=== PATIENT | male | born 1980 | race Caucasian/White ===

== ENCOUNTER → 2016-05-02 | Outpatient (REF) ==
--- NOTE | 2016-05-02 10:47 | REP ---
PARTIAL LUMBAR SPINE, THREE VIEWS: HISTORY: Degenerative disc disease. There is no acute fracture or subluxation. The L5-S1 intervertebral disc is decreased in height consistent with disc degeneration. IMPRESSION: Degenerative change as described above. Signed by Hammad Heath MD 05/02/2016 10:49 A
== END ==
LOC: M SMT 10:07
PROVIDERS: ATTEND Internal Medicine
DX: Z02.71 Encounter for disability determination (principal)

== ENCOUNTER 2019-04-04 01:31 | Emergency (ER) | payer OTHER ==
[~2019-04-04] VITALS: Ht 175.3 cm; Wt 78.6 kg
[2019-04-04 02:19] LABS: HEMATOCRIT 43.3 % (42.0-52.0); HEMOGLOBIN 14.3 g/dl (13.5-17.5); MEAN CORPUSCULAR VOLUME 93.9 fl (80.0-96.0); PLATELET COUNT, AUTOMATED 272 10^3/uL (150-450); RED BLOOD COUNT 4.61 10^6/uL (4.30-6.10); WHITE BLOOD COUNT 8.7 10^3/uL (4.0-10.0)
[2019-04-04 02:49] LABS: AMPHETAMINES LEVEL URINE POSITIVE (NEGATIVE); BARBITURATES URINE NEGATIVE (NEGATIVE); BENZODIAZEPINES URINE NEGATIVE (NEGATIVE); CANNABINOIDS URINE NEGATIVE (NEGATIVE); COCAINE METABOLITE URINE NEGATIVE (NEGATIVE); METHADONE URINE NEGATIVE (NEGATIVE); OPIATES URINE NEGATIVE (NEGATIVE); PHENCYCLIDINE URINE NEGATIVE (NEGATIVE)
[2019-04-04 02:57] LABS: ACETAMINOPHEN LEVEL < 2.0 UG/ML (10.0-30.0); ALBUMIN 3.5 GM/DL (3.2-5.2); ALT/SGPT 22 U/L (12-78); BILIRUBIN,DIRECT < 0.1 MG/DL (0.0-0.2); BILIRUBIN,TOTAL 0.3 MG/DL (0.2-1.0); BLOOD UREA NITROGEN 8 MG/DL (7-18); CALCIUM LEVEL 8.1 MG/DL (8.5-10.1); CARBON DIOXIDE LEVEL 28 MEQ/L (21-32); CHLORIDE LEVEL 107 MEQ/L (98-107); CREATININE FOR GFR 1.03 MG/DL (0.70-1.30); ETHYL ALCOHOL (ETHANOL) < 0.003 % (0.000-0.010); GLOMERULAR FILTRATION RATE > 60.0 (>60); GLUCOSE, FASTING 71 MG/DL (70-100); POTASSIUM SERUM 3.4 MEQ/L (3.5-5.1); SALICYLATE LEVEL 3.2 MG/DL (5.0-30.0); SODIUM LEVEL 141 MEQ/L (136-145); TOTAL PROTEIN 6.8 GM/DL (6.4-8.2)
[2019-04-04 04:44] VITALS: BP 122/81
== END 2019-04-04 04:49 | disposition home or self-care (01) ==
LOC: M ED 01:31
DX: F43.0 Acute stress reaction (principal); Z91.5 Personal history of self-harm; F32.9 Major depressive disorder, single episode, unspecified; F17.200 Nicotine dependence, unspecified, uncomplicated; Z88.0 Allergy status to penicillin
CPT/HCPCS: 80048; 80076; 80307; 84443; 85027; 99284; G0480

== ENCOUNTER 2019-05-20 15:08 | Emergency (ER) | payer OTHER ==
[~2019-05-20] VITALS: Ht 175.3 cm; Wt 77.2 kg
[2019-05-20] MEDS ORDERED: NICOTINE 21MG/24HR 1 EA TRANSDERMAL TD ONE (16:30)
[2019-05-20] MEDS ORDERED: DILT120C89 PO (16:34)
[2019-05-20] MEDS ORDERED: ABIL1INJ2 SC (16:34)
[2019-05-20] MEDS ORDERED: OMEP-218 PO (16:34)
[2019-05-20] MEDS ORDERED: MAGN400T3 PO (16:34)
[2019-05-20] MEDS ORDERED: ALL10TAB29 PO (16:34)
[2019-05-20] MEDS ORDERED: DOCU100C16 PO (16:34)
[2019-05-20] MEDS ORDERED: PROZ20CA11 PO (16:34)
[2019-05-20 17:05] LABS: HEMATOCRIT 45.4 % (42.0-52.0); HEMOGLOBIN 14.9 g/dl (13.5-17.5); MEAN CORPUSCULAR HEMOGLOBIN 30.4 pg (27.0-33.0); MEAN CORPUSCULAR HGB CONC 32.8 g/dl (32.0-36.5); MEAN CORPUSCULAR VOLUME 92.7 fl (80.0-96.0); PLATELET COUNT, AUTOMATED 274 10^3/uL (150-450); WHITE BLOOD COUNT 7.5 10^3/uL (4.0-10.0)
[2019-05-20 17:21] LABS: AMPHETAMINES LEVEL URINE NEGATIVE (NEGATIVE); BARBITURATES URINE NEGATIVE (NEGATIVE); BENZODIAZEPINES URINE NEGATIVE (NEGATIVE); CANNABINOIDS URINE NEGATIVE (NEGATIVE); COCAINE METABOLITE URINE NEGATIVE (NEGATIVE); METHADONE URINE NEGATIVE (NEGATIVE); OPIATES URINE NEGATIVE (NEGATIVE); PHENCYCLIDINE URINE NEGATIVE (NEGATIVE)
[2019-05-20 17:32] LABS: ACETAMINOPHEN LEVEL < 2.0 UG/ML (10.0-30.0); ALBUMIN 3.7 GM/DL (3.2-5.2); ALT/SGPT 31 U/L (12-78); BILIRUBIN,DIRECT 0.1 MG/DL (0.0-0.2); BILIRUBIN,TOTAL 0.4 MG/DL (0.2-1.0); BLOOD UREA NITROGEN 8 MG/DL (7-18); CALCIUM LEVEL 8.3 MG/DL (8.5-10.1); CARBON DIOXIDE LEVEL 29 MEQ/L (21-32); CHLORIDE LEVEL 105 MEQ/L (98-107); ETHYL ALCOHOL (ETHANOL) < 0.003 % (0.000-0.010); GLOMERULAR FILTRATION RATE > 60.0 (>60); GLUCOSE, FASTING 140 MG/DL (70-100); POTASSIUM SERUM 4.1 MEQ/L (3.5-5.1); SALICYLATE LEVEL 2.5 MG/DL (5.0-30.0); SODIUM LEVEL 140 MEQ/L (136-145); TOTAL PROTEIN 6.7 GM/DL (6.4-8.2)
[2019-05-20 20:20] VITALS: BP 128/68
== END 2019-05-20 20:24 | disposition home or self-care (01) ==
LOC: M ED 15:08
DX: F43.0 Acute stress reaction (principal); F32.9 Major depressive disorder, single episode, unspecified; I10 Essential (primary) hypertension; F17.200 Nicotine dependence, unspecified, uncomplicated; Z88.0 Allergy status to penicillin
CPT/HCPCS: 80048; 80076; 80307; 84443; 85027; 99284; G0480

== ENCOUNTER → 2020-03-31 | Outpatient (REF) | payer OTHER ==
[~2020-03-31] MED LIST: ABIL1INJ2 SC; CETI-24 PO; DILT120C89 PO; DOCU100C16 PO; MAGN400T3 PO; OMEP-218 PO; PROZ20CA11 PO
[2020-03-31 17:38] LABS: APPEARANCE, URINE CLEAR (CLEAR); BACTERIA, URINE AUTO NEGATIVE (NEGATIVE); BILIRUBIN, URINE AUTO NEGATIVE (NEGATIVE); BLOOD, URINE BLOOD NEGATIVE (NEGATIVE); COLOR, URINE YELLOW (YELLOW); GLUCOSE, URINE (UA) AUTO NEGATIVE (NEGATIVE); KETONE, URINE AUTO NEGATIVE (NEGATIVE); LEUKOCYTE ESTERASE, URINE AUTO NEGATIVE (NEGATIVE); NITRITE, URINE AUTO NEGATIVE (NEGATIVE); PROTEIN, URINE AUTO NEGATIVE (NEGATIVE); RBC, URINE AUTO 3 /HPF (0-3); SPECIFIC GRAVITY URINE AUTO 1.014 (1.002-1.035); SQUAMOUS EPITHELIAL CELL UR AU 0 /HPF (0-6); UROBILINOGEN, URINE AUTO 0.2 mg/dL (0.0-2.0); WBC, URINE AUTO 0 /HPF (0-3)
== END ==
LOC: M SMT 16:50
PROVIDERS: ATTEND Nurse Practitioner Family
DX: N32.89 Other specified disorders of bladder (principal)

== ENCOUNTER 2021-01-31 07:25 | Emergency (ER) | payer OTHER ==
[~2021-01-31] VITALS: Ht 175.3 cm; Wt 81.8 kg
[~2021-01-31 07:25] MED LIST changes: -MAGN400T3 PO; +MAGN400T33 PO
--- OUTSIDE RECORDS SUMMARY | 2021-01-31 07:34 | CCD ---
Author Author [facility] Organization [facility] Address Unknown Phone Unavailable Support Name Relationship Address Phone NONE, NONE Next Of Kin - Unknown - U Next Of Kin Unknown Unavailable JC BRENNER Next Of Kin [address] [place] [id number] [employer] [place] [address] Unavailabl e BAL BRENNER Next Of [facility] [address] [place] [employer] Next Of Kin [address] [place] [address] [place] [id number] [place] [address] [employer] [address] UNKNOWN, U Next Of Kin Unknown BIRNIE BUS Next Of Kin [address] [place] [address] NONE, PT PER Next Of Kin - -, - - - COLLIN BUS Next Of Kin [address] [place] [address] Areli SHARMA Next Of Kin [address] [place] [id number] Unavailable Areli BONNER Next Of Kin [address] [place] [address] - LINCOLN COLES Next Of Kin [address] [facility] [address] [place] [address] Unavailable LUPE EUBANKS Next Of Kin [address] [place] [id number] UN Next Of Kin Unknown Unavailable ESMER ASCENCIO Next Of Kin - -, - - SRINIVAS EUBANKS Next Of Kin - -, - - - SE Next Of Kin Unknown Unavailable DAJUAN [place] [address] Areli BRENNER ECON [address] [place] [address] DAJUAN GUNDERSON ECON [address] [facility] [address] [place] [address] [phone] dajuan quarles ECON [address] [place] [address] [phone] Care Team Providers Care Cell Room Operator Name Role Phone Kathia Booth MD Unavailable Unavailable Emmy, Kathia Araujo MD Unavailable Unavailable Emmy, Kathia Araujo MD Unavailable Unavailable Emmy, Kathia Araujo MD Unavailable Unavailable Emmy, Kathia Araujo MD Unavailable Unavailable Emmy, Kathia Araujo MD Unavailable Unavailable Emmy, Kathia Araujo MD Unavailable Unavailable Emmy, Kathia Araujo MD Unavailable Unavailable Din, Kathia Araujo MD Unavailable Unavailable Emmy, Kathia Araujo MD Unavailable Unavailable Emmy, Kathia Araujo MD Unavailable Unavailable Emmy, Kathia Araujo MD Unavailable Unavailable Emmy, Kathia Araujo MD Unavailable Unavailable Emmy, Kathia Araujo MD Unavailable Unavailable Kathia Booth MD Unavailable Unavailable Emmy, Kathia Araujo MD Unavailable Unavailable Kathia Booth MD Unavailable Unavailable [place], L Rajani ENGRAVER BLOCK Unavailable Unavailable [place], L Rajani ENGRAVER BLOCK Unavailable Unavailable [place], L Rajani ENGRAVER BLOCK Unavailable Unavailable [place], L Rajani ENGRAVER BLOCK Unavailable Unavailable [place], L Rajani ENGRAVER BLOCK Unavailable Unavailable [place], L Rajani ENGRAVER BLOCK Unavailable Unavailable [place], L Rajani ENGRAVER BLOCK Unavailable Unavailable [place], L Rajani ENGRAVER BLOCK Unavailable Unavailable [place], L Rajani ENGRAVER BLOCK Unavailable Unavailable [place], L Rajani ENGRAVER BLOCK Unavailable Unavailable [place], L Rajani ENGRAVER BLOCK Unavailable Unavailable [place], L Rajani ENGRAVER BLOCK Unavailable Unavailable [place], L Rajani ENGRAVER BLOCK Unavailable Unavailable KOPIDLANSKYZuleyka PROCESS ENGINEER-NETWORKER-C Unavailable Unava ilable KOPIDLANSKYZuleyka PROCESS ENGINEER-NETWORKER-C Unavailable Unava ilable KOPIDLANSKYZuleyka PROCESS ENGINEER-NETWORKER-C Unavailable Unava ilable KOPIDLANSKYZuleyka APRN-NETWORKER-C Unavailable Unava ilable KOPIDLANSKYZuleyka PROCESS ENGINEER-NETWORKER-C Unavailable Unava ilable KOPIDLANSKYZuleyka APRN-NETWORKER-C Unavailable Unava ilable KOPIDLANSKYZuleyka APRN-NETWORKER-C Unavailable Unava ilable KOPIDLANSKYZuleyka PROCESS ENGINEER-NETWORKER-C Unavailable Unava ilable KOPIDLANSKY, Zuleyka WU APRN-NETWORKER-C Unavailable Unava ilable KOPIDLANSKY, Zuleyka WU APRN-NETWORKER-C Unavailable Unava ilable KOPIDLANSKY, Zuleyka WU APRN-NETWORKER-C Unavailable Unava ilable KOPIDLANSKY, Zuleyka WU APRN-NETWORKER-C Unavailable Unava ilable KOPIDLANSKY, Zuleyka WU APRN-NETWORKER-C Unavailable Unava ilable KOPIDLANSKY, Zuleyka WU APRN-NETWORKER-C Unavailable Unava ilable KOPIDLANSKY, Zuleyka WU APRN-NETWORKER-C Unavailable Unava ilable KOPIDLANSKY, Zuleyka WU APRN-NETWORKER-C Unavailable Unava ilable KOPIDLANSKY, Zuleyka WU APRN-NETWORKER-C Unavailable Unava ilable KOPIDLANSKY, Zuleyka WU APRN-NETWORKER-C Unavailable Unava ilable KOPIDLANSKY, Zuleyka WU APRN-NETWORKER-C Unavailable Unava ilable KOPIDLANSKY, Zuleyka WU APRN-NETWORKER-C Unavailable Unava ilable KOPIDLANSKY, Zuleyka WU APRN-NETWORKER-C Unavailable Unava ilable KOPIDLANSKY, Zuleyka WU APRN-NETWORKER-C Unavailable Unava ilable KOPIDLANSKY, Zuleyka WU APRN-NETWORKER-C Unavailable Unava ilable KOPIDLANSKY, Zuleyka WU APRN-NETWORKER-C Unavailable Unava ilable KOPIDLANSKY, Zuleyka WU APRN-NETWORKER-C Unavailable Unava ilable KOPIDLANSKY, Zuleyka WU APRN-NETWORKER-C Unavailable Unava ilable KOPIDLANSKY, Zuleyka WU APRN-NETWORKER-C Unavailable Unava ilable KOPIDLANSKY, Zuleyka WU PROCESS ENGINEER-NETWORKER-C Unavailable Unava ilable KOPIDLANSKY, Zuleyka WU APRN-NETWORKER-C Unavailable Unava ilable KOPIDLANSKY, Zuleyka WU APRN-NETWORKER-C Unavailable Unava ilable KOPIDLANSKY, Zuleyka WU APRN-NETWORKER-C Unavailable Unava ilable KOPIDLANSKY, Zuleyka WU PROCESS ENGINEER-NETWORKER-C Unavailable Unava ilable Zuleyka GIRARD PROCESS ENGINEER-NETWORKER-C Unavailable Unava ilable CALE DIA MD Unavailable Unavailable CALE DIA MD Unavailable Unavailable Doctor Provided, Family PHYS No Family Unavailable U navailable Tana, P Lincoln DO Unavailable Unavailable Tana, P Lincoln DO Unavailable Unavailable Tana, P Lincoln DO Unavailable Unavailable Tana, P Lincoln DO Unavailable Unavailable Tana, P Lincoln DO Unavailable Unavailable Tana, P Lincoln DO Unavailable Unavailable Tana, P Lincoln DO Unavailable Unavailable Tana, P Lincoln DO Unavailable Unavailable Tana, P Lincoln DO Unavailable Unavailable Tana, P Lincoln DO Unavailable Unavailable Tana, P Lincoln DO Unavailable Unavailable Tana, P Lincoln DO Unavailable Unavailable Tana, P Lincoln DO Unavailable Unavailable Tana, P Lincoln DO Unavailable Unavailable Tana, P Lincoln DO Unavailable Unavailable Tana, P Lincoln DO Unavailable Unavailable Tnaa, P Lincoln DO Unavailable Unavailable Tana, P Lincoln DO Unavailable Unavailable Tana, P Lincoln DO Unavailable Unavailable Tana, P Lincoln DO Unavailable Unavailable Tana, P Lincoln DO Unavailable Unavailable Tana, P Lincoln DO Unavailable Unavailable Tana, P Lincoln DO Unavailable Unavailable Tana, P Lincoln DO Unavailable Unavailable Tana, P Lincoln DO Unavailable Unavailable Tana, P Lincoln DO Unavailable Unavailable Tana, P Lincoln DO Unavailable Unavailable Tana, P Lincoln DO Unavailable Unavailable Tana, P Lincoln DO Unavailable Unavailable Tana, P Lincoln DO Unavailable Unavailable Tana, P Lincoln DO Unavailable Unavailable Tana, P Lincoln DO Unavailable Unavailable Tana, P Lincoln DO Unavailable Unavailable Tana, P Lincoln DO Unavailable Unavailable Tana, P Lincoln DO Unavailable Unavailable Tana, P Lincoln DO Unavailable Unavailable Tana, P Lincoln DO Unavailable Unavailable Tana, P Lincoln DO Unavailable Unavailable Tana, P Lincoln DO Unavailable Unavailable Tana, P Lincoln DO Unavailable Unavailable Tana, P Lincoln DO Unavailable Unavailable Tana, P Lincoln DO Unavailable Unavailable Tana, P Lincoln DO Unavailable Unavailable Tana, P Lincoln DO Unavailable Unavailable Tana, P Lincoln DO Unavailable Unavailable Tana, P Lincoln DO Unavailable Unavailable Tana, P Lincoln DO Unavailable Unavailable Tana, P Lincoln DO Unavailable Unavailable Tana, P Lincoln DO Unavailable Unavailable Tana, P Lincoln DO Unavailable Unavailable Tana, P Lincoln DO Unavailable Unavailable Tana, P Lincoln DO Unavailable Unavailable Tana, P Lincoln DO Unavailable Unavailable Tana, P Lincoln DO Unavailable Unavailable Tana, P Lincoln DO Unavailable Unavailable Tana, P Lincoln DO Unavailable Unavailable Tana, P Lincoln DO Unavailable Unavailable Tana, P Lincoln DO Unavailable Unavailable Tana, P Lincoln DO Unavailable Unavailable Tana, P Lincoln DO Unavailable Unavailable Tana, P Lincoln DO Unavailable Unavailable Tana, P Lincoln DO Unavailable Unavailable Tana, P Lincoln DO Unavailable Unavailable Tana, P Lincoln DO Unavailable Unavailable Tana, P Lincoln DO Unavailable Unavailable Tana, P Lincoln DO Unavailable Unavailable Tana, P Lincoln DO Unavailable Unavailable Tana, P Lincoln DO Unavailable Unavailable Tana, P Lincoln DO Unavailable Unavailable Tana, P Lincoln DO Unavailable Unavailable Tana, P Lincoln DO Unavailable Unavailable Cougler, S Fredis ENGRAVER BLOCK Unavailable Unavailable Cougler, S Fredis ENGRAVER BLOCK Unavailable Unavailable Cougler, S Fredis ENGRAVER BLOCK Unavailable Unavailable Cougler, S Fredis ENGRAVER BLOCK Unavailable Unavailable Cougler, S Fredis ENGRAVER BLOCK Unavailable Unavailable Cougler, S Fredis ENGRAVER BLOCK Unavailable Unavailable Cougler, S Fredis ENGRAVER BLOCK Unavailable Unavailable Cougler, S Fredis ENGRAVER BLOCK Unavailable Unavailable Cougler, S Fredis ENGRAVER BLOCK Unavailable Unavailable Cougler, S Fredis ENGRAVER BLOCK Unavailable Unavailable Cougler, S Fredis ENGRAVER BLOCK Unavailable Unavailable Cougler, S Fredis ENGRAVER BLOCK Unavailable Unavailable Cougler, S Fredis ENGRAVER BLOCK Unavailable Unavailable Cougler, S Fredis ENGRAVER BLOCK Unavailable Unavailable Cougler, S Fredis ENGRAVER BLOCK Unavailable Unavailable Cougler, S Fredis ENGRAVER BLOCK Unavailable Unavailable Cougler, S Fredis ENGRAVER BLOCK Unavailable Unavailable Cougler, S Fredis ENGRAVER BLOCK Unavailable Unavailable Cougler, S Fredis ENGRAVER BLOCK Unavailable Unavailable Cougler, S Fredis ENGRAVER BLOCK Unavailable Unavailable Cougler, S Fredis ENGRAVER BLOCK Unavailable Unavailable Cougler, S Fredis ENGRAVER BLOCK Unavailable Unavailable Cougler, S Fredis ENGRAVER BLOCK Unavailable Unavailable Cougler, S Fredis ENGRAVER BLOCK Unavailable Unavailable Cougler, S Fredis ENGRAVER BLOCK Unavailable Unavailable Cougler, S Fredis ENGRAVER BLOCK Unavailable Unavailable Cougler, S Fredis ENGRAVER BLOCK Unavailable Unavailable Cougler, S Fredis ENGRAVER BLOCK Unavailable Unavailable Cougler, S Fredis ENGRAVER BLOCK Unavailable Unavailable Cougler, S Fredis ENGRAVER BLOCK Unavailable Unavailable Cougler, S Fredis ENGRAVER BLOCK Unavailable Unavailable Cougler, S Fredis ENGRAVER BLOCK Unavailable Unavailable Cougler, S Fredis ENGRAVER BLOCK Unavailable Unavailable Cougler, S Fredis ENGRAVER BLOCK Unavailable Unavailable Cougler, S Fredis ENGRAVER BLOCK Unavailable Unavailable Cougler, S Fredis ENGRAVER BLOCK Unavailable Unavailable Cougler, S Fredis ENGRAVER BLOCK Unavailable Unavailable Cougler, S Fredis ENGRAVER BLOCK Unavailable Unavailable Cougler, S Fredis ENGRAVER BLOCK Unavailable Unavailable Cougler, S Fredis ENGRAVER BLOCK Unavailable Unavailable Cougler, S Fredis ENGRAVER BLOCK Unavailable Unavailable Cougler, S Fredis ENGRAVER BLOCK Unavailable Unavailable Cougler, S Fredis ENGRAVER BLOCK Unavailable Unavailable Cougler, S Fredis ENGRAVER BLOCK Unavailable Unavailable AMNA, A JULIEN PA Unavailable Unavailable AMNA, A JULIEN PA Unavailable Unavailable AMNA, A JULIEN PA Unavailable Unavailable AMNA, A JULIEN PA Unavailable Unavailable AMNA, A JULIEN PA Unavailable Unavailable AMNA, A JULIEN PA Unavailable Unavailable AMNA, A JULIEN PA Unavailable Unavailable AMNA, A JULIEN PA Unavailable Unavailable AMNA, A JULIEN PA Unavailable Unavailable AMNA, A JULIEN PA Unavailable Unavailable AMNA, A JULIEN PA Unavailable Unavailable AMNA, A JULIEN PA Unavailable Unavailable AMNA, A JULIEN PA Unavailable Unavailable Geovani Zimmerman MD Unavailable Unavailable Geovani Zimmerman MD Unavailable Unavailable Geovani Zimmerman MD Unavailable Unavailable Geovani Zimmerman MD Unavailable Unavailable Geovani Zimmerman MD Unavailable Unavailable Geovani Zimmerman MD Unavailable Unavailable Geovani iZmmerman MD Unavailable Unavailable Geovani Zimmerman MD Unavailable Unavailable Geovani Zimmreman MD Unavailable Unavailable Geovani Zimmerman MD Unavailable Unavailable Geovani Zimmerman MD Unavailable Unavailable Geovani Zimmerman MD Unavailable Unavailable Geovani Zimmerman MD Unavailable Unavailable Geovani Zimmerman MD Unavailable Unavailable Tana, P Lincoln DO Unavailable Unavailable Tana, P Lincoln DO Unavailable Unavailable Tana, P Lincoln DO Unavailable Unavailable Tana, P Lincoln DO Unavailable Unavailable Tana, P Lincoln DO Unavailable Unavailable Tana, P Lincoln DO Unavailable Unavailable Tana, P Lincoln DO Unavailable Unavailable Tana, P Lincoln DO Unavailable Unavailable Tana, P Lincoln DO Unavailable Unavailable Tana, P Lincoln DO Unavailable Unavailable Tana, P Lincoln DO Unavailable Unavailable Tana, P Lincoln DO Unavailable Unavailable Tana, P Lincoln DO Unavailable Unavailable Tana, P Lincoln DO Unavailable Unavailable Tana, P Lincoln DO Unavailable Unavailable Tana, P Lincoln DO Unavailable Unavailable Tana, P Lincoln DO Unavailable Unavailable Tana, P Lincoln DO Unavailable Unavailable Tana, P Lincoln DO Unavailable Unavailable Tana, P Lincoln DO Unavailable Unavailable Tana, P Lincoln DO Unavailable Unavailable Tana, P Lincoln DO Unavailable Unavailable Tana, P Lincoln DO Unavailable Unavailable Tana, P Lincoln DO Unavailable Unavailable Tana, P Lincoln DO Unavailable Unavailable Tana, P Lincoln DO Unavailable Unavailable Tana, P Lincoln DO Unavailable Unavailable Tana, P Lincoln DO Unavailable Unavailable Atna, P Lincoln DO Unavailable Unavailable Tana, P Lincoln DO Unavailable Unavailable Tana, P Lincoln DO Unavailable Unavailable Tana, P Lincoln DO Unavailable Unavailable Tana, P Lincoln DO Unavailable Unavailable Tana, P Lincoln DO Unavailable Unavailable Tana, P Lincoln DO Unavailable Unavailable Tana, P Lincoln DO Unavailable Unavailable Tana, P Lincoln DO Unavailable Unavailable Tana, P Lincoln DO Unavailable Unavailable Tana, P Lincoln DO Unavailable Unavailable Tana, P Lincoln DO Unavailable Unavailable Tana, P Lincoln DO Unavailable Unavailable Tana, P Lincoln DO Unavailable Unavailable Tana, P Lincoln DO Unavailable Unavailable Tana, P Lincoln DO Unavailable Unavailable Tana, P Lincoln DO Unavailable Unavailable Tana, P Lincoln DO Unavailable Unavailable Tana, P Lincoln DO Unavailable Unavailable Tana, P Lincoln DO Unavailable Unavailable Tana, P Lincoln DO Unavailable Unavailable Tana, P Lincoln DO Unavailable Unavailable Tana, P Lincoln DO Unavailable Unavailable Tana, P Lincoln DO Unavailable Unavailable Tana, P Lincoln DO Unavailable Unavailable Tana, P Lincoln DO Unavailable Unavailable Tana, P Lincoln DO Unavailable Unavailable Tana, P Lincoln DO Unavailable Unavailable Tana, P Lincoln DO Unavailable Unavailable Tana, P Lincoln DO Unavailable Unavailable Tana, P Lincoln DO Unavailable Unavailable Tana, P Lincoln DO Unavailable Unavailable Tana, P Lincoln DO Unavailable Unavailable Tana, P Lincoln DO Unavailable Unavailable Tana, P Lincoln DO Unavailable Unavailable Tana, P Lincoln DO Unavailable Unavailable Tana, P Lincoln DO Unavailable Unavailable Tana, P Lincoln DO Unavailable Unavailable Tana, P Lincoln DO Unavailable Unavailable Tana, P Lincoln DO Unavailable Unavailable Tana, P Lincoln DO Unavailable Unavailable Tana, P Lincoln DO Unavailable Unavailable Tana, P Lincoln DO Unavailable Unavailable SANDEEP, OSCAR MD Unavailable Unavailable SANDEEP, OSCAR MD Unavailable Unavailable SANDEEP, OSCAR MD Unavailable Unavailable SANDEEP, OSCAR MD Unavailable Unavailable SANDEEP, OSCAR MD Unavailable Unavailable NESTOR EISENBERG MD Unavailable Unavailable NESTOR EISENBERG MD Unavailable Unavailable NESTOR EISENBERG MD Unavailable Unavailable NESTOR EISENBERG MD Unavailable Unavailable NESTOR EISENBERG MD Unavailable Unavailable NESTOR EISENBERG MD Unavailable Unavailable Kathia CORTEZ MD Unavailable Unavailable Kathia CORTEZ MD Unavailable Unavailable Kathia CORTEZ MD Unavailable Unavailable Kathia CORTEZ MD Unavailable Unavailable Kathia CORTEZ MD Unavailable Unavailable Kathia CORTEZ MD Unavailable Unavailable Kathia CORTEZ MD Unavailable Unavailable Kathia CORTEZ MD Unavailable Unavailable Kathia CORTEZ MD Unavailable Unavailable Kathia CORTEZ MD Unavailable Unavailable Kathia CORTEZ MD Unavailable Unavailable Kathia CORTEZ MD Unavailable Unavailable Kathia CORTEZ MD Unavailable Unavailable Kathia CORTEZ MD Unavailable Unavailable Kathia CORTEZ MD Unavailable Unavailable Kathia CORTEZ MD Unavailable Unavailable Kathia CORTEZ MD Unavailable Unavailable Kathia CORTEZ MD Unavailable Unavailable Kathia CORTEZ MD Unavailable Unavailable Kathia CORTEZ MD Unavailable Unavailable Kathia CORTEZ MD Unavailable Unavailable Kathia CORTEZ MD Unavailable Unavailable Kathia CORTEZ MD Unavailable Unavailable Kathia CORTEZ MD Unavailable Unavailable Kathia CORTEZ MD Unavailable Unavailable Kathia CORTEZ MD Unavailable Unavailable Kathia CORTEZ MD Unavailable Unavailable Kathia CORTEZ MD Unavailable Unavailable Kathia CORTEZ MD Unavailable Unavailable Kathia CORTEZ MD Unavailable Unavailable Kathia CORTEZ MD Unavailable Unavailable Kathia CORTEZ MD Unavailable Unavailable Kathia CORTEZ MD Unavailable Unavailable Kathia CORTEZ MD Unavailable Unavailable Kathia CORTEZ MD Unavailable Unavailable Kathia CORTEZ MD Unavailable Unavailable Kathia CORTEZ MD Unavailable Unavailable Kathia CORTEZ MD Unavailable Unavailable Kathia CORTEZ MD Unavailable Unavailable Kathia CORTEZ MD Unavailable Unavailable Kathia CORTEZ MD Unavailable Unavailable Kathia CORTEZ MD Unavailable Unavailable Kathia CORTEZ MD Unavailable Unavailable Kathia CORTEZ MD Unavailable Unavailable Kathia CORTEZ MD Unavailable Unavailable Kathia CORTEZ MD Unavailable Unavailable Areli NORTON MD Unavailable Unavailable Areli NORTON MD Unavailable Unavailable Areli NORTON MD Unavailable Unavailable Areli NORTON MD Unavailable Unavailable Areli NORTON MD Unavailable Unavailable Areli NORTON MD Unavailable Unavailable Areli NORTON MD Unavailable Unavailable Areli NORTON MD Unavailable Unavailable PARSHALL, A DAJUAN MD Unavailable Unavailable PARSHALL, A DAJUAN MD Unavailable Unavailable PARSHALL, A DAJUAN MD Unavailable Unavailable PARSHALL, A DAJUAN MD Unavailable Unavailable PARSHALL, A DAJUAN MD Unavailable Unavailable PARSHALL, A DAJUAN MD Unavailable Unavailable PARSHALL, A DAJUAN MD Unavailable Unavailable PARSHALL, A DAJUAN MD Unavailable Unavailable PARSHALL, A DAJUAN MD Unavailable Unavailable PARSHALL, A DAJUAN MD Unavailable Unavailable PARSHALL, A DAJUAN MD Unavailable Unavailable PARSHALL, A DAJUAN MD Unavailable Unavailable PARSHALL, A DAJUAN MD Unavailable Unavailable PARSHALL, A DAJUAN MD Unavailable Unavailable PARSHALL, A DAJUAN MD Unavailable Unavailable PARSHALL, A DAJUAN MD Unavailable Unavailable PARSHALL, A DAJUAN MD Unavailable Unavailable PARSHALL, A DAJUAN MD Unavailable Unavailable PARSHALL, A DAJUAN MD Unavailable Unavailable PARSHALL, A DAJUAN MD Unavailable Unavailable PARSHALL, A DAJUAN MD Unavailable Unavailable PARSHALL, A DAJUAN MD Unavailable Unavailable PARSHALL, A DAJUAN MD Unavailable Unavailable PARSHALL, A DAJUAN MD Unavailable Unavailable JAVIER, SILVINO PA Unavailable Unavailable JAVIER, SILVINO PA Unavailable Unavailable JAVIER, SILVINO PA Unavailable Unavailable JAVIER, SILVINO PA Unavailable Unavailable JAVIER, SILVINO PA Unavailable Unavailable JAVIER, SILVINO PA Unavailable Unavailable JAVIER, SILVINO PA Unavailable Unavailable Pedro, Geovani Brady PA-C Unavailable Unavailable Pedro, M Brady PA-C Unavailable Unavailable Christopher, Kathi Unavailable Unavailable Christopher, Kathi Unavailable Unavailable Christopher, Kathi Unavailable Unavailable Christopher, Kathi Unavailable Unavailable Christopher, Kathi Unavailable Unavailable Christopher, Kathi Unavailable Unavailable Armida, [id number] MD Juma CHEUNG Unavailable Unavailable Armida, [id number] MD Juma CHEUNG Unavailable Unavailable Armida, [id number] MD Juma CHEUNG Unavailable Unavailable CHANLIECGERMAIN, C GURPREET CHEUNG Unavailable Unavailable CHANLIECCO, C GURPREET CHEUNG Unavailable Unavailable CHANLIECCO, C GURPREET MD Unavailable Unavailable CHANLIECCO, C GURPREET MD Unavailable Unavailable CHANLIECCO, C GURPREET MD Unavailable Unavailable CHANLIECCO, C GURPREET MD Unavailable Unavailable CHANLIECCO, C GURPREET MD Unavailable Unavailable CHANLIECCO, C GURPREET MD Unavailable Unavailable CHANLIECCO, C GURPREET MD Unavailable Unavailable CHANLIECCO, C GURPREET MD Unavailable Unavailable CHANLIECCO, C GURPREET MD Unavailable Unavailable Re-disclosure Warning The records that you are about to access may contain information from federally-assisted alcohol or drug abuse programs. If such information is present, then the following federally mandated warning applies: This information has been disclosed to you from records protected by federal confidentiality rules (42 CFR part 2). The federal rules prohibit you from making any further disclosure of this information unless further disclosure is expressly permitted by the written consent of the person to whom it pertains or as otherwise permitted by 42 CFR part 2. A general authorization for the release of medical or other information is NOT sufficient for this purpose. The Federal rules restrict any use of the information to criminally investigate or prosecute any alcohol or drug abuse patient.The records that you are about to access may contain highly sensitive health information, the redisclosure of which is protected by Article 27-F of the [facility] Public Health law. If you continue you may have access to information: Regarding HIV / AIDS; Provided by facilities licensed or operated by the [facility] Office of Mental Health; or Provided by the [facility] Office for People With Developmental Disabilities. If such information is present, then the following [facility] mandated warning applies: This information has been disclosed to you from confidential records which are protected by state law. State law prohibits you from making any further disclosure of this information without the specific written consent of the person to whom it pertains, or as otherwise permitted by law. Any unauthorized further disclosure in violation of state law may result in a fine or mcc sentence or both. A general authorization for the release of medical or other information is NOT sufficient authorization for further disc losure. Allergies and Adverse Reactions Type Description Substance Reaction Status Data Source(s ) Drug allergy penicillin G Penicillin G Anaphylaxis [facility] Drug allergy Carbapenems Carbapenems Rash [place] [facility] Drug allergy Cephalosporins Cephalosporins Angioedema [facility] Drug allergy Penicillins Penicillin Anaphylaxis [facility] Drug allergy promethazine HCl promethazine HCl Dizzyness [place] O ther, not listed [facility] Drug allergy Drug allergy [facility]icillins [facility] Drug allergy Penicillins Penicillins Anaphylaxis [facility] Propensity to adverse reactions NO ALLERGIES ON FILE NO ALLERGIES ON FILE [facility] Propensity to adverse reactions PROMETHAZINE Promethazine Dizziness L ow [facility] Propensity to adverse reactions CARBAPENEMS CARBAPENEMS Rash Med [facility] Propensity to adverse reactions PENICILLINS PENICILLINS Anaphylaxis H igh [facility] Propensity to adverse reactions PENICILLIN G Penicillin G Anaphylaxis [facility] Propensity to adverse reactions CEPHALOSPORINS CEPHALOSPORINS Swellin g High [facility] Family History Family Member Name Family Member Gender Family Member Status Date o f Status Description Data Source(s) Unknown Condition [facility] Unknown [facility] Unknown [facility] Unknown Condition [facility] Unknown Condition [facility] Unknown Condition [facility] Unknown Condition [facility] Unknown Condition [facility] Unknown Condition [facility] Unknown Condition [facility] Unknown Condition [facility] Condition [facility] Condition [facility] Condition [facility] Condition [facility] Condition [facility] Condition [facility] Condition [facility] Condition [facility] Condition [facility] Condition [facility] Condition [facility] Condition [facility] Condition [facility] Condition [facility] Condition [facility] Condition [facility] Condition [facility] Condition [facility] Unknown Condition [facility] Unknown Condition [facility] Unknown Condition [facility] Unknown Condition [facility] Unknown Condition [facility] Unknown Condition [facility] Encounters Encounter Providers Location Date Indications Data Source(s ) Emergency Attender: GURPREET KUHN MDConsultant: Herman Fajardo DO 12/12/2020 03:00:00 PM EDT - 12/12/2020 03:45:00 PM EDT [facility] Patient discharged. Preadmit Attender: Lincoln Fajardo DO 12/08/2020 12:00:00 AM EDT I10,E78.00 [facility] I10,E78.00 Outpatient Attender: Rajani Yoo ENGRAVER BLOCK 10/13/2020 02:55:00 PM EDT [facility] Outpatient Attender: Rajani Yoo NPReferrer: Lincoln Fajardo DO 10/13/2020 02:30:00 PM EDT - 10/13/2020 03:08:[address] [facility] Emergency Attender: SILVINO REYNOSO ED-ED 08/11 06:45:00 PM EDT - 08/11/2020 07:44:00 PM EDT DOG BITE SWOLLEN LEFT HAND [facility] DOG BITE SWOLLEN LEFT HAND Patient discharged. Outpatient Attender: Lincoln Fajardo DOReferrer: Lincoln Fajardo DO 07/29/2020 03:16:00 PM EDT [facility] Out[facility] Attender: Lincoln Fajardo DO 06/28/2020 06:06:00 PM EDT [facility] Preadmit Attender: Lincoln Fajardo DO 06/22/2020 12:00:00 AM EDT I10,E78.00 [facility] I10,E78.00 Outpatient Attender: Kathi WhiteReferrer: Lincoln Fajardo DO 04/27/2020 10:06:00 AM [facility] - 04/27/2020 10:22:00 AM EST [facility] Outpatient Attender: Mohit VILLANUEVAeferrer: Lincoln Fajardo DO 04/20/2020 12:56:00 PM [facility] 04/20/2020 01:06:00 PM EST [facility] Outpatient Attender: Kathi WhiteReferrer: Lincoln Fajardo DO 04/16/2020 09:39:00 AM [facility] 04/16/2020 10:06:00 AM EST [facility] Outpatient Attender: Kathi WhiteReferrer: Lincoln Fajardo DO 04/12/2020 02:45:00 PM [facility] - 04/12/2020 03:06:00 PM EST [facility] Emergency Attender: DAJUAN NORTON MD 04/12 02:16:00 PM EST - 04/12/2020 02:45:00 PM EST BLOOD IN CATHETER,ABDOMINAL PAIN [facility] BLOOD IN CATHETER,ABDOMINAL PAIN Patient discharged. Emergency Attender: Fredis Conte NP ED-ED 04/10 09:21:00 PM EST - 04/10/2020 09:55:00 PM EST BURNING PRESSURE SWOLLEN AREA CATH IS [facility] BURNING PRESSURE SWOLLEN AREA CATH IS Patient discharged. Outpatient Attender: [id number] Juma Huffman MDAttender: Mohit peterson MD 04/08/2020 09:06:00 AM EST - 04/08/2020 08:05:00 PM EST K40.90/LAP BILATERAL INGUIAL HERNIA REPAIR [id number] [facility] K40.90/[place] [id number] Patient discharged. (Cysto1) Urology [address] [place] [address] 04/07/2020 12:00:00 AM EST eCW1 ([facility]) Outpatient Attender: Lincoln Fajardo DOReferrer: Lincoln Fajardo DO 04/06/2020 12:42:00 PM EST [facility] Outpatient Attender: [id number] Juma Huffman MDReferrer: Mami Fajardo DO 04/06/2020 11:43:00 AM EST - 04/06/2020 12:17:00 PM EST [facility] Outpatient [address] [facility] [id number] 03/31/2020 12:00:00 AM EST eCW1 ([facility]) Inpatient Attender: OSCAR HOPKINS MDAtten samantha: HOMER DIA MDAttender: NESTOR EISENBERG MDAdmitter: HOMER DIA MD ER-3RD 03/22/2020 07: 36:00 PM EST - 03/26/2020 11:05:00 AM EST [facility] Patient discharged. Emergency Attender: Brady Pedro PA-C 11/2019 07:10:00 PM EST - 03/16/2020 09:13:00 PM EST HEADACHE[facility]BNESS [facility]HE[facility]NUMBN[facility] HANDS Patient discharged. INPATIENT Attender: Van Booth MDAdmi tter: Van Booth MDConsultant: LUKE CORTEZ MD 2E-2C 03/13/2020 06:00:00 AM EST - 03/13/2020 02:05:00 PM EST [facility] Patient discharged. Emergency Attender: Brady Pedro PA-C 08/2019 12:54:00 AM EST - 03/13/2020 04:45:00 AM EST DIZZINESS [facility] l DIZZINESS Patient discharged. Outpatient CPSCAORT-LABEJN 03/08/2020 10:15:00 AM [facility] Emergency Attender: JULIEN REYNOSO ED-ED 03/07 04:43:00 PM EST - 03/07/2020 06:27:00 PM [facility] GROIN PAIN [facility] GROIN PAIN Patient discharged. Outpatient Attender: [id number] Juma Huffman MD 03/02/2020 08 :57:00 AM EST PREOP [facility] PREOP Outpatient Attender: [id number] Juma Huffman MDReferrer: Mami Fajardo DO 03/02/2020 07:48:00 AM [facility] - 03/02/2020 08:33:00 AM [facility] Outpatient Attender: Lincoln Ganner: No Family Doct or Provided 02/24/2020 04:33:00 PM [facility] Outpatient Attender: Mohit Zimmerman MDReferrer: Lincoln Fajardo DO 02/13/2020 11:58:00 AM [facility] - 02/13/2020 12:24:00 PM [facility] Emergency Attender: DAJUAN NORTON MD 02/11 11:34:00 AM [facility] - 02/12/2020 06:42:00 PM EST POSSIBLE HERNIA [facility] POSSIBLE HERNIA Patient discharged. Outpatient Attender: Lincoln Chapman: No Family Doct or Provided 02/12/2020 10:22:00 AM [facility] Outpatient Attender: TERI GORDON 01/07/2020 05:22:00 PM EDT U07.1 [facility] U07.1 Outpatient Attender: TERI GIRARD APRN-FNP-CReferre r: Lincoln Fajardo DO 01/07/2020 04:50:00 PM EDT - 01/07/2020 04:57:00 PM EDT [facility] Immunizations Vaccine Date Status Description Data Source(s) COVID-19 Moderna 07/15/2020 12:00:00 AM EDT completed [facility] COVID-19 VACCINE Moderna 07/15/2020 12:00:00 AM EDT completed [facility] Vaccine Series Complete: YESThis Data wa s Submitted to [facility] Via [employer]. COVID-19 Moderna 06/17/2020 12:00:00 AM EST completed [facility] COVID-19 VACCINE Moderna 06/17/2020 12:00:00 AM EST completed [facility] Vaccine Series Complete: NOThis Data was Submitted to [facility] Via [employer]. Medications Medication Brand Name Start Date Product Form Dose Route Admi nistrative Instructions Pharmacy Instructions Status Indications Reaction Description Data Source(s) Azithromycin 10/13/2020 03:04:56 PM EDT 0 activ e [facility] 24 HR venlafaxine 37.5 MG Extended Release Oral Capsule Venl afaxine Venlafaxine 06/10/2020 06:43:30 PM EST 37.5 MG completed [facility] Omeprazole 20 MG Delayed Release Oral Capsule Omeprazole 04/22/2020 06:00:49 PM EST [address] [facility] Omeprazole 20 MG Delayed Release Oral Capsule Omeprazole 04/22/2020 06:00:49 PM EST 20 MG completed [facility] Metoprolol Tartrate 25 MG Oral Tablet Metoprolol Tartrate 06:00:36 PM EST 25 MG completed [facility] Metoprolol Tartrate 25 MG Oral Tablet Metoprolol Tartrate 06:00:36 PM EST [address] [facility] atorvastatin 40 MG Oral Tablet Atorvastatin Atorvastatin 04/22/2020 06:00:16 PM EST [address] [facility] atorvastatin 40 MG Oral Tablet Atorvastatin Atorvastatin 04/22/2020 06:00:16 PM EST 40 MG completed [facility] Acetaminophen 325 MG / Oxycodone Hydroch loride 5 MG Oral Tablet Oxycodone- Acetaminophen (Endocet) 5-325 mg tablet Oxycodone-Acetaminophen (Endocet) 5-325 mg tablet 04/08/2020 04:02:22 PM EST 1 TAB active [facility] Acetaminophen 325 MG / Oxycodone Hydroch loride 5 MG Oral Tablet Oxycodone- Acetaminophen (Endocet) 5-325 mg tablet Oxycodone-Acetaminophen (Endocet) 5-325 mg tablet 04/08/2020 04:02:22 PM EST 1 TAB active [facility] Acetaminophen 325 MG / Oxycodone Hydroch loride 5 MG Oral Tablet Oxycodone- Acetaminophen (Endocet) 5-325 mg tablet Oxycodone-Acetaminophen (Endocet) 5-325 mg tablet 04/08/2020 04:02:22 PM EST 1 TAB active [facility] Acetaminophen 325 MG / Oxycodone Hydroch loride 5 MG Oral Tablet Oxycodone- Acetaminophen (Endocet) 5-325 mg tablet Oxycodone-Acetaminophen (Endocet) 5-325 mg tablet 04/08/2020 04:02:22 PM EST 1 TAB active [facility] Acetaminophen 325 MG / Oxycodone Hydroch loride 5 MG Oral Tablet Oxycodone- Acetaminophen (Endocet) 5-325 mg tablet Oxycodone-Acetaminophen (Endocet) 5-325 mg tablet 04/08/2020 04:02:22 PM EST 1 TAB completed [facility] Acetaminophen 325 MG / Oxycodone Hydroch loride 5 MG Oral Tablet Oxycodone- Acetaminophen (Endocet) 5-325 mg tablet Oxycodone-Acetaminophen (Endocet) 5-325 mg tablet 04/08/2020 04:02:22 PM EST 1 TAB active [facility] Acetaminophen 325 MG / Oxycodone Hydroch loride 5 MG Oral Tablet Oxycodone- Acetaminophen (Endocet) 5-325 mg tablet Oxycodone-Acetaminophen (Endocet) 5-325 mg tablet 04/08/2020 04:02:22 PM EST 1 TAB active [facility] 5-325 mg 04/08/2020 12:00:00 AM EST tablet 14 TAKE ONE TABLET BY MOUTH EVERY 6 HOURS NEEDED FOR PAIN MAXIMUM DAILY DOSE = FOUR TABLETS TAKE ONE TABLET BY MOUTH EVERY 6 HOURS NEEDED FOR PAIN MAXIMUM DAILY DOSE = FOUR TABLETS SOLD: 04/08/2020 [facility] Ciprofloxacin 500 MG Oral Tablet Ciprofloxacin HCl 500 MG Ciprofloxacin HCl 500 MG 03/31/2020 12:00:00 AM EST active Ciprofloxacin HCl 500 MG eCW1 ([facility]) Ciprofloxacin 500 MG Oral Tablet Ciprofloxacin HCl 500 MG Ciprofloxacin HCl 500 MG 03/31/2020 12:00:00 AM EST active Ciprofloxacin HCl 500 MG eCW1 ([facility]) 24 HR venlafaxine 75 MG Extended Release Oral Capsule Venlaf axine Venlafaxine 03/30/2020 03:59:24 PM EST 75 MG active [facility] quetiapine 25 MG Oral Tablet Quetiapine Quetiapine 03/30/2020 03: 59:24 PM EST 50 MG active [facility] Metoprolol Tartrate 25 MG Oral Tablet Metoprolol Tartrate 03:59:24 PM EST [address] [facility] 24 HR venlafaxine 75 MG Extended Release Oral Capsule Venlaf axine Venlafaxine 03/30/2020 03:59:24 PM EST 75 MG active [facility] Metoprolol Tartrate 25 MG Oral Tablet Metoprolol Tartrate 03:59:24 PM EST [address] [facility] quetiapine 25 MG Oral Tablet Quetiapine Quetiapine 03/30/2020 03: 59:24 PM EST 50 MG active [facility] quetiapine 25 MG Oral Tablet Quetiapine Quetiapine 03/30/2020 03: 59:24 PM EST 50 MG active [facility] Metoprolol Tartrate 25 MG Oral Tablet Metoprolol Tartrate 03:59:24 PM EST 25 MG completed [facility] Metoprolol Tartrate 25 MG Oral Tablet Metoprolol Tartrate 03:59:24 PM EST [address] [facility] 24 HR venlafaxine 75 MG Extended Release Oral Capsule Venlaf axine Venlafaxine 03/30/2020 03:59:24 PM EST 75 MG active [facility] Metoprolol Tartrate 25 MG Oral Tablet Metoprolol Tartrate 03:59:24 PM EST 25 MG completed [facility] quetiapine 25 MG Oral Tablet Quetiapine Quetiapine 03/30/2020 03: 59:24 PM EST 50 MG completed [facility] 24 HR venlafaxine 75 MG Extended Release Oral Capsule Venlaf axine Venlafaxine 03/30/2020 03:59:24 PM EST 75 MG active [facility] Metoprolol Tartrate 25 MG Oral Tablet Metoprolol Tartrate 03:59:24 PM EST [address] [facility] 24 HR venlafaxine 75 MG Extended Release Oral Capsule Venlaf axine Venlafaxine 03/30/2020 03:59:24 PM EST 75 MG active [facility] 24 HR venlafaxine 75 MG Extended Release Oral Capsule Venlaf axine Venlafaxine 03/30/2020 03:59:24 PM EST 75 MG completed [facility] Metoprolol Tartrate 25 MG Oral Tablet Metoprolol Tartrate 03:59:24 PM EST [address] [facility] quetiapine 25 MG Oral Tablet Quetiapine Quetiapine 03/30/2020 03: 59:24 PM EST 50 MG active [facility] Metoprolol Tartrate 25 MG Oral Tablet Metoprolol Tartrate 03:59:24 PM EST [address] [facility] quetiapine 25 MG Oral Tablet Quetiapine Quetiapine 03/30/2020 03: 59:24 PM EST 50 MG active [facility] quetiapine 25 MG Oral Tablet Quetiapine Quetiapine 03/30/2020 03: 59:24 PM EST 50 MG active [facility] Metoprolol Tartrate 25 MG Oral Tablet Metoprolol Tartrate 03:59:24 PM EST [address] [facility] quetiapine 25 MG Oral Tablet Quetiapine Quetiapine 03/30/2020 03: 59:24 PM EST 50 MG active [facility] 24 HR venlafaxine 75 MG Extended Release Oral Capsule Venlaf [facility] Venlafaxine 03/30/2020 03:59:24 PM EST 75 MG active [facility] 24 HR venlafaxine 75 MG Extended Release Oral Capsule Venlaf axiva Venlafaxine 03/30/2020 03:59:24 PM EST 75 MG active [facility] 24 HR venlafaxine 75 MG Extended Release Oral Capsule Venlaf [facility] Venlafaxine 03/30/2020 03:59:24 PM EST 75 MG [facility] quetiapine 25 MG Oral Tablet Quetiapine Quetiapine 03/30/2020 03: 59:24 PM EST 50 MG active [facility] atorvastatin 40 MG Oral Tablet Atorvastatin Atorvastatin 03/16/2020 08:42:35 PM EST 40 MG completed [facility] atorvastatin 40 MG Oral Tablet Atorvastatin Atorvastatin 03/16/2020 08:42:35 PM EST [address] [facility] atorvastatin 40 MG Oral Tablet Atorvastatin Atorvastatin 03/16/2020 08:42:35 PM EST [address] [facility] atorvastatin 40 MG Oral Tablet Atorvastatin Atorvastatin 03/16/2020 08:42:35 PM EST [address] [facility] atorvastatin 40 MG Oral Tablet Atorvastatin Atorvastatin 03/16/2020 08:42:35 PM EST [address] [facility] atorvastatin 40 MG Oral Tablet Atorvastatin Atorvastatin 03/16/2020 08:42:35 PM EST [address] [facility] atorvastatin 40 MG Oral Tablet Atorvastatin Atorvastatin 03/16/2020 08:42:35 PM EST [address] [facility] atorvastatin 40 MG Oral Tablet Atorvastatin Atorvastatin 03/16/2020 08:42:35 PM EST [address] [facility] atorvastatin 40 MG Oral Tablet Atorvastatin Atorvastatin 03/16/2020 08:42:35 PM EST 40 MG completed [facility] atorvastatin 40 MG Oral Tablet Atorvastatin Atorvastatin 03/16/2020 08:42:35 PM EST [address] [facility] Omeprazole 20 MG Delayed Release Oral Capsule Omeprazole 03/16/2020 08:42:20 PM EST [address] [facility] Omeprazole 20 MG Delayed Release Oral Capsule Omeprazole 03/16/2020 08:42:20 PM EST [address] [facility] Omeprazole 20 MG Delayed Release Oral Capsule Omeprazole 03/16/2020 08:42:20 PM EST 20 MG completed [facility] Omeprazole 20 MG Delayed Release Oral Capsule Omeprazole 03/16/2020 08:42:20 PM EST [address] [facility] Omeprazole 20 MG Delayed Release Oral Capsule Omeprazole 03/16/2020 08:42:20 PM EST [address] [facility] Omeprazole 20 MG Delayed Release Oral Capsule Omeprazole 03/16/2020 08:42:20 PM EST 20 MG completed [facility] Omeprazole 20 MG Delayed Release Oral Capsule Omeprazole 03/16/2020 08:42:20 PM EST [address] [facility] Omeprazole 20 MG Delayed Release Oral Capsule Omeprazole 03/16/2020 08:42:20 PM EST [address] [facility] Omeprazole 20 MG Delayed Release Oral Capsule Omeprazole 03/16/2020 08:42:20 PM EST [address] [facility] Omeprazole 20 MG Delayed Release Oral Capsule Omeprazole 03/16/2020 08:42:20 PM EST [address] [facility] Aspirin 03/16/2020 08:34:27 PM EST 81 MG active [facility] aripiprazole 400 MG Injection Aripiprazo le (Abilify Maintena) 400 mg suspension,extended rel recon Aripiprazole (Abilify Maintena) 400 mg suspension,extended rel recon 03/16/2020 08:34:27 PM EST 400 MG completed [facility] aripiprazole 400 MG Injection Aripiprazo le (Abilify Maintena) 400 mg suspension,extended rel recon Aripiprazole (Abilify Maintena) 400 mg suspension,extended rel recon 03/16/2020 08:34:27 PM EST 400 MG active [facility] aripiprazole 400 MG Injection Aripiprazo le (Abilify Maintena) 400 mg suspension,extended rel recon Aripiprazole (Abilify Maintena) 400 mg suspension,extended rel recon 03/16/2020 08:34:27 PM EST 400 MG active [facility] Aspirin 03/16/2020 08:34:27 PM EST 81 MG active [facility] aripiprazole 400 MG Injection Aripiprazo le (Abilify Maintena) 400 mg suspension,extended rel recon Aripiprazole (Abilify Maintena) 400 mg suspension,extended rel recon 03/16/2020 08:34:27 PM EST 400 MG active [facility] Aspirin 03/16/2020 08:34:27 PM EST 81 MG active [facility] aripiprazole 400 MG Injection Aripiprazo le (Abilify Maintena) 400 mg suspension,extended rel recon Aripiprazole (Abilify Maintena) 400 mg suspension,extended rel recon 03/16/2020 08:34:27 PM EST 400 MG active [facility] Aspirin 03/16/2020 08:34:27 PM EST 81 MG active [facility] aripiprazole 400 MG Injection Aripiprazo le (Abilify Maintena) 400 mg suspension,extended rel recon Aripiprazole (Abilify Maintena) 400 mg suspension,extended rel recon 03/16/2020 08:34:27 PM EST 400 MG active [facility] Aspirin 03/16/2020 08:34:27 PM EST 81 MG completed [facility] Aspirin 03/16/2020 08:34:27 PM EST 81 MG active [facility] aripiprazole 400 MG Injection Aripiprazo le (Abilify Maintena) 400 mg suspension,extended rel recon Aripiprazole (Abilify Maintena) 400 mg suspension,extended rel recon 03/16/2020 08:34:27 PM EST 400 MG completed [facility] aripiprazole 400 MG Injection Aripiprazo le (Abilify Maintena) 400 mg suspension,extended rel recon Aripiprazole (Abilify Maintena) 400 mg suspension,extended rel recon 03/16/2020 08:34:27 PM EST 400 MG completed [facility] Aspirin 03/16/2020 08:34:27 PM EST 81 MG active [facility] aripiprazole 400 MG Injection Aripiprazo le (Abilify Maintena) 400 mg suspension,extended rel recon Aripiprazole (Abilify Maintena) 400 mg suspension,extended rel recon 03/16/2020 08:34:27 PM EST 400 MG active [facility] Aspirin 03/16/2020 08:34:27 PM EST 81 MG active [facility] Aspirin 03/16/2020 08:34:27 PM EST 81 MG active [facility] aripiprazole 400 MG Injection Aripiprazo le (Abilify Maintena) 400 mg suspension,extended rel recon Aripiprazole (Abilify Maintena) 400 mg suspension,extended rel recon 03/16/2020 08:34:27 PM EST 400 MG active [facility] Aspirin 03/16/2020 08:34:27 PM EST 81 MG active [facility] Acetaminophen 325 MG Oral Tablet acetaminophen (TYLENO L) 325 mg tablet acetaminophen (TYLENOL) 325 mg tablet 03/13/2020 12:00:00 AM EST 65 0 mg oral active Take 2 tablets (650 mg total) by mouth every 4 (four) hours if needed for mild pain for up to 10 days. [facility] Metoprolol Tartrate 25 MG Oral Tablet me toprolol tartrate (LOPRESSOR) 25 mg tablet metoprolol tartrate (LOPRESSOR) 25 mg tablet 03/13/2020 12:0 0:00 AM EST 25 mg oral active Take 1 tablet (2 5 mg total) by mouth 2 (two) times a day. [facility] Aspirin 81 MG Delayed Release Oral Tablet aspirin 81 m g EC tablet aspirin 81 mg EC tablet 03/13/2020 12:00:00 AM EST 81 mg oral active Take 1 tablet (81 mg total) by mouth 1 (one) time each day. [facility] atorvastatin 40 MG Oral Tablet atorvastatin (LIPITOR) 40 mg tablet atorvastatin (LIPITOR) 40 mg tablet 03/13/2020 12:00:00 AM EST 40 mg oral active Take 1 tablet (40 mg total) by mouth every night. [facility] Omeprazole 20 MG Delayed Release Oral Capsule Omeprazole 03/05/2020 08:23:57 AM EST 0 completed [facility] Omeprazole 20 MG Delayed Release Oral Capsule Omeprazole 03/05/2020 08:23:57 AM EST 0 completed [facility] Omeprazole 20 MG Delayed Release Oral Capsule Omeprazole 03/05/2020 08:23:57 AM EST 0 completed [facility] Omeprazole 20 MG Delayed Release Oral Capsule Omeprazole 03/05/2020 08:23:57 AM EST 0 completed [facility] Omeprazole 20 MG Delayed Release Oral Capsule Omeprazole 03/05/2020 08:23:57 AM EST 0 completed [facility] Omeprazole 20 MG Delayed Release Oral Capsule Omeprazole 03/05/2020 08:23:57 AM EST 0 completed [facility] Omeprazole 20 MG Delayed Release Oral Capsule Omeprazole 03/05/2020 08:23:57 AM EST 0 completed [facility] Omeprazole 20 MG Delayed Release Oral Capsule Omeprazole 03/05/2020 08:23:57 AM EST 0 completed [facility] Omeprazole 20 MG Delayed Release Oral Capsule Omeprazole 03/05/2020 08:23:57 AM EST 0 completed [facility] Omeprazole 20 MG Delayed Release Oral Capsule Omeprazole 03/05/2020 08:23:57 AM EST 0 completed [facility] Omeprazole 20 MG Delayed Release Oral Capsule Omeprazole 03/05/2020 08:23:57 AM EST 0 completed [facility] Sulfamethoxazole 800 MG / Trimethoprim 1 60 MG Oral Tablet Sulfamethoxazole- Trimethoprim (Bactrim Ds) 800-160 mg tablet Sulfamethoxazole-Trimethoprim (Bactrim Ds) 800-160 mg tablet 02/12/2020 06:10:15 PM EST 1 TAB active [facility] Sulfamethoxazole 800 MG / Trimethoprim 1 60 MG Oral Tablet Sulfamethoxazole- Trimethoprim (Bactrim Ds) 800-160 mg tablet Sulfamethoxazole-Trimethoprim (Bactrim Ds) 800-160 mg tablet 02/12/2020 06:10:15 PM EST 1 TAB completed [facility] Sulfamethoxazole 800 MG / Trimethoprim 1 60 MG Oral Tablet Sulfamethoxazole- Trimethoprim (Bactrim Ds) 800-160 mg tablet Sulfamethoxazole-Trimethoprim (Bactrim Ds) 800-160 mg tablet 02/12/2020 06:10:15 PM EST 1 TAB completed [facility] Sulfamethoxazole 800 MG / Trimethoprim 1 60 MG Oral Tablet Sulfamethoxazole- Trimethoprim (Bactrim Ds) 800-160 mg tablet Sulfamethoxazole-Trimethoprim (Bactrim Ds) 800-160 mg tablet 02/12/2020 06:10:15 PM EST 1 TAB completed [facility] Sulfamethoxazole 800 MG / Trimethoprim 1 60 MG Oral Tablet Sulfamethoxazole- Trimethoprim (Bactrim Ds) 800-160 mg tablet Sulfamethoxazole-Trimethoprim (Bactrim Ds) 800-160 mg tablet 02/12/2020 06:10:15 PM EST 1 TAB completed [facility] Sulfamethoxazole 800 MG / Trimethoprim 1 60 MG Oral Tablet Sulfamethoxazole- Trimethoprim (Bactrim Ds) 800-160 mg tablet Sulfamethoxazole-Trimethoprim (Bactrim Ds) 800-160 mg tablet 02/12/2020 06:10:15 PM EST 1 TAB completed [facility] Sulfamethoxazole 800 MG / Trimethoprim 1 60 MG Oral Tablet Sulfamethoxazole- Trimethoprim (Bactrim Ds) 800-160 mg tablet Sulfamethoxazole-Trimethoprim (Bactrim Ds) 800-160 mg tablet 02/12/2020 06:10:15 PM EST 1 TAB completed [facility] Sulfamethoxazole 800 MG / Trimethoprim 1 60 MG Oral Tablet Sulfamethoxazole- Trimethoprim (Bactrim Ds) 800-160 mg tablet Sulfamethoxazole-Trimethoprim (Bactrim Ds) 800-160 mg tablet 02/12/2020 06:10:15 PM EST 1 TAB active [facility] Sulfamethoxazole 800 MG / Trimethoprim 1 60 MG Oral Tablet Sulfamethoxazole- Trimethoprim (Bactrim Ds) 800-160 mg tablet Sulfamethoxazole-Trimethoprim (Bactrim Ds) 800-160 mg tablet 02/12/2020 06:10:15 PM EST 1 TAB completed [facility] Sulfamethoxazole 800 MG / Trimethoprim 1 60 MG Oral Tablet Sulfamethoxazole- Trimethoprim (Bactrim Ds) 800-160 mg tablet Sulfamethoxazole-Trimethoprim (Bactrim Ds) 800-160 mg tablet 02/12/2020 06:10:15 PM EST 1 TAB completed [facility] Sulfamethoxazole 800 MG / Trimethoprim 1 60 MG Oral Tablet Sulfamethoxazole- Trimethoprim (Bactrim Ds) 800-160 mg tablet Sulfamethoxazole-Trimethoprim (Bactrim Ds) 800-160 mg tablet 02/12/2020 06:10:15 PM EST 1 TAB completed [facility] Sulfamethoxazole 800 MG / Trimethoprim 1 60 MG Oral Tablet Sulfamethoxazole- Trimethoprim (Bactrim Ds) 800-160 mg tablet Sulfamethoxazole-Trimethoprim (Bactrim Ds) 800-160 mg tablet 02/12/2020 06:10:15 PM EST 1 TAB completed [facility] Sulfamethoxazole 800 MG / Trimethoprim 1 60 MG Oral Tablet Sulfamethoxazole- Trimethoprim (Bactrim Ds) 800-160 mg tablet Sulfamethoxazole-Trimethoprim (Bactrim Ds) 800-160 mg tablet 02/12/2020 06:10:15 PM EST 1 TAB completed [facility] Sulfamethoxazole 800 MG / Trimethoprim 1 60 MG Oral Tablet Sulfamethoxazole- Trimethoprim (Bactrim Ds) 800-160 mg tablet Sulfamethoxazole-Trimethoprim (Bactrim Ds) 800-160 mg tablet 02/12/2020 06:10:15 PM EST 1 TAB completed [facility] Sulfamethoxazole 800 MG / Trimethoprim 1 60 MG Oral Tablet Sulfamethoxazole- Trimethoprim (Bactrim Ds) 800-160 mg tablet Sulfamethoxazole-Trimethoprim (Bactrim Ds) 800-160 mg tablet 02/12/2020 06:10:15 PM EST 1 TAB completed [facility] Omeprazole 20 MG Delayed Release Oral Capsule Omeprazo le Magnesium Omeprazole Magnesium 11/03/2019 11:18:01 AM EDT 20 MG completed [facility] Omeprazole 20 MG Delayed Release Oral Capsule Omeprazo le Magnesium Omeprazole Magnesium 11/03/2019 11:18:01 AM EDT 20 MG completed [facility] Omeprazole 20 MG Delayed Release Oral Capsule Omeprazo le Magnesium Omeprazole Magnesium 11/03/2019 11:18:01 AM EDT 20 MG completed [facility] Omeprazole 20 MG Delayed Release Oral Capsule Omeprazo le Magnesium Omeprazole Magnesium 11/03/2019 11:18:01 AM EDT 20 MG completed [facility] Omeprazole 20 MG Delayed Release Oral Capsule Omeprazo le Magnesium Omeprazole Magnesium 11/03/2019 11:18:01 AM EDT 20 MG completed [facility] Omeprazole 20 MG Delayed Release Oral Capsule Omeprazo le Magnesium Omeprazole Magnesium 11/03/2019 11:18:01 AM EDT 20 MG completed [facility] Omeprazole 20 MG Delayed Release Oral Capsule Omeprazo le Magnesium Omeprazole Magnesium 11/03/2019 11:18:01 AM EDT 20 MG completed [facility] Omeprazole 20 MG Delayed Release Oral Capsule Omeprazo le Magnesium Omeprazole Magnesium 11/03/2019 11:18:01 AM EDT 20 MG completed [facility] Omeprazole 20 MG Delayed Release Oral Capsule Omeprazo le Magnesium Omeprazole Magnesium 11/03/2019 11:18:01 AM EDT 20 MG completed [facility] Omeprazole 20 MG Delayed Release Oral Capsule Omeprazo le Magnesium Omeprazole Magnesium 11/03/2019 11:18:01 AM EDT 20 MG completed [facility] Omeprazole 20 MG Delayed Release Oral Capsule Omeprazo le Magnesium Omeprazole Magnesium 11/03/2019 11:18:01 AM EDT 20 MG completed [facility] Fluoxetine 20 MG Oral Capsule Fluoxetine (Prozac) 20 m g capsule Fluoxetine (Prozac) 20 mg capsule 10/16/2019 02:41:46 PM EDT 40 MG completed [facility] Fluoxetine 20 MG Oral Capsule Fluoxetine (Prozac) 20 m g capsule Fluoxetine (Prozac) 20 mg capsule 10/16/2019 02:41:46 PM EDT 40 MG completed [facility] Fluoxetine 20 MG Oral Capsule Fluoxetine (Prozac) 20 m g capsule Fluoxetine (Prozac) 20 mg capsule 10/16/2019 02:41:46 PM EDT 40 MG completed [facility] Fluoxetine 20 MG Oral Capsule Fluoxetine (Prozac) 20 m g capsule Fluoxetine (Prozac) 20 mg capsule 10/16/2019 02:41:46 PM EDT 40 MG completed [facility] Fluoxetine 20 MG Oral Capsule Fluoxetine (Prozac) 20 m g capsule Fluoxetine (Prozac) 20 mg capsule 10/16/2019 02:41:46 PM EDT 40 MG completed [facility] Fluoxetine 20 MG Oral Capsule Fluoxetine (Prozac) 20 m g capsule Fluoxetine (Prozac) 20 mg capsule 10/16/2019 02:41:46 PM EDT 40 MG completed [facility] Fluoxetine 20 MG Oral Capsule Fluoxetine (Prozac) 20 m g capsule Fluoxetine (Prozac) 20 mg capsule 10/16/2019 02:41:46 PM EDT 40 MG completed [facility] Fluoxetine 20 MG Oral Capsule Fluoxetine (Prozac) 20 m g capsule Fluoxetine (Prozac) 20 mg capsule 10/16/2019 02:41:46 PM EDT 40 MG completed [facility] Fluoxetine 20 MG Oral Capsule Fluoxetine (Prozac) 20 m g capsule Fluoxetine (Prozac) 20 mg capsule 10/16/2019 02:41:46 PM EDT 40 MG completed [facility] 24 HR Diltiazem Hydrochloride 120 MG Ext ended Release Oral Capsule Diltiazem Hcl (Cardizem Cd) 120 mg capsule,extended release 24hr Diltiazem Hcl (Cardizem Cd) 120 mg capsule,extended release 24hr 10/16/2019 01:03:36 PM EDT 120 MG completed [facility] 24 HR Diltiazem Hydrochloride 120 MG Ext ended Release Oral Capsule Diltiazem Hcl (Cardizem Cd) 120 mg capsule,extended release 24hr Diltiazem Hcl (Cardizem Cd) 120 mg capsule,extended release 24hr 10/16/2019 01:03:36 PM EDT 120 MG completed [facility] 24 HR Diltiazem Hydrochloride 120 MG Ext ended Release Oral Capsule Diltiazem Hcl (Cardizem Cd) 120 mg capsule,extended release 24hr Diltiazem Hcl (Cardizem Cd) 120 mg capsule,extended release 24hr 10/16/2019 01:03:36 PM EDT 120 MG completed [facility] 24 HR Diltiazem Hydrochloride 120 MG Ext ended Release Oral Capsule Diltiazem Hcl (Cardizem Cd) 120 mg capsule,extended release 24hr Diltiazem Hcl (Cardizem Cd) 120 mg capsule,extended release 24hr 10/16/2019 01:03:36 PM EDT 120 MG completed [facility] 24 HR Diltiazem Hydrochloride 120 MG Ext ended Release Oral Capsule Diltiazem Hcl (Cardizem Cd) 120 mg capsule,extended release 24hr Diltiazem Hcl (Cardizem Cd) 120 mg capsule,extended release 24hr 10/16/2019 01:03:36 PM EDT 120 MG completed [facility] 24 HR Diltiazem Hydrochloride 120 MG Ext ended Release Oral Capsule Diltiazem Hcl (Cardizem Cd) 120 mg capsule,extended release 24hr Diltiazem Hcl (Cardizem Cd) 120 mg capsule,extended release 24hr 10/16/2019 01:03:36 PM EDT 120 MG [facility] 24 HR Diltiazem Hydrochloride 120 MG Ext ended Release Oral Capsule Diltiazem Hcl (Cardizem Cd) 120 mg capsule,extended release 24hr Diltiazem Hcl (Cardizem Cd) 120 mg capsule,extended release 24hr 10/16/2019 01:03:36 PM EDT 120 MG [facility] 24 HR Diltiazem Hydrochloride 120 MG Ext ended Release Oral Capsule Diltiazem Hcl (Cardizem Cd) 120 mg capsule,extended release 24hr Diltiazem Hcl (Cardizem Cd) 120 mg capsule,extended release 24hr 10/16/2019 01:03:36 PM EDT 120 MG [facility] 24 HR Diltiazem Hydrochloride 120 MG Ext ended Release Oral Capsule Diltiazem Hcl (Cardizem Cd) 120 mg capsule,extended release 24hr Diltiazem Hcl (Cardizem Cd) 120 mg capsule,extended release 24hr 10/16/2019 01:03:36 PM EDT 120 MG [facility] 24 HR Diltiazem Hydrochloride 120 MG Ext ended Release Oral Capsule Diltiazem Hcl (Cardizem Cd) 120 mg capsule,extended release 24hr Diltiazem Hcl (Cardizem Cd) 120 mg capsule,extended release 24hr 10/16/2019 01:03:36 PM EDT 120 MG [facility] Magnesium Oxide 400 MG Oral Tablet Magnesium Oxide 06/03/2019 09:47 :56 AM EST 400 MG completed [facility] Magnesium Oxide 400 MG Oral Tablet Magnesium Oxide 06/03/2019 09:47 :56 AM EST 400 MG completed [facility] Magnesium Oxide 400 MG Oral Tablet Magnesium Oxide 06/03/2019 09:47 :56 AM EST 400 MG completed [facility] Magnesium Oxide 400 MG Oral Tablet Magnesium Oxide 06/03/2019 09:47 :56 AM EST 400 MG completed [facility] Magnesium Oxide 400 MG Oral Tablet Magnesium Oxide 06/03/2019 09:47 :56 AM EST 400 MG completed [facility] Magnesium Oxide 400 MG Oral Tablet Magnesium Oxide 06/03/2019 09:47 :56 AM EST 400 MG completed [facility] Magnesium Oxide 400 MG Oral Tablet Magnesium Oxide 06/03/2019 09:47 :56 AM EST 400 MG completed [facility] Magnesium Oxide 400 MG Oral Tablet Magnesium Oxide 06/03/2019 09:47 :56 AM EST 400 MG completed [facility] Magnesium Oxide 400 MG Oral Tablet Magnesium Oxide 06/03/2019 09:47 :56 AM EST 400 MG completed [facility] Magnesium Oxide 400 MG Oral Tablet Magnesium Oxide 06/03/2019 09:47 :56 AM EST 400 MG completed [facility] Magnesium Oxide 400 MG Oral Tablet Magnesium Oxide 06/03/2019 09:47 :56 AM EST 400 MG completed [facility] Magnesium Oxide 400 MG Oral Tablet Magnesium Oxide 06/03/2019 09:47 :56 AM EST 400 MG completed [facility] Magnesium Oxide 400 MG Oral Tablet Magnesium Oxide 06/03/2019 09:47 :56 AM EST 400 MG completed [facility] Magnesium Oxide 400 MG Oral Tablet Magnesium Oxide 06/03/2019 09:47 :56 AM EST 400 MG completed [facility] Magnesium Oxide 400 MG Oral Tablet Magnesium Oxide 06/03/2019 09:47 :56 AM EST 400 MG completed [facility] Magnesium Oxide 400 MG Oral Tablet Magnesium Oxide 06/03/2019 09:47 :56 AM EST 400 MG completed [facility] Acetaminophen 05/26/2019 12:33:31 PM EST 1000 MG c ompleted [facility] Acetaminophen 05/26/2019 12:33:31 PM EST 1000 MG c ompleted [facility] Acetaminophen 05/26/2019 12:33:31 PM EST 1000 MG c [facility] Acetaminophen 05/26/2019 12:33:31 PM EST 1000 MG c [facility] Acetaminophen 05/26/2019 12:33:31 PM EST 1000 MG c [facility] Acetaminophen 05/26/2019 12:33:31 PM EST 1000 MG c [facility] Acetaminophen 05/26/2019 12:33:31 PM EST 1000 MG c [facility] Acetaminophen 05/26/2019 12:33:31 PM EST 1000 MG c [facility] Acetaminophen 05/26/2019 12:33:31 PM EST 1000 MG c [facility] Acetaminophen 05/26/2019 12:33:31 PM EST 1000 MG c [facility] Acetaminophen 05/26/2019 12:33:31 PM EST 1000 MG c [facility] hydrocortisone acetate 25 MG Rectal Supp ository Hydrocortisone Acetate (Anusol- Hc) 25 mg suppository Hydrocortisone Acetate (Anusol-Hc) 25 mg suppository 01/13/2019 10:45:00 PM EDT 25 MG [facility] hydrocortisone acetate 25 MG Rectal Supp ository Hydrocortisone Acetate (Anusol- Hc) 25 mg suppository Hydrocortisone Acetate (Anusol-Hc) 25 mg suppository 01/13/2019 10:45:00 PM EDT 25 MG [facility] hydrocortisone acetate 25 MG Rectal Supp ository Hydrocortisone Acetate (Anusol- Hc) 25 mg suppository Hydrocortisone Acetate (Anusol-Hc) 25 mg suppository 01/13/2019 10:45:00 PM EDT 25 MG [facility] hydrocortisone acetate 25 MG Rectal Supp ository Hydrocortisone Acetate (Anusol- Hc) 25 mg suppository Hydrocortisone Acetate (Anusol-Hc) 25 mg suppository 01/13/2019 10:45:00 PM EDT 25 MG [facility] hydrocortisone acetate 25 MG Rectal Supp ository Hydrocortisone Acetate (Anusol- Hc) 25 mg suppository Hydrocortisone Acetate (Anusol-Hc) 25 mg suppository 01/13/2019 10:45:00 PM EDT 25 MG [facility] hydrocortisone acetate 25 MG Rectal Supp ository Hydrocortisone Acetate (Anusol- Hc) 25 mg suppository Hydrocortisone Acetate (Anusol-Hc) 25 mg suppository 01/13/2019 10:45:00 PM EDT 25 MG completed [facility] hydrocortisone acetate 25 MG Rectal Supp ository Hydrocortisone Acetate (Anusol- Hc) 25 mg suppository Hydrocortisone Acetate (Anusol-Hc) 25 mg suppository 01/13/2019 10:45:00 PM EDT 25 MG completed [facility] hydrocortisone acetate 25 MG Rectal Supp ository Hydrocortisone Acetate (Anusol- Hc) 25 mg suppository Hydrocortisone Acetate (Anusol-Hc) 25 mg suppository 01/13/2019 10:45:00 PM EDT 25 MG completed [facility] hydrocortisone acetate 25 MG Rectal Supp ository Hydrocortisone Acetate (Anusol- Hc) 25 mg suppository Hydrocortisone Acetate (Anusol-Hc) 25 mg suppository 01/13/2019 10:45:00 PM EDT 25 MG completed [facility] hydrocortisone acetate 25 MG Rectal Supp ository Hydrocortisone Acetate (Anusol- Hc) 25 mg suppository Hydrocortisone Acetate (Anusol-Hc) 25 mg suppository 01/13/2019 10:45:00 PM EDT 25 MG completed [facility] hydrocortisone acetate 25 MG Rectal Supp ository Hydrocortisone Acetate (Anusol- Hc) 25 mg suppository Hydrocortisone Acetate (Anusol-Hc) 25 mg suppository 01/13/2019 10:45:00 PM EDT 25 MG completed [facility] hydrocortisone acetate 25 MG Rectal Supp ository Hydrocortisone Acetate (Anusol- Hc) 25 mg suppository Hydrocortisone Acetate (Anusol-Hc) 25 mg suppository 01/13/2019 10:45:00 PM EDT 25 MG completed [facility] hydrocortisone acetate 25 MG Rectal Supp ository Hydrocortisone Acetate (Anusol- Hc) 25 mg suppository Hydrocortisone Acetate (Anusol-Hc) 25 mg suppository 01/13/2019 10:45:00 PM EDT 25 MG completed [facility] hydrocortisone acetate 25 MG Rectal Supp ository Hydrocortisone Acetate (Anusol- Hc) 25 mg suppository Hydrocortisone Acetate (Anusol-Hc) 25 mg suppository 01/13/2019 10:45:00 PM EDT 25 MG completed [facility] hydrocortisone acetate 25 MG Rectal Supp ository Hydrocortisone Acetate (Anusol- Hc) 25 mg suppository Hydrocortisone Acetate (Anusol-Hc) 25 mg suppository 01/13/2019 10:45:00 PM EDT 25 MG completed [facility] hydrocortisone acetate 25 MG Rectal Supp ository Hydrocortisone Acetate (Anusol- Hc) 25 mg suppository Hydrocortisone Acetate (Anusol-Hc) 25 mg suppository 01/13/2019 10:45:00 PM EDT 25 MG completed [facility] 2 ML aripiprazole 200 MG/ML Prefilled Sy ringe Aripiprazole (Abilify Maintena) 400 mg suspension,extended rel syring Aripiprazole (Abilify Maintena) 400 mg suspension,extended rel syring 12/05/2018 08:34:15 AM EDT 400 MG completed [facility] 2 ML aripiprazole 200 MG/ML Prefilled Sy ringe Aripiprazole (Abilify Maintena) 400 mg suspension,extended rel syring Aripiprazole (Abilify Maintena) 400 mg suspension,extended rel syring 12/05/2018 08:34:15 AM EDT 400 MG [facility] 2 ML aripiprazole 200 MG/ML Prefilled Sy ringe Aripiprazole (Abilify Maintena) 400 mg suspension,extended rel syring Aripiprazole (Abilify Maintena) 400 mg suspension,extended rel syring 12/05/2018 08:34:15 AM EDT 400 MG completed [facility] 2 ML aripiprazole 200 MG/ML Prefilled Sy ringe Aripiprazole (Abilify Maintena) 400 mg suspension,extended rel syring Aripiprazole (Abilify Maintena) 400 mg suspension,extended rel syring 12/05/2018 08:34:15 AM EDT 400 MG [facility] 2 ML aripiprazole 200 MG/ML Prefilled Sy ringe Aripiprazole (Abilify Maintena) 400 mg suspension,extended rel syring Aripiprazole (Abilify Maintena) 400 mg suspension,extended rel syring 12/05/2018 08:34:15 AM EDT 400 MG [facility] 2 ML aripiprazole 200 MG/ML Prefilled Sy ringe Aripiprazole (Abilify Maintena) 400 mg suspension,extended rel syring Aripiprazole (Abilify Maintena) 400 mg suspension,extended rel syring 12/05/2018 08:34:15 AM EDT 400 MG completed [facility] 2 ML aripiprazole 200 MG/ML Prefilled Sy ringe Aripiprazole (Abilify Maintena) 400 mg suspension,extended rel syring Aripiprazole (Abilify Maintena) 400 mg suspension,extended rel syring 12/05/2018 08:34:15 AM EDT 400 MG completed [facility] 2 ML aripiprazole 200 MG/ML Prefilled Sy ringe Aripiprazole (Abilify Maintena) 400 mg suspension,extended rel syring Aripiprazole (Abilify Maintena) 400 mg suspension,extended rel syring 12/05/2018 08:34:15 AM EDT 400 MG completed [facility] 2 ML aripiprazole 200 MG/ML Prefilled Sy ringe Aripiprazole (Abilify Maintena) 400 mg suspension,extended rel syring Aripiprazole (Abilify Maintena) 400 mg suspension,extended rel syring 12/05/2018 08:34:15 AM EDT 400 MG completed [facility] 2 ML aripiprazole 200 MG/ML Prefilled Sy ringe Aripiprazole (Abilify Maintena) 400 mg suspension,extended rel syring Aripiprazole (Abilify Maintena) 400 mg suspension,extended rel syring 12/05/2018 08:34:15 AM EDT 400 MG completed [facility] 2 ML aripiprazole 200 MG/ML Prefilled Sy ringe Aripiprazole (Abilify Maintena) 400 mg suspension,extended rel syring Aripiprazole (Abilify Maintena) 400 mg suspension,extended rel syring 12/05/2018 08:34:15 AM EDT 400 MG completed [facility] Albuterol Sulfate (Ventolin Hfa) 60 PUFFS/8 GM HFA aerosol i araler 05/07/2016 09:14:31 PM EST PUFFS completed [facility] Albuterol Sulfate (Ventolin Hfa) 60 PUFFS/8 GM HFA aerosol i araler 05/07/2016 09:14:31 PM EST PUFFS completed [facility] Albuterol Sulfate (Ventolin Hfa) 60 PUFFS/8 GM HFA aerosol i nhaler 05/07/2016 09:14:31 PM EST PUFFS completed [facility] Albuterol Sulfate (Ventolin Hfa) 60 PUFFS/8 GM HFA aerosol i nhaler 05/07/2016 09:14:31 PM EST PUFFS completed [facility] Albuterol Sulfate (Ventolin Hfa) 60 PUFFS/8 GM HFA aerosol i nhaler 05/07/2016 09:14:31 PM EST PUFFS completed [facility] Albuterol Sulfate (Ventolin Hfa) 60 PUFFS/8 GM HFA aerosol i nhaler 05/07/2016 09:14:31 PM EST PUFFS completed [facility] Albuterol Sulfate (Ventolin Hfa) 60 PUFFS/8 GM HFA aerosol i nhaler 05/07/2016 09:14:31 PM EST PUFFS completed [facility] Albuterol Sulfate (Ventolin Hfa) 60 PUFFS/8 GM HFA aerosol i nhaler 05/07/2016 09:14:31 PM EST PUFFS completed [facility] Albuterol Sulfate (Ventolin Hfa) 60 PUFFS/8 GM HFA aerosol i nhaler 05/07/2016 09:14:31 PM EST PUFFS completed [facility] Albuterol Sulfate (Ventolin Hfa) 60 PUFFS/8 GM HFA aerosol i nhaler 05/07/2016 09:14:31 PM EST PUFFS completed [facility] Albuterol Sulfate (Ventolin Hfa) 60 PUFFS/8 GM HFA aerosol i nhaler 05/07/2016 09:14:31 PM EST PUFFS completed [facility] Acetaminophen 500 MG / Caffeine 65 MG Or al Tablet Acetaminophen-Caffeine (Excedrin Tension Headache) 500-65 mg tablet Acetaminophen-Caffeine (Excedrin Tension Headache) 500-65 mg tablet 11/16/2015 05:27:09 PM EDT 1 EACH completed [facility] Acetaminophen 500 MG / Caffeine 65 MG Or al Tablet Acetaminophen-Caffeine (Excedrin Tension Headache) 500-65 mg tablet Acetaminophen-Caffeine (Excedrin Tension Headache) 500-65 mg tablet 11/16/2015 05:27:09 PM EDT 1 EACH completed [facility] Acetaminophen 500 MG / Caffeine 65 MG Or al Tablet Acetaminophen-Caffeine (Excedrin Tension Headache) 500-65 mg tablet Acetaminophen-Caffeine (Excedrin Tension Headache) 500-65 mg tablet 11/16/2015 05:27:09 PM EDT 1 EACH completed [facility] Acetaminophen 500 MG / Caffeine 65 MG Or al Tablet Acetaminophen-Caffeine (Excedrin Tension Headache) 500-65 mg tablet Acetaminophen-Caffeine (Excedrin Tension Headache) 500-65 mg tablet 11/16/2015 05:27:09 PM EDT 1 EACH completed [facility] Acetaminophen 500 MG / Caffeine 65 MG Or al Tablet Acetaminophen-Caffeine (Excedrin Tension Headache) 500-65 mg tablet Acetaminophen-Caffeine (Excedrin Tension Headache) 500-65 mg tablet 11/16/2015 05:27:09 PM EDT 1 EACH completed [facility] Acetaminophen 500 MG / Caffeine 65 MG Or al Tablet Acetaminophen-Caffeine (Excedrin Tension Headache) 500-65 mg tablet Acetaminophen-Caffeine (Excedrin Tension Headache) 500-65 mg tablet 11/16/2015 05:27:09 PM EDT 1 EACH completed [facility] Acetaminophen 500 MG / Caffeine 65 MG Or al Tablet Acetaminophen-Caffeine (Excedrin Tension Headache) 500-65 mg tablet Acetaminophen-Caffeine (Excedrin Tension Headache) 500-65 mg tablet 11/16/2015 05:27:09 PM EDT 1 EACH completed [facility] Acetaminophen 500 MG / Caffeine 65 MG Or al Tablet Acetaminophen-Caffeine (Excedrin Tension Headache) 500-65 mg tablet Acetaminophen-Caffeine (Excedrin Tension Headache) 500-65 mg tablet 11/16/2015 05:27:09 PM EDT 1 EACH completed [facility] Acetaminophen 500 MG / Caffeine 65 MG Or al Tablet Acetaminophen-Caffeine (Excedrin Tension Headache) 500-65 mg tablet Acetaminophen-Caffeine (Excedrin Tension Headache) 500-65 mg tablet 11/16/2015 05:27:09 PM EDT 1 EACH completed [facility] Acetaminophen 500 MG / Caffeine 65 MG Or al Tablet Acetaminophen-Caffeine (Excedrin Tension Headache) 500-65 mg tablet Acetaminophen-Caffeine (Excedrin Tension Headache) 500-65 mg tablet 11/16/2015 05:27:09 PM EDT 1 EACH completed [facility] Acetaminophen 500 MG / Caffeine 65 MG Or al Tablet Acetaminophen-Caffeine (Excedrin Tension Headache) 500-65 mg tablet Acetaminophen-Caffeine (Excedrin Tension Headache) 500-65 mg tablet 11/16/2015 05:27:09 PM EDT 1 EACH completed [facility] 24 HR Diltiazem Hydrochloride 120 MG Ext ended Release Oral Capsule dilTIAZem CD (CARDIZEM CD) 120 mg 24 hr capsule dilTIAZem CD (CARDIZEM CD) 120 mg 24 hr capsule 120 mg oral aborted Take 120 mg by mouth 1 (one) time each day. [facility] Insurance Providers Payer name Policy type / Coverage type Policy ID Covered democrat ID Covered democrat's relationship to bernal Policy Bernal Plan Information STEVEN [id number] Self [id number] STEVEN MEDICAID [id number] Neelam [id number] MEDICAID [id number] Neelam [id number] STEVEN I [id number] Self [id number] STEVEN CARE [id number] S [id number] STEVEN [id number] SP [id number] [place] [id number] S [id number] [facility] [place] [id number] Self [id number] STEVEN [id number] SP [id number] O UNAVAILABLE UNAVAILA BLE STEVEN CARE OF [facility] [id number] 18 [id number] STEVEN CARE OF [facility] [id number] [facility] [place] [id number] S [id number] Problems, Conditions, and Diagnoses Code Display Name Description Problem Type Effective Dates Data Source(s) B95662 CONTACT WITH AND SUSPECTED EXPOSURE TO C OVID-19 CONTACT WITH AND SUSPECTED EXPOSURE TO COVID-19 Diagnosis 12/12/2020 03:00:00 PM EDT [facility] [id number] Nicotine dependence, cigarettes, uncompl icated Nicotine dependence, cigarettes, uncomplicated Diagnosis 12/12/2020 03:00:[address] [facility] I10 Essential (primary) hypertension Essential (primary) h ypertension Diagnosis 12/12/2020 03:00:00 PM EDT [facility] J069 Acute upper respiratory infection, unspe cified Acute upper respiratory infection, unspecified Diagnosis 12/12/2020 03:00:00 PM EDT [facility] J0110 Acute frontal sinusitis, unspecified Acute front al sinusitis, unspecified Diagnosis 12/12/2020 03:00:00 PM EDT [facility] J0100 Acute maxillary sinusitis, unspecified A cute maxillary sinusitis, unspecified Diagnosis 12/12/2020 03:00:00 PM EDT [facility] R519 Headache, unspecified Headache, unspecified Diagnosis 12/12/2020 03:00:00 PM EDT [facility] F41.9 Anxiety disorder, unspecified ANXIETY DISORDER, UNSPEC IFIED Diagnosis 03/22/2020 07:36:00 PM [facility] F12.90 Cannabis use, unspecified, uncomplicated CANNABIS USE, UNSPECIFIED, UNCOMPLICATED Diagnosis 03/22/2020 07:36:00 PM [facility] danny F17.200 Nicotine dependence, unspecified, uncomp licated NICOTINE DEPENDENCE, UNSPECIFIED, UNCOMPLICATED Diagnosis 03/22/2020 07:36:[address] 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 HEART DISEASE OF [place] CORONARY ARTERY W/O Diagnosis 03/22/2020 07:36:00 PM [facility] R45.851 Suicidal ideations SUICIDAL IDEATIONS Diagnosis 07:36:00 PM [facility] I10 Essential (primary) hypertension ESSENTIAL (PRIMARY) H YPERTENSION Diagnosis 03/22/2020 07:36:00 PM [facility] F33.2 Major depressive disorder, recurrent sev ere without psychotic features MAJOR DEPRESSV DISORDER, RECURRENT SEVER Diagnosis 03/22/2020 07:36:00 PM [facility] F31.81 Bipolar II disorder BIPOLAR II DISORDER Diagnosis 1 05/23/2019 07:36:00 PM [facility] I20.0 Unstable angina Unstable angina Diagnosis 03/13/2020 06:0 0:00 AM [facility] unstable angina unstable angina Diagnosis 03/13/2020 06:0 0:00 AM [facility] N20.0 Kidney stone Kidney stone Problem 03/31/2020 12:00:00 A M EST [facility] ([facility]) N32.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 Bladder wall thickening Pr oblem 03/31/2020 12:00:00 AM EST [facility] ([facility]) Surgeries/Procedures Procedure Description Date Indications Data Source(s) Medication: Lidocaine HCl 2% Jelly 5mL Intravesically 04/07/2020 12:00:00 AM EST [facility] ([facility]) Psychological Tests, Neurobehavioral and Cognitive Status 03/23/2020 12:00:00 AM [facility] Doppler Echocardiography Complete 03/19/2020 12:00:00 AM EST [facility] ([facility]) Doppler Echocardiography Color Flow Velocity Mapping 03/19/2020 12:00:00 AM EST [facility] ([facility]) Stress ECHO Transthoracic 03/19/2020 12:00:00 AM EST [facility] ([facility]) HEPARIN ASSAY <td>HEPARIN ANTI-XA UNFRACTIONATED</td><td>Timed</td><td>03/13/2020 8:58 AM EST</td><td></td><td> </td> 03/13/2020 08:58:00 AM [facility] OXYGEN DAILY PROTOCOL <td>OXYGEN DAILY PROTOCOL</td><td>Routine</td><td>03/13/2020 7:10 AM EST</td><td></td><td></td> 03/13/2020 07:10:04 AM [facility] OXYGEN DAILY PROTOCOL <td>OXYGEN DAILY PROTOCOL</td><td>Routine</td><td>03/13/2020 7:10 AM EST</td><td></td><td></td> 03/13/2020 07:10:04 AM [facility] PROTHROMBIN TIME <td>PROTHROMBIN TIME NO THER APY OR UNKNOWN</td><td>STAT</td><td>03/13/2020 7:08 AM EST</td><td></td><td> </td> 03/13/2020 07:08:00 AM EST [facility] BLOOD COUNT HEMOGLOBIN <td>HEMOGLOBIN AND HEMATOCRIT</td><td>STAT</td><td>03/13/2020 7:08 AM EST</td><td></td><td> </td> 03/13/2020 07:08:00 AM EST [facility] TROPONIN QUANTITATIVE <td>TROPONIN I</td><td>STAT< /td><td>03/13/2020 7:08 AM EST</td><td></td><td> </td> 03/13/2020 07:08:00 AM EST [facility] THROMBOPLASTIN TIME PARTIAL PLASMA/WHOLE BLOOD <td>PTT NO THERAPY OR UNKNOWN</td><td>STAT</td><td>03/13/2020 7:08 AM EST</td><td></td><td> </td> 03/13/2020 07:08:00 AM [facility] HEPARIN ASSAY <td>HEPARIN ANTI-XA UNFRACTI ONATED</td><td>STAT</td><td>03/13/2020 7:08 AM EST</td><td></td><td> </td> 03/13/2020 07:08:00 AM EST [facility] BLOOD COUNT COMPLETE AUTO&AUTO DIFRNTL WBC COUNT <td>H C CBC W/ DIFFERENTIAL</td><td>STAT</td><td>03/13/2020 7:08 AM EST</td><td></td><td> </td> 03/13/2020 07:08:00 AM EST [facility] LIPID PANEL <td>LIPID PANEL</td><td>STAT </td><td>03/13/2020 7:08 AM EST</td><td></td><td> </td> 03/13/2020 07:08:00 AM EST [facility] COMPREHENSIVE METABOLIC PANEL <td>COMPREHENSIVE METABO LIC PANEL</td><td>STAT</td><td>03/13/2020 7:08 AM EST</td><td></td><td> </td> 03/13/2020 07:08:00 AM [facility] Plain chest X-ray (procedure) 03/13/2020 01:06:00 AM [facility] Plain chest X-ray (procedure) 03/13/2020 01:06:00 AM E [facility] Plain chest X-ray (procedure) 03/13/2020 01:06:00 AM E [facility] Plain chest X-ray (procedure) 03/13/2020 01:06:00 AM [facility] Plain chest X-ray (procedure) 03/13/2020 01:06:00 AM [facility] Plain chest X-ray (procedure) 03/13/2020 01:06:00 AM [facility] Plain chest X-ray (procedure) 03/13/2020 01:06:00 AM [facility] Plain chest X-ray (procedure) 03/13/2020 01:06:00 AM E [facility] Plain chest X-ray (procedure) 03/13/2020 01:06:00 AM E [facility] Plain chest X-ray (procedure) 03/13/2020 01:06:00 AM E [facility] Plain chest X-ray (procedure) 03/13/2020 01:06:00 AM [facility] Nucleic acid assay (procedure) 03/13/2020 12:00:00 AM [facility] Nucleic acid assay (procedure) 03/13/2020 12:00:00 AM [facility] Nucleic acid assay (procedure) 03/13/2020 12:00:00 AM [facility] Nucleic acid assay (procedure) 03/13/2020 12:00:00 AM [facility] Nucleic acid assay (procedure) 03/13/2020 12:00:00 AM [facility] Nucleic acid assay (procedure) 03/13/2020 12:00:00 AM [facility] Nucleic acid assay (procedure) 03/13/2020 12:00:00 AM [facility] Nucleic acid assay (procedure) 03/13/2020 12:00:00 AM [facility] Nucleic acid assay (procedure) 03/13/2020 12:00:00 AM [facility] Nucleic acid assay (procedure) 03/13/2020 12:00:00 AM [facility] Nucleic acid assay (procedure) 03/13/2020 12:00:00 AM [facility] Computed tomography of abdomen and pelvis with contrast (pro cedure) 02/12/2020 01:49:00 PM [facility] Computed tomography of abdomen and pelvis with contrast (pro cedure) 02/12/2020 01:49:00 PM [facility] Computed tomography of abdomen and pelvis with contrast (pro cedure) 02/12/2020 01:49:00 PM [facility] Computed tomography of abdomen and pelvis with contrast (pro cedure) 02/12/2020 01:49:00 PM [facility] Computed tomography of abdomen and pelvis with contrast (pro cedure) 02/12/2020 01:49:00 PM [facility] Computed tomography of abdomen and pelvis with contrast (pro cedure) 02/12/2020 01:49:00 PM [facility] Computed tomography of abdomen and pelvis with contrast (pro cedure) 02/12/2020 01:49:00 PM [facility] Computed tomography of abdomen and pelvis with contrast (pro cedure) 02/12/2020 01:49:00 PM [facility] Computed tomography of abdomen and pelvis with contrast (pro cedure) 02/12/2020 01:49:00 PM [facility] Computed tomography of abdomen and pelvis with contrast (pro cedure) 02/12/2020 01:49:00 PM [facility] Computed tomography of abdomen and pelvis with contrast (pro cedure) 02/12/2020 01:49:00 PM [facility] Computed tomography of abdomen and pelvis with contrast (pro cedure) 02/12/2020 01:49:00 PM [facility] Computed tomography of abdomen and pelvis with contrast (pro cedure) 02/12/2020 01:49:00 PM [facility] Computed tomography of abdomen and pelvis with contrast (pro cedure) 02/12/2020 01:49:00 PM [facility] Computed tomography of abdomen and pelvis with contrast (pro cedure) 02/12/2020 01:49:00 PM [facility] Results ID Date Data Source [id number] 12/12/2020 03:00:00 PM EDT [facility] OrderSheet [facility] [address] [place] [address] Phone #: ext- [phone] 12/12/2020 14:59 Patient: KATHI GUNDERSON Sex: M : 1980 Age: 40yWEIGHT:81.1 kg (S) HEIGHT:69 inches (S) BMI:26.4ALLERGIES: PenicillinsCHIEF COMPLAINT: headacheDIAGNOSIS: Sinusitis, Severe acute respiratory syndrome coronavirusLAB ORDERSOrder Description Priority Entered Acknowledged InitialedCORONAVIRUS STAT 15:20 12/12/2020 15:31 KASSIE Reyes-Adan (Mare Marion RN; Mare RNSymptomatic as Verbal order per;Defined by CDC) Hank Leyva(12/12/2020) (First PATest) (NotHospitalized) (Not) (NotResident inCongregate CareSetting) (NotEmployed inHealthcare Setting)DIAGNOSTIC STUDY ORDERSOrder Description Priority Entered Acknowledged InitialedMEDICATION/IV/DRIP/FLUID ORDERSOrder Description Priority Entered Acknowledged InitialedGENERAL ORDERSOrder Description Priority Entered Acknowledged Initialed[Electronically signed by Mare Reyes RN (17:53 12/12/2020)][Electronically signed by Hank Leyva (21:46 12/12/2020)][Electronically locked by Mare Reyes RN (17:53 12/12/2020)] Name Value Range Interpretation Code Description Data Marion rce(s) Supporting Document(s) ID Date Data Source [id number] 12/12/2020 03:00:00 PM EDT [facility] 1 Medication Reconciliation Report [facility] [address] [place] [address] Phone #: ext- [phone] 12/12/2020 14:59 Patient: KATHI GUNDERSON Sex: M : 1980 Age: 40yWeight: 81.1 kgHeight/Length: 69 in.BMI: 26.4ALLERGIES: PenicillinsThe patient's Home Medications are listed below:CONTINUE TAKING THE FOLLOWING MEDICATIONS: Albuterol Sulfate HFA Inhalation Atorvastatin Calcium Oral 40 mg, daily Glaucoma eye drops Metoprolol Tartrate Oral 25 mg, 2x a day Omeprazole Oral 40 mg, dailyThe source(s) of the original Home Medication information:patientThe following Medications were given to the patient in the E mergency Department:None.The following Medications were prescribed to the patient:azithromycin 250 mg tablet -- Take 2 tablets on the first day then one tablet daily for 4 days.Dispense 6 tablet. Refills: 0. Substitution permitted.[facility] [address] [place] [address] [id number]. .Medrol (Michael) 4 mg tablets in a dose pack Take 1 tablet as directed for 6 days -- Dispense 21 tablet.Refills: 0. Substitution permitted.[facility] - [address] [place] [address] [id number]. . -- ANGELES Caicedo Name Value Range Interpretation Code Description Data [facility](s) Supporting Document(s) ID Date Data Source [id number] 12/12/2020 03:00:00 PM EDT [facility] 1 Medication Administration Record [facility] [address] [place] [address] Phone #: ext- [phone] 12/12/2020 14:59 Patient: KATHI GUNDERSON Sex: M : 1980 Age: 40yWeight: 81.1 kgHeight/Length: 69 inBMI: 26.4ALLERGIES: PenicillinsDate/Time Medication Administered Medication Ordered Name Value Range Interpretation Code Description Data [facility](s) Supporting Document(s) ID Date Data Source [id number] 12/12/2020 03:00:00 PM EDT [facility] 1 General Instructions [facility] [address] [place] [address] Phone #: ext- [phone] 12/12/2020 14:59 Patient: KATHI GUNDERSON Sex: M : 1980 Age: 40y Viral acute maxillary and frontal sinusitis. Coronavirus COVID-19 presumed (confirmatory testing pending) with upper respiratory infection.INSTRUCTIONS Do not work (until Covid test is complete). Warnings: Further evaluation is necessary. It is very important to follow up with a healthcare provider. GENERAL WARNINGS: Return or contact your physician immediately if your condition worsens or changes unexpectedly, if not improving as expected, or if other problems arise. MORA pain worsens or difficulty breathing. Your Current Medications: Your current home medications have been reviewed. CONTINUE TAKING THE FOLLOWING MEDICATIONS: Albuterol Sulfate HFA Inhalation. Atorvastatin Calcium Oral : 40 mg daily. Glaucoma eye drops*. Metoprolol Tartrate Oral : 25 mg 2x a day. Omeprazole Oral : 40 mg daily. Prescription Medications: azithromycin 250 mg tablet -- Take 2 tablets on the first day then one tablet daily for 4 days. Dispense 6 tablet. Refills: 0. Substitution permitted. [facility] [address] [id number]. . Medrol (Michael) 4 mg tablets in a dose pack Take 1 tablet as directed for 6 days -- Dispense 21 tablet. Refills: 0. Substitution permitted. [facility] [address] [place] [address] [id number]. . Follow-up: Follow up with your doctor as needed. Reason for referral: evaluation and treatment. Summary of care provided to patient. Understanding of the discharge instructions verbalized by patient. 2 General Instructions [facility] [address] [place] [address] Phone #: ext- [phone] 12/12/2020 14:59 ---- Patient: KATHI GUNDERSON Sex: Geovani : 1980 Age: 40y ADDITIONAL INFORMATIONSinusitis (Antibiotic Treatment)The sinuses are air-filled spaces within the bones of the face. They connect to the inside of thenose. Sinusitis is an inflammation of the tissue that lines the sinuses. Sinusitis can occur during acold. It can also happen due to allergies to pollens and other particles in the air. Sinusitis can causesymptoms of sinus congestion and a feeling of fullness. A sinus infection causes fever, headache,and facial pain. There is often green or yellow fluid draining from the nose or into the back of thethroat (post-nasal drip). You have been given antibiotics to treat this condition.Home care Take the full course of antibiotics as instructed. Don't stop taking them, even when you feel better. Drink plenty of water, hot tea, and other liquids as directed by the healthcare provider. This may help thin nasal mucus. It also may help your sinuses drain fluids. Heat may help soothe painful areas of your face. Use a towel soaked in hot water. Or, analytical data miner the shower and direct the warm spray onto your face. Using a vaporizer along with a menthol rub at night may also help soothe symptoms. An expectorant with guaifenesin may help thin nasal mucus and help your sinuses drain fluids. Talk with your provider or pharmacists before taking an zbcd-nsy-kdroklk (OTC) medicine if you have any questions about it or its side effects.. 3 General Instructions [facility] [address] [place] [address] Phone #: ext- [phone] 12/12/2020 14:59 Patient: KATHI GUNDERSON Sex: M : 1980 Age: 40y You can use an OTC decongestant, unless a similar medicine was prescribed to you. Nasal sprays work the fastest. Use one that contains phenylephrine or oxymetazoline. First blow your nose gently. Then use the spray. Don't use these medicines more often than directed on the label. If you do, your symptoms may get worse. You may also take pills that contain pseudoephedrine. Don't use products that combine multiple medicines. This is because side effects may be increased. Read labels. You can also ask the pharmacist for help. (People with high blood pressure should not use deco ngestants. They can raise blood pressure.) Talk with your provider or pharmacist if you have any questions about the medicine.. OTC antihistamines may help if allergies contributed to your sinusitis. Talk with your provider or pharmacist if you have any questions about the medicine.. Don't use nasal rinses or irrigation during an acute sinus infection, unless your healthcare provider tells you to. Rinsing may spread the infection to other areas in your sinuses. Use acetaminophen or ibuprofen to control pain, unless another pain medicine was prescribed to you. If you have chronic liver or kidney disease or ever had a stomach ulcer, talk with your healthcare provider before using these medicines. Never give aspirin to anyone under age 18 who is ill with a fever. It may cause severe liver damage. Don't smoke. This can make symptoms worse.Follow-up careFollow up with your healthcare provider, or as advised.When to seek medical adviceCall your healthcare provider if any of these occur: Facial pain or headache that gets worse Stiff neck Unusual drowsiness or confusion Swelling of your forehead or eyelids Symptoms don't go away in 10 days Vision problems, such as blurred or double vision Fever of 100.4F (38C) or higher, or as directed by your healthcare providerCall [phone] [phone] if any of these occur: 4 General Instructions [facility] [address] [place] [address] Phone #: ext- [phone] 12/12/2020 14:59 Patient: KATHI GUNDERSON Sex: M : 1980 Age: 40y Seizure Trouble breathing Feeling dizzy or faint Fingernails, skin or lips look blue, purple , or grayPreventionHere are steps you can take to help prevent an infection: Keep good hand washing habits. Don't have close contact with people who have sore throats, colds, or other upper respiratory infections. Don't smoke, and stay away from secondhand smoke. Stay up to date with of your vaccines. 8641-5307 [employer]. [address] [place] [address], [place] [address]. All rights reserved. This information is not intended as asubstitute for professional medical care. Always follow your healthcare professional's instructions.Understanding Coronavirus Disease 2019 (COVID- 19)Coronavirus disease 2019 (COVID-19) is a virus that causes a respiratory illness. It is caused by acoronavirus called 2019 novel coronavirus (2019-nCoV). There are many types of coronavirus.Coronaviruses are a very common cause of bro nchitis. They may sometimes cause lung infection(pneumonia). Symptoms can range from mild to severe respiratory illness. These viruses are alsofound in some animals. COVID-19 was first found in people in [facility], in late 2019. In 2020,several cases of COVID-19 have been confirmed in the [place] COVID-19 is a rapidly-emerginginfectious disease. This means that scientists are actively researching it. There are informationupdates regularly.Public health officials are working to find the source. How the virus spreads is not yet fullyunderstood, but it seems to spread and infect people fairly easily. Some people who have beeninfected in an area may be unsure how or where they became infected. The virus may be spreadthrough droplets of fluid that a person coughs or sneezes into the air. It may be spread if you touch asurface with virus on it, such as a handle or object, and then touch your eyes, nose, or mouth.For the latest information, visit the CDC website at www.cdc.gov/coronavirus/2019-ncov.What are the symptoms of COVID-19?Some people have no symptoms or mild symptoms. Symptoms may appear 2 to 14 days after 5 General Instructions [facility] [address] [place] [address] Phone #: ypo- [phone] 12/12/2020 14:59 Patient: KATHI GUNDERSON Sex: M : 1980 Age: 40ycontact with the virus. Symptoms can include: Fever Coughing Trouble breathingWhat are possible complications from COVID-19?In many cases, this virus can cause infection (pneumonia) in both lungs. In some cases, this cancause .How is COVID-19 diagnosed?Your healthcare provider will ask about your symptoms. He or she will also ask about your recenttravel and contact with sick people. If your healthcare provider thinks you may have COVID-19, csaandra campuzano will work closely with your local health department and the CDC on testing. Follow all instructionsfrom your healthcare provider. COVID-19 is diagnosed by: Nasal and throat swab. A cotton-tipped swab is wiped inside your nose or throat. This is done to check for viruses in your nasal mucus. Sputum culture. A small sample of mucus coughed from your lungs (sputum) is collected if you have a cough. It is checked for the virus.How is COVID-19 treated?There is currently no medicine to treat the virus. Treatment is done to help your body while it fightsthe virus. This is known as supportive care. Supportive care may include: Pain medicine. These include acetaminophen and ibuprofen. They are used to help ease pain and reduce fever. Bed rest. This helps your body fight the illness.For severe illness, you may need to stay in the hospital. Care during severe illness may include: IV (intravenous) fluids.These are given through a vein to help keep your body hydrated. Oxygen. Supplemental oxygen or ventilation with a breathing machine (ventilator) may be given. This is done so you get enough oxygen in your body.Are you at risk for COVID-19?You are at risk for infection if you've been to a place where people have been sick with this virus or ifthere are people with COVID-19 in your area. You are at risk if you: 6 General Instructions [facility] [address] [place] [address] Phone #: ext- [phone] 12/12/2020 14:59 Patient: KATHI GUNDERSON Sex: M : 1980 Age: 40y Recently traveled to an area with a COVID-19 outbreak Had contact with a sick person who recently traveled to an area with a COVID-19 outbreak Had contact with a person who was diagnosed with or who may have COVID-19How can COVID-19 be prevented?There is no vaccine yet. The best prevention is to not have contact with the virus. The CDC advisesthat people should not travel to areas where there are COVID-19 outbreaks right now for any reasonthat is not urgent. For the most current CDC travel advisories, visit the CDC website atwww.cdc.gov/coronavirus/2019-ncov/travelers.To help prevent spreading the infection, wash your hands often, or use an alcohol-based hand network control technician.The CDC advises that you shouldn't wear a face mask if you are not sick.To protect yourself from COVID-19: Wash your hands often with soap and clean, running water for at least 20 seconds. 7 General Instructions [facility] [address] [place] [address] Phone #: ext- [phone] 12/12/2020 14:59 Patient: KATHI GUNDERSON Sex: Geovani : 1980 Age: 40y If you don't have access to soap and water, use an alcohol-based hand network control technician often. Make sure it has at least 60% alcohol. Don't touch your eyes, nose, or mouth unless you have clean hands. Don't have contact with people who are sick. Follow local instructions about being in public. For example, you may be told to not use public transport for a period of time. Experts don't know if animals spread 2019-nCoV. But it's always a good idea to wash your hands after touching any animals. Don't touch animals that may be sick. Don't share eating or drinking tools with sick people. Don't kiss someone who is sick. Clean surfaces often with disinfectant.If you were in an area with COVID-19 in the last 14 days: Call your healthcare provider. He or she can talk with local health staff to see what action may be needed. Follow all instructions from your provider. Take your temperature every morning and evening for at least 14 days. This is to check for fever. Keep a record of the readings. Keep watch for symptoms of the virus. Tell your provider right away if you have symptoms. Stay home if you are sick for any reason.If you were in an area with COVID-19 and have a fever or other symptoms: Stay home. Don't panic. Keep in mind that other illnesses can cause similar symptoms. Stay away from work, school, and public places. Limit physical contact with family members. Don't kiss anyone or share eating or drinking utensils. Clean surfaces you touch with disinfectant. This is to help prevent the virus from spreading. Cough or sneeze into a tissue, then throw away the tissue in the trash. Or cough or sneeze into the bend of your elbow. Wear a face mask. Call your healthcare provider. Explain that you have been exposed to COVID-19 and have 8 General Instructions [facility] [address] [place] [address] Phone #: ext- [phone] 12/12/2020 14:59 Patient: KATHI GUNDERSON Sex: M : 1980 Age: 40y symptoms. Do this before going to any hospital. Wait for instructions. Ke ep in mind that healthcare staff may wear protective equipment such as masks, gowns, gloves, and eye protection. You may be put in a separate room. This is to prevent the possible virus from spreading. Tell the healthcare staff about recent travel. This includes local travel on public transport. Staff may need to find other people you have been in contact with. Follow all instructions the healthcare staff give you.If you have been diagnosed with COVID-19 Stay home. Don't leave your home unless you need to get medical care. Follow all instructions from your healthcare provider. Call your healthcare provider's office before going. They can prepare and give you instructions. This will help prevent the virus from spreading. Don't go to work, school, or public areas. Don't use public transport or taxis. Stay away from other people in your home. Wear a face mask. This is to protect other people from your germs. They do not need to wear face masks. Don't share household items or food. Cover your face with a tissue when you cough or sneeze. Throw the tissue away. Then wash your hands. Wash your hands often.Caregivers should: Follow all instructions from healthcare staff. Wear protective clothing as advised. Make sure the sick person wears a mask. Wash hands often. Keep track of the sick person's symptoms. Clean surfaces, fabrics, and laundry thoroughly. 9 General Instructions [facility] [address] [place] [address] Phone #: ext- [phone] 12/12/2020 14:59 Patient: KATHI GUNDERSON Sex: M : 1980 Age: 40y Keep other people away from the sick person.When to call your healthcare providerCall your healthcare provider: If you've recently traveled and have symptoms If you have been diagnosed with COVID-19 and your symptoms are worse [phone] [employer]. [address] [place] [address]. All rights reserved. This information is not intended as asubstitute for professional medical care. Always follow your healthcare professional's instructions. You have been given the following additional information: Sinusitis (Antibiotic Treatment) Coronavirus Disease 2019 (COVID-19) Do not work (until Covid test is complete).(Electronically signed by ANGELES Caicedo 12/12/2020 21:46) Name Value Range Interpretation Code Description Data Marion rce(s) Supporting Document(s) ID Date Data Source [id number] 12/12/2020 03:00:00 PM EDT [facility] 1 Clinical Report - Nurses [facility] [address] [place] [address] Phone #: war- [phone] 12/12/2020 14:59 Patient: KATHI GUNDERSON Sex: M : 1980 Age: 40yTRIAGEAcuity: LEVEL 4.Chief Complaint: MUSCLE ACHES and HEADACHE.Alert. No acute distress.( Pt has body aches. Pt has a h/a and nausea. Pt has a cough that started 4 days ago. Pts fianc? 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 SEPSIS SCREEN NEGATIVE. No suspected or confirmedsigns of infection present.ELY COMA SCORE: 15- eyes open- spontaneous (4); best verbal response- oriented (5); bestmotor response- obeys commands (6). --15:12/12/20 Caryl Fields R.N.15:02 12/12/20. BP: 146/89. MAP: 108. HR: 81. RR: 16. O2 saturation: 98% on room air. Temp: 98.2 F(oral). Pain level now: 04/18. --15:06 12/12/20 Caryl Fields R.N.Weight: 81.1 kg stated. Height/Length: 69 inches Per Patient. BMI: 26.4. --15:02 12/12/20 Caryl Fields R.N.MedicationsMetoprolol Tartrate Oral 25 mg, 2x a day. --15:12/12/20 Caryl Fields R.N. Omeprazole Oral 40 mg, daily. --15:12/12/20 Caryl Fields R.N. Atorvastatin Calcium Oral 40 mg, daily. --15:12/12/20 Caryl Fields R.N. Glaucoma eye drops. --15:12/12/20 Caryl Fields R.N. Albuterol Sulfate HFA Inhalation. --15:12/12/20 Caryl Fields R.N.AllergiesPenicillins.(Anaphylaxis, angioedema) --15:06 12/12/20 Caryl Feilds R.N.PROBLEMS:Cervical Strain.Depression.Bipolar Disorder.Acute Pain.Arthritis. 2 Clinical Report - Nurses [facility] [address] [place] [address] Phone #: ext- [phone] 12/12/2020 14:59 Patient: KATHI GUNDERSON Sex: M : 1980 Age: 40y Migraine Headache. Sprain. Intervertebral Disc Disease. Hypercholesterolemia. Hypertension. --15:08 12/12/20 Caryl Fields R.N. Medication/allergy information source: the patient. --15:06 12/12/20 Caryl Fields R.N. ADDITIONAL SURGERIES: Bladder surgery. Hernia Repair (X4). Moles removed (benign). --15:12/12/20 Caryl Fields R.N. History SOCIAL HX: Current every day heavy tobacco smoker- 1 pack per day. No alcohol use or drug use. He was offered HIV testing but declined. Patient education was provided. He was offered hepatitis C testing but declined. Patient education was provided. He has not traveled outside the [place] Infectious disease exposure: (possible exposure, pt was vaccinated for COVID) Patient is not a known carrier of tuberculosis, hepatitis, HIV, MRSA or VRE. Patient is not a known carrier of CRE. SELF HARM ASSESSMENT: Self harm assessment was performed. The patient answered "no" to the question(s) "Do you have thoughts of harming or killing yourself?", "Do you have a plan for harming or killing yourself?" and "Have you recently had thoughts about harming or killing others?". ABUSE ASSESSMENT: Abuse assessment. The patient had positive responses to the question(s) "Do you feel safe in your home?" (yes). Abuse denied. No suspicion of abuse. No report of abuse. NUTRITIONAL RISK ASSESSMENT: The nutritional risk assessment revealed no deficiencies. FUNCTIONAL ASSESSMENT: Functional assessment: no impairments noted. LEARNING NEEDS ASSESSMENT: The learning needs assessment revealed no barriers. FALL RISK ASSESSMENT: Fall risk assessment completed. No risk factors identified. SKIN INTEGRITY ASSESSMENT: Skin integrity risk assessment completed. No skin integrity risk identified. --15:06 12/12/20 Caryl Fields R.N. Interventions Identification band on patient. --15:12/12/20 Caryl Fields R.N.PHYSICAL ASSESSMENTlate entry - 15:07 12/12/20. Ambulatory to room.GENERAL / NEURO / PSYCH: Alert. Oriented X 4. Appears in no acute distress. 3 Clinical Report - Nurses [facility] [address] [place] [address] Phone #: ext- [phone] 12/12/2020 14:59 Patient: KATHI GUNDERSON Sex: M : 1980 Age: 40y HEENT: Pupils equal, round and reactive to light. No facial asymmetry noted. Runny nose. Mucous membranes are pink. RESPIRATORY: Respirations not labored. Cough. Chest nontender. Breath sounds within normal limits. CVS: Normal sinus rhythm noted. Capillary refill less than 2 seconds. Pulses within normal limits. GI / : Abdomen soft and nontender and normal bowel sounds. SKIN: Skin intact. Skin is warm and dry. Normal skin turgor. --15:22 12/12/20 Caryl Fields R.N.NURSING PROGRESS NOTESPatient gowned. Reassurance given. Three patient identifiers checked. Call light placed in reach. Siderails up x 2. Bed placed in lowest position. Brakes of bed on. Patient ready for evaluation- ED physiciannotified. --15:08 12/12/20 Caryl Fields R.N.DISPOSITION / DISCHARGE Departure time: 15:46 12/12/2020. --15:46 12/12/20 Mare Reyes RN Condition at departure: stable. No learning barriers present. Discharge instructions provided and reviewed with the patient. Reviewed medication(s) side effects, precautions, dosing and course information. Prescription(s) sent electronically to pharmacy. Reviewed referral to a primary care physician. Work note given. Patient verbalized understanding. Written instructions provided in Japanese. The patient was discharged by the physician supply assistant. He was discharged home and accompanied by marketing instructor. He left ambulatory and via private vehicle. Knitting Machine Mechanic driving. --15:47 12/12/20 Mare Reyes RN 15:47 12/12/20. Pain level now: 0/10. --15:48 12/12/20 Mare Reyes RN.Locked/Released at 12/12/2020 17:53 by Mare Reyes RN Name Value Range Interpretation Code Description Data Marino rce(s) Supporting Document(s) ID Date Data Source [id number] 12/12/2020 03:00:00 PM EDT [facility] 1 Clinical Report - Physicians/Mid Levels [facility] [address] [place] [address] Phone #: ext- [phone] 12/12/2020 14:59 Patient: KATHI GUNDERSON Sex: M : 1980 Age: 40y Time Seen: 15:15 12/12/2020. Arrived- By private vehicle. Historian- patient.HISTORY OF PRESENT ILLNESS Chief Complaint: HEADACHE. Nausea. This started 4 days ago and is now gone. It was abrupt in onset and has been intermittent. It is described as "pain", tightness and pressure. Located in the right hemicranial, right parietal and right temporal region and region of the right eye. At its maximum, severity described as severe. When seen in the E.D., it was gone. The patient has had nausea. No preceding symptoms, blurred vision, photophobia, numbness or weakness. No vomiting. (Pt has body aches. Pt has a h/a and nausea. Pt has a cough that started 4 days ago. Pts fianc? was exposed to someone with COVID). Similar symptoms previously. Recent medical care: Not recently seen/assessed.REVIEW OF SYSTEMSNo fever, ear pain, sore throat, carbon monoxide exposure or tick bite. No head injury, chest pain,difficulty breathing, abdominal pain or diarrhea. No skin rash, enlarged lymph nodes or back pain. Thepatient has had sinus pressure and muscle aches.PAST HISTORYProblems:Cervical Strain.Depression.Bipolar Disorder.Acute Pain.Arthritis.Migraine Headache.Sprain.Intervertebral Disc Disease.Hypercholesterolemia.Hypertension. Additional Surgeries: Bladder surgery. Hernia Repair. (X4) Moles removed (benign). 2 Clinical Report - Physicians/Mid Levels [facility] [address] [place] [address] Phone #: ext- [phone] 12/12/2020 14:59 Patient: KATHI GUNDERSON Sex: M : 1980 Age: 40y Medications: Albuterol Sulfate HFA Inhalation. Glaucoma eye drops. Atorvastatin Calcium Oral 40 mg, daily. Omeprazole Oral 40 mg, daily. Metoprolol Tartrate Oral 25 mg, 2x a day. Allergies: Penicillins.(Anaphylaxis, angioedema).SOCIAL HISTORYHeavy tobacco smoker (cigarette)- 1 pack per day. Occasional alcohol use. No drug use.PHYSICAL EXAMVital Signs: 12/12/2020 15:02 BP: 146/89. MAP: 108. HR: 81. RR: 16. O2 saturation: 98% on room air.Temp: 98.2 F. Pain level now: 04/18. Have been reviewed as abnormal. Hypertensive. Oxygensaturation normal.Appearance: Alert. No acute distress.Head: Tenderness pr esent to percussion/palpation of the sinuses.Eyes: Pupils equal, round and reactive to light. Eyes normal inspection.ENT: Ears normal. Nose normal. Pharynx normal.Neck: Normal inspection.CVS: Normal heart rate and rhythm. Heart sounds normal.Respiratory: No respiratory distress. Painless inspiration. Breath sounds normal.Abdomen: Soft and nontender. No organomegaly.Back: Normal inspection.Skin: Skin warm and dry. Normal skin color. No rash. Normal skin turgor.Extremities: Extremities exhibit normal ROM. No lower extremity edema.Neuro: Oriented X 3. Alert. Mood/affect normal. Speech normal. Cranial n erves normal (as tested).No cerebellar findings. No motor deficit. No sensory deficit. Reflexes normal.PROGRESS AND PROCEDURESCourse of Care: 15:34 Dec 12 2020. Evaluation after observation. (Discussed exam findings c/w sinusinfection, pt is concerned about Covid exposure, he is agreeable with dx and tx plan.). Patient counseled in person regarding the patient's stable condition, diagnosis and need for follow-up. Patient agrees with plan of care. 15:35 Dec 12 2020. Disposition: Discharged home in good and improved condition (15:35 Dec 12 2020).CLINICAL IMPRESSION Viral acute maxillary and frontal sinusitis. Coronavirus COVID-19 presumed (confirmatory testing pending) with upper respiratory infection. 3 Clinical Report - Physicians/Mid Levels [facility] [address] [place] [address] Phone #: ext- [phone] 12/12/2020 14:59 Patient: KATHI GUNDERSON Sex: Geovani : 1980 Age: 40yINSTRUCTIONS Do not work (until Covid test is complete). Warnings: Further evaluation is necessary. It is very important to follow up with a healthcare provider. GENERAL WARNINGS: Return or contact your physician immediately if your condition worsens or changes unexpectedly, if not improving as expected, or if other problems arise. MORA pain worsens or difficulty breathing. Your Current Medications: Your current home medications have been reviewed. CONTINUE TAKING THE FOLLOWING MEDICATIONS: Albuterol Sulfate HFA Inhalation. Atorvastatin Calcium Oral : 40 mg daily. Glaucoma eye drops*. Metoprolol Tartrate Oral : 25 mg 2x a day. Omeprazole Oral : 40 mg daily. Prescription Medications: azithromycin 250 mg tablet -- Take 2 tablets on the first day then one tablet daily for 4 days. Dispense 6 tablet. Refills: 0. Substitution permitted. [facility] ; [place], [place] [id number]. . Medrol (Michael) 4 mg tablets in a dose pack Take 1 tablet as directed for 6 days -- Dispense 21 tablet. Refills: 0. Substitution permitted. [facility] [address] [facility] ; [place], [place] [id number]. . Follow- up: Follow up with your doctor as needed. Reason for referral: evaluation and treatment. Summary of care provided to patient. Understanding of the discharge instructions verbalized by patient.(Electronically signed by ANGELES Caicedo 12/12/2020 21:46) Name Value Range Interpretation Code Description Data Marion rce(s) Supporting Document(s) ID Date Data Source [id number] 12/12/2020 03:00:00 PM EDT [facility]za for KATHI GUNDERSON VisitID: [id number] Date: 16:20Lab results reviewed, SARS CoV- 2Coronavirus NOT DETECTED Communicated information to patient.(Electronically signed by Kandace Amaya RN - 12/15/2020 16:20) Name Value Range Interpretation Code Description Data Marion rce(s) Supporting Document(s) ID Date Data Source [id number] 12/12/2020 03:28:00 PM EDT [facility] Name Value Range Interpretation Code Description Data Marion rce(s) Supporting Document(s) SARS coronavirus [address] [facility] This lab was ordered by [facility] Lukasz kinsey and reported by [facility]. ID Date Data Source [id number] 12/15/2020 07:23:00 AM EDT [facility] Name Value Range Interpretation Code Description Data Marion rce(s) Supporting Document(s) SARS-CoV-2, IMELDA Not Detected Not Detected [facility] This nucleic acid amplification test was developed and its performancecharacteristics determined by [facility] ([facility]). Nucleic acidamplification tests include RT-PCR and TMA. This test has not beenFDA cleared or approved. This test has been authorized by FDA underan Emergency Use Authorization (EUA). This test is only authorizedfor the duration of time the declaration that circumstances existjustifying the authorization of the emergency use of in vitrodiagnostic tests for detection of SARS-CoV-2 virus and/or diagnosisof COVID-19 infection under section 564(b)(1) of the Act, 21 U.S.C.360bbb-3(b) (1), unless the authorization is terminated or revokedsooner.When diagnostic testing is negative, the possibility of a falsenegative result should be considered in the context of a patient'srecent exposures and the presence of clinical signs and symptomsconsistent with COVID- 19. An individual without symptoms of COVID-19and who is not shedding SARS-CoV-2 virus would expect to have anegative (not detected) result in this assay. ID Date Data Source [id number] 10/14/2020 12:00:00 AM EDT [facility] Name Value Range Interpretation Code Description Data [facility] rce(s) Supporting Document(s) SARS-CoV-2 (COVID-19) RNA [Presence] in Respiratory specimen by IMELDA with probe detection Not Detected [facility] This lab was ordered by [facility] and reported by [employer]. ID Date Data Source [id number] 10/13/2020 02:31:00 PM EDT [facility] Patient Name: KATHI GUNDERSON : 1980 Sex: M Pt Unit #: [id number] Location:[facility] Provider: Visit Date/Time: 10/13/20 Primary Insurance: [facility] Secondary Insurance: MEDICAID [facility] 2ND R Intake Vital Signs 10/13/20 14:31 Current Height 5 ft 9 in Current Weight 162 lb 2 oz Weight Measurement Method Standing Scale BMI 23.9 BP 132/78 Blood Pressure Location Lt brachial Position Sitting Respiration 18 Pulse 72 Pulse Strength Normal Pulse Source Pulse Oximeter Temp 98 F Temp Source Tympanic Pulse Oximetry (%) 95 Oxygen Delivery Method room air Intake Visit Reasons: Cold symptoms (adult) Nurse Note: 40 year old here today with c/o cough. He stated that he is expectorating clear mucus. Is patient in pain?: No Allergies Cephalosporins Allergy (Severe, Verified 10/13/20 14:42) Angioedema penicillin G [Penicillin G] Allergy (Severe, Verified 10/13/20 14:42) Anaphylaxis Penicillins Allergy (Severe, Verified 10/13/20 14:42) Anaphylaxis Carbapenems [Carbapenem] Allergy (Intermediate, Verified 10/13/20 14:42) Rash promethazine HCl [From Phenergan] Adverse Reaction (Intermediate, Verified 10/13/20 14:42) Dizzyness Medications - Last Reconciled 10/13/20 by Rajani Yoo NP atorvastatin 40 mg PO HS metoprolol tartrate 25 mg PO BID omeprazole 20 mg PO BID Vision Wearing glasses?: Yes Fall Risk History of falls: Yes Ambulatory Aid:: None Gait/Transferring:: Normal PHQ-2/9 Over the last 2 weeks, how often have you been bothered by any of the following problems? 1. Little interest or pleasure in doing things: not at all 2. Feeling down, depressed, or hopeless: not at all Total score: 0 HIV Testing Offer - ages 13-64 Requirement for HIV testing offer been met?: Declines today. Pretest education received and acknowledged SBIRT Annual Questionnaire Are you currently in recovery for alcohol or substance use?: No How many times in the past year have you had 5 or more drinks in a day?: None How many times in the past year have you used a recreational drug or used a prescription medication for nonmedical reasons?: None Coronavirus Screening Screening Are you currently positive or on isolation for COVID ?: No Do you have any NEW signs of one or more of the following?: cough Do you have NEW signs of at least two of the following?: no symptoms HPI URI History of Present Illness Details: Has been coughing for approx 1 week. Last 2 days has been productive cough-thick and clear. Associated symptoms include fatigue, sleeping more during the day, joint pain/aches, nasal congestion, burning chest. Denies ear pain, sore throat, fever, chills, body aches. He did have episode of passing out yesterday. He bent over to pick something up and then woke up on the ground. Has been having increased dizziness stanislav with change in position lately. States he stays hydrated. [facility] Medical History Abnormal LFTs Allergic rhinitis due to pollen (08/27/15) Anal fissure Anxiety (08/27/15) Bipolar II disorder Bladder wall thickening Chronic migraine (10/08/15) COVID-19 Crush injury (L) hand as child CVA from (08/27/15) Depression Essential hypertension with goal blood pressure less than 140/90 (08/27/15) Fatigue (10/29/15) Folliculitis gastroesophageal reflux disease,esophagitis presence not ... (09/27/15) Hearing deficit Hemorrhoid Hemorrhoids Hx +tobacco 3/4 ppd 10-38YO: quit Hyperosmolality and hypernatremia Inguinal hernia recurrent bilateral Migraine Mild intermittent asthma without complication (08/27/15) Palpitations (04/08/13) PSVT (paroxysmal supraventricular tachycardia) (08/27/15) PTSD (post-traumatic stress disorder) (08/27/15) Pure hypercholesterolemia (10/08/15) Recurrent sinusitis Visual disturbance Surgical History colonoscopies 2002,2007,2016 H/O: hemorrhoidectomy History of - surgery History of - surgery Umbilical hernia Family History Mother Depression Melanoma Stroke Asthma Father No problems noted. Grandmother Melanoma Stroke Grandfather No problems noted. Other Diabetes Social History Does the Patient have a Healthcare Proxy: No Does Patient have a DNR?: No Does Patient have a Living Will?: No Advance Directives on File or in chart?: No Hx Recent Travel (where): No Smoking Status: Former smoker Tobacco: How many years used: 31 second hand exposure: No Smoking risk assessment performed?: No alcohol intake: current alcohol intake frequency: holidays/special occasions only substance use type: does not use Review of Systems Const Reports as per HPI and Reports system reviewed and no additional complaints, except as documented Exam Const General: cooperative and healthy appearing Nutritional Appearance: well nourished Orientation: alert, awake and oriented x3 HENMT Ears: TM's normal bilaterally and EAC's normal Throat: abnormal tonsil bilaterally erythema Eyes General: appearance normal, both eyes and all related structures Pupils: PERRL EOM: EOM intact bilaterally Neck Neck: normal visual inspection and full ROM Lymphatic : lymphadenopathy Resp Effort Inspection: normal respiratory effort Auscultation: clear to auscultation bilaterally and diminished lung sounds Cardio Rate: regular rate Rhythm: regular rhythm Heart Sounds: S1 normal and S2 normal Bruits: no carotid bruits Skin Lesions: no lesions Rashes: no rashes Hair: normal Nails: normal Neuro General: patient alert, patient oriented x3 and moves all extremities Cognition: normal cognition Speech: speech normal Gait: normal gait Assessment Plan Assessment Plan (1) Common cold: Code(s): J00 - Acute nasopharyngitis [common cold] (2) Cough: Code(s): R05 - Cough Plan: Given fatigue and productive cough x1 week will tx for bronchitis/PNA. Abx sent. Rapid covid negative in office and he is vaccinated. Instructed to notify the office Sunday morning if s/s are not improving and we will order labs. If he has another syncopal episode he is to go to ER-he voiced understanding. (3) Bronchitis: Code(s): J40 - Bronchitis, not specified as acute or chronic Orders: Orders COVID PCR [facility] Today R05 - Cough Medications: New azithromycin take 500 mg today (day 1), then 250 mg for 4 days (days 2-5) PO 6 tabs 0RF J40 - Bronchitis, not specified as acute or chronic Coding Level of Care Code 77715 Est Pt Intermediate Comp Diagnoses Common cold J00 Cough R05 Bronchitis J40 <Electronically signed by Rajani Yoo NP> 10/13/20 1509 Name Value Range Interpretation Code Description Data Marion rce(s) Supporting Document(s) ID Date Data Source [id number] 07/29/2020 03:23:00 PM EDT [facility] Patient Name: KATHI GUNDERSON : 1980 Sex: M Pt Unit #: [id number] Location:[facility] Provider: Visit Date/Time: 07/29/20 Primary Insurance: [facility] Secondary Insurance: MEDICAID [facility] 2ND R Intake Vital Signs 07/29/20 15:25 Current Height 5 ft 9 in Current Weight 173 lb Weight Measurement Method Standing Scale BMI 25.5 BP 138/80 Blood Pressure Location Lt brachial Position Sitting Respiration 18 Pulse 88 Pulse Source Pulse Oximeter Pulse Oximetry (%) 98 Oxygen Delivery Method room air Intake Visit Reasons: Hypertension Nurse Note: 39 year old male in for hypertension follow up, voices no concerns. Is not on his depression medications any more, was discharged by [facility] and states that he feel like a human again. Winding Inspector Required: No Accompanied by: Self / Same as Patient Is patient in pain?: No Allergies Cephalosporins Allergy (Severe, Verified 04/08/20 09:17) Angioedema penicillin G [Penicillin G] Allergy (Severe, Verified 04/08/20 09:17) Anaphylaxis Penicillins Allergy (Severe, Verified 04/08/20 09:17) Anaphylaxis Carbapenems [Carbapenem] Allergy (Intermediate, Verified 04/08/20 09:17) Rash promethazine HCl [From Phenergan] Adverse Reaction (Intermediate, Verified 04/08/20 09:17) Dizzyness Medications - Last Reconciled 07/29/20 by Lincoln Fajardo, DO aspirin 81 mg PO DAILY PRN atorvastatin 40 mg PO HS metoprolol tartrate 25 mg PO BID omeprazole 20 mg PO BID Fall Risk History of falls: No Ambulatory Aid:: None Gait/Transferring:: Normal Medications:: Antihypertensives PHQ-2/9 Over the last 2 weeks, how often have you been bothered by any of the following problems? 1. Little interest or pleasure in doing things: not at all 2. Feeling down, depressed, or hopeless: not at all Total score: 0 3. Trouble falling or staying asleep, or sleeping too much: several days 4. Feeling tired or having little energy: not at all 5. Poor appetite or overeating: not at all 6. Feeling bad about yourself - or that you are a failure or have let yourself and your family down:not at all 7. Trouble concentrating on things, such as reading the newspaper or watching television: not at all 8. Moving or speaking so slowly that other people could have noticed? - Or the opposite - being so fidgety or restless that you have been moving around a lot more than usual: not at all 9. Thoughts that you would be better off or of hurting yourself in some way: not at all Total score: 1 If you checked off any problems, how difficult have these problems made it for you to do your work, take care of things at home, or get along with other people?: not difficult at all Source: Developed by Drs. Trevin Segura, Sravanthi Miller, Mauro Argueta and colleagues, with an educational donald from [employer]. HIV Testing Offer - ages 13-64 Requirement for HIV testing offer been met?: Declines today. Pretest education received and acknowledged SBIRT Annual Questionnaire Are you currently in recovery for alcohol or substance use?: No How many times in the past year have you used a recreational drug or used a prescription medication for nonmedical reasons?: None Do you need a note to return Do you need a note to return to daycare/school/sports/work: No Coronavirus Screening Screening Are you currently positive or on isolation for COVID ?: No Do you have any NEW signs of one or more of the following?: no symptoms Do you have NEW signs of at least two of the following?: no symptoms HPI Additional HPI HPI Details: 39 YO male with PMH listed is here for f/u. Last seen 04/06/20 and it was for f/u in-patient psychiatric stay for bipolar depression. He was being followed by Catherine at [facility]. Last labs 06/28/20. Last seen also pre-op for hernia repair. He told REFLESHER Catherine Pool that he is off all psychiatric meds. He is healed from his hernia repairs. He said [facility] released him and they took him off of his meds. He states his abdomen if feeling much improved. He got both Moderna injections. he is smoking again. He is not seeing his son because he has been restricted. He is working for [employer] in [place]. Hypertension (Cardio) Current cardiovascular symptom: denies chest pain or dyspnea on exertion Current endocrine symptoms: Denies weight gain Current renal disease symptoms: denies weight loss Most Recent Cardiac Tests: No Data to Display [facility] Medical His tory (Updated 06/10/20 @ 13:09 by Lincoln Tana, DO) Abnormal LFTs Allergic rhinitis due to pollen (08/27/15) Anal fissure Anxiety (08/27/15) Bipolar II disorder Bladder wall thickening Chronic migraine (10/08/15) COVID-19 Crush injury (L) hand as child CVA from (08/27/15) Depression Essential hypertension with goal blood pressure less than 140/90 (08/27/15) Fatigue (10/29/15) Folliculitis gastroesophageal reflux disease,esophagitis presence not ... (09/27/15) Hearing deficit Hemorrhoid Hemorrhoids Hx +tobacco 3/4 ppd 10-38YO: quit Hyperosmolality and hypernatremia Inguinal hernia recurrent bilateral Migraine Mild intermittent asthma without complication (08/27/15) Palpitations (04/08/13) PSVT (paroxysmal supraventricular tachycardia) (08/27/15) PTSD (post-traumatic stress disorder) (08/27/15) Pure hypercholesterolemia (10/08/15) Recurrent sinusitis Visual disturbance Surgical History colonoscopies 2002,2007,2016 H/O: hemorrhoidectomy History of - surgery History of - surgery Umbilical hernia Family History Mother Depression Melanoma Stroke Asthma Father No problems noted. Grandmother Melanoma Stroke Grandfather No problems noted. Other Diabetes Social History (Updated 04/06/20 @ 12:57 by Kandice Mahoney) Does the Patient have a Healthcare Proxy: No Does Patient have a DNR?: No Does Patient have a Living Will?: No Advance Directives on File or in chart?: No Hx Recent Travel (where): No Smoking Status: Former smoker Tobacco: How many years used: 31 second hand exposure: No Smoking risk assessment performed?: No alcohol intake: current alcohol intake frequency: holidays/special occasions only substance use type: does not use Review of Systems Const Denies weight gain and Denies weight loss Card Denies chest pain, Denies irregular heart rhythm and Denies dyspnea on exertion Resp Denies cough and Denies dyspnea on exertion Exam Const General: cooperative, healthy appearing and comfortable Neck Thyroid: abnormal thyroid Carotids: no bruits Lymphatic: lymphadenopathy noted Chest Chest: normal inspection of the chest Resp Auscultation: clear to auscultation bilaterally, no rales, no rhonchi and no wheezes Cardio Rhythm: regular rhythm Heart Sounds: S1 normal, S2 normal, no gallops, no murmurs and no rubs Extrem General: normal to inspection and no edema Quality Reporting Depression/Bip olar (159/160/161/169/177) Total score: 1 Assessment Plan Assessment Plan (1) Hypertension: Status: Chronic Code(s): I10 - Essential (primary) hypertension SNOMED Code(s): 58787232 Category: Medical Plan - Lincoln Fajardo DO: HTN and palpitations stable. Bipolar Depression diagnosed in the past. He is off meds and doing well. Coding Level of Care Code 20037 Est Pt Intermediate Comp Exam Detailed Diagnoses Hypertension I10 <Electronically signed by Lincoln Fajardo DO> 07/29/20 1615 Name Value Range Interpretation Code Description Data Marion rce(s) Supporting Document(s) ID Date Data Source [id number] 06/28/2020 06:16:00 PM EDT [facility] Name Value Range Interpretation Code Description Data Marion rce(s) Supporting Document(s) Leukocytes [#/volume] in Blood by Automated count 10.3 10*3/uL 4.45-1 0.71 N [facility] Erythrocytes [#/volume] in Blood by Automated count 4.74 10*6/uL 4.3- 6.1 N [facility] Hemoglobin [Moles/volume] in Blood 14.7 g/dL 13-18 N [facility] Hematocrit [Volume Fraction] of Blood by Automated count 44.9 % 4 2-52 N [facility] Erythrocyte mean corpuscular volume [Ent itic volume] in Cord blood by Automated count 95 fL 80-96 N [facility] ital Erythrocyte mean corpuscular hemoglobin [Entitic mass] by Au tomated count 31 pg 27-31 N [facility] Erythrocyte mean corpuscular hemoglobin concentration [Mass/volume] in Cord blood 33 g/dL 33-37 N [facility] ital Erythrocyte distribution width [Entitic volume] by Automated count 13 % 11-15 N [facility] Platelets [#/volume] in Blood by Automated count 271 10*3/uL 130-472 N [facility] Platelet mean volume [Entitic volume] in Blood 8.8 fL 9.1-13. 1 Below low normal [facility] Neutrophils/100 leukocytes in Blood by Automated count 59.6 % 41- 77 N [facility] Neutrophils [#/volume] in Blood by Automated count 6.1 U 1.7-7.6 N [facility] Lymphocytes/100 leukocytes in Blood by Automated count 28.8 % 14- 46 N [facility] Lymphocytes [#/volume] in Blood by Automated count 3.0 U 0.6-4.6 N [facility] Monocytes/100 leukocytes in Blood by Automated count 6.5 % 4-12 N [facility] Monocytes [#/volume] in Blood by Automated count 0.7 U 0.2-1.2 N [facility] Eosinophils/100 leukocytes in Blood by Automated count 4.4 % 0-7 N [facility] Eosinophils [#/volume] in Blood by Automated count 0.5 U 0.0-0.5 N [facility] Basophils/100 leukocytes in Blood by Automated count 0.6 % 0.4-1 .3 N [facility] Basophils [#/volume] in Blood by Automated count 0.1 U 0.0-0.2 N [facility] NUCLEATED RED BLOOD CELL 0 % [facility] NUCLEATED RED BLOOD CELL# 0 U [facility] Immature granulocytes [Presence] in Blood by Automated count 0-2 N [facility] Immature granulocytes [#/volume] in Blood by Automated count 0.0 U 0-0.1 N [facility] Manual Differential panel - Blood NO [facility] ID Date Data Source [id number] 06/28/2020 06:47:00 PM EDT [facility] Name Value Range Interpretation Code Description Data Marion rce(s) Supporting Document(s) Urea nitrogen [Mass/volume] in Serum or Plasma 7 mg/dL 9-23 Below low normal [facility] Sodium [Moles/volume] in Serum or Plasma 142 mmol/L 132-146 N [facility] Potassium [Moles/volume] in Serum or Plasma 3.6 mmol/L 3.5-5.5 N [facility] Chloride [Moles/volume] in Serum or Plasma 108 mmol/L 99-109 N [facility] Carbon dioxide, total [Moles/volume] in Serum or Plasma 31 mmol/L 20 -31 N [facility] Anion gap in Serum or Plasma 7 mmol/L 8-16 Below low normal [facility] Glucose [Mass/volume] in Serum or Plasma 90 mg/dL 74-106 N [facility] Creatinine 0.9 mg/dL 0.5-1.1 N [facility] Glomerular filtration rate/1.73 sq M.pre dicted [Volume Rate/Area] in Serum or Plasma Greater Than 60 ABOVE 60 [facility] Alanine aminotransferase [Enzymatic acti vity/volume] in Serum or Plasma by With P-5'-P 43 U/L 10-49 N [facility] ital Aspartate aminotransferase [Enzymatic ac tivity/volume] in Serum or Plasma by With P-5'-P 20 U/L 0-33 N [facility] pital Alkaline phosphatase [Enzymatic activity/volume] in Serum or Plasma 81 U/L 45-129 N [facility] Calcium [Mass/volume] in Serum or Plasma 9.3 mg/dL 8.5-10.1 N [facility] Bilirubin.total [Mass/volume] in Serum or Plasma 0.3 mg/dL 0.3-1.2 N [facility] Albumin [Mass/volume] in Serum or Plasma by Bromocresol purple (BCP) dye binding method 4.1 g/dL 3.2-4.8 N [facility] ital Protein [Mass/volume] in Serum or Plasma 7.3 g/dL 5.7-8.2 N [facility] ID Date Data Source [id number] 06/28/2020 06:47:00 PM EDT [facility] Name Value Range Interpretation Code Description Data Marion rce(s) Supporting Document(s) Triglycerides 186 mg/dL 0-150 Above high normal [facility] Cholesterol 176 mg/dL 120-200 N [facility] HDL Cholesterol 46 mg/dL [facility] HDL Less than 40 mg/dL: Major risk for CHDHDL Greater than 59 mg/dL: Low risk for CHD LDL Cholesterol, Calc 93 mg/dL 0-100 N [facility] ID Date Data Source [id number] 04/27/2020 10:06:00 AM EST [facility] Name: KATHI GUNDERSON : 1980 Age: 39 MR#: [id number] Admit Date: 04/27/20 Provider: Kathi White MD Room #: Consulting Provider: Dictation Date: 04/27/20 Intake Vital Signs 3 04/27/20 10:06 Current Height 5 ft 9 in Current Weight 170 lb Weight Measurement Method Most recent on chart BMI 25.1 BP 138/88 Blood Pressure Location Lt brachial Position Sitting Respiration 18 Pulse 92 Pulse Strength Normal Pulse Source Pulse Oximeter Temp 97.7 F Temp Source Temporal Artery Scan Pulse Oximetry (%) 98 Oxygen Delivery Method room air Intake Visit Reasons: Post-Op follow-Up Nurse Note: Post Op check Winding Inspector Required: No Accompanied by: Self / Same as Patient Is patient in pain?: No Allergies Cephalosporins Allergy (Severe, Verified 04/08/20 09:17) Angioedema penicillin G [Penicillin G] Allergy (Severe, Verified 04/08/20 09:17) Anaphylaxis Penicillins Allergy (Severe, Verified 04/08/20 09:17) Anaphylaxis Carbapenems [Carbapenem] Allergy (Intermediate, Verified 04/08/20 09:17) Rash promethazine HCl [From Phenergan] Adverse Reaction (Intermediate, Verified 04/08/20 09:17) Dizzyness HIV Testing Offer - ages 13-64 Requirement for HIV testing offer been met?: Declines today. Pretest education received and acknowledged Coronavirus Screening Screening Have you traveled outside of [facility] or [facility] in the last 14 days.: No Has patient experienced coronavirus symptoms: No PFSH Medical History Abnormal LFTs Allergic rhinitis due to pollen (08/27/15) Anal fissure Anxiety (08/27/15) Bipolar II disorder Bladder wall thickening Chronic migraine (10/08/15) COVID-19 Crush injury (L) hand as child CVA from (08/27/15) Depression Essential hypertension with goal blood pressure less than 140/90 (08/27/15) Fatigue (10/29/15) Folliculitis gastroesophageal reflux disease,esophagitis presence not ... (09/27/15) Hemorrhoid Hemorrhoids Hx +tobacco 3/4 ppd 10- 36YO: quit Hyperosmolality and hypernatremia Inguinal hernia recurrent bilateral Migraine Mild intermittent asthma without complication (08/27/15) Palpitations (04/08/13) PSVT (paroxysmal supraventricular tachycardia) (08/27/15) PTSD (post-traumatic stress disorder) (08/27/15) Pure hypercholesterolemia (10/08/15) Recurrent sinusitis Visual disturbance S urgical History colonoscopies 2002,2007,2017 H/O: hemorrhoidectomy History of - surgery History of - surgery Umbilical hernia Family History Mother Depression Melanoma Stroke Asthma Father No problems noted. Grandmother Melanoma Stroke Grandfather No problems noted. Other Diabetes Social History (Updated 04/06/20 @ 12:57 by Kandice Mahoney) Does the Patient have a Healthcare Proxy: No Does Patient have a DNR?: No Does Patient have a Living Will?: No Advance Directives on File or in chart?: No Hx Recent Travel (where): No Smoking Status: Former smoker Tobacco: How many years used: 31 second hand exposure: No Smoking risk assessment performed?: No alcohol intake: current alcohol intake frequency: holidays/special occasions only substance use type: does not use HPI Additional HPI HPI Details: Mr. Gunderson underwent a bilateral laparoscopic hernia repair on April 08, 2021. He comestoday for postop follow-up. On March 19 he fell after he slipped on ice and was in considerable discomfort after. He report that since the weekend his pain has improved and now he is almost asymptomatic. He is able to ambulate, and perform daily activities with no discomfort or limitation. Denies fever or chills, tolerates a diet, no nausea or vomiting. Regular bowel movements. Review of Systems Const All systems reviewed are unremarkable except as noted in HPI and below Exam GI Other: Laparoscopic incisions are clean, dry, and intact. Minimum tenderness in the lower abdomen. Ecchymosis is completely resolved. No evidence of bulging or pulsating mass in bilateral inguinal area. Assessment Plan Assessment Plan (1) Encounter for Postoperative Care: Code(s): Z48.89 - Encounter for other specified surgical aftercare Plan - Kathi White MD: Mr. Gunderson underwent a bilateral laparoscopic inguinal hernia repair 19 days ago. He had been on some discomfort And after slipping and falling on postop day #10, the discomfort worsened. He is feeling much better today, denies any pain, discomfort in the surgical area. He is tolerating his diet, having regular bowel function. Abdominal exam is benign, and wounds are well-healed. Patient will return to clinic as needed. All questions were answered. Coding Level of Care Code 99239 Global Follow-Up Diagnoses Encounter for Postoperative Care Z48.89 Dictated by: <Electronically signed by Kathi White MD> Kathi White MD 04/27/20 1711 Kathi White MD SIGNATURE DA Report Cosigners: D: JADA 04/27/20 1006 T: ISACC 04/27/20 1006 CC: Name Value Range Interpretation Code Description Data Marion rce(s) Supporting Document(s) ID Date Data Source [id number] 04/20/2020 12:55:00 PM [facility] Name: JALYNKATHI Olivo : 1980 Age: 39 MR#: [id number] Admit Date: 04/20/20 Provider: Mohit Zimmerman MD Room #: Consulting Provider: Dictation Date: 04/20/20 Intake Vital Signs 04/20/20 12:55 Current Height 5 ft 9 in Current Weight 170 lb Weight Measurement Method Stated by Patient BMI 25.1 BP 138/88 Blood Pressure Location Lt brachial Position Sitting Respiration 18 Pulse 77 Pulse Strength Normal Pulse Source Pulse Oximeter Temp 96.9 F L Temp Source Temporal Artery Scan Pulse Oximetry (%) 98 Oxygen Delivery Method room air Intake Visit Reasons: Post-Op follow-Up Nurse Note: Post Op Lap Bilateral Inguinal Hernia Repair 04/08/20. Winding Inspector Required: No Accompanied by: Self / Same as Patient Is patient in pain?: Yes Pain scale (1-10): 7 Allergies Cephalosporins Allergy (Severe, Verified 04/08/20 09:17) Angioedema penicillin G [Penicillin G] Allergy (Severe, Verified 04/08/20 09:17) Anaphylaxis Penicillins Allergy (Severe, Verified 04/08/20 09:17) Anaphylaxis Carbapenems [Carbapenem] Allergy (Intermediate, Verified 04/08/20 09:17) Rash promethazine HCl [From Phenergan] Adverse Reaction (Intermediate, Verified 04/08/20 09:17) Dizzyness HIV Testing Offer - ages 13-64 Requirement for HIV testing offer been met?: Declines today. Pretest education received and acknowledged Coronavirus Screening Screening Have you traveled outside of [facility] or [facility] in the last 14 days.: No Has patient experienced coronavirus symptoms: No PFSH Medical History (Updated 04/06/20 @ 13:24 by Lincoln Fajardo DO) Abnormal LFTs Allergic rhinitis due to pollen (08/27/15) Anal fissure Anxiety (08/27/15) Bipolar II disorder Bladder wall thickening Chronic migraine (10/08/15) COVID-19 Crush injury (L) hand as child CVA from (08/27/15) Depression Essential hypertension with goal blood pressure less than 140/90 (08/27/15) Fatigue (10/29/15) Folliculitis gastroesophageal reflux disease,esophagitis presence not ... (09/27/15) Hemorrhoid Hemorrhoids Hx +tobacco 3/4 ppd 10-38YO: quit Hyperosmolality and hypernatremia Inguinal hernia recurrent bilateral Migraine Mild intermittent asthma without complication (08/27/15) Palpitations (04/08/13) PSVT (paroxysmal supraventricular tachycardia) (08/27/15) PTSD (post-traumatic stress disorder) (08/27/15) Pure hypercholesterolemia (10/08/15) Recurrent sinusitis Visual disturbance Surgical History colonoscopies 2002,2007,2017 H/O: hemorrhoidectomy History of - surgery History of - surgery Umbilical hernia Family History Mother Depression Melanoma Stroke Asthma Father No problems noted. Grandmother Melanoma Stroke Grandfather No problems noted. Other Diabetes Social History (Updated 04/06/20 @ 12:57 by Kandice Mahoney) Does the Patient have a Healthcare Proxy: No Does Patient have a DNR?: No Does Patient have a Living Will?: No Advance Directives on File or in chart?: No Hx Recent Travel (where): No Smoking Status: Former smoker Tobacco: How many years used: 31 second hand exposure: No Smoking risk assessment performed?: No alcohol intake: current alcohol intake frequency: holidays/special occasions only substance use type: does not use HPI Additional HPI HPI Details: Kathi underwent laparoscopic bilateral inguinal hernia repair on April 08. Unfortunately on the he slipped and fell on the ice. This resulted in considerable discomfort in both lower inguinal areas. He has not noticed any bulge. There is been no ecchymosis. Bowel and bladder function are normal. He still has considerable discomfort. Exam GI Other: All trocar sites are clean and dry. There is no sign of infection, hematoma or seroma. There is no sign of hernia at any trocar site. Examination of the groin shows no swelling. He has no asymmetry or bulge. There is no evidence of ecchymosis. Assessment Plan Assessment Plan (1) Encounter for Postoperative Care: Code(s): Z48.89 - Encounter for other specified surgical aftercare Additional Comments Additional Comments: 39-year-old male who fell on the ice 10 days following laparoscopic bilateral inguinal herniorrhaphy. This is resulted in significant increase in discomfort in both groins. Thepresent time there is no sign of infection hematoma or seroma. I see no evidence of recurrence at this time. I reassured him of this. I did point out that we have to wait and see if in fact there will be any recurrence of the future. In the meantime I believe his discomfort is simply the resultof reinjuring the areas of recent surgery. I recommended Tylenol and Motrin as needed for discomfort. He needs to avoid any activity which causes increasing discomfort. I will see him backin the surgical clinic in 1 week's time. Coding Level of Care Code 28283 Global Follow-Up Diagnoses Encounter for Postoperative Care Z48.89 Dictated by: <Electronically signed by Mohit Zimmerman MD> Mohit Zimmerman MD 04/20/20 1310 Mohit Zimmerman MD SIGNATURE DA Report Cosigners: D: BRITTANY 04/20/20 1255 T: BRITTANY 04/20/20 1255 CC: Name Value Range Interpretation Code Description Data Marion rce(s) Supporting Document(s) ID Date Data Source [id number] 04/16/2020 09:40:00 AM EST [facility] Name: KATHI GUNDERSON : 1980 Age: 39 MR#: [id number] Admit Date: 04/16/20 Provider: Kathi White MD Room #: Consulting Provider: Dictation Date: 04/16/20 Intake Vital Signs 3 04/16/20 09:40 Current Height 5 ft 9 in Current Weight 172 lb Weight Measurement Method Most recent on chart BMI 25.4 BP 130/86 Blood Pressure Location Lt brachial Position Sitting Respiration 18 Pulse 70 Pulse Strength Normal Pulse Source Pulse Oximeter Temp 97.5 F L Temp Source Oral Pulse Oximetry (%) 98 Oxygen Delivery Method room air Intake Visit Reasons: Post-Op follow-Up Nurse Note: Post Op bilateral inguinal hernia repair 04/08/20. Winding Inspector Required: No Accompanied by: Self / Same as Patient Is patient in pain?: Yes Pain scale (1-10): 5 Allergies Cephalosporins Allergy (Severe, Verified 04/08/20 09:17) Angioedema penicillin G [Penicillin G] Allergy (Severe, Verified 04/08/20 09:17) Anaphylaxis Penicillins Allergy (Severe, Verified 04/08/20 09:17) Anaphylaxis Carbapenems [Carbapenem] Allergy (Intermediate, Verified 04/08/20 09:17) Rash promethazine HCl [From Phenergan] Adverse Reaction (Intermediate, Verified 04/08/20 09:17) Dizzyness HIV Testing Offer - ages 13-64 Requirement for HIV testing offer been met?: Declines today. Pretest education received and acknowledged Coronavirus Screening Screening Have you traveled outside of [facility] or [facility] in the last 14 days.: No Has patient experienced coronavirus symptoms: No [facility] Medical History (Updated 04/06/20 @ 13:24 by Lincoln Fajardo DO) Abnormal LFTs Allergic rhinitis due to pollen (08/27/15) Anal fissure Anxiety (08/27/15) Bipolar II disorder Bladder wall thickening Chronic migraine (10/08/15) COVID-19 Crush injury (L) hand as child CVA from (08/27/15) Depression Essential hypertension with goal blood pressure less than 140/90 (08/27/15) Fatigue (10/29/15) Folliculitis gastroesophageal reflux disease,esophagitis presence not ... (09/27/15) Hemorrhoid Hemorrhoids Hx +tobacco 3/4 ppd 10-36YO: quit Hyperosmolality and hypernatremia Inguinal hernia recurrent bilateral Migraine Mild intermittent asthma without complication (08/27/15) Palpitations (04/08/13) PSVT (paroxysmal supraventricular tachycardia) (08/27/15) PTSD (post-traumatic stress disorder) (08/27/15) Pure hypercholesterolemia (10/08/15) Recurrent sinusitis Visual disturbance Surgical History colonoscopies 2002,2007,2017 H/O: hemorrhoidectomy History of - surgery History of - surgery Umbilical hernia Family History Mother Depression Melanoma Stroke Asthma Father No problems noted. Grandmother Melanoma Stroke Grandfather No problems noted. Other Diabetes Social History (Updated 04/06/20 @ 12:57 by Kandice Mahoney) Does the Patient have a Healthcare Proxy: No Does Patient have a DNR?: No Does Patient have a Living Will?: No Advance Directives on File or in chart?: No Hx Recent Travel (where): No Smoking Status: Former smoker Tobacco: How many years used: 31 second hand exposure: No Smoking risk assessment performed?: No alcohol intake: current alcohol intake frequency: holidays/special occasions only substance use type: does not use HPI Additional HPI HPI Details: Mr. Gunderson is here today for postop visit. He is 8 days postop s/p laparoscopic bilateral inguinal hernia repair with mesh. He was seen 4 days ago, and a Comer catheter was removed as he developed urinary retention after surgery. He is voiding with no difficulty. He states that his pain is much improved, with still some tenderness in his lower abdomen when walking or bending. Denies fevers, chills, nausea, or vomiting. He is having regular bowel movements. Review of Systems Const All systems reviewed are unremarkable except as noted in HPI and below Exam Const General: cooperative, healthy appearing, comfortable and no acute distress GI Other: Surgical wounds are clean, dry, and intact. No erythema, induration, or discharge around them. Abdomen is nondistended. Abdomen is soft, and mildly tender over both inguinal areas. Ecchymosis has resolved. No guarding or rebound. No fluctuance or induration in the lower abdomen. Penis: normal penis Scrotum: scrotum normal Testes: normal, not enlarged and testicular tenderness (Mild bilateral testicular tenderness. No induration. No masses.) bilaterally Assessment Plan Assessment Plan (1) Encounter for Postoperative Care: Code(s): Z48.89 - Encounter for other specified surgical aftercare Plan - Kathi White MD: Mr. Gunderson was here today for postop evaluation. He is status post laparoscopic bilateral renal hernia repair He developed urinary retention after surgery that required the placement of a Comer catheter. This catheter was removed last Sunday. Now he is voiding with no difficulty. He had some lower abdomen ecchymosis, which is now resolved. He reports improvement of his pain andnow he has been able to increase his activity. He denies fevers, or chills. His abdominal exam hasimproved. There is some tenderness in the lower abdomen. Patient will continue to refrain of strenuous activity, or heavy lifting. He will return to clinic for evaluation next week. Ample time was given for questions. All questions were answered. Coding Level of Care Code 31818 Global Follow-Up Exam Problem Focused Diagnoses Encounter for Postoperative Care Z48.89 Dictated by: <Electronically signed by Kathi White MD> Kathi White MD 04/16/20 1700 Kathi White MD SIGNATURE DA Report Cosigners: D: JADA 04/16/20939 T: ISACC 04/16/20939 CC: Name Value Range Interpretation Code Description Data Mraion rce(s) Supporting Document(s) ID Date Data Source [id number] 04/12/2020 03:10:00 PM [facility] Name: KATHI GUNDESRON : 1980 Age: 39 MR#: [id number] Admit Date: 04/12/20 Provider: Kathi White MD Room #: Consulting Provider: Dictation Date: 04/12/20 Intake Vital Signs 3 04/12/20 15:10 Pulse 80 Pulse Source Palpation Temp 98.3 F Intake Visit Reasons: Post-Op follow-Up Allergies Cephalosporins Allergy (Severe, Verified 04/08/20 09:17) Angioedema penicillin G [Penicillin G] Allergy (Severe, Verified 04/08/20 09:17) Anaphylaxis Penicillins Allergy (Severe, Verified 04/08/20 09:17) Anaphylaxis Carbapenems [Carbapenem] Allergy (Intermediate, Verified 04/08/20 09:17) Rash promethazine HCl [From Phenergan] Adverse Reaction (Intermediate, Verified 04/08/20 09:17) Dizzyness HIV Testing Offer - ages 13-64 Requirement for HIV testing offer been met?: Declines today. Pretest education received and acknowledged Coronavirus Screening Screening Have you traveled outside of [facility] or [facility] in the last 14 days.: No Has patient experienced coronavirus symptoms: No PFSH Medical History (Updated 04/06/20 @ 13:24 by Lincoln Fajardo DO) Abnormal LFTs Allergic rhinitis due to pollen (08/27/15) Anal fissure Anxiety (08/27/15) Bipolar II disorder Bladder wall thickening Chronic migraine (10/08/15) COVID-19 Crush injury (L) hand as child CVA from (08/27/15) Depression Essential hypertension with goal blood pressure less than 140/90 (08/27/15) Fatigue (10/29/15) Folliculitis gastroesophageal reflux disease,esophagitis presence not ... (09/27/15) Hemorrhoid Hemorrhoids Hx +tobacco 3/4 ppd 10-38YO: quit Hyperosmolality and hypernatremia Inguinal hernia recurrent bilateral Migraine Mild intermittent asthma without complication (08/27/15) Palpitations (04/08/13) PSVT (paroxysmal supraventricular tachycardia) (08/27/15) PTSD (post-traumatic stress disorder) (08/27/15) Pure hypercholesterolemia (10/08/15) Recurrent sinusitis Visual disturbance Surgical History colonoscopies 2002,2007,2016 H/O: hemorrhoidectomy History of - surgery History of - surgery Umbilical hernia Family History Mother Depression Melanoma Stroke Asthma Father No problems noted. Grandmother Melanoma Stroke Grandfather No problems noted. Other Diabetes Social History (Updated 04/06/20 @ 12:57 by Kandice Mahoney) Does the Patient have a Healthcare Proxy: No Does Patient have a DNR?: No Does Patient have a Living Will?: No Advance Directives on File or in chart?: No Hx Recent Travel (where): No Smoking Status: Former smoker Tobacco: How many years used: 31 second hand exposure: No Smoking risk assessment performed?: No alcohol intake: current alcohol intake frequency: holidays/special occasions only substance use type: does not use HPI Additional HPI HPI Details: Mr. Gunderson underwent a laparoscopic bilateral inguinal hernia repair on April 08, 2020, he developed urinary retention in the recovery room, and a Comer catheter was placed. He developed ecchymosis in the lower aspect of his abdominal wall, he has been using ice packs, with improvement of symptoms. He comes today for evaluation, complaining of burning sensation in his urethra, and small amounts of clots in the urine. Still reports sensation of fullness and some tenderness in thelower abdomen, denies nausea or vomiting, chills or fevers. He tolerates a diet, is passing gas, and having bowel movements. Review of Systems Const All systems reviewed are unremarkable except as noted in HPI and below Exam Const General: cooperative, comfortable and no acute distress Resp Effort Inspection: normal respiratory effort GI Inspection: No abdominal distension and Yes incision (Laparoscopic incisions are clean, dry, and intact.) Palpation: soft, no hernias, no masses, not rigid and tender (Some tenderness to palpation in the lower abdomen bilaterally. No guarding) Other: Abdominal wall ecchymosis resolved. Scrotum: scrotum normal, no ecchymosis and not edematous Other: Comer catheter in place, with clear urine. No hematuria. Assessment Plan Assessment Plan (1) Encounter for Postoperative Care: Code(s): Z48.89 - Encounter for other specified surgical aftercare Plan: Mr. Gunderson here today for postop follow-up. He underwent a laparoscopic bilateral hernia repair with mesh. Had urinary retention, and developed some ecchymosis abdominal wall. He came complaining today of lower abdominal pain tenderness, and some burning sensation when urinating. On exam the ecchymosis has resolved. There is some tender in the lower abdomen, however abdomen is soft, with no guarding or rebound. Laparoscopy wounds are clean and dry. No erythema, no discharge. He is overall feeling better, no fevers or chills, no nausea or vomiting, regular bowel function. Some constipation at the beginning, but now resolved. Comer catheter was removed. Instructions were given to try to void in the next 8 hours. Otherwise she should come back to the hospital for replacement of Comer. He will come back for follow-up visit this coming Sunday. Appointment was made. Ample time was given for questions, all questions were answered. Coding Level of Care Code 13290 Global Follow-Up Exam Problem Focused Diagnoses Encounter for Postoperative Care Z48.89 Dictated by: <Electronically signed by Kathi White MD> Kathi White MD 04/12/20 1519 Kathi White MD SIGNATURE DA Report Cosigners: D: VIVDA 04/12/20 1510 T: CARITODA 04/12/20 151 CC: Name Value Range Interpretation Code Description Data Marion rce(s) Supporting Document(s) ID Date Data Source [id number] 04/08/2020 12:23:00 PM [facility] Name: KATHI GUNDERSON : 1980 Age: 39 MR#: [id number] Admit Date: 04/08/20 Provider: Juma Huffman MD Room #: Consulting Provider: Dictation Date: 04/08/20 Operative Note Operative Report Date of Service Date of service:: 04/08/20 Procedure start time: 11:30 Operative Report Surgeon: Juma Huffman MD MPH Anesthesia Type: General Pre-Operative Diagnosis: Bilateral inguinal hernia Post-Operative Diagnosis: same as pre-op Procedure Procedure: Laparoscopic bilateral inguinal hernia repair Complications: No Post-Operative Condition: Good Operative Treatments Dressings/Drains: Dermabond/Skin Adhesive Drains and Output Drain: No Drain Operative Narrative Narrative: With the patient under general endotracheal anesthesia, the abdomen was prepped with ChloraPrep solution and draped in the usual manner. A transverse skin incision was made below and tothe right of the umbilicus to a length of approximately 3 cm. The incision was carried through the subcutaneous tissue. Bleeders were cauterized. The right rectus sheath was identified and incised lateral to the midline. The p reperitoneal space was then developed following insertion of a Spacemaker balloon, which was inflated under direct vision. Following removal of the Spacemaker balloon, a #10 trocar was placed in the preperitoneal space and the preperitoneal space was insufflated with CO2. Two #5 trocars were placed in the lower midline. Video laparoscope was inserted in the preperitoneal space. Landmarks including symphysis pubis, rightCooper ligament and right inferior epigastric vessels were identified. Dissection was then continuedlateral to the transverse abdominis muscle. The internal ring was then explored for the presence of an indirect hernia sac. No indirect hernia sac was identified. The patient had a cord lipoma, which was reduced under direct vision. Exploration of the medial space showed a medial defect suggesting adirect hernia. A large size self affixing mesh was placed in the preperitoneal space and laid along the symphysis pubis and anterior abdominal wall. The lower edge of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 DoHZ3gQDgkCX1YRLJ7MGskFINtDBYwK8zEEqYcFYmeEHEzkGelIF0CGxCpF6EeuzBptGA2KHDvHAMAEj 4+CYszvkFgLqlQJgXyADQyt6LrDMf0PJ3WPXTiVThz IH6JVQYbhB6fTDniHC9HOqTmOCFoSOHENmLiL59fbSYeQYt3N4DpDlCiYOUyEotpDANeDCdgAlOrOEFg WyBdDQogID4+ID4+PFcmOD4MQLgwioQyKHRdKa8TIBEbZFSiOM9eASTvPJOzY9W2rOstMCKCLlUgM6ee szckOL0eRWAiF109vDzdxgVgFRScGTSfXa2BYMWvAP I5EKPnnFUdPQMaSCGIXPfmXK7RaXIlDXE7yB8zWXlpYBNaVSBzN8yUYnDuoOmdRI94yNxrvmOxoNCeQN o+Hg0CER7ql8HdFLf7qoAvBOhmQZA4XOvxXHKfYOVzGBVqFBM8TBP8FHDATpSuCQKqGIViVJxaBLXtPT Ypun8BEUSnEKYnTqcvWASzQUCvXQOuJBypZOFqYIV3 GbZ6FNGbTNSrLM7GIgXkYGLzSLApSUheQWHhWYJhzj9YYBIzXIToRbE3OfRfAWRbCSNaZKhgOBQhPDGh YyBgGOHwXPFjZE4SXaVpUFZnTNN7INWyAQWwKCLnmo7YOWFvHIHcIjVaNJZmYLGeADFxRFjsYAGsMFF4 EUJ2MXRiDSMpFS6QEkOyQLHaISl4GxXsQSFpFQMfkn 3GVGLoSCBkXUS7KEVsBZFrQCAmXIogMMZdPOYzYPb1JLHyKXHeTT0JXdPfBAQkCHEkKCArIQTpKBNwss 4HYTFzNLMxBmK3DaIsVCJoBPLnGWooNBUwEEY0VCMzOKSbZIQjRF7ZInZtJUSkNOX9WYyjMYJiNLHxdz 6EZWVoZUUtJCW4CTWqAQKlKCMbWMulXYYdBXA5Gpgm FNBbREHyMV7VQeStTOZxFDO3RtolUQGjLNTdfl8XOOGiVVMbJyapSSXfMFMcUFJqJVuzWMJiJMW7HGX3 UJJhTSPmVA7HNdKwTPPqDGciPAnxWKJkMXTuvi8CIRLrFKLpTWY0EaGwZFMcTAPqPHojGRCoAON0FEn8 ZNRhARIwEI5LRqXiVKMpAWl5HcOuMMKeDOYurp8UEK LzCAVlLMMaKhUrXQVpEYCwJGicPCKyRQY0VSQhOMGaANKaEU6QAjQeAHCuDpHxNDycKGHrRQZgpt1CUC UbGMDgNCa1DlPrXJScVWWnIAvfYCGbBKGaHMC3BTCuALPaKB8ODjOzEFUbWrKlYADfJFXtFWOcpg0VAR CsGBReIHS7HxSeOZOqSHLyVFlvWURhOFY4NIgoECHu LUXgTN2MPhTyNMThAaCqFDTlMLHcIRWksq7HBCPgNUZxXFS6MxZkHLUsULKzMLiePMZkDPX4HGg7KGTs NHKhFL7AAiXpKKNpOxS8NlwrTFXzBXPicn0QQBPoHSDfPjirOFIwGJPeRWYzRVyyVBWgDHY4DZG7BYAc LEYsVJ4VGiNtVVZgSpngUkTqSJKxDOVsum7EJBIkET QyHMw2WOCtOCZsUAYiLEvgNCGqMFM6OFJ5TJKfQCJlNE8MLmDcEXOiOsaoBocsJJNvAYTnpe4RwCSqxY jtjg4QLUiEYu8YyBazJTD8RTikZx4yeRC2AxHbDIOGJd5HcaUmYBNySMZDMRzrXDAdVJkhYWUwILEjJJ GcYtN0ACn2ZMI9JeCnXwJ0ABOdDhM3CeM4B9K2GJA8 ReU9WyM2XBImQIq2XftqMmNdEGZ7FGDjLTF+WY2oFYc+Rc5Bj0MqgwL5zmKxORfuLBDwSF9CWYQQH1RZ Cg== ID Date Data Source [id number] 03/13/2020 11:21:43 AM EST [facility] Name Value Range Interpretation Code Description Data Marion rce(s) Supporting Document(s) Nursing Note [facility] MKWGDf9mIfIGJbNt13/HTApmFWGzt6JaTPriKAt0CXcaTSEeL6RvNOX9bQ5aCZT9IFbMWpRkRrFlZhE9 lbm [file] AgICAgICAgICAgICAgICAgICAgICAgICAgICAgICAg ICAgICAgICAgICAgICAgICAgICAgICAgICAgICAgICAgICAgICAgICAgICAgICAgICAgICAgICAgICAg ICAgICAgICANCiAgICAgICAgICAgICAgICAgICAgICAgICAgICAgICAgICAgICAgICAgICAgICAgICAg ICAgICAgICAgICAgICAgICAgICAgICAgICAgICAgIC AgICAgICAgICAgICAgICAgICANCiAgICAgICAgICAgICAgICAgICAgICAgICAgICAgICAgICAgICAgIC AgICAgICAgICAgICAgICAgICAgICAgICAgICAgICAgICAgICAgICAgICAgICAgICAgICAgICAgICAgIC ANCiAgICAgICAgICAgICAgICAgICAgICAgICAgICAg ICAgICAgICAgICAgICAgICAgICAgICAgICAgICAgICAgICAgICAgICAgICAgICAgICAgICAgICAgICAg ICAgICAgICAgICANCiAgICAgICAgICAgICAgICAgICAgICAgICAgICAgICAgICAgICAgICAgICAgICAg ICAgICAgICAgICAgICAgICAgICAgICAgICAgICAgIC AgICAgICAgICAgICAgICAgICAgICANCiAgICAgICAgICAgICAgICAgICAgICAgICAgICAgICAgICAgIC AgICAgICAgICAgICAgICAgICAgICAgICAgICAgICAgICAgICAgICAgICAgICAgICAgICAgICAgICAgIC AgICANCiAgICAgICAgICAgICAgICAgICAgICAgICAg ICAgICAgICAgICAgICAgICAgICAgICAgICAgICAgICAgICAgICAgICAgICAgICAgICAgICAgICAgICAg ICAgICAgICAgICAgICANCiAgICAgICAgICAgICAgICAgICAgICAgICAgICAgICAgICAgICAgICAgICAg ICAgICAgICAgICAgICAgICAgICAgICAgICAgICAgIC AgICAgICAgICAgICAgICAgICAgICAgICANCiAgICAgICAgICAgICAgICAgICAgICAgICAgICAgICAgIC AgICAgICAgICAgICAgICAgICAgICAgICAgICAgICAgICAgICAgICAgICAgICAgICAgICAgICAgICAgIC AgICAgICANCiAgICAgICAgICAgICAgICAgICAgICAg ICAgICAgICAgICAgICAgICAgICAgICAgICAgICAgICAgICAgICAgICAgICAgICAgICAgICAgICAgICAg ICAgICAgICAgICAgICAgICANCjw/zCRtF8lmtBHrwjN7R7cdSw5ABs2INK4bn0IgXXLnFUfdfzHtDjrJ EsQaVJAkUrvRHru2CFscIT3JjAKiH2DkU0VbIJocXS 4KRJLkNUEcoQLfRXGrESCxPmD0FPNfZXmcUA4GmYGrNIeoHSHuETDqDB8ZEEDmV130giUiGK4MSv1OFj DjCR9ewc7YXaObRRJlAcfTZjj9SPmwGF2IeMDsqBUmMjVnTOFHJbZoQ0hbl7SbNiEcXGMLXAucMB0Mq5 VudCAxDQo+Yo4GOT2mc7QsBXynIdNdEU1pjn2HKOuB EsDqA1QwhRxwII58olIkyzyhQs10PSQbjGLZfElgc7WeKGDeR0QbLUxqKe9dSRWuSIZqCU8bOOZkFYXx RbZvCKFARO3JNKMwZBUriIPsIVYyEWONGG4GPOsoGUU6FismqkCtxXAfQRhyCD2VWTCcrbMuYyAnCILY DQo+By7KAZ3vc4OnCBvmHLSyBW7trq4DPKhIVtHcN3 G6eOXjV4J3BKhaDl5PMPDuAYGoKsMaKNYOQNtmCW3PAR8kasL4PT2HmOPqGVQsPNAqkXKiJWi0D84wdU KnSUjdNP6UVDQ+Cheli+Fk8HCKXtAARuWHBeTeTcVIFZOhQyA2GcT8VMz0WvN0OeFC16nQzlwiWyPFeqRF 8YAG9kMPYeHKRUSJ3XbJGkmA1gyeErGaFfTFUCUsBo S93jqRKgMHWkAMBeVDHeJk1UMKSkO3LhmoXykEnkosZeOAIcRYDVCD1ARJpdbqJmxJGieQsmLX09tXop PM6IJh5PErVsOK4ojr1AnEYpQc5RIIBbBS1XFNLeXVEvYFGgFEN8VNQlYeVeZBufPEQgPHBoEKT2CVXc FIIlBI5YKySnSYKpICx5FZmmVUFpCVUdpc8JPIWcDD QxEDNvErNeKEVgFGYgVAreRTJwGRYbPNO3EYAdKFYfJA0YUgJxCISwTWSwVxQtXCYgVOAzsj5HSPXkAY GiCZMjUIJhNDBvGICkIResYVShPNCpDekiMQLvIXDoNM9CWfAnAAAeLAI5UJYxRAWhRFVevs3AYSZeUP HaRte0IFKkWEMvYJHdEUgyCRVeKRLoTsO0QAAeEGDw EY3WUvDmVMVtQJA8DsJsTIFsDQVyxp8WIPAyHTOdUERfErAqDARtAFFqWYdaBGGeDZN4UQB1VFFeMNYv ZJ2GLyPlOVVcRHX9KeIfOEPeQDOkml6QLCXqTAIhKfy3REMkEEKuWRCdCAwaNXJoDIM4PdMnGSHmROPy FY8XGaCpZMFwLAxtFzTwXLSrBUIoaw5DCBJvDJPtFL TvJSQbBAEnFHWdVVrsUMBqXVV8JTsyCKYvNDHxEY0BYfUhKPZrWFm6IfKeKPSkVJJvlx4YBDEvJNBdYM K8UgRaJPJfJYKkOHuiVPQbPYHtEBAnMUNiWLPbNG1VOtRlHMPrEbM4QNCxUBCgYLSgoi6ZZPThMZBqYQ pxHFNwPCFfCZIbNIt8jqYviWOoXUk8KY4XP9ZiozAn NqOVIz3Eo834VRN6QDJjCq9GN3miFa1nLPHjICLZDd6JIYj8UtOmPGToPEDsVCjfGSurW9I5ZBTxTwO1 MzVkNWVkOTM+UJpnCMD6K6MjHHAlULUhZeZdBdbnUFB5KaklQJT3JGY1Su7hPKVQKp5+DQpzdGFydHhy IRNOCqXcSGzaWRzaYMGJIb1W ID Date Data Source [id number] 03/13/2020 09:46:00 AM EST [facility] Name Value Range Interpretation Code Description Data Marion rce(s) Supporting Document(s) Anti-Xa, UFH 0.57 IU/ml 0.30-0.70 Normal (applies to non-numeric res ults) [facility] Discrepant results may occur due to anti coagulant effects such as directthrombin inhibitors; argatroban (Acova), bivalirudin (Angiomax) ordabigatran (Pradaxa) or direct factor Xa inhibitors; rivaroxaban(Xarelto), apixaban (Eliquis) and edoxaban (Savaysa).The above [address]es [address] performed by [facility] [id number] [place] [address],[id number],[place] [address] ID Date Data Source [id number] 03/13/2020 08:24:11 AM EST [facility] Name Value Range Interpretation Code Description Data Marion rce(s) Supporting Document(s) H&P [facility] PVSSHe1fJrPYLqPz41/RJFfhCXGel9UyBOzlFWu7EKqcDKUxH0EbQTC2bX2zDFX2RXmGLoLaVjDoVoR5 [facility] FtTofBQqKfOZRnUecZZxMxWMzgSwcsmDCeNH8JqZC6RCTzE56iIWIbHOIiK5ZjMSI6IXr+Vw9JNQWdqM CfSD3MZjyV3G8Ox6l3DW0iJC0UicjVtC1I7u5sj9p9UUS48bvrav79dXbJJHJ404gqTAf8uJ+HOEg9R7 8BsZA5x0ibsSIfICobc+Pa2A6IRel/tz/DWInLhfj6 A1Sw8ifjjhpjaFU8BNxAC2Mz9T6t+kXQF8TeJy/1Xy1SGIlsn9F6NxGwBBKyHN7atRP4taG+ZUYBG3PY fgh+jgdcjv4Qp0NSbxn+HYKakF54YoaBSkyf0427Bcc+AmPzfhp77Qi7vOPYWcxtvvqgL+8xhh7gIRlc uGGaHomARZ3ZD7BhErOyNbBCwVHCq7aSCimTmL9r0J DL6KnHKthY9pvUBXHxGWUJO9XGQL9t5oRmSEVJ0mLVdqoTg8xbIwnW5gUPOawYL5vaKkWwSN4BGXbmis Z6WGdibEXEvOann0m8qZQejtdK21JIBKpzOgJL6XRl+kqbN65aOzt0ZJRtVyLXArd3iJVhPtv0ITDV4G 7+aEE4RE4IrzecEqU38efhJ1gBfluoALU/b4YNAFDb TjBRbC48yI3yD+Zk2+1BFwGopgM6ENhVPYUolZo1H5d4AI8mWGpWd7pjWX4K1GenzqydJxvz1gg7In/T oL2IcWNBYcagNktgnH37fj6L2oCgh81CbsmBQnHKaKAK0Iix6nbLYyP10r27ML/1H2ai1f5WpKgMvIbu rJ/VnC242+IGq8bDlsockMxMU5NsA57cqs1gQft/8L UEBdmpg39mLmubNJGuY0hEKPMhg0E/Software Qa System Specialist/d3Uq5WPcJjNjxLputaIeBzcdb9U9ss0RECsShv64sLka0g9 [file] ICAgICAgICAgICAgICAgICAgICAgICAgICAgICAgICAgICAgICAgICAgICAgICAgICAgICAgICAgICAg CJBeKFUlHFQpSXLuZSBwIQBwDCFtPRKeBYBsZS9JFTLwXWIzUGHmJJTlPTKdHQDzDGDpJUMjUCEcZAMo ICAgICAgICAgICAgICAgICAgICAgICAgICAgICAgIC ReJTPbXQTiMBOiLBDrNNDfVOYoERPxICRoGGCkRFFuJFFlDWLqAZ8JYTXlQTSgIBQwGDSjZUReOQGhZW AgICAgICAgICAgICAgICAgICAgICAgICAgICAgICAgICAgICAgICAgICAgICAgICAgICAgICAgICAgIC GjXIAfLMLdXLFgISGfHGPuBQSlCP7LYJMaVNIfATAc ICAgICAgICAgICAgICAgICAgICAgICAgICAgICAgICAgICAgICAgICAgICAgICAgICAgICAgICAgICAg LWLxTGIcZWHvAHQwXUKdWNMoBAYuHQTzBYWpUQFyCS9MEVEpZGTvSMRvJGZiIPXjFICkSSZvFSGpGGSu ICAgICAgICAgICAgICAgICAgICAgICAgICAgICAgIC DuTLLcTMDlBKIqXUXoQAAuNEWcSOIpXGJqFKHyBKDfNLWoWMLaMKKoBJ4BIFVrXZZgWXVeCSVcMYLnGC AgICAgICAgICAgICAgICAgICAgICAgICAgICAgICAgICAgICAgICAgICAgICAgICAgICAgICAgICAgIC EdRJAcTNAzETItEGUuYOStGCVeDKRlCS6DZXJeELQl ICAgICAgICAgICAgICAgICAgICAgICAgICAgICAgICAgICAgICAgICAgICAgICAgICAgICAgICAgICAg BLSyTCSiYOIdKWWmOYAlIJLgESMpIAYgMZRlRWDmYQJnSO7HNBXcYSDyXZYyQIUoJZIjKDFfGPBpMQJj ICAgICAgICAgICAgICAgICAgICAgICAgICAgICAgIC BnYYTdLMVkTMBcWTYkDIXgMHBnPQWfLSYzYKYpPBDhHVZuLKYrBIVdQTTaLW3UZTSpNPIlUNHaPGDdAJ AgICAgICAgICAgICAgICAgICAgICAgICAgICAgICAgICAgICAgICAgICAgICAgICAgICAgICAgICAgIC BjUBXqMCZnLXVjKIUvEJEyIWYcITCeRPCpPO1VNGJp ICAgICAgICAgICAgICAgICAgICAgICAgICAgICAgICAgICAgICAgICAgICAgICAgICAgICAgICAgICAg HHLgWTCqJBTtEVTvSKPrUBXsZGAcTQGaMTRvQIZyKJZpXLUhDI5QDD28wAFbg9C9YFGmYX3sbfe/Pg0K YUttyeIrxNSbQC2MClVmOK3sms4DNwLpCK4lni6CKW zVQlGqA8Y2vEJiLPUbMAQOLpTzV03iEWgeXi75XKirGGEoEeJtFRm7Zt8JRjOiJ1nxZZIiOrM2YKQoOa V1TGFzNzK1BORoXdAlBEgkJS1Vw6ExkDXdAKx+Gv2MLH3xz6TbYHfnLPZiPD9xzi8ZILwOQhKqI4Sjjs T0YOK8ORNmNy3LYHVsBBDkxUAkYWHdWJHTYlFnZ4Cn oT35OXHBXi5+BCfjxzXiTlxLYsT3QSRon0GjACy0XA7NKKQrUMg0jPOrQWSYGHR9IKKurCuywKCvKa5j fOWpCIXcsogzWVLjHOHmJEQfFV9zTVDoUVU6KsCvYEIOZL1ETYLiYTMztLIzMHXbOAFAEY9KPEeiYTS3 QbhuodMfzEZsSIzrYR9XISXfvoChBiXyQRXMVFj+Pg 3WVK6nc1FnPRmoFmWtZH1apw2NXOfKVcOkC1S3dWJcV2C6QEskBe1IAJUxEZZsOkRdNMDRDUsxBF5MXD 4sriF1KH3UkHQsJTCwZTUqnCFeGEq8C42oqRWxXTfhOP6LZSW+Cheli+Ja6GQGGhAZMgMXZjUwZjCSZAZf TsH5WpO7WZk2QiB5InNX49qWsjsvNlNZfgDQ8QBI6y OMDyTOZEDM6GvTViwQ1sjkXaUERbCVOWFrXyF69ncTDyCJXsTCHvIZHbCg6JPLIhY5YanrLvqHdquiQe SMOfHDJDDZ5IFFemzhCrnVMdoBmdVZ77iCbmGD5OUa4VFzGwQX7ydy3LsWOtDq4FYFEzKj3UOOIyWQHv IHDzIQL3HXSlLyOvUHqxWIVdECUvLBE3LVZuDRZxAN 4QFdAjMQLcOHH7LxDzBIJbUGWygz1LLTRhEEIkCAS2EJZqGOIjWMLfKLnyOKUpWFXsTPK6FNQsGWGgAV 5IDmQeKNYtJGY6IboyZFZwCEXcuo0TGKZeGGYxBmHuMYRiMBUaOKGkIFztUMJdFDU1Iwj4IFZpWORmPV 3HJlPxEMNfQDP5XLMlDBKpONImvp9KRWCxTPJhRjfl ChSzVWLbPNPfTYdwTRLzEZZ7TOAlCRFpDLTaQZ9QFuDgEBRdLUgfADFqFPNyTEPqjr1QHSRhCZQbAIJ9 KeDjHGDrBWTiODftHGSyQWD0GXeoWATiADEmAX0NYoPwBZXgBVD9OaTuVWYcDXAsfn7CONDfMVDdYQUi JhSqPBLnMZIhFSpdYVTjAEAjYNMgDUGgDBOcVT9NRy LvUTIvODN6JpwkEQXsFZEtyd3SGSQhZBCiBUa7QtJkFAKuYDZvXFqdOFHjFDZnVHW1CNKvOWTdYN7YEo FnPUPnOLVxLrUnJWEdJBTqpg4HZFPlBOEvGcIfMKKwFQRePLVzAQppLXGfVHYcQLGgUQEqAPVwFJ3RCd WkEDCeZFM2DDIcTKTkUMZmrf0ANITfNKMiGWAoCDUe ZRPyGFUbZDgwFHRiUOG5BWqhZPBhEJSmPO0FGqQgSGNjZII0QZKjLJTqSWDziv9JiNSljUrpkt6GUVgF Ck1BnPsvLQG0XSwoOr6qmRUjChJqDBMEGv0EknCfVOXqTFGSLWqpROXtRQF8OKWbBIO6YHcuWCI0GAQr IgRtCYJ5Pdc4Xqe9DqnkMyD1JPtxMOBpXvGcHBA1Bk yeGkSqLZKmIJQzLXCeHTw5JYH+DM7fHOj+Qc9Ez8RayaR3qdYzUKczKFe2BJ5OERDNK6YEZt== ID Date Data Source [id number] 03/13/2020 08:20:00 AM EST [facility] Name Value Range Interpretation Code Description Data Marion rce(s) Supporting Document(s) PTT, No Coag Tx/Coag Tx Unk 100.0 Seconds 25.1-36.5 Above upper franny c limits [facility] Discrepant results may occur due to anti coagulant effects such asheparin, direct thrombin inhibitors; argatroban (Acova), bivalirudin(Angiomax) or dabigatran (Pradaxa) or direct factor Xa inhibitors;rivaroxaban (Xarelto), apixaban (Eliquis) and edoxaban (Savaysa). Called To (First Last):CECILIA Resendiz/Accreditation of Person Called:RNLocation Called: 2CCritical Tests and Results Called:PTT 100.0Additional Tests that were Called:Pineda Back (Y/N):YDate:03.13.20Time:818By:MEHRDAD Polanco above 1 analytes were performed by [facility] [id number] [place] [address],[facility]#: [id number],[place] [address] ID Date Data Source [id number] 03/13/2020 08:03:00 AM [facility] Name Value Range Interpretation Code Description Data Marion rce(s) Supporting Document(s) PT, No Coag Tx/Coag Tx Unk 12.3 Seconds 10.2-12.9 Sofia l (applies to non-numeric results) [facility] PT referenence range reflects values for patients not on anticoagulanttherapy.Discrepant results may occur due to anticoagulant effects such ascoumadin, direct thrombin inhibitors; argatroban (Acova), b ivalirudin(Angiomax) or dabigatran (Pradaxa) or direct factor Xa inhibitors;rivaroxaban (Xarelto), apixaban (Eliquis) and edoxaban (Savaysa). INR (No Coag Tx/Coag Tx Unk) 1.1 0.9-1.1 Nor mal (applies to non-numeric results) [facility] Suggested therapeutic INR ranges for ora l anticoagulant therapy: Indication:INRPrevention and treatment of DVT and PE2.0 - 3.0Prevention of systemic embolism with atrial fib., acute FL and 2.0 -3.0 tissue prosthetic heart valves.Prevention of systemic embolism in patients with mechanical heart2.5 -3.5 valves.NOTE: The INR is only valid for patients on stable oral anticoagulanttherapy. The above 2 analytes were performed by [facility] [address], ,[place] [id number] ID Date Data Source [id number] 03/13/2020 08:03:00 AM EST [facility] Name Value Range Interpretation Code Description Data Marion rce(s) Supporting Document(s) Anti-Xa, UFH 0.70 IU/ml 0.30-0.70 Normal (applies to non-numeric res ults) [facility] Discrepant results may occur due to anti coagulant effects such as directthrombin inhibitors; argatroban (Acova), bivalirudin (Angiomax) ordabigatran (Pradaxa) or direct factor Xa inhibitors; rivaroxaban(Xarelto), apixaban (Eliquis) and edoxaban (Savaysa).The above 1 analytes were performed by [facility] [id number] [place] [address], ,[place] [address] ID Date Data Source [id number] 03/13/2020 07:55:00 AM [facility] Name Value Range Interpretation Code Description Data Marion rce(s) Supporting Document(s) Troponin I <0.015 ng/ml 0.000-0.100 Normal (applies to non-numeric re sults) [facility] Reference Values:Negative:<0.07 ng/mLInc reasing Risk of ACS:0.08-0.10 ng/mLPositive:>0.10 ng/mLConditions other than FL that cause increased troponin I values includebut are not limited to chest trauma, cardiac and non-cardiac surgery,congestive heart failure, drug cardio-toxicity, inflammatory diseasessuch as myocarditis, pulmonary embolism, inflitrative diseases, andacute neurological disease.An AMI diagnositc cutoff within a range of 0.6-1.5 ng/mL is consistentwith the WHO criteria for AMI.Concentrations of Biotin above 100 ng/mL can potentially result ininterference. Results obtained using [employer].The above 1 analytes were performed by [facility] [id number] [facility], ,[place] [address] ID Date Data Source [id number] 03/13/2020 07:55:00 AM EST [facility] Name Value Range Interpretation Code Description Data Marion rce(s) Supporting Document(s) Triglycerides 113 mg/dl 30-200 Normal (applies to non-numeric re sults) [facility] N-Acetylcysteine (NAC) and Metamizole mora ve the potential to falselydepress Triglyceride results. Baseline values before medication adminstration are recommended. Cholesterol 216 mg/dl 0-200 Above high normal [facility] HDL Cholesterol 42 mg/dl 30-70 Normal (applies to non-numeric results) [facility] N-Acetylcysteine (NAC) and Metamizole mora ve the potential to falselydepress HDL Cholesterol results. Baseline values before medication adminstration are recommended. LDL Cholesterol 151.4 mg/dl 0.0-100.0 Above high normal [facility] Cholesterol/ HDL Ratio 5.1 0.0-5.0 Above high normal [facility] LDL/HDL Ratio 3.6 [facility] The above 6 analytes were performed by [facility] [id number] [place] [address], ,[place] [address] ID Date Data Source [id number] 03/13/2020 07:53:00 AM EST [facility] Name Value Range Interpretation Code Description Data Marion rce(s) Supporting Document(s) AST 15 IU/L 15-37 Normal (applies to non-numeric resul ts) [facility] Sulfasalazine and sulfapyridine have the potential to falsely depressAspartate Aminotransferase results. Baseline values before medication administration are recommended. ALT 25 IU/L 16-61 Normal (applies to non-numeric resul ts) [facility] Sulfasalazine and sulfapyridine have the potential to falsely depressAlanine Aminotransferase results. Baseline values before medication administration are recommended. Alkaline Phosphatase 75 mIU/ml 50-136 Normal (applies to non-num milan results) [facility] Total Bilirubin 0.40 mg/dl 0.20-1.00 Normal (applies to non-numeric results) [facility] Blood Urea Nitrogen 7 mg/dl 7-18 Normal (applies to non-nume tg results) [facility] Creatinine 0.75 mg/dl 0.67-1.17 Normal (applies to non-numeric resul ts) [facility] N-Acetylcysteine (NAC) and Metamizole mora ve the potential to falselydepress Creatinine results. Baseline values before medication adminstration are recommended. Patients undergoing treatment with phenindione will have falselydepressed results. Patients on phenindione therapy should be tested with an alternativeCREA method.Toxic levels of acetaminophen may lead to falsely depressed results forpatient samples. Glomerular Filtration Rate >90.00 mL/min/1.73m2 [facility] GFR Reference Ranges:Normal Function or Mild Renal Disease,if clinically at risk:>or= 60Moderately decreased:30 - 59Severely decreased:15 - 29Renal Failure:<15 Please note that the MDRD equation requires an additional adjustment forAfrican-Americans (multiply the GFR result by 1.210).Glomarular Filtration Rate (GFR) is estimated based on the MDRDequation, which assumes a steady state for creatinine (Anay Int Med 139/2 137-149, 2003), as recommended by the NationalKidney Disease Education Program in conjunction with the National Institutes of Health and the National KidneyFoundation. The Pryor method used in calculating this result is traceable to IDMS standards. Glucose 94 mg/dl 70-110 Normal (applies to non-numeric resul ts) [facility] Sulfasalazine has the potential to false ly depress Glucose results. Sulfapyridine has the potential to falsely elevate Glucose results. Baseline values before medication administration are recommended. Calcium 8.6 mg/dl 8.5-10.1 Normal (applies to non-numeric resul ts) [facility] Total Protein 7.1 g/dl 6.4-8.2 Normal (applies to non-numeric re sults) [facility] Albumin 3.7 g/dl 3.4-5.0 Normal (applies to non-numeric resul ts) [facility] Sodium 142 mEq/L 136-145 Normal (applies to non-numeric resul ts) [facility] Potassium 3.5 mEq/L 3.5-5.1 Normal (applies to non-numeric resul ts) [facility] Chloride 106.0 mEq/L 98.0-107.0 Normal (applies to non-numeric resu lts) [facility] Carbon Dioxide 28.9 mMol/L 21.0-32.0 Normal (applies to non-numeric results) [facility] Anion Gap 10.6 7.0-15.0 Normal (applies to non-numeric resul ts) [facility] The above 16 analytes were performed by [facility] [address],[facility]#: [id number],[place] [address] ID Date Data Source [id number] 03/13/2020 07:43:00 AM EST [facility] Name Value Range Interpretation Code Description Data Marion rce(s) Supporting Document(s) WBC 8.74 x1000/ul 4.80-10.00 Normal (applies to non-numeric re sults) [facility] RBC 4.68 x1Mil/ul 4.70-6.10 Below low normal [facility] Hemoglobin 14.5 g/dl 14.0-18.0 Normal (applies to non-numeric resul ts) [facility] Hematocrit 44.2 % 42.0-52.0 Normal (applies to non-numeric resul ts) [facility] MCV 94.4 fL 80.0-94.0 Above high normal [facility] MCH 31.0 pg 27.0-31.0 Normal (applies to non-numeric resul ts) [facility] MCHC 32.8 g/dl 32.2-37.0 Normal (applies to non-numeric resul ts) [facility] RDW 12.7 % 11.5-14.5 Normal (applies to non-numeric resul ts) [facility] Platelet Count 260 x1000/ul 130-400 Normal (applies to non-numeric results) [facility] MPV 9.2 fL 9.4-12.4 Below low normal [facility] Neutrophils 60.3 % 40.0-74.0 Normal (applies to non-numeric resu lts) [facility] Lymphocytes 30.1 % 19.0-48.0 Normal (applies to non-numeric resu lts) [facility] Monocytes 6.5 % 3.4-9.0 Normal (applies to non-numeric resul ts) [facility] Eosinophils 2.4 % 0.0-7.0 Normal (applies to non-numeric resu lts) [facility] Basophils 0.5 % 0.0-2.0 Normal (applies to non-numeric resul ts) [facility] Immature Granulocytes 0.2 % 0.0-0.5 Normal (applies to non-nu meric results) [facility] Nucleated RBCs 0.00 % 0.00-0.20 Normal (applies to non-numeric r esults) [facility] Abs. Neutrophils 5.27 x1000/ul 1.92-8.31 Normal (applies to non-numeric results) [facility] Abs. Lymphocyte 2.63 x1000/ul 1.20-3.70 Normal (applies to non-n umeric results) [facility] Abs. Monocytes 0.57 x1000/ul 0.14-0.97 Normal (applies to non-nu meric results) [facility] Abs. Eosinophils 0.21 x1000/ul 0.00-0.76 Normal (applie s to non-numeric results) [facility] Abs. Basophils 0.04 x1000/ul 0.00-0.22 Normal (applies to non-n umeric results) [facility] Abs. Immature Gran. 0.02 x1000/ul 0.00-0.02 Normal (appl ies to non-numeric results) [facility] Abs. Nucleated RBCs 0.00 x1000/ul 0.00-0.02 Normal (appl ies to non-numeric results) [facility] The above 24 analytes were performed by [facility] [id number] [place] [address], ,[place] [address] ID Date Data Source [id number] 03/13/2020 07:43:00 AM EST [facility] Name Value Range Interpretation Code Description Data Marion rce(s) Supporting Document(s) Hemoglobin 14.5 g/dl 14.0-18.0 Normal (applies to non-numeric resul ts) [facility] Hematocrit 44.2 % 42.0-52.0 Normal (applies to non-numeric resul ts) [facility] The above 2 analytes were [facility] [id number] [place] [address], ,[place] [address] ID Date Data Source [id number] 03/13/2020 03:28:00 AM [facility] Reason for ordering culture: Abnormal fi ndings UAMethod of Collection:: Voided Name Value Range Interpretation Code Description Data Marion rce(s) Supporting Document(s) Color of Urine [facility] Appearance of Urine CLEAR [facility] pH of Urine by Test strip 6.5 5-8 [facility] Specific gravity of Urine by Refractometry 1.012 1.005-1.030 [facility] Leukocyte esterase [Presence] in Urine by Test strip NEGAT SIMON [facility] Nitrite [Presence] in Urine by Test strip NEGATIVE [facility] Protein [Presence] in Urine by Test strip NEGATIVE [facility] Glucose [Mass/volume] in Urine by Automated test strip NEGATIVE NEG ATIVE [facility] Ketones [Presence] in Urine by Test strip NEGATI VE Abnormal (applies to non- numeric results) [facility] Urobilinogen [Presence] in Urine 0.2-1 EU/dl [facility] Bilirubin.total [Presence] in Urine by Automated test strip NEGATIVE [facility] Erythrocytes [#/volume] in Urine by Test strip NEGATIVE NEGATIVE [facility] URINE MICROSCOPIC? (CIF) NO [facility] ID Date Data Source [id number] 03/13/2020 03:05:00 AM EST [facility] THIS RP PANEL TESTS FOR SARS-CoV -2,(COVID-19)FilmArray Respiratory Panel is a Multiplexed NAAT-PCR testNORMAL VALUE FOR ALL 20 PATHOGENS IS "NOT DETECTED".The FilmArray RP panel detects Influenza A H1,H3 [id number] H1 viruses,Influenza B virus, Respiratory syncytialvirus, Human metapneumovirus,Parainfluenza virus 1,2,3, and4, Adenovirus,Rhino/Enterovirus,Coronavirus HKU 1, Nl63,OC43, and 229E,Bordetella pertussis, Bordetellaparapertussis, Mycoplasma pneumoniae and Chlamydiapneumoniae, SARS-CoV-2 (COVID 19).THIS TEST HAS NOT BEEN EVALUATED FOR USE WITH SPECIMENSOTHER THAN NASOPHARYNGEAL SWAB SPECIMENS.THE PERFORMANCE OF THIS TEST HAS NOT BEEN ESTABLISHED FORPATIENTS WITHOUT SIGNS AND SYMPTOMS OF RESPIRATORYINFECTION.RESULTS FROM THIS TEST MUST BE CORRELATED WITH CLINICALHIST ORY, EPIDEMIOLOGICAL DATA , AND OTHER DATA AVAILABLE TOTHE CLINICIAN EVALUATING THE PATIENT.THE PERFORMANCE OF THE FilmARRAY RP HAS NOT BEEN ESTABLISHEDIN INDIVIDUALS WHO RECEIVED INFLUENZA VACCINE. RECENTADMINISTRATION OF A NASAL INFLUENZA VACCINE MAY CAUSE AFALSE POSITIVE RESULT FOR INFLUENZA A AND/OR B.NEGATIVE RESULTS SHOULD NOT BE USED THE SOLE BASIS FORDIAGNOSIS, TREATMENT, OR OTHER MANAGEMENT DECISIONS.NEGATIVE RESULTS IN THE SETTING OF A RESPIRATORY ILLNESSMAYBE DUE TO INFECTION WITH PATHOGENS THAT ARE NOT DETECTEDBY THIS TEST OR LOWER RESPIRATORY TRACT INFECTION THAT ISNOT DETECTED BY A NASOPHARYNGEAL SWAB SPECIMEN.SARS-CoV-2 RNA Resp Ql IMELDA+probe Name Value Range Interpretation Code Description Data Marion rce(s) Supporting Document(s) ID Date Data Source [id number] 03/13/2020 01:55:[address] [facility] [address] [place] [address] [phone] NAME SEX PT STATUS ACCOUNT NUMBER KATHI GUNDERSON M REG ER [id number] ORDERING PHYSICIAN LOCATION MEDICAL RECORD NO. Brady Pedro MD ER [id number] ATTENDING PHYSICIAN DATE OF DATE OF EXAM/TIME Lincoln Fajardo DO 1980 03/13/206 TYPE / EXAM Xray Chest One View REASON FOR EXAM CP Clinical History/Indication for Exam: CP RADIOGRAPH OF THE CHEST 1 VIEW INDICATION: CP COMPARISON: December 16, 2017 FINDINGS: Lungs: Unremarkable. No consolidation. Pleural space: Unremarkable. No pneumothorax. Heart: Unremarkable. No cardiomegaly. Mediastinum: Unremarkable. Bones/joints: Unremarkable. IMPRESSION: Normal chest x-ray. REPORT SIGNATURE ON FILE 03/13/2020 (01:55 Eastern Time ) Signed by: John Chan M.D. Reported By John Chan MD on 03/13/20154 Signed By John Chan MD on 03/13/20154 Date Time CC: John Chan MD; Lincoln Fajardo DO Techn: PALHE Trans Dt/Tm: Trans by: DT Prt Dt/Tm: [id number]: Total DLP = 0.00 mGy-cm Fluoroscopy Time (in secs): Name Value Range Interpretation Code Description Data Marion rce(s) Supporting Document(s) ID Date Data Source [id number] 03/13/2020 01:51:00 AM [facility] ED Physician Documentation NAME: KATHI GUNDERSON : 1980 AGE: 39 MR#: [id number] SERVICE DATE: 03/13/[address]: Brady Pedro MD PRIMARY CARE DR: Lincoln Fajardo DO ROOM#: ADDENDUM Discharge Plan Admission/Discharge Dx Primary (Admit) Diagnosis: Acute CP / ACS / r/o NSTEMI Primary DC Diagnosis: Acute CP / ACS / r/o NSTEMI ED Provider: Brady Pedro ED Status: Transfer Pending Time Seen by Provider: 03/13/20 00:59 Triaged At: 03/13/20 00:54 Condition Condition: Critical Discharge Detail Disposition: Transfer - [facility] Med Rec New Prescriptions: No Action diltiazem HCl [Cardizem CD] 120 mg capsule,extended release 24hr 120 mg PO DAILY Qty: 30 RF: 5 fluoxetine [Prozac] 20 mg capsule 40 mg PO DAILY RF: 0 Medications Medication reconciliation performed by provider at discharge: Yes Follow Up Care/Instructions Diet/Activity/Wound Care..: Pt is critical but as stable as is now med possible for transfer Interventions Interventions: ED Cardiac Assessment Last Done: 03/13/20 01:43 Addendum: Addendum Note: 0345 c - Telecom from [facility] : Dr Booth (hosp) is accepting MD via auto-accept via Cardiology Can Transfer now Addended by: <Electronically signed by Brady Pedro MD> 03/13/20404 Addendum Cosigners: D: KARLOS 03/13/20404 T: KARLOS 03/13/20404 CC: Lincoln Fajardo DO [facility] (Adult, General) General Chief Complaint: Cardiovascular Stated Complaint: DIZZINESS Resident LTC, travel outisde home, exposure to hot tubs:: No Time Seen by Provider: 03/13/20 00:59 Source: patient Exam Limitations: no limitations History of Present Illness Narrative: 39-year-old white male with history of cigarette smoking hypertension hypercholesterolemia and maternal aunt with an FL in her 30s now with episode of 7/10 substernal chest pressure dizziness with pa lpitations and near syncope and subsequent left arm pain and subsequent sharp chest pain just prior to coming to the emergency department. Patient also had nausea but denied any shortness of breath or diaphoresis or vomiting. He had only taken Tylenol this evening for a headache. Patient did have a stress test but it was over 10 years ago and was reportedly remembered as negative by patient. No exertional chest pain or pressure recently EKG however now does show ST flattening consistent with ischemia in the inferior lateral leads. ROS otherwise acutely noncontributory PMH PSH and EMR data is appreciated and is as reference as above , , Allergies/Home Meds Allergies Allergy/AdvReac Type Severity Reaction Status Date / Time Cephalosporins Allergy Severe Angioedema Verified 03/02/20 08:33 penicillin G [Penicillin G] Allergy Severe Anaphylaxis Verified 03/02/20 08:33 Penicillins Allergy Severe Anaphylaxis Verified 08:33 Carbapenems [Carbapenem] Allergy Intermediate Rash Verified 03/02/20 08:33 promethazine HCl AdvReac Intermediate Dizzyness Verified 03/02/20 08:33 [From Phenergan] Home Medications Medication Instructions Recorded Confirmed Last Taken Type diltiazem HCl 120 mg 120 mg PO DAILY #30 cap 10/16/19 03/13/20 02/12/20 Rx capsule,extended release 24 hr fluoxetine 20 mg capsule 40 mg PO DAILY cap 10/16/19 03/13/20 02/12/20 History omeprazole 20 mg capsule,delayed See Rx Instructions .ROUTE 03/05/20 03/13/20 Unknown Rx release .COMPLEX #60 cap PMH (from Triage) Patient Medical History PMH Reviewed/Updated as Needed: Yes PMH/PSH from Triage: Medical History (Updated 02/24/20 @ 18:01 by Lincoln Fajardo DO) Allergic rhinitis due to pollen (Medical 08/27/15) Anal fissure (Medical) Anxiety (Medical 08/27/15) Bipolar II disorder (Medical) Bladder wall thickening (Medical) N32.89 Chronic migraine (Medical 10/08/15) Crush injury (L) hand as child (Medical) CVA from (Medical 08/27/15) Depression (Medical) Essential hypertension with goal blood pressure less than 140/90 (Medical 08/27/15) Fatigue (Medical 10/29/15) gastroesophageal reflux disease,esophagitis presence not ... (Medical 09/27/15) Hemorrhoid (Medical) K64.9 38 yoM with hx of intermittent rectal bleeding with obvious hemorrhoid seen in the ER yesterday and here to get his hemorrhoid checked. He has pain with BMs (burning sensation), no active bleeding. Hemorrhoids (Medical) Hx +tobacco 3/4 ppd 10-36YO: quit (Medical) Inguinal hernia recurrent bilateral (Medical) K40.21 Mild intermittent asthma without complication (Medical 08/27/15) Palpitations (Medical 04/08/13) PSVT (paroxysmal supraventricular tachycardia) (Medical 08/27/15) PTSD (post-traumatic stress disorder) (Medical 08/27/15) Pure hypercholesterolemia (Medical 10/08/15) Recurrent sinusitis (Medical) V isual disturbance (Medical) Surgical History (Updated 06/16/19 @ 08:35 by Nanette Sauceda) colonoscopies 2002,2007,2017 (Surgical) H/O: hemorrhoidectomy (Surgical) Z98.890 History of - surgery (Surgical) x2 History of - surgery (Surgical) Moles removed x3 non cancerous Umbilical hernia (Surgical) x2 Hx Drug Resistant Infections Hx MRSA: (Methicillin-resistant Staphylococcus aureus): No Hx VRE (Vancomycin-resistant enterococci): No Hx C.Diff: No Hx CRKP: No Hx Other Resistant Infection?: No Isolation: Standard precautions Hx Recent Travel Out of the country within 10 days (where): No Hx Fever: No Hx Fever with a rash?: No Nurse screening for coronavirus: Recent Travel outside the No country (where) Has patient experienced No coronavirus symptoms Social History Does patient have suicidal/homicidal thoughts or ideation?: No Are you in a relationship with/Does anyone hit you, yell/swear at you, steal from you?: No Substance Use Hx Alcohol Use: Yes (occasional) Hx Substance Use: No Hx Substance Use Treatment: No Smoking Status: Current every day smoker Tobacco Use Years smoked:: 20 Hx Chewing Tobacco Use: No Vaccination History Hx/Date of Tetanus, Diphtheria Vaccination: Yes Hx/Date of Influenza Vaccination: No Hx/Date of Pneumococcal Vaccination: No PFSH Medical History Allergic rhinitis due to pollen (08/27/15) Anal fissure Anxiety (08/27/15) Bipolar II disorder Bladder wall thickening Chronic migraine (10/08/15) Crush injury (L) hand as child CVA from (08/27/15) Depression Essential hypertension with goal blood pressure less than 140/90 (08/27/15) Fatigue (10/29/15) gastroesophageal reflux disease,esophagitis presence not ... (09/27/15) Hemorrhoid Hemorrhoids Hx +tobacco 3/4 ppd 10-36YO: quit Inguinal hernia recurrent bilateral Mild intermittent asthma without complication (08/27/15) Palpitations (04/08/13) PSVT (paroxysmal supraventricular tachycardia) (08/27/15) PTSD (post-traumatic stress disorder) (08/27/15) Pure hypercholesterolemia (10/08/15) Recurrent sinusitis Visual disturbance Surgical History colonoscopies 2002,2007,2016 H/O: hemorrhoidectomy History of - surgery History of - surgery Umbilical hernia Family History Mother Depression Melanoma Stroke Asthma Father No problems noted. Grandmother Melanoma Stroke Grandfather No problems noted. Other Diabetes Social History Does the Patient have a Healthcare Proxy: No Does Patient have a DNR?: No Does Patient have a Living Will?: No Advance D irectives on File or in chart?: No Hx Recent Travel (where): No Smoking Status: Current every day smoker tobacco type: cigarettes alcohol intake: current alcohol intake frequency: holidays/special occasions only substance use type: does not use Physical Exam Vital Signs Vital Signs: Vital Signs 03/13/20 00:54 03/13/20 01:33 03/13/20 01:37 Temperature 98.4 F Pulse Rate 88 89 85 Respiratory Rate 18 Blood Pressure 149/68 140/90 140/90 O2 Sat by Pulse Oximetry 100 03/13/20 01:42 Temperature Pulse Rate 89 Respiratory Rate Blood Pressure 146/76 O2 Sat by Pulse Oximetry MARCELLO (comprehensive) Lab Data Labs: 03/13/20 01:20 03/13/20 01:20 Laboratory Results Last 24 hours 03/13/20 01:20: WBC 11.8 H, RBC 4.79, Hgb 15.0, Hct 44.7, MCV 93.3, MCH 31.3 H, MCHC 33.6, RDW 13, Plt Count 279, MPV 8.8 L, Immature Gran % (Auto) 0.3, Neut % (Auto) 77.3 H, Lymph % (Auto) 17.3, Osborne % (Auto) 3.6 L, Eos % (Auto) 1.2, Baso % (Auto) 0.3 L, Lymph # (Auto) 2.1, Abs Immat Gran (auto) 0.0, Add Manual Diff Manual diff added, Total Counted 100, Neutrophils (Manual) 69, Absolute Neutrophils 9.2 H, Lymphocytes (Manual) 21, Monocytes (Manual) 4, Monocytes # 0.4, Eosinophils (Manual) 1, Absolute Eosinophils 0.1, Absolute Basophils 0.0, Atypical Lymphocytes 5, Platelet Estimate Appears normal, RBC Morphology Appears normal 03/13/20 01:20: PT 10.6, INR 1.0, PTT (Bureau) 26.5, D-Dimer Less than 0.19 03/13/20 01:20: Sodium 140, Potassium 3.5, Chloride 105, Carbon Dioxide 29, Anion Gap 10, BUN 7 L, Creatinine 1.0, GFR Calculation Greater than 60, Glucose 130 H, Calcium 8.7, Total Bilirubin 0.3, AST 19, ALT 29, Alkaline Phosphatase 81, Creatine Kinase 75, CK-MB (CK-2) Less than 1.0, CK-MB (CK-2) % Not Reported, Troponin I Less than 0.015, Serum Total Protein 7.8, Albumin 4.1, Lipase 69 L EKG Data -: EKG Interpreted by Me ([address] depressions inf lat leads nl axis intervals ) EKG Data EKG comments: EKG # 2 when CP down to a shows 80 rsr with ess normalalization of inf lat ST changes Radiology Data interpreted by me: CXR = NAPD Nl sup med Medical Decision Making Free Text/Narative:: 0200 CP with resolution of other ssx vss will add heparin orders iv [address] Huffman - Transfer acute 39 yo CP pt in case of exacerbation [address] Herzog = Will effect tx [facility] Differential Diagnosis Differential Diagnosis: ACS v NSTEMI v PE V MS V other Critical Care Time Critical Care Time Critical Care Time: Yes ED Critical Care Time - Select One: 31-74 Minutes Total Critical Care Time: 55 Critical Care Time: critical young cardiac ACS pt wiht multi-consults tx Plan Plan Plan: per above tx data Visit Medications Administered ED medications:: Medications Generic Name Dose Route Start Last Admin Trade Name Freq PRN Reason Stop Dose Admin Nitroglycerin 0.4 mg 03/13/20 01:06 03/13/20 01:37 Nitroglycerin 0.4 Mg Subl SL 0.4 mg Q5M PRN Administration CHEST PAIN Discontinued Medications Generic Name Dose Route Start Last Admin Trade Name Freq PRN Reason Stop Dose Admin Acetaminophen 500 mg 03/13/20 01:06 03/13/20 01:31 Acetaminophen 500 Mg Tab PO 03/13/20 01:07 500 mg 1T ONE Administration Aspirin 324 mg 03/13/20 01:06 03/13/20 01:32 Aspirin Chew 81 Mg PO 03/13/20 01:07 324 mg 1T ONE Administration Metoclopramide HCl 10 mg 03/13/20 01:06 03/13/20 01:34 Metoclopramide Hcl 10 Mg/2 Ml Sdv IVP 03/13/20 01:07 10 mg 1T ONE Administration Nitroglycerin 1 inch 03/13/20 01:06 03/13/20 01:33 Nitroglycerin 2% Oint (1 Gm Packet) TP 03/13/20 01:07 1 inch 1T ONE Administration Other Medications: Discontinued: 2 acetaminophen Discontinued Reason: Patient Reported 1,000 mg (2 x 500 mg) PO .TID PRN PRN 40 caps 0RF pain Discharge Plan Admission/Discharge Dx Primary (Admit) Diagnosis: Acute CP / ACS / r/o NSTEMI Primary DC Diagnosis: Acute CP / ACS / r/o NSTEMI ED Provider: Brady Pedro ED Status: Physician Time Seen by Provider: 03/13/20 00:59 Triaged At: 03/13/20 00:54 Condition Condition: Critical Discharge Detail Disposition: Transfer - [facility] Med Rec New Pr escriptions: No Action diltiazem HCl [Cardizem CD] 120 mg capsule,extended release 24hr 120 mg PO DAILY Qty: 30 RF: 5 fluoxetine [Prozac] 20 mg capsule 40 mg PO DAILY RF: 0 Medications Medication reconciliation performed by provider at discharge: Yes Follow Up Care/Instructions Diet/Activity/Wound Care..: Pt is critical but as stable as is now med possible for transfer Interventions Interventions: ED Cardiac Assessment Last Done: 03/13/20 01:43 Report Signers: <Electronically signed by Brady Pedro MD> Brady Pedro MD 03/13/20 0253 Brady Pedro MD SIGNATURE DA Report Cosigners: D: KARLOS 03/13/20150 T: KARLOS 03/13/20150 CC: Lincoln Fajardo, DO Name Value Range Interpretation Code Description Data Marion rce(s) Supporting Document(s) ID Date Data Source [id number] 03/13/2020 01:57:00 AM EST [facility] @03/13/20 0129: MANUAL DIFF added. RFLXG = DIFF. Is test to R/O PE, DVT or VTE? Y @03/13/20 0129: MANUAL DIFF added. RFLXG = DIFF. Is test to R/O PE, DVT or VTE? Y Name Value Range Interpretation Code Description Data Marion rce(s) Supporting Document(s) Leukocytes [#/volume] in Blood by Automated count 11.8 10*3/uL 4.45-10.71 Above high normal [facility] Erythrocytes [#/volume] in Blood by Automated count 4.79 10*6/uL 4.3- 6.1 N [facility] Hemoglobin [Moles/volume] in Blood 15.0 g/dL 13-18 N [facility] Hematocrit [Volume Fraction] of Blood by Automated count 44.7 % 4 2-52 N [facility] Erythrocyte mean corpuscular volume [Ent itic volume] in Cord blood by Automated count 93.3 fL 80-96 N [facility] ital Erythrocyte mean corpuscular hemoglobin [Entitic mass] by Automated count 31.3 pg 27-[address] [facility] spital Erythrocyte mean corpuscular hemoglobin concentration [Mass/volume] in Cord blood 33.6 g/dL 33-37 N [facility] ital Erythrocyte distribution width [Entitic volume] by Automated count 13 % 11-15 N [facility] Platelets [#/volume] in Blood by Automated count 279 10*3/uL 130-472 N [facility] Platelet mean volume [Entitic volume] in Blood 8.8 fL 9.1-13. 1 Below low normal [facility] Neutrophils/100 leukocytes in Blood by Automated count 77.3 % 41-77 Above high normal [facility] Neutrophils [#/volume] in Blood by Automated count 9.2 U 1.7-7.6 Above high normal [facility] Lymphocytes/100 leukocytes in Blood by Automated count 17.3 % 14- 46 N [facility] Lymphocytes [#/volume] in Blood by Automated count 2.1 U 0.6-4.6 N [facility] Monocytes/100 leukocytes in Blood by Automated count 3.6 % 4-12 Below low normal [facility] Monocytes [#/volume] in Blood by Automated count 0.4 U 0.2-1.2 N [facility] Eosinophils/100 leukocytes in Blood by Automated count 1.2 % 0-7 N [facility] Eosinophils [#/volume] in Blood by Automated count 0.1 U 0.0-0.5 N [facility] Basophils/100 leukocytes in Blood by Automated count 0.3 % 0.4-1.3 Below low normal [facility] Basophils [#/volume] in Blood by Automated count 0.0 U 0.0-0.2 N [facility] NUCLEATED RED BLOOD CELL 0 % [facility] NUCLEATED RED BLOOD CELL# 0 U [facility] Immature granulocytes [Presence] in Blood by Automated count 0-2 N [facility] Immature granulocytes [#/volume] in Blood by Automated count 0.0 U 0-0.1 N [facility] Manual Differential panel - Blood Manual Diff Added [facility] ID Date Data Source [id number] 03/13/2020 02:14:00 AM [facility] @03/13/20 0129: MANUAL DIFF added. RFLXG = DIFF. Is test to R/O PE, DVT or VTE? Y @03/13/20 0129: MANUAL DIFF added. RFLXG = DIFF. Is test to R/O PE, DVT or VTE? Y Name Value Range Interpretation Code Description Data Marion rce(s) Supporting Document(s) Prothrombin Time (Patient) 10.6 s 9.6-12.3 N [facility] INR 1.0 0.9-1.1 N [facility] THE INR IS OPERATIONALLY DEFINED FOR ERNESTO SH PLASMA FROMPATIENTS STABILIZED ON ORAL ANTICOAGULANTS.ROUTINE ANTICOAGULANT THERAPY 2.0-3.0RECURRENT SYSTEMIC EMBOLISM/HEART VALVE REPLACEMENT 2.5-3.5 aPTT.lupus sensitive (LA screen) 26.5 s 22.7-31.6 N [facility] ID Date Data Source [id number] 03/13/2020 02:15:00 AM [facility] @03/13/20 0129: MANUAL DIFF added. RFLXG = DIFF. Is test to R/O PE, DVT or VTE? Y @03/13/20 0129: MANUAL DIFF added. RFLXG = DIFF. Is test to R/O PE, DVT or VTE? Y Name Value Range Interpretation Code Description Data Marion rce(s) Supporting Document(s) Urea nitrogen [Mass/volume] in Serum or Plasma 7 mg/dL 9-23 Below low normal [facility] Sodium [Moles/volume] in Serum or Plasma 140 mmol/L 132-146 N [facility] Potassium [Moles/volume] in Serum or Plasma 3.5 mmol/L 3.5-5.5 [facility] Chloride [Moles/volume] in Serum or Plasma 105 mmol/L 99-109 [facility] Carbon dioxide, total [Moles/volume] in Serum or Plasma 29 mmol/L 20 -31 N [facility] Anion gap in Serum or Plasma 10 mmol/L 8-16 [facility] Glucose [Mass/volume] in Serum or Plasma 130 mg/dL 74-106 Above high normal [facility] Creatinine 1.0 mg/dL 0.5-1.1 [facility] Glomerular filtration rate/1.73 sq M.pre dicted [Volume Rate/Area] in Serum or Plasma Greater Than 60 ABOVE 60 [facility] Alanine aminotransferase [Enzymatic acti vity/volume] in Serum or Plasma by With P-5'-P 29 U/L 10-49 [facility] ital Aspartate aminotransferase [Enzymatic ac tivity/volume] in Serum or Plasma by With P-5'-P 19 U/L 0-33 [facility] pital Alkaline phosphatase [Enzymatic activity/volume] in Serum or Plasma 81 U/L 45-129 N [facility] Calcium [Mass/volume] in Serum or Plasma 8.7 mg/dL 8.5-10.1 [facility] Bilirubin.total [Mass/volume] in Serum or Plasma 0.3 mg/dL 0.3-1.2 [facility] Albumin [Mass/volume] in Serum or Plasma by Bromocresol purple (BCP) dye binding method 4.1 g/dL 3.2-4.8 [facility] ital Protein [Mass/volume] in Serum or Plasma 7.8 g/dL 5.7-8.2 N [facility] ID Date Data Source [id number] 03/13/2020 01:57:00 AM [facility] @03/13/20 0129: MANUAL DIFF added. RFLXG = DIFF. Is test to R/O PE, DVT or VTE? Y @03/13/20 0129: MANUAL DIFF added. RFLXG = DIFF. Is test to R/O PE, DVT or VTE? Y Name Value Range Interpretation Code Description Data Marion rce(s) Supporting Document(s) Cells counted [#] 100 [facility] Neutrophils [#/volume] in Blood by Manual count 69 % 41-77 N [facility] Lymphocytes [#/volume] in Blood by Manual count 21 % 14-46 N [facility] Monocytes [#/volume] in Blood by Manual count 4 % 4-12 N [facility] Eosinophils [#/volume] in Blood by Manual count 1 % 0-7 N [facility] Mononuclear cells atypical [#/volume] in Blood by Manual count 5 0-5 N [facility] Platelets [#/volume] in Blood by Estimate APPEARS NORMAL NORMAL [facility] Morphology [Interpretation] in Blood Narrative APPEARS NORMAL NORMAL [facility] ID Date Data Source [id number] 03/13/2020 02:14:00 AM [facility] @03/13/20 0129: MANUAL DIFF added. RFLXG = DIFF. Is test to R/O PE, DVT or VTE? Y @03/13/20 0129: MANUAL DIFF added. RFLXG = DIFF. Is test to R/O PE, DVT or VTE? Y Name Value Range Interpretation Code Description Data Marion rce(s) Supporting Document(s) Fibrin D-dimer [Units/volume] in Platelet poor plasma Less Than 0.1 9 0.0-0.50 N [facility] @Report as less than 0.19@ Has QC been r un for this test today?PLEASE NOTE: THIS TEST WAS PERFORMED USING A PARTICLE-ENHANCED, IMMUNOTURBIDIMETRIC ASSAY AND HAS A SINGLE,CLINICALLY DERIVED CUTOFF OF 0.50 MG/L. ID Date Data Source [id number] 03/13/2020 02:15:00 AM [facility] @03/13/20 0129: MANUAL DIFF added. RFLXG = DIFF. Is test to R/O PE, DVT or VTE? Y @03/13/20 012: MANUAL DIFF added. RFLXG = DIFF. Is test to R/O PE, DVT or VTE? Y Name Value Range Interpretation Code Description Data Marion rce(s) Supporting Document(s) Lipase [Enzymatic activity/volume] in Serum or Plasma 69 U/L 73-393 Below low normal [facility] ID Date Data Source [id number] 03/13/2020 02:15:00 AM [facility] @03/13/20 0129: MANUAL DIFF added. RFLXG = DIFF. Is test to R/O PE, DVT or VTE? Y @03/13/20 012: MANUAL DIFF added. RFLXG = DIFF. Is test to R/O PE, DVT or VTE? Y Name Value Range Interpretation Code Description Data Marion rce(s) Supporting Document(s) Creatine kinase [Enzymatic activity/volume] in Serum or Plasma 75 U /L 33-211 [facility] Creatine kinase.MB [Enzymatic activity/volume] in Serum or P lasma Less Than 1.0 0.0-5.0 [facility] @Report as less than lower limit ID Date Data Source [id number] 03/13/2020 02:15:00 AM [facility] @03/13/20 0129: MANUAL DIFF added. RFLXG = DIFF. Is test to R/O PE, DVT or VTE? Y @03/13/20 012: MANUAL DIFF added. RFLXG = DIFF. Is test to R/O PE, DVT or VTE? Y Name Value Range Interpretation Code Description Data Marion rce(s) Supporting Document(s) Troponin I.cardiac [Mass/volume] in Serum or Plasma Less Than 0.015 0.00-0.09 [facility] Less than 0.09 NG/ML Negative0.10 - 0.77 NG/ML High Risk0.78 NG/ML or Greater PositiveThe WHO defined the cutoff (definition for diagnosis of [place])for this method as 0.78 ng/ml. ID Date Data Source [id number] 03/13/2020 12:00:00 AM [facility] Name Value Range Interpretation Code Description Data Marion rce(s) Supporting Document(s) SARS-CoV2 Rapid PCR [facility] This lab was ordered by [facility] and reported by [facility]. ID Date Data Source [id number] 03/08/2020 06:01:[address] [facility] Imaging Services Department Imaging Report [address], [place] [address] %(RAD)RES..mtdd.print.filter("line") Name: KATHI GUNDERSON : 1980 Age/Sex: 39M Ordering Provider: ANGELES Barbour Med Rec #: [id number] Reg Status: [facility] ER Room #: Date of Service: 03/07/20 Report Number: [id number] cc:Lincoln Fajardo DO Send Report To: [id number] CT/CT Abdomen & Pelvis w Con Reason for exam: ? incarcerated hernia Comparison: None. FINDINGS: LUNG BASES: Clear. LIVER: Normal contour. Fatty hemangiomata. Patent portal and hepatic veins. BILIARY SYSTEM: Normal appe arance of the gallbladder. No complex stone or biliary dilatation. PANCREAS: Normal. SPLEEN: Unremarkable. ADRENAL GLANDS: Normal. KIDNEYS: Symmetric enhancement and normal contour. Nonobstructing left nephrolithiasis. No mass or hydronephrosis. URINARY BLADDER: Moderate diffuse wall thickening. Findings are still suspicious for cystitis with mild adjacent fat stranding. PELVIC ORGANS: Mid prostatomegaly. BOWEL: Normal caliber. No obstruction. No wall thickening or edema. PERITONEUM: No free air, no ascites. LYMPH NODES: No adenopathy. ABDOMINAL WALL: Small fat containing indirect inguinal hernia are present bilaterally. No evidence of complication. Small, uncomplicated periumbilical hernia, contains fat. ABDOMINAL AORTA: Normal caliber. IVC: Normal. BONES: No acute findings. SOFT TISSUES: Subcutaneous lesion in the right buttock, likely related to subcutaneous injection. IMPRESSION: 1. Fat containing inguinal hernias without complications. No evidence of incarcerated hernia. 2. Circumferential wall thickening of the urinary bladder. While performing the above CT exam, the following dose reduction techniques wereused: *Automated exposure control *Adjustment of the mA and/or kV according to patient size *Use of iterative reconstruction technique CT Dose in mGy: 5 Contrast Agent: Isovue 300 Amount in ml: 85 Method of Administration: Intraveneous REPORT SIGNATURE ON FILE Reported By: Raúl Jacobs MD <Electronically signed by Raúl Jacobs MD> 03/08/20 1104 Dictation Date/Time: 03/07/20 174 Transcribed Date/Time: 03/08/20 0601 Grinding Wheel Dresser: CHRISTIANO Name Value Range Interpretation Code Description Data Marion rce(s) Supporting Document(s) ID Date Data Source [id number] 03/23/2020 03:32:00 AM EST [facility] NO GROWTH AFTER 120 HOURS (5 Days) Pr ocedure Performed By: [facility] [address] [place] [address] Director: Stacey Rodriguez Name Value Range Interpretation Code Description Data Marion rce(s) Supporting Document(s) ID Date Data Source [id number] 03/13/2020 12:38:00 PM [facility] AFTER 120 HOURS (5 Days) Proc edure Performed By: [facility] [address] [place] [address] Director: Stacey Rodriguez Name Value Range Interpretation Code Description Data Marion rce(s) Supporting Document(s) ID Date Data Source [id number] 03/07/2020 06:05:00 PM [facility] Name Value Range Interpretation Code Description Data Marion rce(s) Supporting Document(s) Lactic Acid 0.4-2.0 Normal (applies to non-numeric resu lts) [facility] ID Date Data Source [id number] 03/07/2020 06:05:00 PM [facility] Name Value Range Interpretation Code Description Data Marion rce(s) Supporting Document(s) Amylase 39 U/L 25-115 Normal (applies to non-numeric resul ts) [facility] ID Date Data Source [id number] 03/07/2020 06:05:00 PM EST [facility] Name Value Range Interpretation Code Description Data Marion rce(s) Supporting Document(s) Sodium 140 mmol/L 136-145 Normal (applies to non-numeric resul ts) [facility] Potassium 3.5-5.1 Normal (applies to non-numeric resul ts) [facility] Chloride 101 mmol/L 98-107 Normal (applies to non-numeric resul ts) [facility] Carbon Dioxide CO2 21-32 Normal (applies to non-numer ic results) [facility] Anion Gap 5.0-16.0 Normal (applies to non-numeric resul ts) [facility] BUN 9 mg/dL 7-18 Normal (applies to non-numeric results) [facility] Creatinine,Serum 0.8-1.5 Normal (applies to non-numeric results) [facility] GFR >60 Normal (applies to non-numeric results) [facility] Glucose Level 67 mg/dL 60-99 Normal (applies to non-numeric re sults) [facility] Reference range is only applicable when patient is fasting Note the following drug interference: Sulfasalazine Sulfapyridine Can see falsely depressed Can see falsely elevated result with up to 17% results with up to 11% decrease in measurement increase in measurement Recommend patients be collected for this test prior to administration of either drug. Calcium 8.5-10.1 Normal (applies to non-numeric resul ts) [facility] Bilirubin,Total 0.1-1.9 Normal (applies to non-numeric results) [facility] SGOT(AST) 17 U/L 15-37 Normal (applies to non-numeric resul ts) [facility] Note the following drug interference: Sulfasalazine Sulfapyridine Can see falsely depressed Can see falsely elevated result with up to 10% results with up to 10% decrease in measurement increase in measurement Recommend patients be collected for this test prior to administration of either drug. SGPT(ALT) 34 U/L 12-78 Normal (applies to non-numeric resul ts) [facility] Note the following drug interference: Sulfasalazine Sulfapyridine Can see falsely depressed Can see falsely elevated result with up to 29% results with up to 10% decrease in measurement increase in measurement Recommend patients be collected for this test prior to administration of either drug. Alkaline Phosphatase 83 U/L 38-126 Normal (applies to non-num milan results) [facility] can increase Alkaline Phosp le vels up to 2 times the normal adult value. Normal values for children and adolescents are 2 to 3 times the normal adult value. Total Protein 6.0-8.2 Normal (applies to non-numeric re sults) [facility] Albumin Level 3.4-5.0 Normal (applies to non-numeric re sults) [facility] ID Date Data Source [id number] 03/07/2020 06:05:00 PM [facility] Name Value Range Interpretation Code Description Data Marion rce(s) Supporting Document(s) Lipase 107 U/L 73-393 Normal (applies to non-numeric resul ts) [facility] ID Date Data Source [id number] 03/07/2020 05:54:00 PM [facility] Collected By: Nurse Initials: ab Time Collected: 1716 Name Value Range Interpretation Code Description Data [facility] rce(s) Supporting Document(s) Color,Urine Colorl-Dk Y Normal (applies to non-numeric res ults) [facility] Clarity,Urine Clear Normal (applies to non-numeric re sults) [facility] Specific [place],Urine 1.005-1.030 Normal (applies to non- numeric results) [facility] pH,Urine 5.0-8.0 Normal (applies to non-numeric resul ts) [facility] Protein,Urine Negative Normal (applies to non-numeric re sults) [facility] Glucose,Urine Negative Normal (applies to non-numeric re sults) [facility] Ketones,Urine Negative Normal (applies to non-numeric re sults) [facility] Blood,Urine Negative Normal (applies to non-numeric resu lts) [facility] Bilirubin,Urine Negative Normal (applies to non-numeric results) [facility] Urobilinogen,Urine 0.2-1.0 Normal (applies to non-numer ic results) [facility] Leukocyte Esterase,Urine Negative Normal (applies to non -numeric results) [facility] Nitrite,Urine Negative Normal (applies to non-numeric re sults) [facility] ID Date Data Source [id number] 03/07/2020 05:51:00 PM EST [facility] Name Value Range Interpretation Code Description Data Marion rce(s) Supporting Document(s) White Blood Count 3.5-10.5 Normal (applies to non-numeri c results) [facility] Red Blood Count 4.30-5.70 Normal (applies to non-numeric results) [facility] Hemoglobin 13.5-17.5 Normal (applies to non-numeric resul ts) [facility] Hematocrit 38.8-50.0 Normal (applies to non-numeric resul ts) [facility] Mean Corpuscular Volume 81.2-95.1 Normal (applies to non- numeric results) [facility] Mean Corpuscular Hgb 25.6-32.2 Normal (applies to non-num milan results) [facility] Mean Corpuscular Hgb Conc 32.0-36.0 Normal (applies to no n-numeric results) [facility] Red Cell Distribution Width 11.8-15.6 Normal (appli es to non-numeric results) [facility] Platelet Count 295 x10 3/uL 150-450 Normal (applies to non-numeric results) [facility] Mean Platelet Volume 9.4-12.[address] [facility] Neutrophils% (Auto) 31.0-71.0 Normal (applies to non-nume tg results) [facility] Lymphocytes% (Auto) 20.0-55.0 Normal (applies to non-nume tg results) [facility] Monocytes% (Auto) 4.0-12.0 Normal (applies to non-numeri c results) [facility] Eosinophils% (Auto) 1.0-8.0 Normal (applies to non-nume tg results) [facility] Basophils% (Auto) 0.0-2.0 Normal (applies to non-numeri c results) [facility] Immature Granulocytes% (Auto) 0.0-2.0 Normal (umu lies to non-numeric results) [facility] Neutrophils# (Auto) 1.50-6.20 Normal (applies to non-nume tg results) [facility] Lymphocytes# (Auto) 1.20-4.00 Normal (applies to non-nume tg results) [facility] Monocytes# (Auto) 0.00-0.90 Normal (applies to non-numeri c results) [facility] Eosinophils# (Auto) 0.00-0.50 Normal (applies to non-nume tg results) [facility] Basophils# (Auto) 0.00-0.20 Normal (applies to non-numeri c results) [facility] Immature Granulocytes# (Auto) 0.00-7.00 No rmal (applies to non-numeric results) [facility] ID Date Data Source [id number] 03/02/2020 09:49:00 AM EST [facility] Name Value Range Interpretation Code Description Data Marion rce(s) Supporting Document(s) Leukocytes [#/volume] in Blood by Automated count 9.4 10*3/uL 4.45-10 .71 N [facility] Erythrocytes [#/volume] in Blood by Automated count 4.67 10*6/uL 4.3- 6.1 N [facility] Hemoglobin [Moles/volume] in Blood 14.4 g/dL 13-18 N [facility] Hematocrit [Volume Fraction] of Blood by Automated count 44.6 % 4 2-52 N [facility] Erythrocyte mean corpuscular volume [Ent itic volume] in Cord blood by Automated count 95.5 fL 80-96 N [facility] Erythrocyte mean corpuscular hemoglobin [Entitic mass] by Automated count 30.8 pg 27-31 N [facility] Erythrocyte mean corpuscular hemoglobin concentration [Mass/volume] in Cord blood 32.3 g/dL 33-37 Below low normal [facility] Erythrocyte distribution width [Entitic volume] by Automated count 13 % 11-15 N [facility] Platelets [#/volume] in Blood by Automated count 274 10*3/uL 130-472 N [facility] Platelet mean volume [Entitic volume] in Blood 8.9 fL 9.1-13. 1 Below low normal [facility] Neutrophils/100 leukocytes in Blood by Automated count 62.9 % 41- 77 N [facility] Neutrophils [#/volume] in Blood by Automated count 5.9 U 1.7-7.6 N [facility] Lymphocytes/100 leukocytes in Blood by Automated count 23.6 % 14- 46 N [facility] Lymphocytes [#/volume] in Blood by Automated count 2.2 U 0.6-4.6 N [facility] Monocytes/100 leukocytes in Blood by Automated count 8.3 % 4-12 N [facility] Monocytes [#/volume] in Blood by Automated count 0.8 U 0.2-1.2 N [facility] Eosinophils/100 leukocytes in Blood by Automated count 4.4 % 0-7 N [facility] Eosinophils [#/volume] in Blood by Automated count 0.4 U 0.0-0.5 N [facility] Basophils/100 leukocytes in Blood by Automated count 0.6 % 0.4-1 .3 N [facility] Basophils [#/volume] in Blood by Automated count 0.1 U 0.0-0.2 N [facility] NUCLEATED RED BLOOD CELL 0 % [facility] NUCLEATED RED BLOOD CELL# 0 U [facility] Immature granulocytes [Presence] in Blood by Automated count 0-2 N [facility] Immature granulocytes [#/volume] in Blood by Automated count 0.0 U 0-0.1 N [facility] Manual Differential panel - Blood NO [facility] ID Date Data Source [id number] 03/02/2020 10:17:00 AM EST [facility] Name Value Range Interpretation Code Description Data Marion rce(s) Supporting Document(s) Urea nitrogen [Mass/volume] in Serum or Plasma 7 mg/dL 9-23 Below low normal [facility] Sodium [Moles/volume] in Serum or Plasma 144 mmol/L 132-146 N [facility] Potassium [Moles/volume] in Serum or Plasma 4.4 mmol/L 3.5-5.5 [facility] Chloride [Moles/volume] in Serum or Plasma 108 mmol/L 99-109 N [facility] Carbon dioxide, total [Moles/volume] in Serum or Plasma 32 mmol/ L 20-31 Above high normal [facility] Anion gap in Serum or Plasma 8 mmol/L 8-16 [facility] Glucose [Mass/volume] in Serum or Plasma 97 mg/dL 74-106 N [facility] Creatinine 0.9 mg/dL 0.5-1.1 [facility] Glomerular filtration rate/1.73 sq M.pre dicted [Volume Rate/Area] in Serum or Plasma Greater Than 60 ABOVE 60 [facility] Alanine aminotransferase [Enzymatic acti vity/volume] in Serum or Plasma by With P-5'-P 46 U/L 10-49 [facility] ital Aspartate aminotransferase [Enzymatic ac tivity/volume] in Serum or Plasma by With P-5'-P 24 U/L 0-33 [facility] pital Alkaline phosphatase [Enzymatic activity/volume] in Serum or Plasma 79 U/L 45-129 [facility] Calcium [Mass/volume] in Serum or Plasma 9.2 mg/dL 8.5-10.1 [facility] Bilirubin.total [Mass/volume] in Serum or Plasma 0.2 mg/dL 0.3-1.2 Below low normal [facility] Albumin [Mass/volume] in Serum or Plasma by Bromocresol purple (BCP) dye binding method 3.7 g/dL 3.2-4.8 [facility] ital Protein [Mass/volume] in Serum or Plasma 7.1 g/dL 5.7-8.2 [facility] ID Date Data Source [id number] 03/02/2020 07:51:00 AM EST [facility] Name: KATHI GUNDERSON : 1980 Age: 39 MR#: [id number] Admit Date: 03/02/20 Provider: Juma Huffman MD Room #: Consulting Provider: Dictation Date: 03/02/20 Intake Vital Signs 03/02/20 07:51 Current Height 5 ft 9 in Current Weight 171 lb Weight Measurement Method Most recent on chart BMI 25.2 BP 130/88 Blood Pressure Location Lt brachial Position Sitting Respiration 18 Pulse 82 Pulse Strength Normal Pulse Source Pulse Oximeter Temp 97.9 F Temp Source Oral Pulse Oximetry (%) 98 Oxygen Delivery Method room air Intake Visit Reasons: Hernia Nurse Note: Patient is here to talk about [facility]. Winding Inspector Required: No Accompanied by: Self / Same as Patient Is patient in pain?: Yes ([facility]) Pain scale (1-10): 4 Allergies Cephalosporins Allergy (Severe, Verified 03/02/20 08:33) Angioedema penicillin G [Penicillin G] Allergy (Severe, Verified 03/02/20 08:33) Anaphylaxis Penicillins Allergy (Severe, Verified 03/02/20 08:33) Anaphylaxis Carbapenems [Carbapenem] Allergy (Intermediate, Verified 03/02/20 08:33) Rash promethazine HCl [From Phenergan] Adverse Reaction (Intermediate, Verified 03/02/20 08:33) Dizzyness HIV Testing Offer - ages 13-64 Requirement for HIV testing offer been met?: Declines today. Pretest education received and acknowledged Coronavirus Screening Screening Have you traveled outside of [facility] or [facility] in the last 14 days.: No Has patient experienced coronavirus symptoms: No PFSH Medical History Allergic rhinitis due to pollen (08/27/15) Anal fissure Anxiety (08/27/15) Bipolar II disorder Bladder wall thickening Chronic migraine (10/08/15) Crush injury (L) hand as child CVA from (08/27/15) Depression Essential hypertension with goal blood pressure less than 140/90 (08/27/15) Fatigue (10/29/15) gastroesophageal reflux disease,esophagitis presence not ... (09/27/15) Hemorrhoid Hemorrhoids Hx +tobacco 3/4 ppd 10- 36YO: quit Inguinal hernia recurrent bilateral Mild intermittent asthma without complication (08/27/15) Palpitations (04/08/13) PSVT (paroxysmal supraventricular tachycardia) (08/27/15) PTSD (post-traumatic stress disorder) (08/27/15) Pure hypercholesterolemia (10/08/15) Recurrent sinusitis Visual disturbance Surgical History colonoscopies 2002,2007,2017 H/O: hemorrhoidectomy History of - surgery History of - surgery Umbilical hernia Family History Mother Depression Melanoma Stroke Asthma Father No problems noted. Grandmother Melanoma Stroke Grandfather No problems noted. Other Diabetes Social History Does the Patient have a Healthcare Proxy: No Does Patient have a DNR?: No Does Patient have a Living Will?: No Advance Directives on File or in chart?: No Hx Recent Travel (where): No Smoking Status: Current every day smoker tobacco type: cigarettes alcohol intake: current alcohol intake frequency: holidays/special occasions only substance use type: does not use HPI Additional HPI HPI Details: 39 yoM with 2 previous umbilical hernia repairs and pediatric inguinal hernia repairs on both sides. He started to notice more and more groin pain Lt>rt. He has had a CT scan to confirm that he has bilateral inguinal hernias. He is here to discuss repair. Hernia reports nausea and vomiting Review of Systems Const All systems reviewed are unremarkable except as noted in HPI and below Reports system reviewed and no additional complaints, except as documented Eyes Reports as per HPI and Reports requires corrective lenses ENT Reports system reviewed and no additional complaints, except as documented Card Reports system reviewed a nd no additional complaints, except as documented Resp Reports system reviewed and no additional complaints, except as documented GI Reports system reviewed and no additional complaints, except as documented, Reports abdominal pain, Reports nausea and Reports vomiting Reports system reviewed and no additional complaints, except as documented Musc Reports system reviewed and no additional complaints, except as documented Skin/Breast Reports system reviewed and no additional complaints, except as documented Neuro Reports system reviewed and no additional complaints, except as documented Psych Reports system reviewed and no additional complaints, except as documented Endo Reports system reviewed and no additional complaints, except as documented Meet/Lymph Reports system reviewed and no additional complaints, except as documented Aller/Immun Reports system reviewed and no additional complaints, except as documented Exam Const General: cooperative, healthy appearing, no acute distress, well developed and well groomed Nutritional Appearance: well nourished Orientation: alert, awake and oriented x3 HENMT Head: normal to inspection, normocephalic, atraumatic and no scalp tenderness Ears: hearing grossly normal bilaterally, external ears normal, TM's normal bilaterally, EAC's normal and no periauricular adenopathy General nose exam: external nose normal, nares normal, no nasal polyps, septum normal and no nasal discharge Face and sinus: normal facial exam and sinuses nontender Mouth: oral mucosae normal, lip normal, tongue normal, oropharynx normal and moist mucous membranes Throat: posterior oropharynx normal Eyes General: appearance normal, both eyes and all related structures Periorbital: periorbital findings normal Eyelids: eyelids normal Conjunctivae: conjunctivae normal Sclera: sclerae normal Pupils: PERRL EOM: EOM intact bilaterally Direct ophthalmoscopy: normal light reflex Neck Neck: normal visual inspection, full ROM, no lymphadenopathy, supple and no JVD present Neck mass: No Thyroid: thyroid normal Carotids: normal carotid upstroke Chest Chest: normal inspection of the chest Resp Effort Inspection: normal respiratory effort Auscultation: clear to auscultation bilaterally Percussion: percussion normal Cardio Jugular venous pressure: no JVD Palpation: normal PMI Rate: regular rate Rhythm: regular rhythm Heart Sounds: S1 normal and S2 normal Pulses: normal peripheral pulses GI Inspection: Yes normal to inspection Palpation: soft, no hepatosplenomegaly, no aortic enlargement and nontender Percussion: normal to percussion Auscultation: normal bowel sounds Other: Bilateral inguinal floor weakness with valsalva. Musc Cervical Spine: normal cervical lordosis and cervical ROM normal Thoracic/Lumbar Spine: thoracic and lumbar spine normal to inspection, thoraco-lumbar ROM normal andstraight leg raise negative bilaterally Pelvis: no pain with anterior-posterior compression and no pain with lateral compression Skin Lesions: no lesions Rashes: no rashes Hair: normal Nails: normal Neuro General: patient alert, patient awake, patient oriented x3, gait normal, moves all extremities and normal light touch, pain and propioception Cranial Nerves: CN's II-XII intact bilaterally Cognition: normal cognition Speech: speech normal Gait: normal gait Motor: muscle tone normal throughout and strength 5/5 throughout Sensory Exam: no sensory deficits noted Extrem General: normal to inspection, full ROM, capillary refill normal, no clubbing, cyanosis or edema andno muscle atrophy Psych Appearance: grossly normal and well kempt Mental Status: mental status grossly normal Speech and Movement: speech and movement normal Mood: congruent mood Affect: normal affect Attitude: cooperative Thought Process: normal Thought Content: normal Insight: insight good Judgment: judgment good Assessment Plan Assessment Plan (1) Hernia: Code(s): K46.9 - Unspecified abdominal hernia without obstruction or gangrene Plan - Leonordanilo Sosaon: 39 yoM with 2 previous umbilical hernia repairs and pediatric inguinal hernia repairs on both sides. He started to notice more and more groin pain Lt>rt. He has had a CT scan to confirm that he has bilateral inguinal hernias. -DIscussed laparoscopic inguinal hernia repair of the recurrent hernias. I discussed possibility ofrecurrence is higher given that this is a recurrent hernia. I also discussed patients with groin pain likely already has issues with nerve problems that put them at a higher risk for chronic groin pain. He understands these complications. I also discussed bleeding, testicular torsion/ischemia, and injury to vas deferens. He understands and wishes to proceed. Will schedule for bilateral inguinal hernia repair. Dictated by: <Electronically signed by Juma Huffman > Juma Huffman 03/02/20 0840 Juma Huffman SIGNATURE DA Report Cosigners: D: JESSICA 03/02/20 0751 T: ISACC 03/02/20 0751 CC: Name Value Range Interpretation Code Description Data Marion rce(s) Supporting Document(s) ID Date Data Source [id number] 02/24/2020 05:19:00 PM [facility] Patient Name: KATHI GUNDERSON : 1980 Sex: M Pt Unit #: [id number] Location:[facility] Provider: Visit Date/Time: 02/24/20 Primary Insurance: [facility] Secondary Insurance: Self Pay Intake Vital Signs 02/24/20 17:19 Current Height 5 ft 9 in Current Weight 171 lb Weight Measurement Method Standing Scale BMI 25.2 BP 142/80 Position Sitting Respiration 18 Pulse 94 Temp 98.7 F Pulse Oximetry (%) 97 Oxygen Delivery Method room air Intake Visit Reasons: test results Is patient in pain?: Yes ((R) groin) Pain scale (1-10): 4 Allergies Cephalosporins Allergy (Severe, Verified 02/12/20 11:53) Angioedema penicillin G [Penicillin G] Allergy (Severe, Verified 02/12/20 11:53) Anaphylaxis Penicillins Allergy (Severe, Verified 02/12/20 11:53) Anaphylaxis Carbapenems [Carbapenem] Allergy (Intermediate, Verified 02/12/20 11:53) Rash promethazine HCl [From Phenergan] Adverse Reaction (Intermediate, Verified 02/12/20 11:53) Dizzyness HIV Testing Offer - ages 13-64 Requirement for HIV testing offer been met?: Declines today. Pretest education received and acknowledged Coronavirus Screening Screening Have you traveled outside of [facility] or [facility] in the last 14 days.: No Has patient experienced coronavirus symptoms: No PFSH Medical History (Updated 02/24/20 @ 18:01 by Lincoln Fajardo DO) Allergic rhinitis due to pollen (08/27/15) Anal fissure Anxiety (08/27/15) Bipolar II disorder Bl adder wall thickening Chronic migraine (10/08/15) Crush injury (L) hand as child CVA from (08/27/15) Depression Essential hypertension with goal blood pressure less than 140/90 (08/27/15) Fatigue (10/29/15) gastroesophageal reflux disease,esophagitis presence not ... (09/27/15) Hemorrhoid Hemorrhoids Hx +tobacco 3/4 ppd 10-36YO: quit Inguinal hernia recurrent bilateral Mild intermittent asthma without complication (08/27/15) Palpitations (04/08/13) PSVT (paroxysmal supraventricular tachycardia) (08/27/15) PTSD (post-traumatic stress disorder) (08/27/15) Pure hypercholesterolemia (10/08/15) Recurrent sinusitis Visual disturbance Surgical History colonoscopies 2002,2008,2017 H/O: hemorrhoidectomy History of - surgery History of - surgery Umbilical hernia Family History Mother Depression Melanoma Stroke Asthma Father No problems noted. Grandmother Melanoma Stroke Grandfather No problems noted. Other Diabetes Social History Does the Patient have a Healthcare Proxy: No Does Patient have a DNR?: No Does Patient have a Living Will?: No Advance Directives on File or in chart?: No Hx Recent Travel (where): No Smoking Status: Current every day smoker tobacco type: cigarettes alcohol intake: current alcohol intake frequency: holidays/special occasions only substance use type: does not use HPI Additional HPI HPI Details: 39 YO male for f/u abdominal pain. Seen by me 02/12/20 and suprapubic pain. I sent to ER and Dr. Zimmerman/Gen Surgery. Dr. Zimmerman is referring to Dr. Huffman for hernia re-do on repair. He was given an antibiotic for cystitis. CT demonstrated diffuse wall thickening of the bladder which could possibly be malignancy. Follow up was suggested. The antibiotic did not help his pains. He has pain and nausea moving his bowels. No fevers. GM had bladder CA. He sees Dr. Huffman 03/02/20 Exam Const General: cooperative, healthy appearing, comfortable and no acute distress Resp Effort Inspection: normal respiratory effort Auscultation: clear to auscultation bilaterally, no rales, no rhonchi and no wheezes Cardio Rate: regular rate Rhythm: regular rhythm Heart Sounds: S1 normal, S2 normal, no gallops, no murmurs and no rubs GI Palpation: soft and tender (+BS tender above R+L inguinal ligament, most tender suprapubic area) Other: no guarding, rebound Assessment Plan Assessment Plan (1) Inguinal hernia recurrent bilateral: Status: Acute Code(s): K40.21 - Bilateral inguinal hernia, without obstruction or gangrene, recurrent SNOMED Code(s): 9755783 Category: Medical Plan - Lincoln Fajardo, DO: Inguinal Hernias Bl which are recurrent and will be re-evaluated by Gen Surg/Dr. Huffman. Thickened Bladder Wall. Consult Urology. Abx did not help. (2) Bladder wall thickening: Status: Acute Code(s): N32.89 - Other specified disorders of bladder SNOMED Code(s): 546219899 Category: Medical Orders Other Medications: Discontinued: sulfamethoxazole- trimethoprim 800-160 mg (Bactrim DS) Discontinued Reason: MD Order 1 tab PO BID 20 tabs 0RF <Electronically signed by Lincoln Fajardo DO> 02/24/20 5633 Name Value Range Interpretation Code Description Data Marion rce(s) Supporting Document(s) ID Date Data Source [id number] 02/13/2020 12:01:00 PM EST [facility] Name: KATHI GUNDERSON : 1980 Age: 39 MR#: [id number] Admit Date: 02/13/20 Provider: Mohit Zimmerman MD Room #: Consulting Provider: Dictation Date: 02/13/20 Intake Vital Signs 02/13/20 12:04 Current Height 5 ft 9 in Current Weight 169 lb Weight Measurement Method Most recent on chart BMI 24.9 BP 130/68 Blood Pressure Location Lt brachial Position Sitting Pulse 69 Pulse Strength Normal Pulse Source Pulse Oximeter Temp 98.1 F Temp Source Oral Pulse Oximetry (%) 95 Oxygen Delivery Method room air Intake Visit Reasons: ER Follow-up (Adult) Nurse Note: E.R. followup hernia Winding Inspector Required: No Is patient in pain?: Yes (groin pain) Pain scale (1-10): 6 Allergies Cephalosporins Allergy (Severe, Verified 02/12/20 11:53) Angioedema penicillin G [Penicillin G] Allergy (Severe, Verified 02/12/20 11:53) Anaphylaxis Penicillins Allergy (Severe, Verified 02/12/20 11:53) Anaphylaxis Carbapenems [Carbapenem] Allergy (Intermediate, Verified 02/12/20 11:53) Rash promethazine HCl [From Phenergan] Adverse Reaction (Intermediate, Verified 02/12/20 11:53) Dizzyness HIV Testing Offer - ages 13-64 Requirement for HIV testing offer been met?: Declines today. Pretest education received and acknowledged Coronavirus Screening Screening Have you traveled outside of [facility] or [facility] in the last 14 days.: No Has patient experienced coronavirus symptoms: No [facility] Medical History Allergic rhinitis due to pollen (08/27/15) Anal fissure Anxiety (08/27/15) Bipolar II disorder Chronic migraine (10/08/15) Crush injury (L) hand as child CVA from (08/27/15) Depression Essential hypertension with goal blood pressure less than 140/90 (08/27/15) Fatigue (10/29/15) gastroesophageal reflux disease,esophagitis presence not ... (09/27/15) Hemorrhoid Hemorrhoids Hx +tobacco 3/4 ppd 10-36YO: quit Mild intermittent asthma without complication (08/27/15) Palpitations (04/08/13) PSVT (paroxysmal supraventricular tachycardia) (08/27/15) PTSD (post-traumatic stress disorder) (08/27/15) Pure hypercholesterolemia (10/08/15) Recurrent sinusitis Visual disturbance Surgical History colonoscopies 2002,2007,2017 H/O: hemorrhoidectomy History of - surgery History of - surgery Umbilical hernia Family History Mother Depression Melanoma Stroke Asthma Father No problems noted. Grandmother Melanoma Stroke Grandfather No problems noted. Other Diabetes Social History Does the Patient have a Healthcare Proxy: No Does Patient have a DNR?: No Does Patient have a Living Will?: No Advance Directives on File or in chart?: No Hx Recent Travel (where): No Smoking Status: Current every day smoker tobacco type: cigarettes alcohol intake: current alcohol intake frequency: holidays/special occasions only substance use type: does not use HPI Additional HPI HPI Details: Kathi is a 39-year-old male who presented to the emergency room yesterday complaining of lower abdominal and suprapubic pain. He has a history of inguinal hernias and umbilical hernias in the past. I saw him in the ER. I felt that he in fact did have small hernias but these were soft reducible and not likely to be causing significant discomfort. I do not feel they are responsible for his suprapubic discomfort as well. He had a CT scan which confi rmed small fat-containing bilateral inguinal hernias and an umbilical hernia. In addition the bladder wall appeared markedly thickened suggestive of cystitis which would certainly fit with his suprapubic discomfort. He was placed on antibiotics. He will follow up with his primary care in that regard. He has never had cystitis in the past. I would certainly have that addressed first as his hernias not a surgical emergency. Once that issue is resolved he can address his hernias. I discussed open repair of all of these hernias. I also discussed the option of laparoscopic repair. I explained that I do not do that particular repair but the Dr. Huffman does. He is familiar with Dr. Huffman from previous surgery. He would like to hear his options regarding laparoscopic repair. We will make an appointment of for him to see Dr. Huffman. Review of Systems Const All systems reviewed are unremarkable except as noted in HPI and below Eyes Reports system reviewed and no additional complaints, except as documented and Reports requires corrective lenses ENT Reports system reviewed and no additional complaints, except as documented Card Reports system reviewed and no additional complaints, except as documented Resp Reports system reviewed and no additional complaints, except as documented GI Reports system reviewed and no additional complaints, except as documented, Reports abdominal pain, Reports cramping and Reports nausea Reports system reviewed and no additional complaints, except as documented and Reports urinary frequency Musc Reports system reviewed and no additional complaints, except as documented Skin/Breast Reports system reviewed and no additional complaints, except as documented Neuro Reports system reviewed and no additional complaints, except as documented Psych Reports system reviewed and no additional complaints, except as documented, Reports anxiety and Reports depression Endo Reports polyuria Meet/Lymph Reports system reviewed and no additional complaints, except as documented Aller/Immun Reports system reviewed and no additional complaints, except as documented Dictated by: <Electronically signed by Mohit Zimmerman MD> Mohit Zimmerman MD 02/13/20 1226 Mohit Zimmerman MD SIGNATURE DA Report Cosigners: D: BRITTANY 02/13/20 1201 T: GLENNY 02/13/20 1201 CC: Name Value Range Interpretation Code Description Data Marion rce(s) Supporting Document(s) ID Date Data Source [id number] 02/12/2020 06:04:00 PM [facility] ED Physician Documentation NAME: GUNDERSONKATHI Geovani : 1980 AGE: 39 MR#: [id number] SERVICE DATE: 02/12/[address]: Dajuan Norton MD PRIMARY CARE DR: Lincoln Fajardo DO ROOM#: ADDENDUM Discharge Plan Admission/Discharge Dx Primary DC Diagnosis: 1bilateral inguinal hernias, 2infraumbilical hernia, 3cystitis ED Provider: Dajuan Norton ED Status: Discharged Time Seen by Provider: 02/12/20 13:37 Triaged At: 02/11 11:36 Condition Condition: Good Discharge Detail Disposition: Home, Self-Care Med Rec New Prescriptions: Continued Abilify Maintena 400 mg suspension,extended rel syring 400 mg IM MONTHLY RF: 0 diltiazem HCl [Cardizem CD] 120 mg capsule,extended release 24hr 120 mg PO DAILY Qty: 30 RF: 5 Excedrin Tension Headache 500-65 mg tablet 1 ea PO PRN PRN (Reason: Headache) RF: 0 albuterol sulfate [Ventolin HFA] 60 PUFFS/8 GM HFA aerosol inhaler 1 - 2 puff INH Q4-6HPRN PRN (Reason: Shortness Of Breath) RF: 0 acetaminophen 500 mg capsule 1,000 mg PO .TID PRN PRN (Reason: pain) Qty: 40 RF: 0 fluoxetine [Prozac] 20 mg capsule 40 mg PO DAILY RF: 0 omeprazole magnesium 20 mg capsule,delayed release(DR/EC) 20 mg PO BID Qty: 60 RF: 2 Follow Up Visit/Referrals: Mohit Zimmerman MD [PHYSICIAN] - (Call office in a.m. to arrange for appointment to be evaluated next week) Lincoln Fajardo DO [Primary Care Provider] - (Call in a.m. for follow-up appo intment to be seen early next week for reevaluation and to review CT scan) Discharge Problem: Bilateral inguinal hernia, Hernia, umbilical Medications Medication reconciliation performed by provider at discharge: Yes Forms Forms Work Release: Work/School/Activ/Gym Release Follow Up Care/Instructions Diet/Activity/Wound Care..: As we discussed on your CT evaluation today you have bilateral inguinal hernias and a small hernia below your umbilicus. All of these contain a small amount of fat but no bowel and there is no bowelobstruction. With this findings these are hernias that will need to be repaired electively and not on an emergent basis. As you know Dr. Zimmerman did see you today and he stated that unless there is a obstruction he would like you to call the office to be seen and they will schedule you for repair when it fits into your schedule. Additionally the CT today shows that you have cystitis which is inflammation of the bladder wall. With your symptoms of having urgency to urinate after drinking anything that would be a consistent finding. At this point time we are going to treat you with an antibiotic and then have you follow-up with Dr. Fajardo. It will be at his discretion if any further evaluation needs to be performed. With all of this being said if it anytime your hernias appear to acutely enlarge and are not able to be reduced you should return immediately to the emergency room for reevaluation and treatment as this could represent a surgical emergency. During the interim youshould avoid lifting any heavy weights or objects. Anything that causes the abdominal wall to tighten and strain could caused a hernia to enlarge and or a part of the bowel to protrude through the hernia opening. Lastly we did prescribe an antibiotic and you should pick that up at the pharmacy and start taking that as directed. *Discharge Patient* Discharge Orders: Discharge Order (Routine); Ordered 02/12/20 Ordered By: Dajuan Norton Discharge Date/Time: 02/12/20 18:42 Interventions Interventions: ED Discharge Instructions Last Done: 02/12/20 18:42 Addendum Addendum Note: Chief complaint and history of present illness this is a 39-year-old white male who was sent by his physician after he called the complaint of having bilateral lower abdominal pains on and off for a month that is gotten worse over the last 24 to 48 hours. The patient did have a history of having hernias in the past. He denies any nausea or vomiting. His pain is aggravated with lifting and straining. The patient believes he might have a hernia. Review of systems constitutionally - noncontributory Cardiovascular noncontributory GI GUrefer to chief complaint history of present illness Neurovascularnegative Physical examination HEENTNC/AT, PERRLA, EOMI, Necksupple, negative adenopathy, Lungsclear to auscultation Heartregular rate and rhythm without ectopy Abdomensoft positive bowel sounds x4 - masses rebound or guarding. Patient does have tenderness with what appears to be a palpable hernia in the right groin area. There is questionable laxity in the left groin also. There is no sign of incarcerated or strangulated herniation. Extremitynegative CCE, F ROM, negative rash Neurocranial nerves II through XII are intact. There is no motor or sensory deficits appreciated. Addended by: <Electronically signed by Dajuan Norton > 03/02/20754 Addendum Cosigners: D: MAMI 03/02/20754 T: MAMI 03/02/20754 CC: DO SIMONE Powers (Adult, General) General Chief Complaint: GI Stated Complaint: POSSIBLE HERNIA Time Seen by Provider: 02/12/20 13:37 Allergies/Home Meds Allergies Allergy/AdvReac Type Severity Reaction Status Date / Time Cephalosporins Allergy Severe Angioedema Verified 02/12/20 11:53 penicillin G [Penicillin G] Allergy Severe Anaphylaxis Verified 02/12/20 11:53 Penicillins Allergy Severe Anaphylaxis Verified 02/12/20 11:53 Carbapenems [Carbapenem] Allergy Intermediate Rash Verified 02/12/20 11:53 promethazine HCl AdvReac Intermediate Dizzyness Verified 02/12/20 11:53 [From Phenergan] Home Medications Medication Instructions Recorded Confirmed Last Taken Type Excedrin Tension Headache 1 ea PO PRN PRN 11/16/15 02/12/20 01/29/20 History albuterol sulfate [Ventolin HFA] 1 - 2 puff INH Q4-6HPRN PRN 05/07/16 02/12/20 10/21/18 History aripiprazole 400 mg suspension, 400 mg IM MONTHLY 12/05/18 02/12/20 01/19/20 History extended rel.intramuscular syringe acetaminophen 1,000 mg PO .TID PRN PRN #40 cap 05/26/19 02/12/20 02/11/20 Rx diltiazem HCl 120 mg 120 mg PO DAILY #30 cap 10/16/19 02/12/20 02/12/20 Rx capsule,extended release 24 hr fluoxetine 20 mg capsule 40 mg PO DAILY cap 10/16/19 02/12/20 02/12/20 History omeprazole magnesium 20 mg 20 mg PO BID #60 cap 11/03/19 02/12/20 02/12/20 Rx capsule,delayed release sulfamethoxazole-trimethoprim 1 tab PO BID #20 tab 02/12/20 Unknown Rx [Bactrim DS] PMH (from Triage) Patient Medical History PMH Reviewed/Updated as Needed: Yes PMH/PSH from Triage: Medical History (Updated 01/07/20 @ 15:50 by Teri Girard NP) Allergic rhinitis due to pollen (Medical 08/27/15) Anal fissure (Medical) Anxiety (Medical 08/27/15) Bipolar II disorder (Medical) Chronic migraine (Medical 10/08/15) Crush injury (L) hand as child (Medical) CVA from (Medical 08/27/15) Depression (Medical) Essential hypertension with goal blood pressure less than 140/90 (Medical 08/27/15) Fatigue (Medical 10/29/15) gastroesophageal reflux disease,esophagitis presence not ... (Medical 09/27/15) Hemorrhoid (Medical) K64.9 38 yoM with hx of intermittent rectal bleeding with obvious hemorrhoid seen in the ER yesterday and here to get his hemorrhoid checked. He has pain with BMs (burning sensation), no active bleeding. Hemorrhoids (Medical) Hx +tobacco 3/4 ppd 10-38YO: quit (Medical) Mild intermittent asthma without complication (Medical 08/27/15) Palpitations (Medical 04/08/13) PSVT (paroxysmal supraventricular tachycardia) (Medical 08/27/15) PTSD (post- traumatic stress disorder) (Medical 08/27/15) Pure hypercholesterolemia (Medical 10/08/15) Recurrent sinusitis (Medical) Visual disturbance (M edical) Surgical History (Updated 06/16/19 @ 08:35 by Nanette Sauceda) colonoscopies 2002,2007,2017 (Surgical) H/O: hemorrhoidectomy (Surgical) Z98.890 History of - surgery (Surgical) x2 History of - surgery (Surgical) Moles removed x3 non cancerous Umbilical hernia (Surgical) x2 Hx Drug Resistant Infections Hx MRSA: (Methicillin-resistant Staphylococcus aureus): No Hx VRE (Vancomycin-resistant enterococci): No Hx C.Diff: No Hx CRKP: No Hx Other Resistant Infection?: No Isolation: Standard precautions Hx Recent Travel Out of the country within 10 days (where): No Hx Fever: No Hx Fever with a rash?: No Nurse screening for coronavirus: Recent Travel outside the No country (where) Has patient experienced No coronavirus symptoms Social History Does patient have sourav cidal/homicidal thoughts or ideation?: No Are you in a relationship with/Does anyone hit you, yell/swear at you, steal from you?: No Substance Use Hx Alcohol Use: Yes (occasional) Hx Substance Use: No Hx Substance Use Treatment: No Smoking Status: Current every day smoker Tobacco Use Tobacco Products:: Cigarettes 1/2 PPD Years smoked:: 20 Hx Chewing Tobacco Use: No Vaccination History Hx/Date of Tetanus, Diphtheria Vaccination: Yes Hx/Date of Influenza Vaccination: No Hx/Date of Pneumococcal Vaccination: No PFSH Medical History (Updated 02/12/20 @ 18:24 by Dajuan Norton) Allergic rhinitis due to pollen (08/27/15) Anal fissure Anxiety (08/27/15) Bipolar II disorder Chronic migraine (10/08/15) Crush injury (L) hand as child CVA from (08/27/15) Depression Essential hypertension with goal blood pressure less than 140/90 (08/27/15) Fatigue (10/29/15) gastroesophageal reflux disease,esophagitis presence not ... (09/27/15) Hemorrhoid Hemorrhoids Hx +tobacco 3/4 ppd 10-36YO: quit Mild intermittent asthma without complication (08/27/15) Palpitations (04/08/13) PSVT (paroxysmal supraventricular tachycardia) (08/27/15) PTSD (post-traumatic stress disorder) (08/27/15) Pure hypercholesterolemia (10/08/15) Recurrent sinusitis Visual disturbance Surgical History colonoscopies 2002,2007,2016 H/O: hemorrhoidectomy History of - surgery History of - surgery Umbilical hernia Family History Mother Depression Melanoma Stroke Asthma Father No problems noted. Grandmother Melanoma Stroke Grandfather No problems noted. Other Diabetes Social History (Updated 02/12/20 @ 10:46 by Kandice Mahoney) Does the Patient have a Healthcare Proxy: No Does Patient have a DNR?: No Does Patient have a Living Will?: No Advance Directives on File or in chart?: No Hx Recent Travel (where): No Smoking Status: Current every day smoker tobacco type: cigarettes alcohol intake: current alcohol intake frequency: holidays/special occasions only substance use type: does not use Physical Exam Vital Signs Vital Signs: Vital Signs 02/12/20 11:57 Temperature 98.4 F Pulse Rate 90 Respiratory Rate 16 Blood Pressure 126/76 O2 Sat by Pulse Oximetry 96 MDM (comprehensive) Lab Data Labs: 02/12/20 13:58 02/12/20 13:58 Laboratory Results Last 24 hours 02/12/20 13:58: WBC 10.2, RBC 4.75, Hgb 14.7, Hct 45.1, MCV 94.9, MCH 30.9, MCHC 32.6 L, RDW 13, PltCount 247, MPV 8.7 L, Immature Gran % (Auto) 0.1, Neut % (Auto) 66.8, Lymph % (Auto) 23.3, [place]borne % (Auto) 6.0, Eos % (Auto) 3.2, Baso % (Auto) 0.6, Lymph # (Auto) 2.4, Abs Immat Gran (auto) 0.0, Add Manual Diff No, Absolute Neutrophils 6.8, Monocytes # 0.6, Absolute Eosinophils 0.3, Absolute Basophils 0.1 02/12/20 13:58: Sodium 144, Potassium 3.7, Chloride 110 H, Carbon Dioxide 29, Anion Gap 9, BUN 7 L, Creatinine 0.9, GFR Calculation Greater than 60, Glucose 89, Calcium 8.7, Total Bilirubin 0.4, AST 17, ALT 30, Alkaline Phosphatase 70, Serum Total Protein 7.4, Albumin 3.9 02/12/20 16:09: Urine Color Yellow, Urine Appearance Clear, Urine pH 7.5, Ur Specific [place] 1.016,Urine Protein Negative, Urine Ketones Negative, Urine Blood Negative, Urine Nitrate Negative, Urine Bilirubin Negative, Urine Urobilinogen 1 eu/dl, Ur Leukocyte Esterase Negative, Add Ur MicroanalysisNo, Urine Glucose Negative Plan Visit Medications Administered ED medications:: Medications Discontinued Medications Generic Name Dose Route Start Last Admin Trade Name Freq PRN Reason Stop Dose Admin Sodium Chloride 1,000 mls @ 999 mls/hr 13:50 02/12/20 16:00 Ns 0.9% IV 02/12/20 14:50 Infused .Q1H1M ONE Infusion Ketorolac Tromethamine 30 mg 02/12/20 15:14 02/12/20 15:37 Ketorolac Tromethamine 30 Mg/Ml Sdv IM 02/12/20 15:15 30 mg 1T ONE Administration Ondansetron HCl 4 mg 02/12/20 15:14 02/12/20 15:37 Ondansetron Hcl/Pf 4 Mg/2 Ml Sdv IVP 02/12/20 15:15 4 mg 1T ONE Administration Other Medications: New: sulfamethoxazole-trimethoprim 800-160 mg (Bactrim DS) 1 tab PO BID 20 tabs 0RF Discharge Plan Admission/Discharge Dx Primary DC Diagnosis: 1 bilateral inguinal hernias, 2infraumbilical hernia, 3cystitis ED Provider: Dajuan Norton ED Status: Ready for Discharge Time Seen by Provider: 02/12/20 13:37 Triaged At: 02/12/20 11:36 Condition Condition: Good Discharge Detail Disposition: Home, Self-Care Med Rec New Prescriptions: New sulfamethoxazole-trimethoprim [Bactrim DS] 800-160 mg tablet 1 tab PO BID Qty: 20 RF: 0 Continued Abilify Maintena 400 mg suspension,extended rel syring 400 mg IM MONTHLY RF: 0 diltiazem HCl [Cardizem CD] 120 mg capsule,extended release 24hr 120 mg PO DAILY Qty: 30 RF: 5 Excedrin Tension Headache 500-65 mg tablet 1 ea PO PRN PRN (Reason: Headache) RF: 0 albuterol sulfate [Ventolin HFA] 60 PUFFS/8 GM HFA aerosol inhaler 1 - 2 puff INH Q4-6HPRN PRN (Reason: Shortness Of Breath) RF: 0 acetaminophen 500 mg capsule 1,000 mg PO .TID PRN PRN (Reason: pain) Qty: 40 RF: 0 fluoxetine [Prozac] 20 mg capsule 40 mg PO DAILY RF: 0 omeprazole magnesium 20 mg capsule,delayed release(DR/EC) 20 mg PO BID Qty: 60 RF: 2 Follow Up Visit/Referrals: Mohit Zimmerman MD [PHYSICIAN] - (Call office in a.m. to arrange for appointment to be evaluated next week) Lincoln Fajardo DO [Primary Care Provider] - (Call in a.m. for follow-up appointment to be seen early next week for reevaluation and to review CT scan) Discharge Problem: Bilateral inguinal hernia, Hernia, umbilical Medications Medication reconciliation performed by provider at discharge: Yes Forms Forms Work Release: Work/School/Activ/Gym Release Follow Up Care/Instructions Diet/Activity/Wound Care..: As we discussed on your CT evaluation today you have bilateral inguinal hernias and a small hernia below your umbilicus. All of these contain a small amount of fat but no bowel and there is no bowelobstruction. With this findings these are hernias that will need to be repaired electively and not on an emergent basis. As you know Dr. Zimmerman did see you today and he stated that unless there is a obstruction he would like you to call the office to be seen and they will schedule you for repair when it fits into your schedule. Additionally the CT today shows that you have cystitis which is inflammation of the bladder wall. With your symptoms of having urgency to urinate after drinking anything that would be a consistent finding. At this point time we are going to treat you with an antibiotic and then have you follow-up with Dr. Fajardo. It will be at his discretion if any further evaluation needs to be performed. With all of this being said if it anytime your hernias appear to acutely enlarge and are not able to be reduced you should return immediately to the emergency room for reevaluation and treatment as this could represent a surgical emergency. During the interim youshould avoid lifting any heavy weights or objects. Anything that causes the abdominal wall to tighten and strain could caused a hernia to enlarge and or a part of the bowel to protrude through the hernia opening. Lastly we did prescribe an antibiotic and you should pick that up at the pharmacy and start taking that as directed. *Discharge Patient* Discharge Orders: Discharge Order (Routine); Ordered 02/12/20 Ordered By: Dajuan Norton Report Signers: <Electronically signed by Dajuan Norton > Dajuan Norton 02/12/20 1826 Dajuan Norton SIGNATURE DA Report Cosigners: D: MAMI 02/12/201803 T: MAMI 02/12/201803 CC: Lincoln Fajardo DO Name Value Range Interpretation Code Description Data Marion rce(s) Supporting Document(s) ID Date Data Source [id number] 02/12/2020 05:28:00 PM [facility] Reason for ordering culture: Abnormal fi ndings UAMethod of Collection:: Voided Name Value Range Interpretation Code Description Data Marion rce(s) Supporting Document(s) Color of Urine [facility] Appearance of Urine CLEAR [facility] pH of Urine by Test strip 7.5 5-8 [facility] Specific gravity of Urine by Refractometry 1.016 1.005-1.030 [facility] Leukocyte esterase [Presence] in Urine by Test strip NEGAT SIMON [facility] Nitrite [Presence] in Urine by Test strip NEGATIVE [facility] Protein [Presence] in Urine by Test strip NEGATIVE [facility] Glucose [Mass/volume] in Urine by Automated test strip NEGATIVE NEG ATIVE [facility] Ketones [Presence] in Urine by Test strip NEGATIVE [facility] Urobilinogen [Presence] in Urine 0.2-1 EU/dl [facility] Bilirubin.total [Presence] in Urine by Automated test strip NEGATIVE [facility] Erythrocytes [#/volume] in Urine by Test strip NEGATIVE NEGATIVE [facility] URINE MICROSCOPIC? (CIF) NO [facility] ID Date Data Source [id number] 02/12/2020 03:42:[address] [facility] [address] [place] [id number] [phone] NAME SEX PT STATUS ACCOUNT NUMBER KATHI GUNDERSON Geovani [facility] [id number] ORDERING PHYSICIAN LOCATION MEDICAL RECORD NO. Dajuan Norton MD ER [id number] ATTENDING PHYSICIAN DATE OF DATE OF EXAM/TIME Lincoln Fajardo DO 1980 02/12/201348 TYPE / EXAM CT Abd/pel w/ contrast REASON FOR EXAM midline hernia /rt inguinal hernia r/o incarcerati Clinical History/Indication for Exam: midline hernia /rt inguinal hernia r/o incarcerati CT ABDOMEN AND PELVIS WITH INTRAVENOUS CONTRAST INDICATION: Midline hernia /rt inguinal hernia; r/o incarceration. TECHNIQUE: Axial computed tomography images of the abdomen and pelvis with intravenous contrast. Sagittal and coronal reformatted images were created and reviewed. This CT exam was performed using one or more of the following dose reduction techniques: automated exposure control, adjustment of the mA and/or kV according to patient size, and/or use of iterative reconstruction technique. COMPARISON: CT abdomen and pelvis 03/03/2019. FINDINGS: Lung bases: Unremarkable as visualized. ABDOMEN: Liver: Subcentimeter enhancing lesions in the anterior edge LEFT liver lobe (series 2, image 32) and in the inferior edge of LEFT liver lobe (series 2, image 41), stable as far back as CT 06/12/2018, probably flash filling hemangiomas. The liver is otherwise unremarkable. Gallbladder and bile ducts: Unremarkable. No calcified stones. No ductal dilation. Pancreas: Unremarkable. No mass. No ductal dilation. Spleen: Unremarkable. No sp lenomegaly. Adrenals: Unremarkable. No mass. Kidneys and ureters: A 0.4 cm, nonobstructing calculus in the LEFT kidney upper pole, unchanged. The kidneys are otherwise normal. No hydronephrosis or hydroureter. Stomach and bowel: No obstruction. No abnormal mucosal thickening. PELVIS: Appendix: Normal appendix. Bladder: Diffuse wall thickening of the urinary bladder, new since prior exam. Reproductive: Unremarkable as visualized. ABDOMEN and PELVIS: Intraperitoneal space: No free air. No significant fluid collection. Bones/joints: No acute or suspicious osseous abnormality identified. Soft tissues: Small fat- containing umbilical/periumbilical hernia, unchanged. Small fat-containing bilateral inguinal hernias, unchanged. Noncalcified granulomas in the subcutaneous tissue of bilateral buttocks, unchanged. Vasculature: No abdominal aortic aneurysm. Lymph nodes: No enlarged lymph nodes. IMPRESSION: 1. Diffuse wall thickening of the urinary bladder, greater than expected for the degree of under distention, new since prior exam. Findings may relate to cystitis or infiltrative bladder malignancy. Clinical correlation with urinalysis and/or cystoscopy suggested. 2. Otherwise, no acute findings in the abdomen and pelvis. 3. Small fat-containing umbilical/periumbilical hernia, unchanged. Small fat-containing bilateral inguinal hernias, unchanged. 4. A 0.4 cm, nonobstructing calculus in the LEFT kidney upper pole, unchanged. Automatic exposure control was used as a dose lowering technique. Contrast Type: isovue 300. Contrast Volume: 100 cc's REPORT SIGNATURE ON FILE 02/12/2020 (15:42 Eastern Time ) Signed by: Noy Helms M.D. Reported By Noy Helms MD on 02/12/20 1542 Signed By Noy Helms MD on 02/12/20 154 Date Time CC: Noy Helms MD; Lincoln Fajardo DO Techn: BAIAB Trans Dt/Tm: Trans by: DT Prt Dt/Tm: 2867-0851: Total DLP = 456.00 mGy-cm 3724-5520: Total Radiation Dose = 6.8400 mSv Lifetime Dose: 16.7700 mSv Name Value Range Interpretation Code Description Data Marion rce(s) Supporting Document(s) ID Date Data Source [id number] 02/12/2020 02:05:00 PM EST [facility] Name Value Range Interpretation Code Description Data Marion rce(s) Supporting Document(s) Leukocytes [#/volume] in Blood by Automated count 10.2 10*3/uL 4.45-1 0.71 N [facility] Erythrocytes [#/volume] in Blood by Automated count 4.75 10*6/uL 4.3- 6.1 N [facility] Hemoglobin [Moles/volume] in Blood 14.7 g/dL 13-18 N [facility] Hematocrit [Volume Fraction] of Blood by Automated count 45.1 % 4 2-52 N [facility] Erythrocyte mean corpuscular volume [Ent itic volume] in Cord blood by Automated count 94.9 fL 80-96 N [facility] Erythrocyte mean corpuscular hemoglobin [Entitic mass] by Automated count 30.9 pg 27-31 N [facility] Erythrocyte mean corpuscular hemoglobin concentration [Mass/volume] in Cord blood 32.6 g/dL 33-37 Below low normal [facility] Erythrocyte distribution width [Entitic volume] by Automated count 13 % 11-15 N [facility] Platelets [#/volume] in Blood by Automated count 247 10*3/uL 130-472 N [facility] Platelet mean volume [Entitic volume] in Blood 8.7 fL 9.1-13. 1 Below low normal [facility] Neutrophils/100 leukocytes in Blood by Automated count 66.8 % 41- 77 N [facility] Neutrophils [#/volume] in Blood by Automated count 6.8 U 1.7-7.6 N [facility] Lymphocytes/100 leukocytes in Blood by Automated count 23.3 % 14- 46 N [facility] Lymphocytes [#/volume] in Blood by Automated count 2.4 U 0.6-4.6 N [facility] Monocytes/100 leukocytes in Blood by Automated count 6.0 % 4-12 N [facility] Monocytes [#/volume] in Blood by Automated count 0.6 U 0.2-1.2 N [facility] Eosinophils/100 leukocytes in Blood by Automated count 3.2 % 0-7 N [facility] Eosinophils [#/volume] in Blood by Automated count 0.3 U 0.0-0.5 N [facility] Basophils/100 leukocytes in Blood by Automated count 0.6 % 0.4-1 .3 N [facility] Basophils [#/volume] in Blood by Automated count 0.1 U 0.0-0.2 N [facility] NUCLEATED RED BLOOD CELL 0 % [facility] NUCLEATED RED BLOOD CELL# 0 U [facility] Immature granulocytes [Presence] in Blood by Automated count 0-2 N [facility] Immature granulocytes [#/volume] in Blood by Automated count 0.0 U 0-0.1 N [facility] Manual Differential panel - Blood NO [facility] ID Date Data Source [id number] 02/12/2020 02:27:00 PM EST [facility] Name Value Range Interpretation Code Description Data Marion rce(s) Supporting Document(s) Urea nitrogen [Mass/volume] in Serum or Plasma 7 mg/dL 9-23 Below low normal [facility] Sodium [Moles/volume] in Serum or Plasma 144 mmol/L 132-146 N [facility] Potassium [Moles/volume] in Serum or Plasma 3.7 mmol/L 3.5-5.5 N [facility] Chloride [Moles/volume] in Serum or Plasma 110 mmol/L 99-109 Above high normal [facility] Carbon dioxide, total [Moles/volume] in Serum or Plasma 29 mmol/L 20 -31 N [facility] Anion gap in Serum or Plasma 9 mmol/L 8-[address] [facility] Glucose [Mass/volume] in Serum or Plasma 89 mg/dL 74-106 N [facility] Creatinine 0.9 mg/dL 0.5-1.1 N [facility] Glomerular filtration rate/1.73 sq M.pre dicted [Volume Rate/Area] in Serum or Plasma Greater Than 60 ABOVE 60 [facility] Alanine aminotransferase [Enzymatic acti vity/volume] in Serum or Plasma by With P-5'-P 30 U/L 10-49 [facility] ital Aspartate aminotransferase [Enzymatic ac tivity/volume] in Serum or Plasma by With P-5'-P 17 U/L 0-33 N [facility] pital Alkaline phosphatase [Enzymatic activity/volume] in Serum or Plasma 70 U/L 45-129 N [facility] Calcium [Mass/volume] in Serum or Plasma 8.7 mg/dL 8.5-10.1 [facility] Bilirubin.total [Mass/volume] in Serum or Plasma 0.4 mg/dL 0.3-1.2 [facility] Albumin [Mass/volume] in Serum or Plasma by Bromocresol purple (BCP) dye binding method 3.9 g/dL 3.2-4.8 [facility] ital Protein [Mass/volume] in Serum or Plasma 7.4 g/dL 5.7-8.2 [facility] ID Date Data Source [id number] 02/12/2020 10:42:00 AM [facility] Patient Name: KATHI GUNDERSON : 1980 Sex: M Pt Unit #: [id number] Location:[facility] Provider: Visit Date/Time: 02/12/20 Primary Insurance: [facility] Secondary Insurance: Self Pay Intake Vital Signs 02/12/20 10:42 Current Height 5 ft 9 in Current Weight 171 lb Weight Measurement Method Standing Scale BMI 25.2 BP 136/84 Position Sitting Respiration 18 Pulse 82 Temp 98.6 F Pulse Oximetry (%) 96 Oxygen Delivery Method room air Intake Visit Reasons: Hernia Nurse Note: Called this am and stated that when he took him medication this am he vomited them all and now he has a knot in his groin and it is painful Is patient in pain?: Yes (ABD,groin) Pain scale (1-10): 8 Allergies Cephalosporins Allergy (Severe, Verified 06/16/19 08:35) Angioedema penicillin G [Penicillin G] Allergy (Severe, Verified 06/16/19 08:35) Anaphylaxis Penicillins Allergy (Severe, Verified 06/16/19 08:35) Anaphylaxis Carbapenems [Carbapenem] Allergy (Intermediate, Verified 06/16/19 08:35) Rash promethazine HCl [From Phenergan] Adverse Reaction (Inte rmediate, Verified 06/16/19 08:35) Dizzyness HIV Testing Offer - ages 13-64 Requirement for HIV testing offer been met?: Declines today. Pretest education received and acknowledged Coronavirus Screening Screening Have you traveled outside of [facility] or [facility] Center in the last 14 days.: No Has patient experienced coronavirus symptoms: No [facility] Medical History (Updated 01/07/20 @ 15:50 by Teri Girard NP) Allergic rhinitis due to pollen (08/27/15) Anal fissure Anxiety (08/27/15) Bipolar II disorder Chronic migraine (10/08/15) Crush injury (L) hand as child CVA from (08/27/15) Depression Essential hypertension with goal blood pressure less than 140/90 (08/27/15) Fatigue (10/29/15) gastroesophageal reflux disease,esophagitis presence not ... (09/27/15) Hemorrhoid Hemorrhoids Hx +tobacco 3/4 ppd 10-36YO: quit Mild intermittent asthma without complication (08/27/15) Palpitations (04/08/13) PSVT (paroxysmal supraventricular tachyca rdia) (08/27/15) PTSD (post-traumatic stress disorder) (08/27/15) Pure hypercholesterolemia (10/08/15) Recurrent sinusitis Visual disturbance Surgical History colonoscopies 2002,2007,2016 H/O: hemorrhoidectomy History of - surgery History of - surgery Umbilical hernia Family History Mother Depression Melanoma Stroke Asthma Father No problems noted. Grandmother Melanoma Stroke Grandfather No problems noted. Other Diabetes Social History (Updated 02/12/20 @ 10:46 by Kandice Mahoney) Does the Patient have a Healthcare Proxy: No Does Patient have a DNR?: No Does Patient have a Living Will?: No Advance Directives on File or in chart?: No Hx Recent Travel (where): No Smoking Status: Current every day smoker tobacco type: cigarettes Smoking cigarettes per day: 10 alcohol intake: current alcohol intake frequency: holidays/special occasions only substance use type: does not use HPI Additional HPI HPI Details: 39 YO male with PMH listed is here for multiple issues. He took regular meds in AM and vomited. He now has pain in groin. He hasn't seen Kathi Gunderson his son in a month. He had the groin pain for about a month now. He has had four past hernia operations. Bl inguinal hernia and 2 umbilical hernia repairs. He is passing flatus. He belches a lot. He is eating. He has nausea every time he goes to do something. No fevers. No dysuria. No bloody urine. He stateshis suprapubic bulging at one time but it went down. Exam Const General: cooperative and no acute distress Resp Effort Inspection: normal respiratory effort Auscultation: clear to auscultation bilaterally, no rales, no rhonchi and no wheezes Cardio Rate: regular rate Rhythm: regular rhythm Heart Sounds: S1 normal, S2 normal, no gallops, no murmurs and no rubs GI Inspection: Yes normal to inspection (vertical scar) and Yes scar Palpation: soft and tender (diffusely tender, most exquisitely tender suprapubic area) Other: +BS with borborigmy RLQ, tender to mild/moderate palpation with guarding Other: no CVAT Bl Extrem General: capillary refill normal Assessment Plan Assessment Plan (1) Abdominal pain: Code(s): R10.9 - Unspecified abdominal pain Plan - Lincoln Fajardo DO: Abdominal Pain. He is exquisitely tender suprapubic region and in pain. Go to ER for full work up. <Electronically signed by Lincoln Fajardo DO> 02/12/20 1110 Name Value Range Interpretation Code Description Data Marion rce(s) Supporting Document(s) ID Date Data Source [id number] 01/07/2020 04:43:00 PM EDT [facility] Patient Name: KATHI GUNDERSON : 1980 Sex: M Pt Unit #: [id number] Location:[facility].EXT Provider: Visit Date/Time: 01/07/20 Primary Insurance: [facility] Secondary Insurance: Self Pay Intake Vital Signs 01/07/20 16:43 Respiration 18 Pulse 83 Temp 97.5 F L Pulse Oximetry (%) 97 Intake Visit Reasons: Call First Appt Allergies Cephalosporins Allergy (Severe, Verified 06/16/19 08:35) Angioedema penicillin G [Penicillin G] Allergy (Severe, Verified 06/16/19 08:35) Anaphylaxis Penicillins Allergy (Severe, Verified 06/16/19 08:35) Anaphylaxis Carbapenems [Carbapenem] Allergy (Intermediate, Verified 06/16/19 08:35) Rash promethazine HCl [From Phenergan] Adverse Reaction (Intermediate, Verified 06/16/19 08:35) Dizzyness Coronavirus Screening Screening Have you traveled outside of [facility] or [facility] in the last 14 days.: No Has patient experienced coronavirus symptoms: Yes Coronavirus symptoms experienced: fever (denies fever, reports diarrhea and vomiting) [facility] Medical History (Updated 01/07/20 @ 15:50 by Teri Girard NP) Allergic rhinitis due to pollen (08/27/15) Anal fissure Anxiety (08/27/15) Bipolar II disorder Chronic migraine (10/08/15) Crush injury (L) hand as child CVA from (08/27/15) Depression Essential hypertension with goal blood pressure less than 140/90 (08/27/15) Fatigue (10/29/15) gastroesophageal reflux disease,esophagitis presence not ... (09/27/15) Hemorrhoid Hemorrhoids Hx +tobacco 3/4 ppd 10-36YO: quit Mild intermittent asthma without complication (08/27/15) Palpitations (04/08/13) PSVT (paroxysmal supraventricular tachycardia) (08/27/15) PTSD (post-traumatic stress disorder) (08/27/15) Pure hypercholesterolemia (10/08/15) Recurrent sinusitis Visual disturbance Surgical History colonoscopies 2002,2007,2016 H/O: hemorrhoidectomy History of - surgery History of - surgery Umbilical hernia Family History Mother Depression Melanoma Stroke Asthma Father No problems noted. Grandmother Melanoma Stroke Grandfather No problems noted. Other Diabetes Social History (Updated 10/16/19 @ 13:05 by Kandice Mahoney) Does the Patient have a Healthcare Proxy: No Does Patient have a DNR?: No Does Patient have a Living Will?: No Advance Directives on File or in chart?: No Hx Recent Travel (where): No Smoking Status: Former smoker alcohol intake: current alcohol intake frequency: holidays/special occasions only substance use type: does not use HPI Additional HPI HPI Details: Pt here for covid screening Respiratory Complaints Current symptoms: Reports diarrhea and Reports vomiting Review of Systems GI Reports diarrhea and Reports vomiting Exam Const General: cooperative, comfortable and no acute distress Orientation: alert, awake and oriented x3 HENMT Head: normal to inspection, normocephalic and atraumatic Ears: hearing grossly normal bilaterally and external ears normal General nose exam: external nose normal, nares normal, nasal mucous membranes and turbinates normal and septum normal Face and sinus: normal facial exam and face symmetric Mouth: moist mucous membranes Eyes Alignment and Position: alignment normal and position normal Periorbital: periorbital findings normal Eyelids: eyelids normal Conjunctivae: conjunctivae normal Sclera: sclerae normal Pupils: PERRL and normal by confrontation EOM: EOM intact bilaterally Neck Neck: normal visual inspection, full ROM, trachea midline and supple Resp Effort Inspection: normal respiratory effort, able to speak in complete sentences, no audible wheezes, no cough, no grunting, not labored, no nasal flaring and no pursed lip breathing Assessment Plan Assessment Plan (1) Respiratory illness with fever: Code(s): J98.9 - Respiratory disorder, unspecified; R50.9 - Fever, unspecified Plan: covid screening completed and sent to lab. Pt reports that she has spoken to [facility] and thatshe understands quarrantine. Advised that lab results are taking 3-5 days and that she needs appt with pcp to follow up in 3-5 days. Orders Other Orders: Orders: 2019 Coronavirus, COVID-19 IMELDA Today U07.1 Electronically Signed By: <Electronically signed by Teri Girard NP> Date/Time Signed: 01/07/201934 Name Value Range Interpretation Code Description Data Marion rce(s) Supporting Document(s) ID Date Data Source [id number] 01/11/2020 05:02:00 AM EDT [facility] COVID19 CLINIC SPECIMEN Name Value Range Interpretation Code Description Data Marion rce(s) Supporting Document(s) COVID-19 IMELDA (SARS-CoV-2) NOT DETECTED NOT DETECTED [facility] A Not Detected (negative) test result fo r this testmeans that SARS- CoV-2 RNA was not present in the specimenabove the limit of detection. A negative result does notrule out the possibility of COVID-19 and should not beused as the sole basis for treatment or patient managementdecisions. If COVID-19 is still suspected, based onexposure history together with other clinical findings,re- testing should be considered in [place] [facility] health authorities. Laboratory test results shouldalways be considered in the context of clinicalobservations and epidemiological data in making a finaldiagnosis and patient management decisions.Please review the "Fact Sheets" and FDA authorizedlabeling available for health care providers andpatients using the following websites:https://www.[facility].RateElert/home/Covid-19/HCP/Quest[facility]/fact-sheet.htmlhttps://www.[facility]. RateElert/home/Covid-19/Patients/QuestIVD/fact-sheet.htmlThis test has been authorized by the FDA under anEmergency Use Authorization (EUA) for use by authorizedlaboratories.Due to the current public health emergency, [facility] is receiving a high volume of samples froma wide variety of swabs and media for COVID-19 testing.In order to serve patients during this public healthcrisis, samples from appropriate clinical sources arebeing tested. Negative test results derived fromspecimens received in non-commercially manufa cturedviral collection and transport media, or in media andsample collection kits not yet authorized by FDA forCOVID-19 testing should be cautiously evaluated and thepatient potentially subjected to extra precautions suchas additional clinical monitoring, including collectionof an additional specimen.Methodology: Nucleic Acid Amplification Test (NAAT)includes PCR or TMAAdditional information about COVID-19 can be foundat the [facility] website:www.[facility].RateElert/Covid19.THIS TEST WAS PERFORMED AT:[facility] [id number] MERATI,MD ID Date Data Source [id number] 01/07/2020 04:25:00 PM EDT [facility] Name Value Range Interpretation Code Description Data Marion rce(s) Supporting Document(s) SARS-COV-2 RNA RESP QL IMELDA+PROBE [facility] This lab was ordered by [facility] and reported by [facility]. Procedure Social History Code Duration Value Status Description Data Source(s ) 10/13/2020 11:19:00 AM EDT Current some day smoker com pleted Current some day smoker [facility] 10/13/2020 11:19:00 AM EDT No completed No [facility] 10/13/2020 11:19:00 AM EDT Yes completed Yes [facility] 10/13/2020 11:19:00 AM EDT Former smoker completed Former smoker [facility] Smoking 10/13/2020 11:19:00 AM EDT Former smoker completed Former smoker [facility] Smoking 04/07/2020 12:00:00 AM EST Former Smoker completed Former Smoker [email or web address] ([facility]) Smoking 04/07/2020 12:00:00 AM EST Former Smoker completed Former Smoker [email or web address] ([facility]) 04/06/2020 12:57:53 PM EST Former smoker completed Former smoker [facility] 04/06/2020 12:57:53 PM EST Former smoker completed Former smoker [facility] 04/06/2020 12:57:53 PM EST Former smoker completed Former smoker [facility] 04/06/2020 12:57:53 PM EST Former smoker completed Former smoker [facility] 04/06/2020 12:57:53 PM EST Former smoker completed Former smoker [facility] 04/06/2020 12:57:53 PM EST Former smoker completed Former smoker [facility] 04/06/2020 12:57:53 PM EST Former smoker completed Former smoker [facility] 04/06/2020 12:57:53 PM EST Former smoker completed Former smoker [facility] Smoking 04/06/2020 12:57:00 PM EST Former smoker completed Former smoker [facility] Smoking 04/06/2020 12:57:00 PM EST Former smoker completed Former smoker [facility] Smoking 04/06/2020 12:57:00 PM EST Former smoker completed Former smoker [facility] Smoking 04/06/2020 12:57:00 PM EST Former smoker completed Former smoker [facility] Smoking 04/06/2020 12:57:00 PM EST Former smoker completed Former smoker [facility] Smoking 04/06/2020 12:57:00 PM EST Former smoker completed Former smoker [facility] Smoking 04/06/2020 12:57:00 PM EST Former smoker completed Former smoker [facility] Smoking 04/06/2020 11:57:00 AM EST Former smoker completed Former smoker [facility] 03/30/2020 04:07:00 PM EST No completed No [facility] 03/30/2020 04:07:00 PM EST No completed No [facility] 03/30/2020 04:07:00 PM EST Current some day smoker com pleted Current some day smoker [facility] Smoking 03/30/2020 04:07:00 PM EST Current some day smoker com pleted Current some day smoker [facility] 03/16/2020 08:10:48 PM EST No completed No [facility] 03/16/2020 08:10:48 PM EST Yes completed Yes [facility] 03/16/2020 08:10:48 PM EST No completed No [facility] 03/16/2020 08:10:48 PM EST Yes completed Yes [facility] 03/16/2020 08:10:48 PM EST No completed No [facility] 03/16/2020 08:10:48 PM EST Yes completed Yes [facility] 03/16/2020 08:10:48 PM EST No completed No [facility] 03/16/2020 08:10:48 PM EST Yes completed Yes [facility] 03/16/2020 08:10:48 PM EST No completed No [facility] 03/16/2020 08:10:48 PM EST Yes completed Yes [facility] 03/16/2020 08:10:48 PM EST No completed No [facility] 03/16/2020 08:10:48 PM EST Yes completed Yes [facility] 03/16/2020 08:10:48 PM EST No completed No [facility] 03/16/2020 08:10:48 PM EST Yes completed Yes [facility] 03/16/2020 08:10:48 PM EST Yes completed Yes [facility] 03/16/2020 08:10:48 PM EST Yes completed Yes [facility] 03/16/2020 08:10:48 PM EST No completed No [facility] 03/16/2020 08:10:48 PM EST Yes completed Yes [facility] 03/16/2020 08:10:48 PM EST Current every day smoker co mpleted Current every day smoker [facility] Smoking 03/16/2020 08:10:00 PM EST Current every day smoker co mpleted Current every day smoker [facility] 03/13/2020 01:52:18 AM EST No completed No [facility] 03/13/2020 01:52:18 AM EST Yes completed Yes [facility] 03/13/2020 01:52:18 AM EST Current every day smoker co mpleted Current every day smoker [facility] Smoking 03/13/2020 01:52:00 AM EST Current every day smoker co mpleted Current every day smoker [facility] 02/13/2020 08:30:00 AM EST Current some day smoker com pleted Current some day smoker [facility] 02/13/2020 08:30:00 AM EST Current some day smoker com pleted Current some day smoker [facility] 02/13/2020 08:30:00 AM EST Current some day smoker com pleted Current some day smoker [facility] 02/13/2020 08:30:00 AM EST Current some day smoker com pleted Current some day smoker [facility] 02/13/2020 08:30:00 AM EST Current some day smoker com pleted Current some day smoker [facility] 02/13/2020 08:30:00 AM EST Current some day smoker com pleted Current some day smoker [facility] 02/13/2020 08:30:00 AM EST Current some day smoker com pleted Current some day smoker [facility] 02/13/2020 08:30:00 AM EST Current some day smoker com pleted Current some day smoker [facility] 02/13/2020 08:30:00 AM EST Current some day smoker com pleted Current some day smoker [facility] 02/13/2020 08:30:00 AM EST Current some day smoker com pleted Current some day smoker [facility] 02/13/2020 08:30:00 AM EST Current some day smoker com pleted Current some day smoker [facility] 02/13/2020 08:30:00 AM EST Current some day smoker com pleted Current some day smoker [facility] 02/13/2020 08:30:00 AM EST No completed No [facility] 02/13/2020 08:30:00 AM EST Yes completed Yes [facility] 02/13/2020 08:30:00 AM EST Current every day smoker co mpleted Current every day smoker [facility] Smoking 02/13/2020 08:30:00 AM EST Current every day smoker co mpleted Current every day smoker [facility] 02/13/2020 08:30:00 AM EST Current some day smoker com pleted Current some day smoker [facility] 02/13/2020 08:30:00 AM EST No completed No [facility] 02/13/2020 08:30:00 AM EST Yes completed Yes [facility] 02/13/2020 08:30:00 AM EST Current every day smoker co mpleted Current every day smoker [facility] Smoking 02/13/2020 08:30:00 AM EST Current every day smoker co mpleted Current every day smoker [facility] 02/13/2020 08:30:00 AM EST Current some day smoker com pleted Current some day smoker [facility] 02/13/2020 08:30:00 AM EST No completed No [facility] 02/13/2020 08:30:00 AM EST Yes completed Yes [facility] 02/13/2020 08:30:00 AM EST Current every day smoker co mpleted Current every day smoker [facility] Smoking 02/13/2020 08:30:00 AM EST Current every day smoker co mpleted Current every day smoker [facility] 02/12/2020 06:09:04 PM EST No completed No [facility] 02/12/2020 06:09:04 PM EST Yes completed Yes [facility] 02/12/2020 06:09:04 PM EST Current every day smoker co mpleted Current every day smoker [facility] Smoking 02/12/2020 06:09:00 PM EST Current every day smoker co mpleted Current every day smoker [facility] 02/12/2020 11:47:00 AM EST Current every day smoker co mpleted Current every day smoker [facility] Smoking 02/12/2020 11:47:00 AM EST Current every day smoker co mpleted Current every day smoker [facility] 01/13/2020 08:53:00 AM EDT Current some day smoker com pleted Current some day smoker [facility] 01/13/2020 08:53:00 AM EDT No completed No [facility] 01/13/2020 08:53:00 AM EDT Yes completed Yes [facility] 01/13/2020 08:53:00 AM EDT Current some day smoker com pleted Current some day smoker [facility] Vital Signs ID Date Data Source UNK Name Value Range Interpretation Code Description Data Source(s) Systolic blood pressure 136 mm[Hg] 136 mm[Hg] e CW1 ([facility]) Body weight 174 [lb_av] 174 [lb_av] eCW1 ([facility]) Body height 69 [in_i] 69 [in_i] eCW1 ([facility]) Body mass index (BMI) [Ratio] 25.69 kg/m2 25.69 kg/m2 eCW1 ([facility]) Heart rate 73 /min 73 /min eCW1 ([facility]) Respiratory rate 18 /min 18 /min eCW1 ([facility]) Body temperature 98.3 [degF] 98.3 [degF] eCW1 ( [facility]) Diastolic blood pressure 82 mm[Hg] 82 mm[Hg] eCW1 ([facility]) Body weight 170 [lb_av] 170 [lb_av] eCW1 ([facility]) Body height 69 [in_i] 69 [in_i] eCW1 ([facility]) Body mass index (BMI) [Ratio] 25.10 kg/m2 25.10 kg/m2 eCW1 ([facility]) Heart rate 67 /min 67 /min eCW1 ([facility]) Respiratory rate 18 /min 18 /min eCW1 ([facility]) Body temperature 98.2 [degF] 98.2 [degF] eCW1 ( [facility]) Systolic blood pressure 1386 mm[Hg] 1386 mm[Hg] eCW1 ([facility]) Diastolic blood pressure 68 mm[Hg] 68 mm[Hg] eCW1 ([facility]) Systolic blood pressure 117 mm[Hg] 117 mm[Hg] [facility] Diastolic blood pressure 70 mm[Hg] 70 mm[Hg] [facility] Heart rate 57 /min 57 /min [facility] Respiratory rate 16 /min 16 /min [facility] Body temperature 36.11 Deepali 36.11 Deepali [facility] Body height 175.3 cm 175.3 cm [facility] Body weight 75.751 kg 75.751 kg [facility] Body mass index (BMI) [Ratio] 24.65 kg/m2 24.65 kg/m2 [facility] Oxygen saturation in Arterial blood by Pulse oximetry 98 % 98 % [facility] ID Date Data Source [id number] 08/11/2020 07:44:00 PM EDT [facility] Name Value Range Interpretation Code Description Data Source(s) Weight Measurement Method 8 8 [facility] 2880 [facility]80 [facility] 7 7 [facility] Temperature 98.2 98.2 [facility] spital Respiratory Effort 1 1 [facility] Respiratory Rate 18 18 [facility] Pulse [facility] Method 4 4 [facility] 92 [facility] 69 69 [facility] Blood Pressure 138/73 138/73 [facility] Weight Measurement Method 8 8 [facility] Weight 2880 2880 [facility] pital Temperature Source 7 7 [facility] Temperature 98.2 98.2 [facility] spital Respiratory Effort 1 1 [facility] Respiratory Rate 18 18 [facility] Pulse Assessment Method 4 4 [facility] Pulse Rate 92 92 [facility] pital Height 69 69 [facility] Blood Pressure 138/73 138/73 [facility] ID Date Data Source [id number] 04/10/2020 09:55:00 PM EST [facility] Name Value Range Interpretation Code Description Data Source(s) Weight Measurement Method 8 8 [facility] Weight 2784 2784 [facility] pital Temperature Source 7 7 [facility] Temperature 98.1 98.1 [facility] Respiratory Effort 1 1 [facility] Respiratory Rate 14 14 [facility] Pulse Assessment Method 4 4 [facility] Pulse Rate 82 82 [facility] pital Blood Pressure 123/81 123/81 [facility] Weight Measurement Method 8 8 [facility] Weight 2784 2784 [facility] pital Temperature Source 7 7 [facility] Temperature 98.1 98.1 [facility] Respiratory Effort 1 1 [facility] Respiratory Rate 14 14 [facility] Pulse Assessment Method 4 4 [facility] Pulse [facility] 82 82 [facility] 123/81 123/81 [facility] Weight Measurement Method 8 8 [facility] Weight 2784 2784 [facility] pital Temperature Source 7 7 [facility] Temperature 98.1 98.1 [facility] Respiratory Effort 1 1 [facility] Respiratory Rate 14 14 [facility] Pulse Assessment Method 4 4 [facility] Pulse Rate 82 82 [facility] Pressure 123/81 123/81 [facility] ID Date Data Source [id number] 04/12/2020 01:25:00 PM EST [facility] Name Value Range Interpretation Code Description Data Source(s) WEIGHT 77.72 kilos 77.72 kilos [facility] ital HEIGHT 175.26 centimeters 175.26 centimeter [facility] ID Date Data Source [id number] 03/13/2020 12:38:00 PM EST [facility] Name Value Range Interpretation Code Description Data Source(s) Weight Measurement Method 8 8 [facility] Weight 2736 2736 [facility] pital Temperature Source 7 7 [facility] Temperature 98.0 98.0 [facility] Respiratory Effort 1 1 [facility] Respiratory Rate 16 16 [facility] Pulse Assessment Method 4 4 [facility] Pulse Rate 83 83 [facility] pital [facility] 69 69 [facility] Pressure 124/73 124/73 [facility] Weight Measurement Method 8 8 [facility] [facility] Weight [id number] [facility] pital Temperature Source 7 7 [facility] Temperature 98.0 98.0 [facility] spital Respiratory Effort 1 1 [facility] Respiratory Rate 16 16 [facility] Pulse Assessment Method 4 4 G [facility] Pulse Rate 83 83 [facility] pital Height 69 69 [facility] pital Blood Pressure 124/73 124/73 [facility] Weight Measurement Method 8 8 [facility] Weight 2736 2736 [facility] pital Temperature Source 7 7 [facility] Temperature 98.0 98.0 [facility] spital Respiratory Effort 1 1 [facility] Respiratory Rate 16 16 [facility] Pulse Assessment Method 4 4 G [facility] Pulse Rate 83 83 [facility] 69 [facility] 124/73 124/73 [facility] Patient Treatment Plan of Care Planned Activity Planned Date Details Description Data Source (s) Metoprolol Tartrate 25 MG Oral Tablet 03/13/2020 12:00:00 AM [facility] atorvastatin 40 MG Oral Tablet 03/13/2020 12:00:00 AM [facility] Aspirin 81 MG Delayed Release Oral Tablet 03/13/2020 12:00:00 AM ES T [facility] Acetaminophen 325 MG Oral Tablet 03/13/2020 12:00:00 AM [facility] 24 HR Diltiazem Hydrochloride 120 MG Extended Release Oral Capsule [facility]
[2021-01-31] MEDS ORDERED: METO1TAB87 (07:36)
[2021-01-31] MEDS ORDERED: ATOR40TA75 (07:36)
[2021-01-31] MEDS ORDERED: LATA0.0015 (07:36)
[2021-01-31] MEDS ORDERED: NS 1,000 ML IV ONE (08:40)
--- OUTSIDE RECORDS SUMMARY | 2021-01-31 09:18 | CCD ---
Author Author [facility] Organization [facility] Address Unknown Phone Unavailable Support Name Relationship Address Phone PENSKI Next Of Kin [address] [place] [address] [phone] NONE, NONE Next Of Kin - Unknown - U Next Of Kin Unknown Unavailable JC BRENNER Next Of Kin [address] [place] [address] [place] [address] Unavailabl e BAL BRENNER Next Of Kin [address] [address] [employer] Next Of Kin [address] [place] [address] [place] [id number] [place] [address] [employer] [place] [address] UNKNOWN, U Next Of Kin Unknown BIRNIE BUS Next Of Kin [address] [place] [address] NONE, PT PER Next Of Kin - -, - - - [place] [address] Areli SHARMA Next Of Kin [address] [place] [address] Unavailable Areli BONNER Next Of Kin [address] [place] [address] - LINCOLN COLES Next Of Kin [address] [facility] [address] [place] [address] Unavailable LUPE EUBANKS Next Of Kin [address] [place] [address] UN Next Of Kin Unknown Unavailable ESMER ASECNCIO Next Of Kin - -, - - SRINIVAS EUBANKS Next Of Kin - -, - - - SE Next Of Kin Unknown Unavailable DAJUAN [place] [address] Areli BRENNER ECON [address] [place] [address] DAJUAN GUNDERSON ECON [address] [place] [address] [phone] quarlesdajuan ECON [address] [place] [address] [phone] Care Team Providers Care Upholsterer Assembly Line Name Role Phone Kathia Booth MD Unavailable [...] Unavailable Unavailable Kathia Booth MD Unavailable Unavailable DinKathia MD Unavailable Unavailable [place], L Rajani BROOD HATCHERY MANAGER Unavailable Unavailable [place], L Rajani BROOD HATCHERY MANAGER Unavailable Unavailable [place], L Rajani BROOD HATCHERY MANAGER Unavailable Unavailable [place], L Rajani BROOD HATCHERY MANAGER Unavailable Unavailable [place], L Rajani BROOD HATCHERY MANAGER Unavailable Unavailable [place], L Rajani BROOD HATCHERY MANAGER Unavailable Unavailable [place], L Rajani BROOD HATCHERY MANAGER Unavailable Unavailable [place], L Rajani BROOD HATCHERY MANAGER Unavailable Unavailable [place], L Rajani BROOD HATCHERY MANAGER Unavailable Unavailable [place], L Rajani BROOD HATCHERY MANAGER Unavailable Unavailable [place], L Rajani BROOD HATCHERY MANAGER Unavailable Unavailable [place], L Rajani BROOD HATCHERY MANAGER Unavailable Unavailable [place], L Rajani BROOD HATCHERY MANAGER Unavailable Unavailable KOPIDLZuleyka GRAY OUTDOOR RECREATION SPECIALIST-CANT HOOKER-C Unavailable Unava ilable KOPIDLANSKYZuleyka OUTDOOR RECREATION SPECIALIST-CANT HOOKER-C Unavailable Unava ilable KOPIDLANSKYZuleyka APRN-CANT HOOKER-C Unavailable Unava ilable KOPIDLANSKYZuleyka OUTDOOR RECREATION SPECIALIST-CANT HOOKER-C Unavailable Unava ilable KOPIDLANSKYZuleyka APRN-CANT HOOKER-C Unavailable Unava ilable KOPIDLHARISHKYZuleyka APRN-CANT HOOKER-C Unavailable Unava ilable KOPIDLANSKYZuleyka OUTDOOR RECREATION SPECIALIST-CANT HOOKER-C Unavailable Unava ilable KOPIDLANSKY, Zuleyka WU APRN-CANT HOOKER-C Unavailable Unava ilable KOPIDLANSKY, Zuleyka WU OUTDOOR RECREATION SPECIALIST-CANT HOOKER-C Unavailable Unava ilable KOPIDLANSKY, Zuleyka WU APRN-CANT HOOKER-C Unavailable Unava ilable KOPIDLANSKY, Zuleyka WU APRN-CANT HOOKER-C Unavailable Unava ilable KOPIDLANSKY, Zuleyka WU APRN-CANT HOOKER-C Unavailable Unava ilable KOPIDLANSKY, Zuleyka WU APRN-CANT HOOKER-C Unavailable Unava ilable KOPIDLANSKY, Zuleyka WU APRN-CANT HOOKER-C Unavailable Unava ilable KOPIDLANSKY, Zuleyka WU APRN-CANT HOOKER-C Unavailable Unava ilable KOPIDLANSKY, Zuleyka WU APRN-CANT HOOKER-C Unavailable Unava ilable KOPIDLANSKY, Zuleyka WU APRN-CANT HOOKER-C Unavailable Unava ilable KOPIDLANSKY, Zuleyka WU APRN-CANT HOOKER-C Unavailable Unava ilable KOPIDLANSKY, Zuleyka WU APRN-CANT HOOKER-C Unavailable Unava ilable KOPIDLANSKY, Zuleyka WU APRN-CANT HOOKER-C Unavailable Unava ilable KOPIDLANSKY, Zuleyka WU APRN-CANT HOOKER-C Unavailable Unava ilable KOPIDLANSKY, Zuleyka WU APRN-CANT HOOKER-C Unavailable Unava ilable KOPIDLANSKY, Zuleyka WU APRN-CANT HOOKER-C Unavailable Unava ilable KOPIDLANSKY, Zuleyka WU APRN-CANT HOOKER-C Unavailable Unava ilable KOPIDLANSKY, Zuleyka WU OUTDOOR RECREATION SPECIALIST-CANT HOOKER-C Unavailable Unava ilable KOPIDLANSKY, Zuleyka WU OUTDOOR RECREATION SPECIALIST-CANT HOOKER-C Unavailable Unava ilable KOPIDLANSKY, Zuleyka WU OUTDOOR RECREATION SPECIALIST-CANT HOOKER-C Unavailable Unava ilable KOPIDLANSKY, Zuleyka WU OUTDOOR RECREATION SPECIALIST-CANT HOOKER-C Unavailable Unava ilable KOPIDLANSKY, Zuleyka WU APRN-CANT HOOKER-C Unavailable Unava ilable KOPIDLANSKY, Zuleyka WU APRN-CANT HOOKER-C Unavailable Unava ilable KOPIDLANSKY, Zuleyka WU OUTDOOR RECREATION SPECIALIST-CANT HOOKER-C Unavailable Unava ilable KOPIDLANSKY, Zuleyka WU OUTDOOR RECREATION SPECIALIST-CANT HOOKER-C Unavailable Unava ilable KOPIDLANSKY, Zuleyka TERI OUTDOOR RECREATION SPECIALIST-CANT HOOKER-C Unavailable Unava ilable CALE DIA MD Unavailable [...] P Lincoln DO Unavailable Unavailable Tana, P Linocln DO Unavailable Unavailable Tana, P Lincoln DO [...] Lincoln DO Unavailable Unavailable Cougler, S Fredis BROOD HATCHERY MANAGER Unavailable Unavailable Cougler, S Fredis BROOD HATCHERY MANAGER Unavailable Unavailable Cougler, S Fredis BROOD HATCHERY MANAGER Unavailable Unavailable Cougler, S Fredis BROOD HATCHERY MANAGER Unavailable Unavailable Cougler, S Fredis BROOD HATCHERY MANAGER Unavailable Unavailable Cougler, S Fredis BROOD HATCHERY MANAGER Unavailable Unavailable Cougler, S Fredis BROOD HATCHERY MANAGER Unavailable Unavailable Cougler, S Fredis BROOD HATCHERY MANAGER Unavailable Unavailable Cougler, S Fredis BROOD HATCHERY MANAGER Unavailable Unavailable Cougler, S Fredis BROOD HATCHERY MANAGER Unavailable Unavailable Cougler, S Fredis BROOD HATCHERY MANAGER Unavailable Unavailable Cougler, S Fredis BROOD HATCHERY MANAGER Unavailable Unavailable Cougler, S Fredis BROOD HATCHERY MANAGER Unavailable Unavailable Cougler, S Fredis BROOD HATCHERY MANAGER Unavailable Unavailable Cougler, S Fredis BROOD HATCHERY MANAGER Unavailable Unavailable Cougler, S Fredis BROOD HATCHERY MANAGER Unavailable Unavailable Cougler, S Fredis BROOD HATCHERY MANAGER Unavailable Unavailable Cougler, S Fredis BROOD HATCHERY MANAGER Unavailable Unavailable Cougler, S Fredis BROOD HATCHERY MANAGER Unavailable Unavailable Cougler, S Fredis BROOD HATCHERY MANAGER Unavailable Unavailable Cougler, S Fredis BROOD HATCHERY MANAGER Unavailable Unavailable Cougler, S Fredis BROOD HATCHERY MANAGER Unavailable Unavailable Cougler, S Fredis BROOD HATCHERY MANAGER Unavailable Unavailable Cougler, S Fredis BROOD HATCHERY MANAGER Unavailable Unavailable Cougler, S Fredis BROOD HATCHERY MANAGER Unavailable Unavailable Cougler, S Fredis BROOD HATCHERY MANAGER Unavailable Unavailable Cougler, S Fredis BROOD HATCHERY MANAGER Unavailable Unavailable Cougler, S Fredis BROOD HATCHERY MANAGER Unavailable Unavailable Cougler, S Fredis BROOD HATCHERY MANAGER Unavailable Unavailable Cougler, S Fredis BROOD HATCHERY MANAGER Unavailable Unavailable Cougler, S Fredis BROOD HATCHERY MANAGER Unavailable Unavailable Cougler, S Fredis BROOD HATCHERY MANAGER Unavailable Unavailable Cougler, S Fredis BROOD HATCHERY MANAGER Unavailable Unavailable Cougler, S Fredis BROOD HATCHERY MANAGER Unavailable Unavailable Cougler, S Fredis BROOD HATCHERY MANAGER Unavailable Unavailable Cougler, S Fredis BROOD HATCHERY MANAGER Unavailable Unavailable Cougler, S Fredis BROOD HATCHERY MANAGER Unavailable Unavailable Cougler, S Fredis BROOD HATCHERY MANAGER Unavailable Unavailable Cougler, S Fredis BROOD HATCHERY MANAGER Unavailable Unavailable Cougler, S Fredis BROOD HATCHERY MANAGER Unavailable Unavailable Cougler, S Fredis BROOD HATCHERY MANAGER Unavailable Unavailable Cougler, S Fredis BROOD HATCHERY MANAGER Unavailable Unavailable Cougler, S Fredis BROOD HATCHERY MANAGER Unavailable Unavailable Cougler, S Fredis BROOD HATCHERY MANAGER Unavailable Unavailable AMNA, A JULIEN PA Unavailable [...] Unavailable Unavailable Kathia CORTEZ MD Unavailable Unavailable aKthia CORTZE MD Unavailable Unavailable Kathia CORTEZ MD Unavailable [...] A DAJUAN MD Unavailable Unavailable PARSHALL, A DAJAUN MD Unavailable Unavailable PARSHALL, A DAJUAN MD [...] Unavailable Unavailable JAVIER, SILVINO PA Unavailable Unavailable Geovani Pedro PA-C Unavailable Unavailable Geovani Pedro PA-C Unavailable Unavailable Christopher, Kathi Unavailable Unavailable Christopher, Kathi Unavailable Unavailable Christopher, Kathi Unavailable Unavailable Christopher, Kathi Unavailable Unavailable Christopher, Kathi Unavailable Unavailable Christopher, Kathi Unavailable Unavailable Armida, [id number] MD Juma CHEUNG Unavailable Unavailable Armida, [id number] MD Juma CHEUNG Unavailable Unavailable Armida, [id number] MD Juma CHEUNG Unavailable Unavailable Jeremi KUHN MD Unavailable Unavailable Jeremi KUHN MD Unavailable Unavailable HATTIE, Jeremi VÁZQUEZ MD Unavailable Unavailable CHANLIECGERMAIN, Jeremi VÁZQUEZ MD Unavailable Unavailable CHANLIECCO, Jeremi VÁZQUEZ MD Unavailable Unavailable CHANLIECGERMAIN, Jeremi VÁZQUEZ MD Unavailable Unavailable CHANLIECGERMAIN, Jeremi VÁZQUEZ MD Unavailable Unavailable CHANLIECGERMAIN, Jeremi VÁZQUEZ MD Unavailable Unavailable CHANLIECGERMAIN, Jeremi VÁZQUEZ MD Unavailable Unavailable CHANLIECGERMAIN, Jeremi VÁZQUEZ MD Unavailable Unavailable CHANLIECGERMAIN, Jeremi VÁZQUEZ MD Unavailable Unavailable Re-disclosure Warning The records [...] is protected by Article 27-F of the [facility] Public Health law. If you continue you may have access to information: Regarding HIV / AIDS; Provided by facilities licensed or operated by the [facility] Office of Mental Health; or Provided by the [facility] Office for People With Developmental Disabilities. If such information is present, then the following [facility] mandated warning applies: This information has been [...] Drug allergy penicillin G Penicillin G Anaphylaxis SV [facility] Drug allergy Carbapenems Carbapenems Rash [facility] Drug allergy Cephalosporins Cephalosporins Angioedema [facility] Drug allergy Penicillins Penicillin Anaphylaxis [facility] Drug allergy promethazine HCl promethazine HCl Dizzyness [place] O ther, not listed [facility] Drug [facility] Penicillins Penicillins Anaphylaxis SV [facility] Propensity to adverse reactions NO ALLERGIES ON FILE NO ALLERGIES ON FILE [facility] Propensity to adverse reactions PROMETHAZINE Promethazine Dizziness L ow [facility] Propensity to adverse reactions CARBAPENEMS CARBAPENEMS Rash Med [facility] Propensity to adverse reactions PENICILLINS PENICILLINS Anaphylaxis H igh [facility] Propensity to adverse reactions PENICILLIN G Penicillin G Anaphylaxis High [facility] Propensity to adverse reactions CEPHALOSPORINS CEPHALOSPORINS [facility] Family History Family Member Name Family Member Gender Family Member Status Date o f Status Description Data Source(s) Unknown Condition [facility] Unknown [facility] Unknown [facility] Unknown [facility] Unknown [facility] Unknown [facility] Unknown [facility] Unknown [facility] Unknown [facility] Unknown [facility] Unknown [facility] Unknown [facility] Unknown [facility] Unknown [facility] Unknown [facility] Unknown [facility] Unknown [facility] Unknown [facility] Unknown [facility] Unknown [facility] Encounters Encounter Providers Location Date Indications Data Source(s ) Emergency Attender: GURPREET KUHN MDConsultant: Herman Fajardo DO 12/12/2020 03:00:00 PM EDT - 12/12/2020 03:45:00 PM EDT [facility] Patient discharged. Preadmit Attender: Lincoln Fajardo DO 12/08/2020 12:00:00 AM EDT I10,E78.00 [facility] I10,E78.00 Outpatient Attender: Rajani Yoo NP 10/13/2020 02:55:00 PM EDT [facility] Outpatient Attender: Rajani DAVISeferrer: Lincoln Fajardo DO 10/13/2020 02:30:00 PM EDT - 10/13/2020 03:08:00 PM EDT [facility] Emergency Attender: SILVINO REYNOSO ED-ED 08/11 06:45:00 PM EDT - 08/11/2020 07:44:00 PM EDT DOG BITE SWOLLEN LEFT HAND [facility] DOG BITE SWOLLEN LEFT HAND Patient discharged. Outpatient Attender: Lincoln Chapman: Lincoln Fajardo DO 07/29/2020 03:16:00 PM [facility]T [facility] Attender: Lincoln Fajardo DO 06/28/2020 06:06:00 PM EDT [facility] Preadmit Attender: Lincoln Fajardo DO 06/22/2020 12:00:00 AM EDT I10,E78.00 [facility] I10,E78.00 Outpatient Attender: Kathi WhiteRefmonique: Lincoln Fajardo DO 04/27/2020 10:06:00 AM [facility] - 04/27/2020 10:22:00 AM EST [facility] Outpatient Attender: Mohit Franco: Lincoln Fajardo DO 04/20/2020 12:56:00 PM [facility] - 04/20/2020 01:06:00 PM EST [facility] Outpatient Attender: Kathi WhiteRefanaer: Lincoln Fajardo DO 04/16/2020 09:39:00 AM [facility] 04/16/2020 10:06:00 AM EST [facility] Outpatient Attender: Kathi WhiteReferrer: Lincoln Fajardo DO 04/12/2020 02:45:00 PM EST - 04/12/2020 03:06:00 PM EST [facility] Emergency Attender: DAJUAN NORTON MD 04/12 02:16:00 PM [facility] - 04/12/2020 02:45:00 PM EST BLOOD IN CATHETER,ABDOMINAL PAIN [facility] BLOOD IN CATHETER,ABDOMINAL PAIN Patient discharged. Emergency Attender: Fredis Conte NP ED-ED 04/10 09:21:00 PM EST - 04/10/2020 09:55:00 PM EST BURNING PRESSURE SWOLLEN AREA CATH IS [facility] BURNING PRESSURE SWOLLEN AREA CATH IS Patient discharged. Outpatient Attender: [id number] Juma Huffman MDAttender: Mohit peterson MD 04/08/2020 09:06:00 AM EST - 04/08/2020 08:05:00 PM EST K40.90/LAP BILATERAL INGUIAL HERNIA REPAIR [id number] [facility] K40.90/[place] [id number] Patient discharged. (Cysto1) Urology [address] [place] [address] 04/07/2020 12:00:00 AM EST eCW1 (Formerly [facility]) Outpatient Attender: Lincoln Fajardo DOReferrer: Lincoln Fajardo DO 04/06/2020 12:42:00 PM EST [facility] Outpatient Attender: [id number] Juma VILLANUEVAeferrer: Mami Fajardo DO 04/06/2020 11:43:00 AM EST - 04/06/2020 12:17:00 PM EST [facility] Outpatient [address] [facility] [id number] 03/31/2020 12:00:00 AM EST eCW1 (Formerly [facility]) Inpatient Attender: OSCAR HOPKINS MDAtten samantha: HOMER DIA MDAttender: NESTOR EISENBERG MDAdmitter: HOMER DIA MD ER-3RD 03/22/2020 07: 36:00 PM EST - 03/26/2020 11:05:00 AM EST [facility] Patient discharged. Emergency Attender: Brady Pedro PA-C 11/2019 07:10:00 PM EST - 03/16/2020 09:13:00 PM EST [facility] Patient discharged. INPATIENT Attender: Van Booth MDAdmi tter: Van Booth MDConsultant: LUKE CORTEZ MD 2E-2C 03/13/2020 06:00:00 AM EST - 03/13/2020 02:05:00 PM EST [facility] Patient discharged. Emergency Attender: Brady Pedro PA-C 08/2019 12:54:00 AM EST - 03/13/2020 04:45:00 AM EST DIZZINESS [facility] DIZZINESS Patient discharged. Outpatient CPSCAORT-LABEJN 03/08/2020 10:15:00 AM EST [facility] Emergency Attender: JULIEN REYNOSO ED-ED 03/07 04:43:00 PM EST - 03/07/2020 06:27:00 PM EST GROIN PAIN [facility] GROIN PAIN Patient discharged. Outpatient Attender: [id number] Juma Huffman MD 03/02/2020 08 :57:00 AM EST PREOP [facility] PREOP Outpatient Attender: [id number] Juma Huffman MDReferrer: Mami Fajardo DO 03/02/2020 07:48:00 AM EST - 03/02/2020 08:33:00 AM EST [facility] Outpatient Attender: Lincoln Ganner: No Family Doct or Provided 02/24/2020 04:33:00 PM [facility] Outpatient Attender: Mohit Zimmerman MDReferrer: Lincoln Fajardo DO 02/13/2020 11:58:00 AM EST - 02/13/2020 12:24:00 PM EST [facility] Emergency Attender: DAJUAN NORTON MD 02/11 11:34:00 AM EST - 02/12/2020 06:42:00 PM EST POSSIBLE HERNIA [facility] POSSIBLE HERNIA Patient discharged. Outpatient Attender: Lincoln Chapman: No Family Doct or Provided 02/12/2020 10:22:00 AM [facility] Outpatient Attender: TERI GORDON 01/07/2020 05:22:00 PM EDT U07.1 [facility] U07.1 Outpatient Attender: TERI Winters r: Lincoln Fajardo DO 01/07/2020 04:50:00 PM EDT - 01/07/2020 04:57:00 PM EDT [facility] Immunizations Vaccine Date Status Description Data Source(s) COVID-19 Moderna 07/15/2020 12:00:00 AM EDT completed [facility] COVID-19 VACCINE Moderna 07/15/2020 12:00:00 AM EDT completed [facility] Vaccine Series Complete: YESThis Data wa s Submitted to [facility] Via [employer]. COVID-19 Moderna 06/17/2020 12:00:00 AM EST completed [facility] COVID-19 VACCINE Moderna 06/17/2020 12:00:00 AM EST completed [facility] Vaccine Series Complete: NOThis Data was Submitted to [facility] Via [employer]. Medications Medication Brand Name Start Date Product Form Dose Route Admi nistrative Instructions Pharmacy Instructions Status Indications Reaction Description Data Source(s) Azithromycin 10/13/2020 03:04:56 PM EDT 0 activ e [facility] 24 HR venlafaxine 37.5 MG Extended Release Oral Capsule Venl afaxine Venlafaxine 06/10/2020 06:43:30 PM EST 37.5 MG completed [facility] Omeprazole 20 MG Delayed Release Oral Capsule Omeprazole 04/22/2020 06:00:49 PM EST 20 MG active [facility] Omeprazole 20 MG Delayed Release Oral Capsule Omeprazole 04/22/2020 06:00:49 PM EST 20 MG completed [facility] Metoprolol Tartrate 25 MG Oral Tablet Metoprolol Tartrate 06:00:36 PM EST 25 MG completed [facility] Metoprolol Tartrate 25 MG Oral Tablet Metoprolol Tartrate 06:00:36 PM EST 25 MG active [facility] atorvastatin 40 MG Oral Tablet Atorvastatin Atorvastatin 04/22/2020 06:00:16 PM EST 40 MG active [facility] atorvastatin 40 MG Oral Tablet Atorvastatin Atorvastatin 04/22/2020 06:00:16 PM EST 40 MG completed [facility] Acetaminophen 325 MG / Oxycodone Hydroch loride 5 MG Oral Tablet Oxycodone- Acetaminophen (Endocet) 5-325 mg tablet Oxycodone-Acetaminophen (Endocet) 5-325 mg tablet 04/08/2020 04:02:22 PM EST 1 TAB active [facility] Acetaminophen 325 MG / Oxycodone Hydroch loride 5 MG Oral Tablet Oxycodone- Acetaminophen (Endocet) 5-325 mg tablet Oxycodone-Acetaminophen (Endocet) 5-325 mg tablet 04/08/2020 04:02:22 PM EST 1 TAB active [facility] Acetaminophen 325 MG / Oxycodone Hydroch loride 5 MG Oral Tablet Oxycodone- Acetaminophen (Endocet) 5-325 mg tablet Oxycodone-Acetaminophen (Endocet) 5-325 mg tablet 04/08/2020 04:02:22 PM EST 1 TAB active [facility] Acetaminophen 325 MG / Oxycodone Hydroch loride 5 MG Oral Tablet Oxycodone- Acetaminophen (Endocet) 5-325 mg tablet Oxycodone-Acetaminophen (Endocet) 5-325 mg tablet 04/08/2020 04:02:22 PM EST 1 TAB active [facility] Acetaminophen 325 MG / Oxycodone Hydroch loride 5 MG Oral Tablet Oxycodone- Acetaminophen (Endocet) 5-325 mg tablet Oxycodone-Acetaminophen (Endocet) 5-325 mg tablet 04/08/2020 04:02:22 PM EST 1 TAB completed [facility] Acetaminophen 325 MG / Oxycodone Hydroch loride 5 MG Oral Tablet Oxycodone- Acetaminophen (Endocet) 5-325 mg tablet Oxycodone-Acetaminophen (Endocet) 5-325 mg tablet 04/08/2020 04:02:22 PM EST 1 TAB active [facility] Acetaminophen 325 MG / Oxycodone Hydroch loride 5 MG Oral Tablet Oxycodone- Acetaminophen (Endocet) 5-325 mg tablet Oxycodone-Acetaminophen (Endocet) 5-325 mg tablet 04/08/2020 04:02:22 PM EST 1 TAB active [facility] 5-325 mg 04/08/2020 12:00:00 AM EST tablet [...] EST active Ciprofloxacin HCl 500 MG eCW1 ([facility]) Ciprofloxacin 500 MG Oral Tablet Ciprofloxacin HCl 500 MG Ciprofloxacin HCl 500 MG 03/31/2020 12:00:00 AM EST active Ciprofloxacin HCl 500 MG eCW1 ([facility]) 24 HR venlafaxine 75 MG Extended Release Oral Capsule Venlaf axine Venlafaxine 03/30/2020 03:59:24 PM EST 75 MG active [facility] quetiapine 25 MG Oral Tablet Quetiapine Quetiapine 03/30/2020 03: 59:24 PM EST 50 MG active [facility] Metoprolol Tartrate 25 MG Oral Tablet Metoprolol Tartrate 03:59:24 PM EST 25 MG active [facility] 24 HR venlafaxine 75 MG Extended Release Oral Capsule Venlaf axine Venlafaxine 03/30/2020 03:59:24 PM EST 75 MG active [facility] Metoprolol Tartrate 25 MG Oral Tablet Metoprolol Tartrate 03:59:24 PM EST 25 MG active [facility] quetiapine 25 MG Oral Tablet Quetiapine Quetiapine 03/30/2020 03: 59:24 PM EST 50 MG active [facility] quetiapine 25 MG Oral Tablet Quetiapine Quetiapine 03/30/2020 03: 59:24 PM EST 50 MG active [facility] Metoprolol Tartrate 25 MG Oral Tablet Metoprolol Tartrate 03:59:24 PM EST 25 MG completed [facility] Metoprolol Tartrate 25 MG Oral Tablet Metoprolol Tartrate 03:59:24 PM EST 25 MG active [facility] 24 HR venlafaxine 75 MG Extended Release Oral Capsule Venlaf axiid Venlafaxine 03/30/2020 03:59:24 PM EST 75 MG active [facility] Metoprolol Tartrate 25 MG Oral Tablet Metoprolol Tartrate 03:59:24 PM EST 25 MG completed [facility] quetiapine 25 MG Oral Tablet Quetiapine Quetiapine 03/30/2020 03: 59:24 PM EST 50 MG completed [facility] 24 HR venlafaxine 75 MG Extended Release Oral Capsule Venlaf axine Venlafaxine 03/30/2020 03:59:24 PM EST 75 MG active [facility] Metoprolol Tartrate 25 MG Oral Tablet Metoprolol Tartrate 03:59:24 PM EST 25 MG active [facility] 24 HR venlafaxine 75 MG Extended Release Oral Capsule Venlaf axine Venlafaxine 03/30/2020 03:59:24 PM EST 75 MG active [facility] 24 HR venlafaxine 75 MG Extended Release Oral Capsule Venlaf axine Venlafaxine 03/30/2020 03:59:24 PM EST 75 MG completed [facility] Metoprolol Tartrate 25 MG Oral Tablet Metoprolol Tartrate 03:59:24 PM EST 25 MG active [facility] quetiapine 25 MG Oral Tablet Quetiapine Quetiapine 03/30/2020 03: 59:24 PM EST 50 MG active [facility] Metoprolol Tartrate 25 MG Oral Tablet Metoprolol Tartrate 03:59:24 PM EST 25 MG active [facility] quetiapine 25 MG Oral Tablet Quetiapine Quetiapine 03/30/2020 03: 59:24 PM EST 50 MG active [facility] quetiapine 25 MG Oral Tablet Quetiapine Quetiapine 03/30/2020 03: 59:24 PM EST 50 MG active [facility] Metoprolol Tartrate 25 MG Oral Tablet Metoprolol Tartrate 03:59:24 PM EST 25 MG active [facility] quetiapine 25 MG Oral Tablet Quetiapine Quetiapine 03/30/2020 03: 59:24 PM EST 50 MG active [facility] 24 HR venlafaxine 75 MG Extended Release Oral Capsule Venlaf [facility] Venlafaxine 03/30/2020 03:59:24 PM EST 75 MG active [facility] 24 HR venlafaxine 75 MG Extended Release Oral Capsule Venlaf axine Venlafaxine 03/30/2020 03:59:24 PM EST 75 MG active [facility] 24 HR venlafaxine 75 MG Extended Release Oral Capsule Venlaf [facility] Venlafaxine 03/30/2020 03:59:24 PM EST 75 MG active [facility] quetiapine 25 MG Oral Tablet Quetiapine Quetiapine 03/30/2020 03: 59:24 PM EST 50 MG active [facility] atorvastatin 40 MG Oral Tablet Atorvastatin Atorvastatin 03/16/2020 08:42:35 PM EST 40 MG completed [facility] atorvastatin 40 MG Oral Tablet Atorvastatin Atorvastatin 03/16/2020 08:42:35 PM EST 40 MG active [facility] atorvastatin 40 MG Oral Tablet Atorvastatin Atorvastatin 03/16/2020 08:42:35 PM EST 40 MG active [facility] atorvastatin 40 MG Oral Tablet Atorvastatin Atorvastatin 03/16/2020 08:42:35 PM EST 40 MG active [facility] atorvastatin 40 MG Oral Tablet Atorvastatin Atorvastatin 03/16/2020 08:42:35 PM EST 40 MG active [facility] atorvastatin 40 MG Oral Tablet Atorvastatin Atorvastatin 03/16/2020 08:42:35 PM EST 40 MG active [facility] atorvastatin 40 MG Oral Tablet Atorvastatin Atorvastatin 03/16/2020 08:42:35 PM EST 40 MG active [facility] atorvastatin 40 MG Oral Tablet Atorvastatin Atorvastatin 03/16/2020 08:42:35 PM EST 40 MG active [facility] atorvastatin 40 MG Oral Tablet Atorvastatin Atorvastatin 03/16/2020 08:42:35 PM EST 40 MG [facility] atorvastatin 40 MG Oral Tablet Atorvastatin Atorvastatin 03/16/2020 08:42:35 PM EST 40 MG active [facility] Omeprazole 20 MG Delayed Release Oral Capsule Omeprazole 03/16/2020 08:42:20 PM EST 20 MG active [facility] Omeprazole 20 MG Delayed Release Oral Capsule Omeprazole 03/16/2020 08:42:20 PM EST 20 MG active [facility] Omeprazole 20 MG Delayed Release Oral Capsule Omeprazole 03/16/2020 08:42:20 PM EST 20 MG [facility] Omeprazole 20 MG Delayed Release Oral Capsule Omeprazole 03/16/2020 08:42:20 PM EST 20 MG active [facility] Omeprazole 20 MG Delayed Release Oral Capsule Omeprazole 03/16/2020 08:42:20 PM EST 20 MG active [facility] Omeprazole 20 MG Delayed Release Oral Capsule Omeprazole 03/16/2020 08:42:20 PM EST 20 MG completed [facility] Omeprazole 20 MG Delayed Release Oral Capsule Omeprazole 03/16/2020 08:42:20 PM EST 20 MG active [facility] Omeprazole 20 MG Delayed Release Oral Capsule Omeprazole 03/16/2020 08:42:20 PM EST 20 MG active [facility] Omeprazole 20 MG Delayed Release Oral Capsule Omeprazole 03/16/2020 08:42:20 PM EST 20 MG active [facility] Omeprazole 20 MG Delayed Release Oral Capsule Omeprazole 03/16/2020 08:42:20 PM EST 20 MG active [facility] Aspirin 03/16/2020 08:34:27 PM EST 81 MG active [facility] aripiprazole 400 MG Injection Aripiprazo le (Abilify Maintena) 400 mg suspension,extended rel recon Aripiprazole (Abilify Maintena) 400 mg suspension,extended rel recon 03/16/2020 08:34:27 PM EST 400 MG completed [facility] aripiprazole 400 MG Injection Aripiprazo le (Abilify Maintena) 400 mg suspension,extended rel recon Aripiprazole (Abilify Maintena) 400 mg suspension,extended rel recon 03/16/2020 08:34:27 PM EST 400 MG active [facility] aripiprazole 400 MG Injection Aripiprazo le (Abilify Maintena) 400 mg suspension,extended rel recon Aripiprazole (Abilify Maintena) 400 mg suspension,extended rel recon 03/16/2020 08:34:27 PM EST 400 MG active [facility] Aspirin 03/16/2020 08:34:27 PM EST 81 MG active [facility] aripiprazole 400 MG Injection Aripiprazo le (Abilify Maintena) 400 mg suspension,extended rel recon Aripiprazole (Abilify Maintena) 400 mg suspension,extended rel recon 03/16/2020 08:34:27 PM EST 400 MG active [facility] Aspirin 03/16/2020 08:34:27 PM EST 81 MG active [facility] aripiprazole 400 MG Injection Aripiprazo le (Abilify Maintena) 400 mg suspension,extended rel recon Aripiprazole (Abilify Maintena) 400 mg suspension,extended rel recon 03/16/2020 08:34:27 PM EST 400 MG active [facility] Aspirin 03/16/2020 08:34:27 PM EST 81 MG active [facility] aripiprazole 400 MG Injection Aripiprazo le (Abilify Maintena) 400 mg suspension,extended rel recon Aripiprazole (Abilify Maintena) 400 mg suspension,extended rel recon 03/16/2020 08:34:27 PM EST 400 MG active [facility] Aspirin 03/16/2020 08:34:27 PM EST 81 MG completed [facility] Aspirin 03/16/2020 08:34:27 PM EST 81 MG active [facility] aripiprazole 400 MG Injection Aripiprazo le (Abilify Maintena) 400 mg suspension,extended rel recon Aripiprazole (Abilify Maintena) 400 mg suspension,extended rel recon 03/16/2020 08:34:27 PM EST 400 MG completed [facility] aripiprazole 400 MG Injection Aripiprazo le (Abilify Maintena) 400 mg suspension,extended rel recon Aripiprazole (Abilify Maintena) 400 mg suspension,extended rel recon 03/16/2020 08:34:27 PM EST 400 MG completed [facility] Aspirin 03/16/2020 08:34:27 PM EST 81 MG active [facility] aripiprazole 400 MG Injection Aripiprazo le (Abilify Maintena) 400 mg suspension,extended rel recon Aripiprazole (Abilify Maintena) 400 mg suspension,extended rel recon 03/16/2020 08:34:27 PM EST 400 MG active [facility] Aspirin 03/16/2020 08:34:27 PM EST 81 MG active [facility] Aspirin 03/16/2020 08:34:27 PM EST 81 MG active [facility] aripiprazole 400 MG Injection Aripiprazo le (Abilify Maintena) 400 mg suspension,extended rel recon Aripiprazole (Abilify Maintena) 400 mg suspension,extended rel recon 03/16/2020 08:34:27 PM EST 400 MG active [facility] Aspirin 03/16/2020 08:34:27 PM EST 81 MG active [facility] Acetaminophen 325 MG Oral Tablet acetaminophen (TYLENO L) 325 mg tablet acetaminophen (TYLENOL) 325 mg tablet 03/13/2020 12:00:00 AM EST 65 0 mg oral active Take 2 tablets (650 mg total) by mouth every 4 (four) hours if needed for mild pain for up to 10 days. [facility] Metoprolol Tartrate 25 MG Oral Tablet in toprolol tartrate (LOPRESSOR) 25 mg tablet metoprolol tartrate (LOPRESSOR) 25 mg tablet 03/13/2020 12:0 0:00 AM EST 25 mg oral active Take 1 tablet (2 5 mg total) by mouth 2 (two) times a day. [facility] Aspirin 81 MG Delayed Release Oral Tablet aspirin 81 m g EC tablet aspirin 81 mg EC tablet 03/13/2020 12:00:00 AM EST 81 mg oral active Take 1 tablet (81 mg total) by mouth 1 (one) time each day. [facility] atorvastatin 40 MG Oral Tablet atorvastatin (LIPITOR) 40 mg tablet atorvastatin (LIPITOR) 40 mg tablet 03/13/2020 12:00:00 AM EST 40 mg oral active Take 1 tablet (40 mg total) by mouth every night. [facility] Omeprazole 20 MG Delayed Release Oral Capsule Omeprazole 03/05/2020 08:23:57 AM EST 0 completed [facility] Omeprazole 20 MG Delayed Release Oral Capsule Omeprazole 03/05/2020 08:23:57 AM EST 0 completed [facility] Omeprazole 20 MG Delayed Release Oral Capsule Omeprazole 03/05/2020 08:23:57 AM EST 0 completed [facility] Omeprazole 20 MG Delayed Release Oral Capsule Omeprazole 03/05/2020 08:23:57 AM EST 0 completed [facility] Omeprazole 20 MG Delayed Release Oral Capsule Omeprazole 03/05/2020 08:23:57 AM EST 0 completed [facility] Omeprazole 20 MG Delayed Release Oral Capsule Omeprazole 03/05/2020 08:23:57 AM EST 0 completed [facility] Omeprazole 20 MG Delayed Release Oral Capsule Omeprazole 03/05/2020 08:23:57 AM EST 0 completed [facility] Omeprazole 20 MG Delayed Release Oral Capsule Omeprazole 03/05/2020 08:23:57 AM EST 0 completed [facility] Omeprazole 20 MG Delayed Release Oral Capsule Omeprazole 03/05/2020 08:23:57 AM EST 0 completed [facility] Omeprazole 20 MG Delayed Release Oral Capsule Omeprazole 03/05/2020 08:23:57 AM EST 0 completed [facility] Omeprazole 20 MG Delayed Release Oral Capsule Omeprazole 03/05/2020 08:23:57 AM EST 0 completed [facility] Sulfamethoxazole 800 MG / Trimethoprim 1 60 MG Oral Tablet Sulfamethoxazole- Trimethoprim (Bactrim Ds) 800-160 mg tablet Sulfamethoxazole-Trimethoprim (Bactrim Ds) 800-160 mg tablet 02/12/2020 06:10:15 PM EST 1 TAB active [facility] Sulfamethoxazole 800 MG / Trimethoprim 1 60 MG Oral Tablet Sulfamethoxazole- Trimethoprim (Bactrim Ds) 800-160 mg tablet Sulfamethoxazole-Trimethoprim (Bactrim Ds) 800-160 mg tablet 02/12/2020 06:10:15 PM EST 1 TAB completed [facility] Sulfamethoxazole 800 MG / Trimethoprim 1 60 MG Oral Tablet Sulfamethoxazole- Trimethoprim (Bactrim Ds) 800-160 mg tablet Sulfamethoxazole-Trimethoprim (Bactrim Ds) 800-160 mg tablet 02/12/2020 06:10:15 PM EST 1 TAB completed [facility] Sulfamethoxazole 800 MG / Trimethoprim 1 60 MG Oral Tablet Sulfamethoxazole- Trimethoprim (Bactrim Ds) 800-160 mg tablet Sulfamethoxazole-Trimethoprim (Bactrim Ds) 800-160 mg tablet 02/12/2020 06:10:15 PM EST 1 TAB completed [facility] Sulfamethoxazole 800 MG / Trimethoprim 1 60 MG Oral Tablet Sulfamethoxazole- Trimethoprim (Bactrim Ds) 800-160 mg tablet Sulfamethoxazole-Trimethoprim (Bactrim Ds) 800-160 mg tablet 02/12/2020 06:10:15 PM EST 1 TAB completed [facility] Sulfamethoxazole 800 MG / Trimethoprim 1 60 MG Oral Tablet Sulfamethoxazole- Trimethoprim (Bactrim Ds) 800-160 mg tablet Sulfamethoxazole-Trimethoprim (Bactrim Ds) 800-160 mg tablet 02/12/2020 06:10:15 PM EST 1 TAB completed [facility] Sulfamethoxazole 800 MG / Trimethoprim 1 60 MG Oral Tablet Sulfamethoxazole- Trimethoprim (Bactrim Ds) 800-160 mg tablet Sulfamethoxazole-Trimethoprim (Bactrim Ds) 800-160 mg tablet 02/12/2020 06:10:15 PM EST 1 TAB completed [facility] Sulfamethoxazole 800 MG / Trimethoprim 1 60 MG Oral Tablet Sulfamethoxazole- Trimethoprim (Bactrim Ds) 800-160 mg tablet Sulfamethoxazole-Trimethoprim (Bactrim Ds) 800-160 mg tablet 02/12/2020 06:10:15 PM EST 1 TAB active [facility] Sulfamethoxazole 800 MG / Trimethoprim 1 60 MG Oral Tablet Sulfamethoxazole- Trimethoprim (Bactrim Ds) 800-160 mg tablet Sulfamethoxazole-Trimethoprim (Bactrim Ds) 800-160 mg tablet 02/12/2020 06:10:15 PM EST 1 TAB completed [facility] Sulfamethoxazole 800 MG / Trimethoprim 1 60 MG Oral Tablet Sulfamethoxazole- Trimethoprim (Bactrim Ds) 800-160 mg tablet Sulfamethoxazole-Trimethoprim (Bactrim Ds) 800-160 mg tablet 02/12/2020 06:10:15 PM EST 1 TAB completed [facility] Sulfamethoxazole 800 MG / Trimethoprim 1 60 MG Oral Tablet Sulfamethoxazole- Trimethoprim (Bactrim Ds) 800-160 mg tablet Sulfamethoxazole-Trimethoprim (Bactrim Ds) 800-160 mg tablet 02/12/2020 06:10:15 PM EST 1 TAB completed [facility] Sulfamethoxazole 800 MG / Trimethoprim 1 60 MG Oral Tablet Sulfamethoxazole- Trimethoprim (Bactrim Ds) 800-160 mg tablet Sulfamethoxazole-Trimethoprim (Bactrim Ds) 800-160 mg tablet 02/12/2020 06:10:15 PM EST 1 TAB completed [facility] Sulfamethoxazole 800 MG / Trimethoprim 1 60 MG Oral Tablet Sulfamethoxazole- Trimethoprim (Bactrim Ds) 800-160 mg tablet Sulfamethoxazole-Trimethoprim (Bactrim Ds) 800-160 mg tablet 02/12/2020 06:10:15 PM EST 1 TAB completed [facility] Sulfamethoxazole 800 MG / Trimethoprim 1 60 MG Oral Tablet Sulfamethoxazole- Trimethoprim (Bactrim Ds) 800-160 mg tablet Sulfamethoxazole-Trimethoprim (Bactrim Ds) 800-160 mg tablet 02/12/2020 06:10:15 PM EST 1 TAB completed [facility] Sulfamethoxazole 800 MG / Trimethoprim 1 60 MG Oral Tablet Sulfamethoxazole- Trimethoprim (Bactrim Ds) 800-160 mg tablet Sulfamethoxazole-Trimethoprim (Bactrim Ds) 800-160 mg tablet 02/12/2020 06:10:15 PM EST 1 TAB completed [facility] Omeprazole 20 MG Delayed Release Oral Capsule Omeprazo le Magnesium Omeprazole Magnesium 11/03/2019 11:18:01 AM EDT 20 MG completed [facility] Omeprazole 20 MG Delayed Release Oral Capsule Omeprazo le Magnesium Omeprazole Magnesium 11/03/2019 11:18:01 AM EDT 20 MG completed [facility] Omeprazole 20 MG Delayed Release Oral Capsule Omeprazo le Magnesium Omeprazole Magnesium 11/03/2019 11:18:01 AM EDT 20 MG completed [facility] Omeprazole 20 MG Delayed Release Oral Capsule Omeprazo le Magnesium Omeprazole Magnesium 11/03/2019 11:18:01 AM EDT 20 MG completed [facility] Omeprazole 20 MG Delayed Release Oral Capsule Omeprazo le Magnesium Omeprazole Magnesium 11/03/2019 11:18:01 AM EDT 20 MG completed [facility] Omeprazole 20 MG Delayed Release Oral Capsule Omeprazo le Magnesium Omeprazole Magnesium 11/03/2019 11:18:01 AM EDT 20 MG completed [facility] Omeprazole 20 MG Delayed Release Oral Capsule Omeprazo le Magnesium Omeprazole Magnesium 11/03/2019 11:18:01 AM EDT 20 MG completed [facility] Omeprazole 20 MG Delayed Release Oral Capsule Omeprazo le Magnesium Omeprazole Magnesium 11/03/2019 11:18:01 AM EDT 20 MG completed [facility] Omeprazole 20 MG Delayed Release Oral Capsule Omeprazo le Magnesium Omeprazole Magnesium 11/03/2019 11:18:01 AM EDT 20 MG completed [facility] Omeprazole 20 MG Delayed Release Oral Capsule Omeprazo le Magnesium Omeprazole Magnesium 11/03/2019 11:18:01 AM EDT 20 MG completed [facility] Omeprazole 20 MG Delayed Release Oral Capsule Omeprazo le Magnesium Omeprazole Magnesium 11/03/2019 11:18:01 AM EDT 20 MG completed [facility] Fluoxetine 20 MG Oral Capsule Fluoxetine (Prozac) 20 m g capsule Fluoxetine (Prozac) 20 mg capsule 10/16/2019 02:41:46 PM EDT 40 MG completed [facility] Fluoxetine 20 MG Oral Capsule Fluoxetine (Prozac) 20 m g capsule Fluoxetine (Prozac) 20 mg capsule 10/16/2019 02:41:46 PM EDT 40 MG completed [facility] Fluoxetine 20 MG Oral Capsule Fluoxetine (Prozac) 20 m g capsule Fluoxetine (Prozac) 20 mg capsule 10/16/2019 02:41:46 PM EDT 40 MG completed [facility] Fluoxetine 20 MG Oral Capsule Fluoxetine (Prozac) 20 m g capsule Fluoxetine (Prozac) 20 mg capsule 10/16/2019 02:41:46 PM EDT 40 MG completed [facility] Fluoxetine 20 MG Oral Capsule Fluoxetine (Prozac) 20 m g capsule Fluoxetine (Prozac) 20 mg capsule 10/16/2019 02:41:46 PM EDT 40 MG completed [facility] Fluoxetine 20 MG Oral Capsule Fluoxetine (Prozac) 20 m g capsule Fluoxetine (Prozac) 20 mg capsule 10/16/2019 02:41:46 PM EDT 40 MG completed [facility] Fluoxetine 20 MG Oral Capsule Fluoxetine (Prozac) 20 m g capsule Fluoxetine (Prozac) 20 mg capsule 10/16/2019 02:41:46 PM EDT 40 MG completed [facility] Fluoxetine 20 MG Oral Capsule Fluoxetine (Prozac) 20 m g capsule Fluoxetine (Prozac) 20 mg capsule 10/16/2019 02:41:46 PM EDT 40 MG completed [facility] Fluoxetine 20 MG Oral Capsule Fluoxetine (Prozac) 20 m g capsule Fluoxetine (Prozac) 20 mg capsule 10/16/2019 02:41:46 PM EDT 40 MG completed [facility] 24 HR Diltiazem Hydrochloride 120 MG Ext ended Release Oral Capsule Diltiazem Hcl (Cardizem Cd) 120 mg capsule,extended release 24hr Diltiazem Hcl (Cardizem Cd) 120 mg capsule,extended release 24hr 10/16/2019 01:03:36 PM EDT 120 MG completed [facility] 24 HR Diltiazem Hydrochloride 120 MG Ext ended Release Oral Capsule Diltiazem Hcl (Cardizem Cd) 120 mg capsule,extended release 24hr Diltiazem Hcl (Cardizem Cd) 120 mg capsule,extended release 24hr 10/16/2019 01:03:36 PM EDT 120 MG completed [facility] 24 HR Diltiazem Hydrochloride 120 MG Ext ended Release Oral Capsule Diltiazem Hcl (Cardizem Cd) 120 mg capsule,extended release 24hr Diltiazem Hcl (Cardizem Cd) 120 mg capsule,extended release 24hr 10/16/2019 01:03:36 PM EDT 120 MG completed [facility] 24 HR Diltiazem Hydrochloride 120 MG Ext ended Release Oral Capsule Diltiazem Hcl (Cardizem Cd) 120 mg capsule,extended release 24hr Diltiazem Hcl (Cardizem Cd) 120 mg capsule,extended release 24hr 10/16/2019 01:03:36 PM EDT 120 MG completed [facility] 24 HR Diltiazem Hydrochloride 120 MG Ext ended Release Oral Capsule Diltiazem Hcl (Cardizem Cd) 120 mg capsule,extended release 24hr Diltiazem Hcl (Cardizem Cd) 120 mg capsule,extended release 24hr 10/16/2019 01:03:36 PM EDT 120 MG completed [facility] 24 HR Diltiazem Hydrochloride 120 MG Ext ended Release Oral Capsule Diltiazem Hcl (Cardizem Cd) 120 mg capsule,extended release 24hr Diltiazem Hcl (Cardizem Cd) 120 mg capsule,extended release 24hr 10/16/2019 01:03:36 PM EDT 120 MG [facility] 24 HR Diltiazem Hydrochloride 120 MG Ext ended Release Oral Capsule Diltiazem Hcl (Cardizem Cd) 120 mg capsule,extended release 24hr Diltiazem Hcl (Cardizem Cd) 120 mg capsule,extended release 24hr 10/16/2019 01:03:36 PM EDT 120 MG [facility] 24 HR Diltiazem Hydrochloride 120 MG Ext ended Release Oral Capsule Diltiazem Hcl (Cardizem Cd) 120 mg capsule,extended release 24hr Diltiazem Hcl (Cardizem Cd) 120 mg capsule,extended release 24hr 10/16/2019 01:03:36 PM EDT 120 MG [facility] 24 HR Diltiazem Hydrochloride 120 MG Ext ended Release Oral Capsule Diltiazem Hcl (Cardizem Cd) 120 mg capsule,extended release 24hr Diltiazem Hcl (Cardizem Cd) 120 mg capsule,extended release 24hr 10/16/2019 01:03:36 PM EDT 120 MG [facility] 24 HR Diltiazem Hydrochloride 120 MG Ext ended Release Oral Capsule Diltiazem Hcl (Cardizem Cd) 120 mg capsule,extended release 24hr Diltiazem Hcl (Cardizem Cd) 120 mg capsule,extended release 24hr 10/16/2019 01:03:36 PM EDT 120 MG completed [facility] Magnesium Oxide 400 MG Oral Tablet Magnesium Oxide 06/03/2019 09:47 :56 AM EST 400 MG completed [facility] Magnesium Oxide 400 MG Oral Tablet Magnesium Oxide 06/03/2019 09:47 :56 AM EST 400 MG completed [facility] Magnesium Oxide 400 MG Oral Tablet Magnesium Oxide 06/03/2019 09:47 :56 AM EST 400 MG completed [facility] Magnesium Oxide 400 MG Oral Tablet Magnesium Oxide 06/03/2019 09:47 :56 AM EST 400 MG completed [facility] Magnesium Oxide 400 MG Oral Tablet Magnesium Oxide 06/03/2019 09:47 :56 AM EST 400 MG completed [facility] Magnesium Oxide 400 MG Oral Tablet Magnesium Oxide 06/03/2019 09:47 :56 AM EST 400 MG completed [facility] Magnesium Oxide 400 MG Oral Tablet Magnesium Oxide 06/03/2019 09:47 :56 AM EST 400 MG completed [facility] Magnesium Oxide 400 MG Oral Tablet Magnesium Oxide 06/03/2019 09:47 :56 AM EST 400 MG completed [facility] Magnesium Oxide 400 MG Oral Tablet Magnesium Oxide 06/03/2019 09:47 :56 AM EST 400 MG completed [facility] Magnesium Oxide 400 MG Oral Tablet Magnesium Oxide 06/03/2019 09:47 :56 AM EST 400 MG completed [facility] Magnesium Oxide 400 MG Oral Tablet Magnesium Oxide 06/03/2019 09:47 :56 AM EST 400 MG completed [facility] Magnesium Oxide 400 MG Oral Tablet Magnesium Oxide 06/03/2019 09:47 :56 AM EST 400 MG completed [facility] Magnesium Oxide 400 MG Oral Tablet Magnesium Oxide 06/03/2019 09:47 :56 AM EST 400 MG completed [facility] Magnesium Oxide 400 MG Oral Tablet Magnesium Oxide 06/03/2019 09:47 :56 AM EST 400 MG completed [facility] Magnesium Oxide 400 MG Oral Tablet Magnesium Oxide 06/03/2019 09:47 :56 AM EST 400 MG completed [facility] Magnesium Oxide 400 MG Oral Tablet Magnesium Oxide 06/03/2019 09:47 :56 AM EST 400 MG completed [facility] Acetaminophen 05/26/2019 12:33:31 PM EST 1000 MG c ompleted [facility] Acetaminophen 05/26/2019 12:33:31 PM EST 1000 MG c [facility] Acetaminophen 05/26/2019 12:33:31 PM EST 1000 MG c [facility] Acetaminophen 05/26/2019 12:33:31 PM EST 1000 MG c [facility] Acetaminophen 05/26/2019 12:33:31 PM EST 1000 MG c [facility] Acetaminophen 05/26/2019 12:33:31 PM EST 1000 MG c [facility] Acetaminophen 05/26/2019 12:33:31 PM EST 1000 MG c [facility] Acetaminophen 05/26/2019 12:33:31 PM EST 1000 MG c [facility] Acetaminophen 05/26/2019 12:33:31 PM EST 1000 MG c [facility] Acetaminophen 05/26/2019 12:33:31 PM EST 1000 MG c [facility] Acetaminophen 05/26/2019 12:33:31 PM EST 1000 MG c [facility] hydrocortisone acetate 25 MG Rectal Supp ository Hydrocortisone Acetate (Anusol- Hc) 25 mg suppository Hydrocortisone Acetate (Anusol-Hc) 25 mg suppository 01/13/2019 10:45:00 PM EDT 25 MG completed [facility] hydrocortisone acetate 25 MG Rectal Supp ository Hydrocortisone Acetate (Anusol- Hc) 25 mg suppository Hydrocortisone Acetate (Anusol-Hc) 25 mg suppository 01/13/2019 10:45:00 PM EDT 25 MG completed [facility] hydrocortisone acetate 25 MG Rectal Supp ository Hydrocortisone Acetate (Anusol- Hc) 25 mg suppository Hydrocortisone Acetate (Anusol-Hc) 25 mg suppository 01/13/2019 10:45:00 PM EDT 25 MG completed [facility] hydrocortisone acetate 25 MG Rectal Supp ository Hydrocortisone Acetate (Anusol- Hc) 25 mg suppository Hydrocortisone Acetate (Anusol-Hc) 25 mg suppository 01/13/2019 10:45:00 PM EDT 25 MG completed [facility] hydrocortisone acetate 25 MG Rectal Supp ository Hydrocortisone Acetate (Anusol- Hc) 25 mg suppository Hydrocortisone Acetate (Anusol-Hc) 25 mg suppository 01/13/2019 10:45:00 PM EDT 25 MG completed [facility] hydrocortisone acetate 25 MG Rectal Supp ository Hydrocortisone Acetate (Anusol- Hc) 25 mg suppository Hydrocortisone Acetate (Anusol-Hc) 25 mg suppository 01/13/2019 10:45:00 PM EDT 25 MG completed [facility] hydrocortisone acetate 25 MG Rectal Supp ository Hydrocortisone Acetate (Anusol- Hc) 25 mg suppository Hydrocortisone Acetate (Anusol-Hc) 25 mg suppository 01/13/2019 10:45:00 PM EDT 25 MG completed [facility] hydrocortisone acetate 25 MG Rectal Supp ository Hydrocortisone Acetate (Anusol- Hc) 25 mg suppository Hydrocortisone Acetate (Anusol-Hc) 25 mg suppository 01/13/2019 10:45:00 PM EDT 25 MG completed [facility] hydrocortisone acetate 25 MG Rectal Supp ository Hydrocortisone Acetate (Anusol- Hc) 25 mg suppository Hydrocortisone Acetate (Anusol-Hc) 25 mg suppository 01/13/2019 10:45:00 PM EDT 25 MG completed [facility] hydrocortisone acetate 25 MG Rectal Supp ository Hydrocortisone Acetate (Anusol- Hc) 25 mg suppository Hydrocortisone Acetate (Anusol-Hc) 25 mg suppository 01/13/2019 10:45:00 PM EDT 25 MG completed [facility] hydrocortisone acetate 25 MG Rectal Supp ository Hydrocortisone Acetate (Anusol- Hc) 25 mg suppository Hydrocortisone Acetate (Anusol-Hc) 25 mg suppository 01/13/2019 10:45:00 PM EDT 25 MG completed [facility] hydrocortisone acetate 25 MG Rectal Supp ository Hydrocortisone Acetate (Anusol- Hc) 25 mg suppository Hydrocortisone Acetate (Anusol-Hc) 25 mg suppository 01/13/2019 10:45:00 PM EDT 25 MG completed [facility] hydrocortisone acetate 25 MG Rectal Supp ository Hydrocortisone Acetate (Anusol- Hc) 25 mg suppository Hydrocortisone Acetate (Anusol-Hc) 25 mg suppository 01/13/2019 10:45:00 PM EDT 25 MG completed [facility] hydrocortisone acetate 25 MG Rectal Supp ository Hydrocortisone Acetate (Anusol- Hc) 25 mg suppository Hydrocortisone Acetate (Anusol-Hc) 25 mg suppository 01/13/2019 10:45:00 PM EDT 25 MG completed [facility] hydrocortisone acetate 25 MG Rectal Supp ository Hydrocortisone Acetate (Anusol- Hc) 25 mg suppository Hydrocortisone Acetate (Anusol-Hc) 25 mg suppository 01/13/2019 10:45:00 PM EDT 25 MG completed [facility] hydrocortisone acetate 25 MG Rectal Supp ository Hydrocortisone Acetate (Anusol- Hc) 25 mg suppository Hydrocortisone Acetate (Anusol-Hc) 25 mg suppository 01/13/2019 10:45:00 PM EDT 25 MG completed [facility] 2 ML aripiprazole 200 MG/ML Prefilled Sy ringe Aripiprazole (Abilify Maintena) 400 mg suspension,extended rel syring Aripiprazole (Abilify Maintena) 400 mg suspension,extended rel syring 12/05/2018 08:34:15 AM EDT 400 MG completed [facility] 2 ML aripiprazole 200 MG/ML Prefilled Sy ringe Aripiprazole (Abilify Maintena) 400 mg suspension,extended rel syring Aripiprazole (Abilify Maintena) 400 mg suspension,extended rel syring 12/05/2018 08:34:15 AM EDT 400 MG [facility] 2 ML aripiprazole 200 MG/ML Prefilled Sy ringe Aripiprazole (Abilify Maintena) 400 mg suspension,extended rel syring Aripiprazole (Abilify Maintena) 400 mg suspension,extended rel syring 12/05/2018 08:34:15 AM EDT 400 MG completed [facility] 2 ML aripiprazole 200 MG/ML Prefilled Sy ringe Aripiprazole (Abilify Maintena) 400 mg suspension,extended rel syring Aripiprazole (Abilify Maintena) 400 mg suspension,extended rel syring 12/05/2018 08:34:15 AM EDT 400 MG [facility] 2 ML aripiprazole 200 MG/ML Prefilled Sy ringe Aripiprazole (Abilify Maintena) 400 mg suspension,extended rel syring Aripiprazole (Abilify Maintena) 400 mg suspension,extended rel syring 12/05/2018 08:34:15 AM EDT 400 MG completed [facility] 2 ML aripiprazole 200 MG/ML Prefilled Sy ringe Aripiprazole (Abilify Maintena) 400 mg suspension,extended rel syring Aripiprazole (Abilify Maintena) 400 mg suspension,extended rel syring 12/05/2018 08:34:15 AM EDT 400 MG completed [facility] 2 ML aripiprazole 200 MG/ML Prefilled Sy ringe Aripiprazole (Abilify Maintena) 400 mg suspension,extended rel syring Aripiprazole (Abilify Maintena) 400 mg suspension,extended rel syring 12/05/2018 08:34:15 AM EDT 400 MG completed [facility] 2 ML aripiprazole 200 MG/ML Prefilled Sy ringe Aripiprazole (Abilify Maintena) 400 mg suspension,extended rel syring Aripiprazole (Abilify Maintena) 400 mg suspension,extended rel syring 12/05/2018 08:34:15 AM EDT 400 MG completed [facility] 2 ML aripiprazole 200 MG/ML Prefilled Sy ringe Aripiprazole (Abilify Maintena) 400 mg suspension,extended rel syring Aripiprazole (Abilify Maintena) 400 mg suspension,extended rel syring 12/05/2018 08:34:15 AM EDT 400 MG completed [facility] 2 ML aripiprazole 200 MG/ML Prefilled Sy ringe Aripiprazole (Abilify Maintena) 400 mg suspension,extended rel syring Aripiprazole (Abilify Maintena) 400 mg suspension,extended rel syring 12/05/2018 08:34:15 AM EDT 400 MG completed [facility] 2 ML aripiprazole 200 MG/ML Prefilled Sy ringe Aripiprazole (Abilify Maintena) 400 mg suspension,extended rel syring Aripiprazole (Abilify Maintena) 400 mg suspension,extended rel syring 12/05/2018 08:34:15 AM EDT 400 MG completed [facility] Albuterol Sulfate (Ventolin Hfa) 60 PUFFS/8 GM HFA aerosol i nhaler 05/07/2016 09:14:31 PM EST PUFFS completed [facility] Albuterol Sulfate (Ventolin Hfa) 60 PUFFS/8 GM HFA aerosol i nhaler 05/07/2016 09:14:31 PM EST PUFFS completed [facility] Albuterol Sulfate (Ventolin Hfa) 60 PUFFS/8 GM HFA aerosol i nhaler 05/07/2016 09:14:31 PM EST PUFFS completed [facility] Albuterol Sulfate (Ventolin Hfa) 60 PUFFS/8 GM HFA aerosol i nhaler 05/07/2016 09:14:31 PM EST PUFFS completed [facility] Albuterol Sulfate (Ventolin Hfa) 60 PUFFS/8 GM HFA aerosol i nhaler 05/07/2016 09:14:31 PM EST PUFFS completed [facility] Albuterol Sulfate (Ventolin Hfa) 60 PUFFS/8 GM HFA aerosol i nhaler 05/07/2016 09:14:31 PM EST PUFFS completed [facility] Albuterol Sulfate (Ventolin Hfa) 60 PUFFS/8 GM HFA aerosol i nhaler 05/07/2016 09:14:31 PM EST PUFFS completed [facility] Albuterol Sulfate (Ventolin Hfa) 60 PUFFS/8 GM HFA aerosol i nhaler 05/07/2016 09:14:31 PM EST PUFFS completed [facility] Albuterol Sulfate (Ventolin Hfa) 60 PUFFS/8 GM HFA aerosol i nhaler 05/07/2016 09:14:31 PM EST PUFFS completed [facility] Albuterol Sulfate (Ventolin Hfa) 60 PUFFS/8 GM HFA aerosol i nhaler 05/07/2016 09:14:31 PM EST PUFFS completed [facility] Albuterol Sulfate (Ventolin Hfa) 60 PUFFS/8 GM HFA aerosol i nhaler 05/07/2016 09:14:31 PM EST PUFFS completed [facility] Acetaminophen 500 MG / Caffeine 65 MG Or al Tablet Acetaminophen-Caffeine (Excedrin Tension Headache) 500-65 mg tablet Acetaminophen-Caffeine (Excedrin Tension Headache) 500-65 mg tablet 11/16/2015 05:27:09 PM EDT 1 EACH completed [facility] Acetaminophen 500 MG / Caffeine 65 MG Or al Tablet Acetaminophen-Caffeine (Excedrin Tension Headache) 500-65 mg tablet Acetaminophen-Caffeine (Excedrin Tension Headache) 500-65 mg tablet 11/16/2015 05:27:09 PM EDT 1 EACH completed [facility] Acetaminophen 500 MG / Caffeine 65 MG Or al Tablet Acetaminophen-Caffeine (Excedrin Tension Headache) 500-65 mg tablet Acetaminophen-Caffeine (Excedrin Tension Headache) 500-65 mg tablet 11/16/2015 05:27:09 PM EDT 1 EACH completed [facility] Acetaminophen 500 MG / Caffeine 65 MG Or al Tablet Acetaminophen-Caffeine (Excedrin Tension Headache) 500-65 mg tablet Acetaminophen-Caffeine (Excedrin Tension Headache) 500-65 mg tablet 11/16/2015 05:27:09 PM EDT 1 EACH completed [facility] Acetaminophen 500 MG / Caffeine 65 MG Or al Tablet Acetaminophen-Caffeine (Excedrin Tension Headache) 500-65 mg tablet Acetaminophen-Caffeine (Excedrin Tension Headache) 500-65 mg tablet 11/16/2015 05:27:09 PM EDT 1 EACH completed [facility] Acetaminophen 500 MG / Caffeine 65 MG Or al Tablet Acetaminophen-Caffeine (Excedrin Tension Headache) 500-65 mg tablet Acetaminophen-Caffeine (Excedrin Tension Headache) 500-65 mg tablet 11/16/2015 05:27:09 PM EDT 1 EACH completed [facility] Acetaminophen 500 MG / Caffeine 65 MG Or al Tablet Acetaminophen-Caffeine (Excedrin Tension Headache) 500-65 mg tablet Acetaminophen-Caffeine (Excedrin Tension Headache) 500-65 mg tablet 11/16/2015 05:27:09 PM EDT 1 EACH completed [facility] Acetaminophen 500 MG / Caffeine 65 MG Or al Tablet Acetaminophen-Caffeine (Excedrin Tension Headache) 500-65 mg tablet Acetaminophen-Caffeine (Excedrin Tension Headache) 500-65 mg tablet 11/16/2015 05:27:09 PM EDT 1 EACH completed [facility] Acetaminophen 500 MG / Caffeine 65 MG Or al Tablet Acetaminophen-Caffeine (Excedrin Tension Headache) 500-65 mg tablet Acetaminophen-Caffeine (Excedrin Tension Headache) 500-65 mg tablet 11/16/2015 05:27:09 PM EDT 1 EACH completed [facility] Acetaminophen 500 MG / Caffeine 65 MG Or al Tablet Acetaminophen-Caffeine (Excedrin Tension Headache) 500-65 mg tablet Acetaminophen-Caffeine (Excedrin Tension Headache) 500-65 mg tablet 11/16/2015 05:27:09 PM EDT 1 EACH completed [facility] Acetaminophen 500 MG / Caffeine 65 MG Or al Tablet Acetaminophen-Caffeine (Excedrin Tension Headache) 500-65 mg tablet Acetaminophen-Caffeine (Excedrin Tension Headache) 500-65 mg tablet 11/16/2015 05:27:09 PM EDT 1 EACH completed [facility] 24 HR Diltiazem Hydrochloride 120 MG Ext ended Release Oral Capsule dilTIAZem CD (CARDIZEM CD) 120 mg 24 hr capsule dilTIAZem CD (CARDIZEM CD) 120 mg 24 hr capsule 120 mg oral aborted Take 120 mg by mouth 1 (one) time each day. [facility] Insurance Providers Payer name Policy type / Coverage type Policy ID Covered libertarian ID Covered libertarian's relationship to bernal Policy Bernal Plan Information STEVEN [id number] Self [id number] STEVEN MEDICAID [id number] Neelam [id number] MEDICAID [id number] Neelam [id number] STEVEN I [id number] Self [id number] STEVEN CARE [id number] S [id number] STEVEN [id number] SP [id number] [place] [id number] S [id number] [place] [facility] [place] Commercial [id number] Self [id number] STEVEN [id number] SP [id number] O UNAVAILABLE UNAVAILA BLE [facility] [id number] 18 [id number] [facility] [id number] 18 [id number] [facility] [place] [id number] S [id number] Problems, Conditions, and Diagnoses Code Display Name Description Problem Type Effective Dates Data Source(s) P81964 CONTACT WITH AND SUSPECTED EXPOSURE TO C OVID-19 CONTACT WITH AND SUSPECTED EXPOSURE TO COVID-19 Diagnosis 12/12/2020 03:00:[address] [facility] [id number] Nicotine dependence, cigarettes, uncompl icated Nicotine dependence, cigarettes, uncomplicated Diagnosis 12/12/2020 03:00:00 PM EDT [facility] I10 Essential (primary) hypertension Essential (primary) h ypertension Diagnosis 12/12/2020 03:00:00 PM EDT [facility] J069 Acute upper respiratory infection, unspe cified Acute upper respiratory infection, unspecified Diagnosis 12/12/2020 03:00:00 PM EDT [facility] J0110 Acute frontal sinusitis, unspecified Acute front al sinusitis, unspecified Diagnosis 12/12/2020 03:00:00 PM EDT [facility] J0100 Acute maxillary sinusitis, unspecified A cute maxillary sinusitis, unspecified Diagnosis 12/12/2020 03:00:00 PM EDT [facility] R519 Headache, unspecified Headache, unspecified Diagnosis 12/12/2020 03:00:00 PM EDT [facility] F41.9 Anxiety disorder, unspecified ANXIETY DISORDER, UNSPEC IFIED Diagnosis 03/22/2020 07:36:00 PM [facility] F12.90 Cannabis use, unspecified, uncomplicated CANNABIS USE, UNSPECIFIED, UNCOMPLICATED Diagnosis 03/22/2020 07:36:00 PM [facility] danny F17.200 Nicotine dependence, unspecified, uncomp licated NICOTINE DEPENDENCE, UNSPECIFIED, UNCOMPLICATED Diagnosis 03/22/2020 07:36:00 PM [facility] E78.5 Hyperlipidemia, unspecified HYPERLIPIDEMIA, UNSPECIFIE D Diagnosis 03/22/2020 07:36:00 PM [facility] K40.91 Unilateral inguinal hernia, without obst ruction or gangrene, recurrent UNILATERAL INGUINAL HERNIA, W/O OBST OR GANGRENE, Diagnosis 03/09 07:36:00 PM [facility] I25.10 Atherosclerotic heart diseas e of [place] coronary artery without angina pectoris ATHSCL HEART DISEASE OF [place] CORONARY ARTERY W/O Diagnosis 03/22/2020 07:36:00 PM [facility] R45.851 Suicidal ideations SUICIDAL IDEATIONS Diagnosis 07:36:00 PM [facility] I10 Essential (primary) hypertension ESSENTIAL (PRIMARY) H YPERTENSION Diagnosis 03/22/2020 07:36:00 PM [facility] F33.2 Major depressive disorder, recurrent sev ere without psychotic features MAJOR DEPRESSV DISORDER, RECURRENT SEVER Diagnosis 03/22/2020 07:36:00 PM [facility] F31.81 Bipolar II disorder BIPOLAR II DISORDER Diagnosis 1 05/23/2019 07:36:00 PM [facility] I20.0 Unstable angina Unstable angina Diagnosis 03/13/2020 06:0 0:00 AM [facility] unstable angina unstable angina Diagnosis 03/13/2020 06:0 0:00 AM [facility] N20.0 Kidney stone Kidney stone Problem 03/31/2020 12:00:00 A M EST [facility] ([facility]) N32.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 Bladder wall thickening Pr oblem 03/31/2020 12:00:00 AM [place] [address] ([facility]) Surgeries/Procedures Procedure Description Date Indications Data Source(s) Medication: Lidocaine HCl 2% Jelly 5mL Intravesically 04/07/2020 12:00:00 AM [place] [address] ([facility]) Psychological Tests, Neurobehavioral and Cognitive Status 03/23/2020 12:00:00 AM [facility] Doppler Echocardiography Complete 03/19/2020 12:00:00 AM EST [facility] ([facility]) Doppler Echocardiography Color Flow Velocity Mapping 03/19/2020 12:00:00 AM EST [facility] ([facility]) Stress ECHO Transthoracic 03/19/2020 12:00:00 AM EST [facility] ([facility]) HEPARIN ASSAY <td>HEPARIN ANTI-XA UNFRACTIONATED</td><td>Timed</td><td>03/13/2020 8:58 AM EST</td><td></td><td> </td> 03/13/2020 08:58:00 AM [facility] OXYGEN DAILY PROTOCOL <td>OXYGEN DAILY PROTOCOL</td><td>Routine</td><td>03/13/2020 7:10 AM EST</td><td></td><td></td> 03/13/2020 07:10:04 AM [facility] OXYGEN DAILY PROTOCOL <td>OXYGEN DAILY PROTOCOL</td><td>Routine</td><td>03/13/2020 7:10 AM EST</td><td></td><td></td> 03/13/2020 07:10:04 AM EST [facility] PROTHROMBIN TIME <td>PROTHROMBIN TIME NO THER APY OR UNKNOWN</td><td>STAT</td><td>03/13/2020 7:08 AM EST</td><td></td><td> </td> 03/13/2020 07:08:00 AM EST [facility] BLOOD COUNT HEMOGLOBIN <td>HEMOGLOBIN AND HEMATOCRIT</td><td>STAT</td><td>03/13/2020 7:08 AM EST</td><td></td><td> </td> 03/13/2020 07:08:00 AM [facility] TROPONIN QUANTITATIVE <td>TROPONIN I</td><td>STAT< /td><td>03/13/2020 7:08 AM EST</td><td></td><td> </td> 03/13/2020 07:08:00 AM [facility] THROMBOPLASTIN TIME PARTIAL PLASMA/WHOLE BLOOD <td>PTT NO THERAPY OR UNKNOWN</td><td>STAT</td><td>03/13/2020 7:08 AM EST</td><td></td><td> </td> 03/13/2020 07:08:00 AM [facility] HEPARIN ASSAY <td>HEPARIN ANTI-XA UNFRACTI ONATED</td><td>STAT</td><td>03/13/2020 7:08 AM EST</td><td></td><td> </td> 03/13/2020 07:08:00 AM EST [facility] BLOOD COUNT COMPLETE AUTO&AUTO DIFRNTL WBC COUNT <td>H C CBC W/ DIFFERENTIAL</td><td>STAT</td><td>03/13/2020 7:08 AM EST</td><td></td><td> </td> 03/13/2020 07:08:00 AM EST [facility] LIPID PANEL <td>LIPID PANEL</td><td>STAT </td><td>03/13/2020 7:08 AM EST</td><td></td><td> </td> 03/13/2020 07:08:00 AM EST [facility] COMPREHENSIVE METABOLIC PANEL <td>COMPREHENSIVE METABO LIC PANEL</td><td>STAT</td><td>03/13/2020 7:08 AM EST</td><td></td><td> </td> 03/13/2020 07:08:00 AM [facility] chest X-ray (procedure) 03/13/2020 01:06:00 AM E [facility] chest X-ray (procedure) 03/13/2020 01:06:00 AM E [facility] chest X-ray (procedure) 03/13/2020 01:06:00 AM E [facility] chest X-ray (procedure) 03/13/2020 01:06:00 AM E [facility] chest X-ray (procedure) 03/13/2020 01:06:00 AM E [facility] chest X-ray (procedure) 03/13/2020 01:06:00 AM E [facility] chest X-ray (procedure) 03/13/2020 01:06:00 AM E [facility] chest X-ray (procedure) 03/13/2020 01:06:00 AM E [facility] chest X-ray (procedure) 03/13/2020 01:06:00 AM E [facility] chest X-ray (procedure) 03/13/2020 01:06:00 AM E [facility] chest X-ray (procedure) 03/13/2020 01:06:00 AM E [facility] Nucleic acid assay (procedure) 03/13/2020 12:00:00 AM [facility] Nucleic acid assay (procedure) 03/13/2020 12:00:00 AM [facility] Nucleic acid assay (procedure) 03/13/2020 12:00:00 AM [facility] Nucleic acid assay (procedure) 03/13/2020 12:00:00 AM [facility] Nucleic acid assay (procedure) 03/13/2020 12:00:00 AM [facility] Nucleic acid assay (procedure) 03/13/2020 12:00:00 AM [facility] Nucleic acid assay (procedure) 03/13/2020 12:00:00 AM [facility] Nucleic acid assay (procedure) 03/13/2020 12:00:00 AM [facility] Nucleic acid assay (procedure) 03/13/2020 12:00:00 AM [facility] Nucleic acid assay (procedure) 03/13/2020 12:00:00 AM [facility] Nucleic acid assay (procedure) 03/13/2020 12:00:00 AM [facility] Computed tomography of abdomen and pelvis with contrast (pro cedure) 02/12/2020 01:49:00 PM [facility] Computed tomography of abdomen and pelvis with contrast (pro cedure) 02/12/2020 01:49:00 PM [facility] Computed tomography of abdomen and pelvis with contrast (pro cedure) 02/12/2020 01:49:00 PM [facility] Computed tomography of abdomen and pelvis with contrast (pro cedure) 02/12/2020 01:49:00 PM [facility] Computed tomography of abdomen and pelvis with contrast (pro cedure) 02/12/2020 01:49:00 PM [facility] Computed tomography of abdomen and pelvis with contrast (pro cedure) 02/12/2020 01:49:00 PM [facility] Computed tomography of abdomen and pelvis with contrast (pro cedure) 02/12/2020 01:49:00 PM [facility] Computed tomography of abdomen and pelvis with contrast (pro cedure) 02/12/2020 01:49:00 PM [facility] Computed tomography of abdomen and pelvis with contrast (pro cedure) 02/12/2020 01:49:00 PM [facility] Computed tomography of abdomen and pelvis with contrast (pro cedure) 02/12/2020 01:49:00 PM [facility] Computed tomography of abdomen and pelvis with contrast (pro cedure) 02/12/2020 01:49:00 PM [facility] Computed tomography of abdomen and pelvis with contrast (pro cedure) 02/12/2020 01:49:00 PM [facility] Computed tomography of abdomen and pelvis with contrast (pro cedure) 02/12/2020 01:49:00 PM [facility] Computed tomography of abdomen and pelvis with contrast (pro cedure) 02/12/2020 01:49:00 PM [facility] Computed tomography of abdomen and pelvis with contrast (pro cedure) 02/12/2020 01:49:00 PM [facility] Results ID Date Data Source [id number] 12/12/2020 03:00:00 PM EDT [facility] 1 OrderSheet [facility] Emergency Department [address] [place] [address] Phone #: ext- [phone] 12/12/2020 14:59 Patient: KATHI GUNDERSON Sex: M : 1980 Age: 40yWEIGHT:81.1 kg (S) HEIGHT:69 inches (S) BMI:26.4ALLERGIES: PenicillinsCHIEF COMPLAINT: headacheDIAGNOSIS: Sinusitis, Severe acute respiratory syndrome coronavirusLAB ORDERSOrder Description Priority Entered Acknowledged InitialedCORONAVIRUS STAT 15:20 12/12/2020 15:31 KASSIE Reyes-19 (Not Mare Reyes RN; Mare RNSymptomatic as Verbal order per;Defined [...] rce(s) Supporting Document(s) ID Date Data Source [id number] 12/12/2020 03:00:00 PM EDT [facility] 1 Medication Reconciliation Report [facility] [address] [place] [address] Phone #: ext- [phone] 12/12/2020 14:59 Patient: [...] 4 days.Dispense 6 tablet. Refills: 0. Substitution permitted.[facility] - [address] [place] [address] [id number]. .Medrol (Michael) 4 mg tablets in a dose pack Take 1 tablet as directed for 6 days -- Dispense 21 tablet.Refills: 0. Substitution permitted.[facility] #04 - [address] [facility] ; [place], [place] [id number]. . -- ANGELES Caicedo Name Value Range Interpretation Code Description Data [facility] rce(s) Supporting Document(s) ID Date Data Source [id number] 12/12/2020 03:00:00 PM EDT [place] [address] Medication Administration Record [facility] [address] [place] [address] Phone #: ext- [phone] 12/12/2020 14:59 Patient: KATHI GUNDERSON Sex: M : 1980 Age: 40yWeight: 81.1 kgHeight/Length: 69 inBMI: 26.4ALLERGIES: PenicillinsDate/Time Medication Administered Medication Ordered Name Value Range Interpretation Code Description [facility] Document(s) ID Date Data Source [id number] 12/12/2020 03:00:00 PM EDT [facility] 1 General Instructions [facility] [address] [place] [address] Phone #: ext- [phone] 12/12/2020 14:59 Patient: KATHI GUNDERSON Sex: M [...] Dispense 6 tablet. Refills: 0. Substitution permitted. [facility] [place] [address] [id number]. . Medrol (Michael) 4 mg tablets in a dose pack Take 1 tablet as directed for 6 days -- Dispense 21 tablet. Refills: 0. Substitution permitted. [facility] [address] [place] [address] [id number]. . Follow-up: Follow up with your doctor as needed. Reason for referral: evaluation and treatment. Summary of care provided to patient. Understanding of the discharge instructions verbalized by patient. 2 General Instructions [facility] [address] [place] [address] Phone #: ext- [phone] 12/12/2020 14:59 ---- Patient: KATHI GUNDERSON Sex: M : 1980 Age: 40y ADDITIONAL INFORMATIONSinusitis (Antibiotic [...] a towel soaked in hot water. Or, manager intensive care the shower and direct the warm spray onto your face. Using a vaporizer along with a menthol rub at night may also help soothe symptoms. An expectorant with guaifenesin may help thin nasal mucus and help your sinuses drain fluids. Talk with your provider or pharmacists before taking an kten-dzz-gobfihs (OTC) medicine if you have any questions about it or its side effects.. 3 General Instructions [facility] [address] [place] [address] Phone #: ext- [phone] 12/12/2020 14:59 Patient: [...] as directed by your healthcare providerCall 911Call 911 if any of these occur: 4 General Instructions [facility] [address] [place] [address] Phone #: ext- [phone] 12/12/2020 14:59 Patient: [...] up to date with of your vaccines. [id number] [employer]. [address] [place] [address]. All rights reserved. This information is not [...] COVID-19 was first found in people in [facility], in late 2019. In 2020,several cases of [...] to 14 days after 5 General Instructions [facility] [address] [place] [address] Phone #: [phone] ext- [phone] 12/12/2020 14:59 Patient: KATHI GUNDERSON Sex: M [...] healthcare provider thinks you may have COVID-19, casandra campuzano will work closely with your local [...] at risk if you: 6 General Instructions [facility] Emergency Department [address] [place] [address] Phone #: ext- [phone] 12/12/2020 14:59 Patient: KATHI GUNDERSON Sex: Geovani : 1980 Age: 40y Recently traveled to [...] hands often, or use an alcohol-based hand field tech.The CDC advises that you shouldn't wear a face mask if you are not sick.To protect yourself from COVID-19: Wash your hands often with soap and clean, running water for at least 20 seconds. 7 General Instructions [facility] Emergency Department [address] [place] [address] Phone #: ext- [phone] 12/12/2020 14:59 Patient: KATHI GUNDERSON Sex: Geovani : 1980 Age: 40y If you don't have access to soap and water, use an alcohol-based hand field tech often. Make sure it has at least [...] to COVID-19 and have 8 General Instructions [facility] Emergency Department [address] [place] [address] Phone #: ext- [phone] 12/12/2020 14:59 Patient: [...] fabrics, and laundry thoroughly. 9 General Instructions [facility] Emergency Department [address] [place] [address] Phone #: ext- [phone] 12/12/2020 14:59 Patient: KATHI GUNDERSON Sex: M : 1980 Age: 40y Keep other people away from the sick person.When to call your healthcare providerCall your healthcare provider: If you've recently traveled and have symptoms If you have been diagnosed with COVID-19 and your symptoms are worse [id number] [employer]. [address] [place] [address], [place] [address]. All rights reserved. This information is not [...] rce(s) Supporting Document(s) ID Date Data Source [id number] 12/12/2020 03:00:00 PM EDT [facility] 1 Clinical Report - Nurses [facility] Emergency Department [address] [place] [address] Phone #: psi- [phone] 12/12/2020 14:59 Patient: KATHI GUNDERSON Sex: M : 1980 Age: 40yTRIAGEAcuity: LEVEL 4.Chief Complaint: MUSCLE ACHES and HEADACHE.Alert. No acute distress.( Pt has body aches. Pt has a h/a and nausea. Pt has a cough that started 4 days ago. Pts fianc? 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 SEPSIS SCREEN NEGATIVE. No suspected or confirmedsigns of infection present.ELY COMA SCORE: 15- eyes open- spontaneous (4); best verbal response- oriented (5); bestmotor response- obeys commands (6). --15:06 12/12/20 Caryl Fields R.N.15:02 12/12/20. BP: 146/89. MAP: 108. HR: 81. RR: 16. O2 saturation: 98% on room air. Temp: 98.2 F(oral). Pain level now: 04/18. --15:12/12/20 Caryl Fields R.N.Weight: 81.1 kg stated. Height/Length: 69 inches Per Patient. BMI: 26.4. --15:02 12/12/20 Caryl Fields R.N.MedicationsMetoprolol Tartrate Oral 25 mg, 2x a day. --15:12/12/20 Caryl Fields R.N. Omeprazole Oral 40 mg, daily. --15:12/12/20 Caryl Fields R.N. Atorvastatin Calcium Oral 40 mg, daily. --15:12/12/20 Caryl Fields R.N. Glaucoma eye drops. --15:08 12/12/20 Caryl Fields R.N. Albuterol Sulfate HFA Inhalation. --15:08 12/12/20 Caryl Fields R.N.AllergiesPenicillins.(Anaphylaxis, angioedema) --15:06 12/12/20 Caryl Fields R.N.PROBLEMS:Cervical Strain.Depression.Bipolar Disorder.Acute Pain.Arthritis. 2 Clinical Report - Nurses [facility] Emergency Department [address] [place] [address] Phone #: ext- [phone] 12/12/2020 14:59 Patient: KATHI GUNDERSON Sex: M : 1980 Age: 40y Migraine Headache. Sprain. Intervertebral Disc Disease. Hypercholesterolemia. Hypertension. --15:08 12/12/20 Caryl Fields R.N. Medication/allergy information source: the patient. --15:06 12/12/20 Caryl Fields R.N. ADDITIONAL SURGERIES: Bladder surgery. Hernia Repair (X4). Moles removed (benign). --15:08 12/12/20 Caryl Fields R.N. History SOCIAL HX: Current [...] --15:12/12/20 Caryl Fields R.N.PHYSICAL ASSESSMENTlate entry - 15:12/12/20. Ambulatory to room.GENERAL / NEURO / PSYCH: Alert. Oriented X 4. Appears in no acute distress. 3 Clinical Report - Nurses [facility] Emergency Department [address] [place] [address] Phone #: ext- [phone] 12/12/2020 14:59 Patient: [...] ready for evaluation- ED physiciannotified. --15:08 12/12/20 Crayl Fields R.N.DISPOSITION / DISCHARGE Departure time: 15:46 12/12/2020. --15:46 12/12/20 Mare Reyes RN Condition at departure: stable. No learning barriers present. Discharge instructions provided and reviewed with the patient. Reviewed medication(s) side effects, precautions, dosing and course information. Prescription(s) sent electronically to pharmacy. Reviewed referral to a primary care physician. Work note given. Patient verbalized understanding. Written instructions provided in Cymro. The patient was discharged by the physician clerical administrative assistant. He was discharged home and accompanied by office messenger helper. He left ambulatory and via private vehicle. 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 --15:47 12/12/20 Mare Reyes RN 15:47 12/12/20. Pain level now: 0/10. --15:48 12/12/20 Mare Reyes RN.Locked/Released at 12/12/2020 17:53 by Mare Reyes RN Name Value Range Interpretation Code Description Data Marion rce(s) Supporting Document(s) ID Date Data Source [id number] 12/12/2020 03:00:00 PM EDT [facility] 1 Clinical Report - Physicians/Mid Levels [facility] Emergency Department [address] [place] [address] Phone #: ext- [phone] 12/12/2020 14:59 Patient: KATHI GUNDERSON Sex: Geovani : 1980 Age: 40y Time Seen: 15:15 [...] (benign). 2 Clinical Report - Physicians/Mid Levels [facility] Emergency Department [address] [place] [address] Phone #: ext- [phone] 12/12/2020 14:59 Patient: KATHI GUNDERSON Sex: M [...] room air.Temp: 98.2 F. Pain level now: 10. Have been reviewed as abnormal. Hypertensive. Oxygensaturation [...] infection. 3 Clinical Report - Physicians/Mid Levels [facility] Emergency Department [address] [place] [address] Phone #: ext- [phone] 12/12/2020 14:59 Patient: KATHI GUNDERSON Sex: M : 1980 Age: 40yINSTRUCTIONS Do not work [...] Dispense 6 tablet. Refills: 0. Substitution permitted. [facility] [address] [phone]. . Medrol (Michael) 4 mg tablets in a dose pack Take 1 tablet as directed for 6 days -- Dispense 21 tablet. Refills: 0. Substitution permitted. [facility] #[address] [phone]. . Follow- up: Follow up with your doctor as needed. Reason for referral: evaluation and treatment. Summary of care provided to patient. Understanding of the discharge instructions verbalized by patient.(Electronically signed by ANGELES Caicedo 12/12/2020 21:46) Name Value Range Interpretation Code Description Data Marion rce(s) Supporting Document(s) ID Date Data Source [id number] 12/12/2020 03:00:00 PM [facility] [id number] Date: 16:20Lab results reviewed, SARS CoV- 2Coronavirus NOT DETECTED Communicated information to patient.(Electronically signed by Kandace Amaya RN - 12/15/2020 16:20) Name Value Range Interpretation Code Description Data Marion rce(s) Supporting Document(s) ID Date Data Source [id number] 12/12/2020 03:28:00 PM EDT [facility] Name Value Range Interpretation Code Description Data Marion rce(s) Supporting Document(s) SARS coronavirus 2 RNA Not Detected [facility] This lab was ordered by [facility] tio and reported by [facility]. ID Date Data Source [id number] 12/15/2020 07:23:00 AM EDT [facility] Name Value Range Interpretation Code Description Data Marion rce(s) Supporting Document(s) SARS-CoV-2, IMELDA Not Detected Not Detected [facility] This nucleic acid amplification test was developed and its performancecharacteristics determined by [facility]. Nucleic acidamplification tests include RT-PCR and TMA. [...] in this assay. ID Date Data Source [id number] 10/14/2020 12:00:00 AM EDT [facility] Name Value Range Interpretation Code Description Data Marion rce(s) Supporting Document(s) SARS-CoV-2 (COVID-19) RNA [Presence] in Respiratory specimen by IMELDA with probe detection Not Detected [facility] This lab was ordered by [facility] and reported by [facility]. ID Date Data Source [id number] 10/13/2020 02:31:00 PM EDT [facility] Patient Name: KATHI GUNDERSON : 1980 Sex: M Pt Unit #: [id number] Location:[facility] Provider: Visit Date/Time: 10/13/20 Primary Insurance: [facility] Secondary Insurance: MEDICAID [facility] 2ND R Intake Vital Signs 10/13/20 14:31 [...] in position lately. States he stays hydrated. [facility] Medical History Abnormal LFTs Allergic rhinitis due [...] or chronic Coding Level of Care Code 85797 Est Pt Intermediate Comp Diagnoses Common cold J00 Cough R05 Bronchitis J40 <Electronically signed by Rajani Yoo NP> 10/13/20 1509 Name Value Range Interpretation Code Description Data Marion rce(s) Supporting Document(s) ID Date Data Source [id number] 07/29/2020 03:23:00 PM EDT [facility] Patient Name: KATHI GUNDERSON : 1980 Sex: M Pt Unit #: [id number] Location:[facility] Provider: Visit Date/Time: 07/29/20 Primary Insurance: [facility] Secondary Insurance: MEDICAID [facility] 2ND R Intake Vital Signs 07/29/20 15:25 [...] depression medications any more, was discharged by [facility] and states that he feel like a human again. Cs Associate Required: No Accompanied by: Self / Same [...] and colleagues, with an educational donald from [employer]. HIV Testing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 [address],[id number],[place] [address] ID Date Data Source [id number] 03/13/2020 08:24:11 AM [facility] Name Value Range Interpretation Code Description Data Marion rce(s) Supporting Document(s) H&P [facility] KTSDDm5eNjEWUeQh11/LWFtrCDLpb7AkODnhQVg5BGfzANTcT1GyJSR4cG4eEER6NWvVNoUsBkGhKeP[facility] SnXtqSLjExIIXdUelWRyRwQQofIhietJLsET2BvBC0YHZoG23iJUPyKHMnS2UmISR7JSk+Fm3ZAGFbzR FsIK4MBceI7D2Ie4y9NY4eQY1RscaDxK1I7o4yr4g4ZGM45ebygx55hUvFIHV216irRXh2cJ+YBQo6O3 2JlVI4s2cqmWTwQPjuj+Zs7W6EEgr/tz/DWInLhfj6 S5Um9mknfbhpoYD9AZdDJ4Cy3W2j+fAGI6KtHo/9Sp7ZWRanz4R3UtCnNWMiEU7vjNK4wdV+DQUVL5MK fgh+svczim6Rl7ANrxl+EVRbfB60DqwCDnmm6129Yij+CcQrteg42Hq4gAZHJchdrhdvF+9bhg4lFYrg xPMkFdwLTI0OV1UdFbLvNsAYuFFOl1aFTxaPgD9r5V PF9YdMNzcP8rsBZHUaHYLPF0MAMG9v1vYiXYSG9iRCiuaJe9rkHruK4xWDSmpCR0opOhLdNK7CNYmaic O4DNajxCFRaNdam4a5jLZqavcB05FWEBkfThGW1QVt+ueiP86mWgm5WGJbSuCXSgj0sRYkIsb2HJSV4P 7+eEZ4SK9ZmepxZlZ85uvfJ4yWccsuFTZ/u5EYOWLj NrCJnD19fC6wJ+Zk2+8VBhFaaxQ7GDbNSEXlpWo3E6p2ID6gTLcAz7ueFZ9W2PdvfumgPdxi9on4Zp/T wE3FhWCQQkpfUolnvO91fu0D7fPxb63AztgKYiCBcAAM2Wyr7zlICvZ15l36VF/1Q8gf6c7XqTtAaWmn rJ/IlQ041+MEe1eUmeludFcAM9BjG64oyc9sIwk/8L IGRyqos93wEmkjNJDkQ0mYAHNsh1Z/Senior Technical Support Analyst/i1Np2DDaXiJppMqqnsHyMklvp1Q0rc7VQGmIht07kTpy1h8 [file] [facility]/FyIQZ0U/lr5vbpVQi3sEEPQSIpOEOWaaw7AF [file] ICAgICAgICAgICAgICAgICAgICAgICAgICAgICAgICAgICAgICAgICAgICAgICAgICAgICAgICAgICAg QLYqQWVwGHRwHMXmJPEvKRCuJHOqMMSkWPOfLB6OEJGjFDJmEJFwUNDjECSfGPVhAVYqTTPnJXOeFGAq ICAgICAgICAgICAgICAgICAgICAgICAgICAgICAgIC NpSLHsCZVpWVJlNTVeOHRhBLEuMPZuORHpFLUuKPBlMADvGLNyGG3RIVQcXXPkKCJfVWQjAHZwFRHkPY AgICAgICAgICAgICAgICAgICAgICAgICAgICAgICAgICAgICAgICAgICAgICAgICAgICAgICAgICAgIC AsMJQpWMLsVXBaDDCuHYUrYSYrLJ3MGPXjXSIhHHOj ICAgICAgICAgICAgICAgICAgICAgICAgICAgICAgICAgICAgICAgICAgICAgICAgICAgICAgICAgICAg JHClTKTdEHOrQGIwZRWaQKQcMVYlQTPdZOSeIXHzCQ8GZHTuFDGkDMUeSTHcXNMxHQNhTYIdQZOsZKBc ICAgICAgICAgICAgICAgICAgICAgICAgICAgICAgIC SbPTDaJWRqZXScAAJcVPVfXJQxDKHrSWVoCEGwYAOdHIZsEKKcLMNuCG9SZMSgPBCvLIZyETHpMYGgNP AgICAgICAgICAgICAgICAgICAgICAgICAgICAgICAgICAgICAgICAgICAgICAgICAgICAgICAgICAgIC ZmYIPyYXLnDEOmKHOiUCCyDKGqATLfVU4WWEXfSXXy ICAgICAgICAgICAgICAgICAgICAgICAgICAgICAgICAgICAgICAgICAgICAgICAgICAgICAgICAgICAg QUClRFZlOKXpEHInVPEiHIVfKNAwCZUiWDPsZQHhTMFeQQ1ZLHPmTBCiTHNaFXNyJOInJFBkMTZdIMGn ICAgICAgICAgICAgICAgICAgICAgICAgICAgICAgIC MuNJUyUYGzAVQoFZOmLURaWTCuQZHaJZXnDJMcMNCwJROkTVJtIHCrJIKuKS5ORQJyHIIiPHWkVQJwYW AgICAgICAgICAgICAgICAgICAgICAgICAgICAgICAgICAgICAgICAgICAgICAgICAgICAgICAgICAgIC ChVUFnKNPvDVAgHYEcVLTgKFUqGQDxVBMtYC1XMFZq ICAgICAgICAgICAgICAgICAgICAgICAgICAgICAgICAgICAgICAgICAgICAgICAgICAgICAgICAgICAg BZPkVTTbXNLqZJDvWIJtKUZlYZVbUZEkOEEfGPXbSGAuCTVcXE8TIO96gCAdz1G3ZSVhFA4avju/Pg0K PQvgveJghFRyGH0TMoBnTO4urw1AYvYnMQ0mux8XED pJTiUrU2E9pPKeNGClAWZDNdNaM12aEUbdQb43WAszIPYcRdYeUZe7Pq1WCrGiD5vaNFNhRlN0VUQqLb G5IDEvGjO0MOXcJhGvVFiwYG5Sb2SyqZSfOXf+Hg0YPA7mr1LoXVvvQBPyXN7atk6PELoEFbOnE5Qwgn Z2PJH9FRVmRb9UVHMhXXKjgFEiLOQzKRAEDdHqT6Cy lA41RVOTAi1+XGqzwmTxDnmHLkB3QRFbb9EsRHg4PG0AKGZvFNw5rXHwTGYTRQM0MFKalHjmcPQyYc5k aKKcFPNwvffbKANkVKVwUPKqRQ0aFSTuFIW9BvRjCVBZJB5UUWZsTQUdxTJfOKIdJNQADR0MALzdFTM2 PrfmhbBnyDBkNFbbIM1QHRMzgxKtQeVjVCTQMNy+Pg 9PLH8lm4GfINdeQcEbNS2onz2DRXuFRfJyO8N8rTAwT8N7IXjgIg0PBHAvNIYwOdJkMKARKBvdUZ4FWT 9ekoY8OX6CnGXxJSMnGTFpzLErDZt5F62kaLLxMIpgJG3PIYG+Cheli+Vb3PAYReFGVeTYTbPvLiHFXCNy JlH8TuP8XYd5ErE6FsCA68lDnmrvBxOFskDY9PBG7f CYGuUOYDOP2RbQCdvL7jpvCgLLOgLLUNQpJmP01puPDtRAGmAHHbVUZmGl2MYPIzR1DvizKkrPqkhpAo QLPkRNKSXE8HGZzjcuSugIAkuHbdPN79pTkeKT9NKx7GRkLrPN6jnm2YoBIdVv2VGJFhPl8DHKVvYEPa HMKdSFF9FZCwWeFjNYjmQSTxOXNxJHX2PGOwHTSeOW 5MQwVgRZLoNVX5PkVrQPHpONOrva9COEKgNFFiAPU1PYBsISFiHNXpZRbtYJFzQWRbBGO4HMAnIDEmZY 9SIjDrWZPlQCG9EcsrRUQvCMEyta6HHSHeGNLaXgFfWYKgYTSmLTCpSPedHHWhQYR7Zil0XRTaETSeDR 6YHwBmPSJmXAL7ROAlQFAkNYNnzr6NVDSfEIRkNobw BaZoJDKtKUGkZGomPHOmGXW9IFZzAQCzQHIoYV9EEaJzBNKbWImiCSGrRWWjRHOowl2PGRSwXNHrTTS8 VfRxNAOdMJRvRVhvBKZlSIX0MQzeABRgDAAyOO7PKtEjJWVdMWZ7KtIbTVHtJLFgsf4BXYFaTAOwNERa YzBnCICeTMOtGJjkEQMgIBZfPNYfJAVpVXNrAH6KJx ImZKKgCBZ2QmbkOPIwQPQtlr6DNHNmGDJkLTw1GeWaUKAwHEEgDYsiPYSaQHAyGUV9QLIuWJWlMS1TNm KmOFFdKVNoThQgRQHlKGVuwh7PXNRyYCPzFuHsDEEwFJKhZJJaKJxnPZRjYCNiBVInVJGvRWBmFN8QLs XgPTPsIFT6VKMzRJLeCMNinu6TVGLrITTfKLQyFEZg OPAfXVVnANpjRQRcJEC8UScvDRUxNZMuKM3JMpBtGIIjXCO7QCEuVAXsFPDaiz2NpUPscJvppn5WRYyY Ht0EuIxqHVR5SYyxCa0oxJHkTiEoIKYSNu9GduRcEYDfGTMHTPpqIJUjVCY1IYHhYSH0HEhlLMD0VQHj TvOuELJ5Wnc5Pcq9ZafkZoD0ECubVJNsByAvNKC5Vr niIsLfKRUfGHFiXTXjTPw3DEV+DD7cKEy+Mo2Rv4MinkP3wrFnNYzhYJf5MV5HMAOHD4JZBd== ID Date Data Source [id number] 03/13/2020 08:20:00 AM EST [facility] Name Value Range Interpretation Code Description Data Marion rce(s) Supporting Document(s) PTT, No Coag Tx/Coag Tx Unk 100.0 Seconds 25.1-36.5 Above upper franny c limits [facility] Discrepant results may occur due to anti coagulant effects such asheparin, direct thrombin inhibitors; argatroban (Acova), bivalirudin(Angiomax) or dabigatran (Pradaxa) or direct factor Xa inhibitors;rivaroxaban (Xarelto), apixaban (Eliquis) and edoxaban (Savaysa). Called To (First Last):CECILIA Resedniz/Accreditation of Person Called:RNLocation Called: 2CCritical Tests and Results Called:PTT 100.0Additional Tests that were Called:NARhazel Back (Y/N):YDate:20Time:818By:MEHRDAD Polanco above 1 analytes were performed by [facility] [id number] [place] [address],[id number],[place] [address] ID Date Data Source [id number] 03/13/2020 08:03:00 AM EST [facility] Name Value Range Interpretation Code Description Data Marion rce(s) Supporting Document(s) PT, No Coag Tx/Coag Tx Unk 12.3 Seconds 10.2-12.9 Sofia l (applies to non-numeric results) [facility] PT referenence range reflects values for patients not on anticoagulanttherapy.Discrepant results may occur due to anticoagulant effects such ascoumadin, direct thrombin inhibitors; argatroban (Acova), b ivalirudin(Angiomax) or dabigatran (Pradaxa) or direct factor Xa inhibitors;rivaroxaban (Xarelto), apixaban (Eliquis) and edoxaban (Savaysa). INR (No Coag Tx/Coag Tx Unk) 1.1 0.9-1.1 Nor mal (applies to non-numeric results) [facility] Suggested therapeutic INR ranges for ora l anticoagulant therapy: Indication:INRPrevention and treatment of DVT and PE2.0 - 3.0Prevention of systemic embolism with atrial fib., acute OR and 2.0 -3.0 tissue prosthetic heart valves.Prevention of systemic embolism in patients with mechanical heart2.5 -3.5 valves.NOTE: The INR is only valid for patients on stable oral anticoagulanttherapy. The above 2 analytes were performed by [facility] [id number] [place] [address], ,[place] [address] ID Date Data Source [id number] 03/13/2020 08:03:00 AM EST [facility] Name Value Range Interpretation Code Description Data Marion rce(s) Supporting Document(s) Anti-Xa, UFH 0.70 IU/ml 0.30-0.70 Normal (applies to non-numeric res ults) [facility] Discrepant results may occur due to anti coagulant effects such as directthrombin inhibitors; argatroban (Acova), bivalirudin (Angiomax) ordabigatran (Pradaxa) or direct factor Xa inhibitors; rivaroxaban(Xarelto), apixaban (Eliquis) and edoxaban (Savaysa).The above 1 analytes were performed by [facility] [id number] [place] [address], ,[place] [address] ID Date Data Source [id number] 03/13/2020 07:55:00 AM [facility] Name Value Range Interpretation Code Description Data Marion rce(s) Supporting Document(s) Troponin I <0.015 ng/ml 0.000-0.100 Normal (applies to non-numeric re sults) [facility] Reference Values:Negative:<0.07 ng/mLInc reasing Risk of ACS:0.08-0.10 ng/mLPositive:>0.10 ng/mLConditions other than OR that cause increased troponin I values includebut are not limited to chest trauma, cardiac and non-cardiac surgery,congestive heart failure, drug cardio-toxicity, inflammatory diseasessuch as myocarditis, pulmonary embolism, inflitrative diseases, andacute neurological disease.An AMI diagnositc cutoff within a range of 0.6-1.5 ng/mL is consistentwith the WHO criteria for AMI.Concentrations of Biotin above 100 ng/mL can potentially result ininterference. Results obtained using [employer].The above 1 analytes were performed by [facility] [id number] [place] [address], ,[place] [id number] ID Date Data Source [id number] 03/13/2020 07:55:00 AM [facility] Name Value Range Interpretation Code Description Data Marion rce(s) Supporting Document(s) Triglycerides 113 mg/dl 30-200 Normal (applies to non-numeric re sults) [facility] N-Acetylcysteine (NAC) and Metamizole mora ve the potential to falselydepress Triglyceride results. Baseline values before medication adminstration are recommended. Cholesterol 216 mg/dl 0-200 Above high normal [facility] HDL Cholesterol 42 mg/dl 30-70 Normal (applies to non-numeric results) [facility] N-Acetylcysteine (NAC) and Metamizole mora ve the potential to falselydepress HDL Cholesterol results. Baseline values before medication adminstration are recommended. LDL Cholesterol 151.4 mg/dl 0.0-100.0 Above high normal [facility] Cholesterol/ HDL Ratio 5.1 0.0-5.0 Above high normal [facility] LDL/HDL Ratio 3.6 [facility] The above 6 analytes were performed by [facility] [id number] [place] [address], ,[place] [address] ID Date Data Source [id number] 03/13/2020 07:53:00 AM [facility] Name Value Range Interpretation Code Description Data Marion rce(s) Supporting Document(s) AST 15 IU/L 15-37 Normal (applies to non-numeric resul ts) [facility] Sulfasalazine and sulfapyridine have the potential to falsely depressAspartate Aminotransferase results. Baseline values before medication administration are recommended. ALT 25 IU/L 16-61 Normal (applies to non-numeric resul ts) [facility] Sulfasalazine and sulfapyridine have the potential to falsely depressAlanine Aminotransferase results. Baseline values before medication administration are recommended. Alkaline Phosphatase 75 mIU/ml 50-136 Normal (applies to non-num milan results) [facility] Total Bilirubin 0.40 mg/dl 0.20-1.00 Normal (applies to non-numeric results) [facility] Blood Urea Nitrogen 7 mg/dl 7-18 Normal (applies to non-nume tg results) [facility] Creatinine 0.75 mg/dl 0.67-1.17 Normal (applies to non-numeric resul ts) [facility] N-Acetylcysteine (NAC) and Metamizole mora ve the potential to falselydepress Creatinine results. Baseline values before medication adminstration are recommended. Patients undergoing treatment with phenindione will have falselydepressed results. Patients on phenindione therapy should be tested with an alternativeCREA method.Toxic levels of acetaminophen may lead to falsely depressed results forpatient samples. Glomerular Filtration Rate >90.00 mL/min/1.73m2 [facility] GFR Reference Ranges:Normal Function or Mild Renal Disease,if clinically at risk:>or= 60Moderately decreased:30 - 59Severely decreased:15 - 29Renal Failure:<15 Please note that the MDRD equation requires an additional adjustment forAfrican-Americans (multiply the GFR result by 1.210).Glomarular Filtration Rate (GFR) is estimated based on the MDRDequation, which assumes a steady state for creatinine (Anay Int Med 139/2 137-149, 2003), as recommended by the Nationaldney Disease Education Program in conjunction with the National Institutes of Health and the National KidneyFoundation. The [place] method used in calculating this result is traceable to [facility] standards. Glucose 94 mg/dl 70-110 Normal (applies to non-numeric resul ts) [facility] Sulfasalazine has the potential to false ly depress Glucose results. Sulfapyridine has the potential to falsely elevate Glucose results. Baseline values before medication administration are recommended. Calcium 8.6 mg/dl 8.5-10.1 Normal (applies to non-numeric resul ts) [facility] Total Protein 7.1 g/dl 6.4-8.2 Normal (applies to non-numeric re sults) [facility] Albumin 3.7 g/dl 3.4-5.0 Normal (applies to non-numeric resul ts) [facility] Sodium 142 mEq/L 136-145 Normal (applies to non-numeric resul ts) [facility] Potassium 3.5 mEq/L 3.5-5.1 Normal (applies to non-numeric resul ts) [facility] Chloride 106.0 mEq/L 98.0-107.0 Normal (applies to non-numeric resu lts) [facility] Carbon Dioxide 28.9 mMol/L 21.0-32.0 Normal (applies to non-numeric results) [facility] Anion Gap 10.6 7.0-15.0 Normal (applies to non-numeric resul ts) [facility] The above 16 analytes were performed by [facility] [address],[facility]#: [id number],[place] [address] ID Date Data Source [id number] 03/13/2020 07:43:00 AM EST [facility] Name Value Range Interpretation Code Description Data Marion rce(s) Supporting Document(s) WBC 8.74 x1000/ul 4.80-10.00 Normal (applies to non-numeric re sults) [facility] RBC 4.68 x1Mil/ul 4.70-6.10 Below low normal [facility] Hemoglobin 14.5 g/dl 14.0-18.0 Normal (applies to non-numeric resul ts) [facility] Hematocrit 44.2 % 42.0-52.0 Normal (applies to non-numeric resul ts) [facility] MCV 94.4 fL 80.0-94.0 Above high normal [facility] MCH 31.0 pg 27.0-31.0 Normal (applies to non-numeric resul ts) [facility] MCHC 32.8 g/dl 32.2-37.0 Normal (applies to non-numeric resul ts) [facility] RDW 12.7 % 11.5-14.5 Normal (applies to non-numeric resul ts) [facility] Platelet Count 260 x1000/ul 130-400 Normal (applies to non-numeric results) [facility] MPV 9.2 fL 9.4-12.4 Below low normal [facility] Neutrophils 60.3 % 40.0-74.0 Normal (applies to non-numeric resu lts) [facility] Lymphocytes 30.1 % 19.0-48.0 Normal (applies to non-numeric resu lts) [facility] Monocytes 6.5 % 3.4-9.0 Normal (applies to non-numeric resul ts) [facility] Eosinophils 2.4 % 0.0-7.0 Normal (applies to non-numeric resu lts) [facility] Basophils 0.5 % 0.0-2.0 Normal (applies to non-numeric resul ts) [facility] Immature Granulocytes 0.2 % 0.0-0.5 Normal (applies to non-nu meric results) [facility] Nucleated RBCs 0.00 % 0.00-0.20 Normal (applies to non-numeric r esults) [facility] Abs. Neutrophils 5.27 x1000/ul 1.92-8.31 Normal (applies to non-numeric results) [facility] Abs. Lymphocyte 2.63 x1000/ul 1.20-3.70 Normal (applies to non-n umeric results) [facility] Abs. Monocytes 0.57 x1000/ul 0.14-0.97 Normal (applies to non-nu meric results) [facility] Abs. Eosinophils 0.21 x1000/ul 0.00-0.76 Normal (applie s to non-numeric results) [facility] Abs. Basophils 0.04 x1000/ul 0.00-0.22 Normal (applies to non-n umeric results) [facility] Abs. Immature Gran. 0.02 x1000/ul 0.00-0.02 Normal (appl ies to non-numeric results) [facility] Abs. Nucleated RBCs 0.00 x1000/ul 0.00-0.02 Normal (appl ies to non-numeric results) [facility] The above 24 analytes were performed by [facility] [id number] [place] [address], ,[place] [address] ID Date Data Source [id number] 03/13/2020 07:43:00 AM EST [facility] Name Value Range Interpretation Code Description Data Marion rce(s) Supporting Document(s) Hemoglobin 14.5 g/dl 14.0-18.0 Normal (applies to non-numeric resul ts) [facility] Hematocrit 44.2 % 42.0-52.0 Normal (applies to non-numeric resul ts) [facility] The above 2 analytes were performed by [facility] [id number] [place] [address], ,[place] [address] ID Date Data Source [id number] 03/13/2020 03:28:00 AM EST [facility] Reason for ordering culture: Abnormal fi ndings UAMethod of Collection:: Voided Name Value Range Interpretation Code Description Data Marion rce(s) Supporting Document(s) Color of Urine [facility] Appearance of Urine CLEAR [facility] pH of Urine by Test strip 6.5 5-8 [facility] Specific gravity of Urine by Refractometry 1.012 1.005-1.030 [facility] Leukocyte esterase [Presence] in Urine by Test strip NEGAT SIMON [facility] Nitrite [Presence] in Urine by Test strip NEGATIVE [facility] Protein [Presence] in Urine by Test strip NEGATIVE [facility] Glucose [Mass/volume] in Urine by Automated test strip NEGATIVE NEG ATIVE [facility] Ketones [Presence] in Urine by Test strip NEGATI VE Abnormal (applies to non- numeric results) [facility] Urobilinogen [Presence] in Urine 0.2-1 EU/dl [facility] Bilirubin.total [Presence] in Urine by Automated test strip NEGATIVE [facility] Erythrocytes [#/volume] in Urine by Test strip NEGATIVE NEGATIVE [facility] URINE MICROSCOPIC? (CIF) NO [facility] ID Date Data Source [id number] 03/13/2020 03:05:00 AM EST [facility] THIS RP PANEL TESTS FOR SARS-CoV -2,(COVID-19)FilmArray Respiratory Panel is a Multiplexed NAAT-PCR testNORMAL VALUE FOR ALL 20 PATHOGENS IS "NOT DETECTED".The FilmArray RP panel detects Influenza A H1,H3 nap4622 H1 viruses,Influenza B virus, Respiratory syncytialvirus, Human [...] rce(s) Supporting Document(s) ID Date Data Source [id number] 03/13/2020 01:55:00 AM [facility] [address] [place] [id number] [phone] NAME SEX PT STATUS ACCOUNT NUMBER [facility] ER [id number] ORDERING PHYSICIAN LOCATION MEDICAL RECORD NO. Brady Pedro MD ER [id number] ATTENDING PHYSICIAN DATE OF DATE OF EXAM/TIME Lincoln Fajardo DO 1980 03/13/20 / 0106 TYPE / EXAM Xray Chest One View [...] Trans Dt/Tm: Trans by: DT Prt Dt/Tm: [id number]: Total DLP = 0.00 mGy-cm Fluoroscopy Time (in secs): Name Value Range Interpretation Code Description Data Marion rce(s) Supporting Document(s) ID Date Data Source [id number] 03/13/2020 01:51:00 AM [facility] ED Physician Documentation NAME: KATHI GUNDERSON : 1980 AGE: 39 MR#: [id number] SERVICE DATE: 03/13/[address]: Brady Pedro [...] Condition: Critical Discharge Detail Disposition: Transfer - [facility] Med Rec New Prescriptions: No Action diltiazem [...] Addendum Note: 0345 c - Telecom from [facility] : Dr Booth (hosp) is accepting MD via auto-accept via Cardiology Can Transfer now Addended by: <Electronically signed by Brady Pedro MD> 03/13/20404 Addendum Cosigners: D: KARLOS 03/13/20404 T: KARLOS 03/13/20404 CC: DO SIMONE Powers (Adult, General) General Chief Complaint: Cardiovascular Stated Complaint: DIZZINESS Resident LTC, travel outisde home, exposure to hot tubs:: No Time Seen by Provider: 03/13/20 00:59 Source: patient Exam Limitations: no limitations History of Present Illness Narrative: 39-year-old white male with history of cigarette smoking hypertension hypercholesterolemia and maternal aunt with an OR in her 30s now with episode of [...] Pressure 146/76 O2 Sat by Pulse Oximetry MDM (comprehensive) Lab Data Labs: 03/13/20 01:20 03/13/20 01:20 Laboratory Results Last 24 hours 03/13/20 01:20: WBC 11.8 H, RBC 4.79, Hgb 15.0, Hct 44.7, MCV 93.3, MCH 31.3 H, MCHC 33.6, RDW 13, Plt Count 279, MPV 8.8 L, Immature Gran % (Auto) 0.3, Neut % (Auto) 77.3 H, Lymph % (Auto) 17.3, [place] % (Auto) 3.6 L, Eos % (Auto) [...] 03/13/20 01:20: PT 10.6, INR 1.0, PTT ([place]) 26.5, D-Dimer Less than 0.19 03/13/20 01:20: [...] ssx vss will add heparin orders iv [address] Huffman - Transfer acute 39 yo CP pt in case of exacerbation 023 [facility] Dr Herzog = Will [...] Condition: Critical Discharge Detail Disposition: Transfer - [facility] Med Rec New Pr escriptions: No Action [...] 03/13/20150 T: KARLOS 03/13/20150 CC: Lincoln Fajardo, Name Value Range Interpretation Code Description Data Marion rce(s) Supporting Document(s) ID Date Data Source [id number] 03/13/2020 01:57:00 AM EST [facility] @03/13/20 0129: MANUAL DIFF added. RFLXG = DIFF. Is test to R/O PE, DVT or VTE? Y @03/13/20 0129: MANUAL DIFF added. RFLXG = DIFF. Is test to R/O PE, DVT or VTE? Y Name Value Range Interpretation Code Description Data Marion rce(s) Supporting Document(s) Leukocytes [#/volume] in Blood by Automated count 11.8 10*3/uL 4.45-10.71 Above high normal [facility] Erythrocytes [#/volume] in Blood by Automated count 4.79 10*6/uL 4.3- 6.1 N [facility] Hemoglobin [Moles/volume] in Blood 15.0 g/dL 13-18 N [facility] Hematocrit [Volume Fraction] of Blood by Automated count 44.7 % 4 2-52 N [facility] Erythrocyte mean corpuscular volume [Ent itic volume] in Cord blood by Automated count 93.3 fL 80-96 N [facility] Erythrocyte mean corpuscular hemoglobin [Entitic mass] by Automated count 31.3 pg 27-[address] [facility] spital Erythrocyte mean corpuscular hemoglobin concentration [Mass/volume] in Cord blood 33.6 g/dL 33-37 N [facility] Erythrocyte distribution width [Entitic volume] by Automated count 13 % 11-15 N [facility] Platelets [#/volume] in Blood by Automated count 279 10*3/uL 130-472 N [facility] Platelet mean volume [Entitic volume] in Blood 8.8 fL 9.1-13. 1 Below low normal [facility] Neutrophils/100 leukocytes in Blood by Automated count 77.3 % 41-77 Above high normal [facility] Neutrophils [#/volume] in Blood by Automated count 9.2 U 1.7-7.6 Above high normal [facility] Lymphocytes/100 leukocytes in Blood by Automated count 17.3 % 14- 46 N [facility] Lymphocytes [#/volume] in Blood by Automated count 2.1 U 0.6-4.6 N [facility] Monocytes/100 leukocytes in Blood by Automated count 3.6 % 4-12 Below low normal [facility] Monocytes [#/volume] in Blood by Automated count 0.4 U 0.2-1.2 N [facility] Eosinophils/100 leukocytes in Blood by Automated count 1.2 % 0-7 N [facility] Eosinophils [#/volume] in Blood by Automated count 0.1 U 0.0-0.5 N [facility] Basophils/100 leukocytes in Blood by Automated count 0.3 % 0.4-1.3 Below low normal [facility] Basophils [#/volume] in Blood by Automated count 0.0 U 0.0-0.2 N [facility] NUCLEATED RED BLOOD CELL 0 % [facility] NUCLEATED RED BLOOD CELL# 0 U [facility] Immature granulocytes [Presence] in Blood by Automated count 0-2 N [facility] Immature granulocytes [#/volume] in Blood by Automated count 0.0 U 0-0.1 N [facility] Manual Differential panel - Blood Manual Diff Added [facility] ID Date Data Source [id number] 03/13/2020 02:14:00 AM EST [facility] @03/13/20 0129: MANUAL DIFF added. RFLXG = DIFF. Is test to R/O PE, DVT or VTE? Y @03/13/20 0129: MANUAL DIFF added. RFLXG = DIFF. Is test to R/O PE, DVT or VTE? Y Name Value Range Interpretation Code Description Data Marion rce(s) Supporting Document(s) Prothrombin Time (Patient) 10.6 s 9.6-12.3 N [facility] INR 1.0 0.9-1.1 [facility] THE INR IS OPERATIONALLY DEFINED FOR ERNESTO SH PLASMA FROMPATIENTS STABILIZED ON ORAL ANTICOAGULANTS.ROUTINE ANTICOAGULANT THERAPY 2.0-3.0RECURRENT SYSTEMIC EMBOLISM/HEART VALVE REPLACEMENT 2.5-3.5 aPTT.lupus sensitive ([place] screen) 26.5 s 22.7-31.6 [facility] ID Date Data Source [id number] 03/13/2020 02:15:00 AM EST [facility] @03/13/20 0129: MANUAL DIFF added. RFLXG = DIFF. Is test to R/O PE, DVT or VTE? Y @03/13/20 0129: MANUAL DIFF added. RFLXG = DIFF. Is test to R/O PE, DVT or VTE? Y Name Value Range Interpretation Code Description Data Marion rce(s) Supporting Document(s) Urea nitrogen [Mass/volume] in Serum or Plasma 7 mg/dL 9-23 Below low normal [facility] Sodium [Moles/volume] in Serum or Plasma 140 mmol/L 132-146 N [facility] Potassium [Moles/volume] in Serum or Plasma 3.5 mmol/L 3.5-5.5 [facility] Chloride [Moles/volume] in Serum or Plasma 105 mmol/L 99-109 [facility] Carbon dioxide, total [Moles/volume] in Serum or Plasma 29 mmol/L 20 -31 [facility] Anion gap in Serum or Plasma 10 mmol/L 8-16 [facility] Glucose [Mass/volume] in Serum or Plasma 130 mg/dL 74-106 Above high normal [facility] Creatinine 1.0 mg/dL 0.5-1.1 [facility] Glomerular filtration rate/1.73 sq M.pre dicted [Volume Rate/Area] in Serum or Plasma Greater Than 60 ABOVE 60 [facility] Alanine aminotransferase [Enzymatic acti vity/volume] in Serum or Plasma by With P-5'-P 29 U/L 10-49 [facility] ital Aspartate aminotransferase [Enzymatic ac tivity/volume] in Serum or Plasma by With P-5'-P 19 U/L 0-33 [facility] pital Alkaline phosphatase [Enzymatic activity/volume] in Serum or Plasma 81 U/L 45-129 [facility] Calcium [Mass/volume] in Serum or Plasma 8.7 mg/dL 8.5-10.1 [facility] Bilirubin.total [Mass/volume] in Serum or Plasma 0.3 mg/dL 0.3-1.2 [facility] Albumin [Mass/volume] in Serum or Plasma by Bromocresol purple (BCP) dye binding method 4.1 g/dL 3.2-4.8 N [facility] ital Protein [Mass/volume] in Serum or Plasma 7.8 g/dL 5.7-8.2 N [facility] ID Date Data Source [id number] 03/13/2020 01:57:00 AM EST [facility] @03/13/20 0129: MANUAL DIFF added. RFLXG = DIFF. Is test to R/O PE, DVT or VTE? Y @03/13/20 0129: MANUAL DIFF added. RFLXG = DIFF. Is test to R/O PE, DVT or VTE? Y Name Value Range Interpretation Code Description Data Marion rce(s) Supporting Document(s) Cells counted [#] 100 [facility] Neutrophils [#/volume] in Blood by Manual count 69 % 41-77 N [facility] Lymphocytes [#/volume] in Blood by Manual count 21 % 14-46 N [facility] Monocytes [#/volume] in Blood by Manual count 4 % 4-12 N [facility] Eosinophils [#/volume] in Blood by Manual count 1 % 0-7 N [facility] Mononuclear cells atypical [#/volume] in Blood by Manual count 5 0-5 N [facility] Platelets [#/volume] in Blood by Estimate APPEARS NORMAL NORMAL [facility] Morphology [Interpretation] in Blood Narrative APPEARS NORMAL NORMAL [facility] ID Date Data Source [id number] 03/13/2020 02:14:00 AM [facility] @03/13/20 0129: MANUAL DIFF added. RFLXG = DIFF. Is test to R/O PE, DVT or VTE? Y @03/13/20 0129: MANUAL DIFF added. RFLXG = DIFF. Is test to R/O PE, DVT or VTE? Y Name Value Range Interpretation Code Description Data Marion rce(s) Supporting Document(s) Fibrin D-dimer [Units/volume] in Platelet poor plasma Less Than 0.1 9 0.0-0.50 N [facility] @Report as less than 0.19@ Has QC been r un for this test today?PLEASE NOTE: THIS TEST WAS PERFORMED USING A PARTICLE-ENHANCED, IMMUNOTURBIDIMETRIC ASSAY AND HAS A SINGLE,CLINICALLY DERIVED CUTOFF OF 0.50 MG/L. ID Date Data Source [id number] 03/13/2020 02:15:00 AM [facility] @03/13/20 0129: MANUAL DIFF added. RFLXG = DIFF. Is test to R/O PE, DVT or VTE? Y @03/13/20 0129: MANUAL DIFF added. RFLXG = DIFF. Is test to R/O PE, DVT or VTE? Y Name Value Range Interpretation Code Description Data Marion rce(s) Supporting Document(s) Lipase [Enzymatic activity/volume] in Serum or Plasma 69 U/L 73-393 Below low normal [facility] ID Date Data Source [id number] 03/13/2020 02:15:00 AM [facility] @03/13/20 0129: MANUAL DIFF added. RFLXG = DIFF. Is test to R/O PE, DVT or VTE? Y @03/13/20 0129: MANUAL DIFF added. RFLXG = DIFF. Is test to R/O PE, DVT or VTE? Y Name Value Range Interpretation Code Description Data Marion rce(s) Supporting Document(s) Creatine kinase [Enzymatic activity/volume] in Serum or Plasma 75 U /L 33-211 [facility] Creatine kinase.MB [Enzymatic activity/volume] in Serum or P lasma Less Than 1.0 0.0-5.0 N [facility] @Report as less than lower limit ID Date Data Source [id number] 03/13/2020 02:15:00 AM [facility] @03/13/20 0129: MANUAL DIFF added. RFLXG = DIFF. Is test to R/O PE, DVT or VTE? Y @03/13/20 012: MANUAL DIFF added. RFLXG = DIFF. Is test to R/O PE, DVT or VTE? Y Name Value Range Interpretation Code Description Data Marion rce(s) Supporting Document(s) Troponin I.cardiac [Mass/volume] in Serum or Plasma Less Than 0.015 0.00-0.09 [facility] Less than 0.09 NG/ML Negative0.10 - 0.77 NG/ML High Risk0.78 NG/ML or Greater PositiveThe WHO defined the cutoff (definition for diagnosis of OR)for this method as 0.78 ng/ml. ID Date Data Source [id number] 03/13/2020 12:00:00 AM EST [facility] Name Value Range Interpretation Code Description Data Marion rce(s) Supporting Document(s) SARS-CoV2 Rapid PCR [facility] This lab was ordered by [facility] and reported by [facility]. ID Date Data Source [id number] 03/08/2020 06:01:00 AM [facility] Imaging Services Department Imaging Report [address] [place], [place] [address] %(RAD)RES..mtdd.print.filter("line") Name: KATHI GUNDERSON : 1980 Age/Sex: 39M Ordering Provider: ANGELES Barbour Med Rec #: [id number] Reg Status: [facility] ER Room #: Date of Service: 03/07/20 Report Number: [id number] cc:Lincoln Fajardo DO Send Report To: [id number] CT/CT Abdomen & Pelvis w Con Reason [...] Raúl Jacobs MD> 03/08/20 1104 Dictation Date/Time: 03/07/201742 Transcribed Date/Time: 03/08/20 0601 Director Medical Affairs: CHRISTIANO Name Value Range Interpretation Code Description Data Marion rce(s) Supporting Document(s) ID Date Data Source [id number] 03/23/2020 03:32:00 AM EST [facility] NO GROWTH AFTER 120 HOURS (5 Days) Pr ocedure Performed By: [facility] [address] [place] [address] Director: Stacey Rodriguez Name Value Range Interpretation Code Description Data Marion rce(s) Supporting Document(s) ID Date Data Source [id number] 03/13/2020 12:38:00 PM [facility] AFTER [facility] HOU[facility] (5 Days) Proc edure Performed By: [facility] [address] [place] [address] Director: Stacey Rodriguez Name Value Range Interpretation Code Description Data Marion rce(s) Supporting Document(s) ID Date Data Source [id number] 03/07/2020 06:05:00 PM [facility] Name Value Range Interpretation Code Description Data Marion rce(s) Supporting Document(s) Lactic Acid 0.4-2.0 Normal (applies to non-numeric resu lts) [facility] ID Date Data Source [id number] 03/07/2020 06:05:00 PM [facility] Name Value Range Interpretation Code Description Data Marion rce(s) Supporting Document(s) Amylase 39 U/L 25-115 Normal (applies to non-numeric resul ts) [facility] ID Date Data Source [id number] 03/07/2020 06:05:00 PM [facility] Name Value Range Interpretation Code Description Data Marion rce(s) Supporting Document(s) Sodium 140 mmol/L 136-145 Normal (applies to non-numeric resul ts) [facility] Potassium 3.5-5.1 Normal (applies to non-numeric resul ts) [facility] Chloride 101 mmol/L 98-107 Normal (applies to non-numeric resul ts) [facility] Carbon Dioxide CO2 21-32 Normal (applies to non-numer ic results) [facility] Anion Gap 5.0-16.0 Normal (applies to non-numeric resul ts) [facility] BUN 9 mg/dL 7-18 Normal (applies to non-numeric results) [facility] Creatinine,Serum 0.8-1.5 Normal (applies to non-numeric results) [facility] GFR >60 Normal (applies to non-numeric results) [facility] Glucose Level 67 mg/dL 60-99 Normal (applies to non-numeric re sults) [facility] Reference range is only applicable when patient is fasting Note the following drug interference: Sulfasalazine Sulfapyridine Can see falsely depressed Can see falsely elevated result with up to 17% results with up to 11% decrease in measurement increase in measurement Recommend patients be collected for this test prior to administration of either drug. Calcium 8.5-10.1 Normal (applies to non-numeric resul ts) [facility] Bilirubin,Total 0.1-1.9 Normal (applies to non-numeric results) [facility] SGOT(AST) 17 U/L 15-37 Normal (applies to non-numeric resul ts) [facility] Note the following drug interference: Sulfasalazine Sulfapyridine Can see falsely depressed Can see falsely elevated result with up to 10% results with up to 10% decrease in measurement increase in measurement Recommend patients be collected for this test prior to administration of either drug. SGPT(ALT) 34 U/L 12-78 Normal (applies to non-numeric resul ts) [facility] Note the following drug interference: Sulfasalazine Sulfapyridine Can see falsely depressed Can see falsely elevated result with up to 29% results with up to 10% decrease in measurement increase in measurement Recommend patients be collected for this test prior to administration of either drug. Alkaline Phosphatase 83 U/L 38-126 Normal (applies to non-num milan results) [facility] can increase Alkaline Phosp le vels up to 2 times the normal adult value. Normal values for children and adolescents are 2 to 3 times the normal adult value. Total Protein 6.0-8.2 Normal (applies to non-numeric re sults) [facility] Albumin Level 3.4-5.0 Normal (applies to non-numeric re sults) [facility] ID Date Data Source [id number] 03/07/2020 06:05:00 PM [facility] Name Value Range Interpretation Code Description Data Marion rce(s) Supporting Document(s) Lipase 107 U/L 73-393 Normal (applies to non-numeric resul ts) [facility] ID Date Data Source [id number] 03/07/2020 05:54:00 PM [facility] Collected By: Nurse Initials: ab Time Collected: 1716 Name Value Range Interpretation Code Description Data Marion rce(s) Supporting Document(s) Color,Urine Colorl-Dk Y Normal (applies to non-numeric res ults) [facility] Clarity,Urine Clear Normal (applies to non-numeric re sults) [facility] Specific [place],Urine 1.005-1.030 Normal (applies to non- numeric results) [facility] pH,Urine 5.0-8.0 Normal (applies to non-numeric resul ts) [facility] Protein,Urine Negative Normal (applies to non-numeric re sults) [facility] Glucose,Urine Negative Normal (applies to non-numeric re sults) [facility] Ketones,Urine Negative Normal (applies to non-numeric re sults) [facility] Blood,Urine Negative Normal (applies to non-numeric resu lts) [facility] Bilirubin,Urine Negative Normal (applies to non-numeric results) [facility] Urobilinogen,Urine 0.2-1.0 Normal (applies to non-numer ic results) [facility] Leukocyte Esterase,Urine Negative Normal (applies to non -numeric results) [facility] Nitrite,Urine Negative Normal (applies to non-numeric re sults) [facility] ID Date Data Source [id number] 03/07/2020 05:51:00 PM EST [facility] Name Value Range Interpretation Code Description Data Marion rce(s) Supporting Document(s) White Blood Count 3.5-10.5 Normal (applies to non-numeri c results) [facility] Red Blood Count 4.30-5.70 Normal (applies to non-numeric results) [facility] Hemoglobin 13.5-17.5 Normal (applies to non-numeric resul ts) [facility] Hematocrit 38.8-50.0 Normal (applies to non-numeric resul ts) [facility] Mean Corpuscular Volume 81.2-95.1 Normal (applies to non- numeric results) [facility] Mean Corpuscular Hgb 25.6-32.2 Normal (applies to non-num milan results) [facility] Mean Corpuscular Hgb Conc 32.0-36.0 Normal (applies to no n-numeric results) [facility] Red Cell Distribution Width 11.8-15.6 Normal (appli es to non-numeric results) [facility] Platelet Count 295 x10 3/uL 150-450 Normal (applies to non-numeric results) [facility] Mean Platelet Volume 9.4-12.4 Below low normal [facility] Neutrophils% (Auto) 31.0-71.0 Normal (applies to non-nume tg results) [facility] Lymphocytes% (Auto) 20.0-55.0 Normal (applies to non-nume tg results) [facility] Monocytes% (Auto) 4.0-12.0 Normal (applies to non-numeri c results) [facility] Eosinophils% (Auto) 1.0-8.0 Normal (applies to non-nume tg results) [facility] Basophils% (Auto) 0.0-2.0 Normal (applies to non-numeri c results) [facility] Immature Granulocytes% (Auto) 0.0-2.0 Normal (umu lies to non-numeric results) [facility] Neutrophils# (Auto) 1.50-6.20 Normal (applies to non-nume tg results) [facility] Lymphocytes# (Auto) 1.20-4.00 Normal (applies to non-nume tg results) [facility] Monocytes# (Auto) 0.00-0.90 Normal (applies to non-numeri c results) [facility] Eosinophils# (Auto) 0.00-0.50 Normal (applies to non-nume tg results) [facility] Basophils# (Auto) 0.00-0.20 Normal (applies to non-numeri c results) [facility] Immature Granulocytes# (Auto) 0.00-7.00 No rmal (applies to non-numeric results) [facility] ID Date Data Source [id number] 03/02/2020 09:49:00 AM EST [facility] Name Value Range Interpretation Code Description Data Marion rce(s) Supporting Document(s) Leukocytes [#/volume] in Blood by Automated count 9.4 10*3/uL 4.45-10 .71 N [facility] Erythrocytes [#/volume] in Blood by Automated count 4.67 10*6/uL 4.3- 6.1 N [facility] Hemoglobin [Moles/volume] in Blood 14.4 g/dL 13-18 N [facility] Hematocrit [Volume Fraction] of Blood by Automated count 44.6 % 4 2-52 N [facility] Erythrocyte mean corpuscular volume [Ent itic volume] in Cord blood by Automated count 95.5 fL 80-96 N [facility] ital Erythrocyte mean corpuscular hemoglobin [Entitic mass] by Automated count 30.8 pg 27-31 N [facility] l Erythrocyte mean corpuscular hemoglobin concentration [Mass/volume] in Cord blood 32.3 g/dL 33-37 Below low normal [facility] Erythrocyte distribution width [Entitic volume] by Automated count 13 % 11-15 N [facility] Platelets [#/volume] in Blood by Automated count 274 10*3/uL 130-472 N [facility] Platelet mean volume [Entitic volume] in Blood 8.9 fL 9.1-13. 1 Below low normal [facility] Neutrophils/100 leukocytes in Blood by Automated count 62.9 % 41- 77 N [facility] Neutrophils [#/volume] in Blood by Automated count 5.9 U 1.7-7.6 N [facility] Lymphocytes/100 leukocytes in Blood by Automated count 23.6 % 14- 46 N [facility] Lymphocytes [#/volume] in Blood by Automated count 2.2 U 0.6-4.6 N [facility] Monocytes/100 leukocytes in Blood by Automated count 8.3 % 4-12 N [facility] Monocytes [#/volume] in Blood by Automated count 0.8 U 0.2-1.2 N [facility] Eosinophils/100 leukocytes in Blood by Automated count 4.4 % 0-7 N [facility] Eosinophils [#/volume] in Blood by Automated count 0.4 U 0.0-0.5 N [facility] Basophils/100 leukocytes in Blood by Automated count 0.6 % 0.4-1 .3 N [facility] Basophils [#/volume] in Blood by Automated count 0.1 U 0.0-0.2 N [facility] NUCLEATED RED BLOOD CELL 0 % [facility] NUCLEATED RED BLOOD CELL# 0 U [facility] Immature granulocytes [Presence] in Blood by Automated count 0-2 N [facility] Immature granulocytes [#/volume] in Blood by Automated count 0.0 U 0-0.1 N [facility] Manual Differential panel - Blood NO [facility] ID Date Data Source [id number] 03/02/2020 10:17:00 AM EST [facility] Name Value Range Interpretation Code Description Data Marion rce(s) Supporting Document(s) Urea nitrogen [Mass/volume] in Serum or Plasma 7 mg/dL 9-23 Below low normal [facility] Sodium [Moles/volume] in Serum or Plasma 144 mmol/L 132-146 N [facility] Potassium [Moles/volume] in Serum or Plasma 4.4 mmol/L 3.5-5.5 [facility] Chloride [Moles/volume] in Serum or Plasma 108 mmol/L 99-109 [facility] Carbon dioxide, total [Moles/volume] in Serum or Plasma 32 mmol/ L 20-31 Above high normal [facility] Anion gap in Serum or Plasma 8 mmol/L 8-16 N [facility] Glucose [Mass/volume] in Serum or Plasma 97 mg/dL 74-106 N [facility] Creatinine 0.9 mg/dL 0.5-1.1 [facility] Glomerular filtration rate/1.73 sq M.pre dicted [Volume Rate/Area] in Serum or Plasma Greater Than 60 ABOVE 60 [facility] Alanine aminotransferase [Enzymatic acti vity/volume] in Serum or Plasma by With P-5'-P 46 U/L 10-49 [facility] ital Aspartate aminotransferase [Enzymatic ac tivity/volume] in Serum or Plasma by With P-5'-P 24 U/L 0-33 [facility] pital Alkaline phosphatase [Enzymatic activity/volume] in Serum or Plasma 79 U/L 45-129 [facility] Calcium [Mass/volume] in Serum or Plasma 9.2 mg/dL 8.5-10.1 [facility] Bilirubin.total [Mass/volume] in Serum or Plasma 0.2 mg/dL 0.3-1.2 Below low normal [facility] Albumin [Mass/volume] in Serum or Plasma by Bromocresol purple (BCP) dye binding method 3.7 g/dL 3.2-4.8 [facility] ital Protein [Mass/volume] in Serum or Plasma 7.1 g/dL 5.7-8.2 [facility] ID Date Data Source [id number] 03/02/2020 07:51:00 AM [facility] Name: KATHI GUNDERSON : 1980 Age: 39 MR#: [id number] Admit Date: 03/02/20 Provider: Juma Huffman MD [...] Patient is here to talk about [facility]. Cs Associate Required: No Accompanied by: Self / Same [...] Screening Screening Have you traveled outside of [facility] [address] or [facility] in the last 14 days.: [...] hernia without obstruction or gangrene Plan - Juma Huffman: 39 yoM with [...] rce(s) Supporting Document(s) ID Date Data Source [id number] 02/24/2020 05:19:00 PM [facility] Patient Name: KATHI GUNDERSON : 1980 Sex: M Pt Unit #: [id number] Location:[facility] Provider: Visit Date/Time: 02/24/20 Primary Insurance: [facility] Secondary Insurance: Self Pay Intake Vital Signs [...] Screening Screening Have you traveled outside of [facility] [address] or [facility] in the last 14 days.: No Has patient experienced coronavirus symptoms: No [facility] Medical History (Updated 02/24/20 @ 18:01 by [...] without obstruction or gangrene, recurrent SNOMED Code(s): 2735740 Category: Medical Plan - Lincoln Fajardo, DO: Inguinal Hernias Bl which are recurrent and will be re-evaluated by Gen Surg/Dr. Huffman. Thickened Bladder Wall. Consult Urology. Abx did not help. (2) Bladder wall thickening: Status: Acute Code(s): N32.89 - Other specified disorders of bladder SNOMED Code(s): 287946130 Category: Medical Orders Other Medications: Discontinued: sulfamethoxazole- trimethoprim 800-160 mg (Bactrim DS) Discontinued Reason: MD Order 1 tab PO BID 20 tabs 0RF <Electronically signed by Lincoln Fajardo DO> 02/24/20 1803 Name Value Range Interpretation Code Description Data Marion rce(s) Supporting Document(s) ID Date Data Source [id number] 02/13/2020 12:01:00 PM EST [facility] Name: KATHI GUNDERSON : 1980 Age: 39 MR#: [id number] Admit Date: 02/13/20 Provider: Mohit Zimmerman MD [...] Follow-up (Adult) Nurse Note: E.R. followup hernia Cs Associate Required: No Is patient in pain?: Yes [...] Screening Screening Have you traveled outside of [facility] [address] or [facility] in the last 14 days.: No Has patient experienced coronavirus symptoms: No [facility] Medical History Allergic rhinitis due to pollen [...] rce(s) Supporting Document(s) ID Date Data Source [id number] 02/12/2020 06:04:00 PM [facility] ED Physician Documentation NAME: KATHI GUNDERSON : 1980 AGE: 39 MR#: [id number] SERVICE DATE: 02/12/[address]: Dajuan Norton [...] an emergent basis. As you know Dr. Zimmemran did see you today and he stated [...] 03/02/20754 Addendum Cosigners: D: MAMI 03/02/20754 T: BETOLIZZIE 03/02/20754 CC: DO SIMONE Powers (Adult, General) [...] % (Auto) 66.8, Lymph % (Auto) 23.3, [place] % (Auto) 6.0, Eos % (Auto) 3.2, [...] Appearance Clear, Urine pH 7.5, Ur Specific [place] 1.016,Urine Protein Negative, Urine Ketones Negative, Urine [...] > Dajuan Norton 02/12/20 1826 Dajuan Norton DA Report Cosigners: D: MAMI 02/12/201803 T: MAMI 02/12/201803 CC: Lincoln Fajardo, Name Value Range Interpretation Code Description Data Marion rce(s) Supporting Document(s) ID Date Data Source [id number] 02/12/2020 05:28:00 PM EST [facility] Reason for ordering culture: Abnormal fi ndings UAMethod of Collection:: Voided Name Value Range Interpretation Code Description Data Marion rce(s) Supporting Document(s) Color of Urine [facility] Appearance of Urine CLEAR [facility] pH of Urine by Test strip 7.5 5-8 [facility] Specific gravity of Urine by Refractometry 1.016 1.005-1.030 [facility] Leukocyte esterase [Presence] in Urine by Test strip NEGAT SIMON [facility] Nitrite [Presence] in Urine by Test strip NEGATIVE [facility] Protein [Presence] in Urine by Test strip NEGATIVE [facility] Glucose [Mass/volume] in Urine by Automated test strip NEGATIVE NEG ATIVE [facility] Ketones [Presence] in Urine by Test strip NEGATIVE [facility] Urobilinogen [Presence] in Urine 0.2-1 EU/dl [facility] Bilirubin.total [Presence] in Urine by Automated test strip NEGATIVE [facility] Erythrocytes [#/volume] in Urine by Test strip NEGATIVE NEGATIVE [facility] URINE MICROSCOPIC? (CIF) NO [facility] ID Date Data Source [id number] 02/12/2020 03:42:00 PM [facility] [address] [place] [id number] [phone] NAME SEX PT STATUS ACCOUNT NUMBER KATHI GUNDERSON [facility] [id number] ORDERING PHYSICIAN LOCATION MEDICAL RECORD NO. Dajuan Norton MD ER [id number] ATTENDING PHYSICIAN DATE OF DATE OF EXAM/TIME [...] Reported By Noy Helms MD on 02/12/20 1541 Signed By Noy Helms MD on 02/12/20 1540 Date Time CC: Noy Helms MD; Lincoln Fajardo DO Techn: BAIAB Trans Dt/Tm: Trans by: DT Prt Dt/Tm: 5496-2501: Total DLP = 456.00 mGy-cm 2189-4060: Total Radiation Dose = 6.8400 mSv Lifetime Dose: 16.7700 mSv Name Value Range Interpretation Code Description Data Marion rce(s) Supporting Document(s) ID Date Data Source [id number] 02/12/2020 02:05:00 PM EST [facility] Name Value Range Interpretation Code Description Data Marion rce(s) Supporting Document(s) Leukocytes [#/volume] in Blood by Automated count 10.2 10*3/uL 4.45-1 0.71 N [facility] Erythrocytes [#/volume] in Blood by Automated count 4.75 10*6/uL 4.3- 6.1 [facility] Hemoglobin [Moles/volume] in Blood 14.7 g/dL 13-18 N [facility] Hematocrit [Volume Fraction] of Blood by Automated count 45.1 % 4 2-52 N [facility] Erythrocyte mean corpuscular volume [Ent itic volume] in Cord blood by Automated count 94.9 fL 80-96 N [facility] Erythrocyte mean corpuscular hemoglobin [Entitic mass] by Automated count 30.9 pg 27-31 N [facility] Erythrocyte mean corpuscular hemoglobin concentration [Mass/volume] in Cord blood 32.6 g/dL 33-37 Below low normal [facility] Erythrocyte distribution width [Entitic volume] by Automated count 13 % 11-15 N [facility] Platelets [#/volume] in Blood by Automated count 247 10*3/uL 130-472 N [facility] Platelet mean volume [Entitic volume] in Blood 8.7 fL 9.1-13. 1 Below low normal [facility] Neutrophils/100 leukocytes in Blood by Automated count 66.8 % 41- 77 [facility] Neutrophils [#/volume] in Blood by Automated count 6.8 U 1.7-7.6 N [facility] Lymphocytes/100 leukocytes in Blood by Automated count 23.3 % 14- 46 N [facility] Lymphocytes [#/volume] in Blood by Automated count 2.4 U 0.6-4.6 N [facility] Monocytes/100 leukocytes in Blood by Automated count 6.0 % 4-12 N [facility] Monocytes [#/volume] in Blood by Automated count 0.6 U 0.2-1.2 N [facility] Eosinophils/100 leukocytes in Blood by Automated count 3.2 % 0-7 N [facility] Eosinophils [#/volume] in Blood by Automated count 0.3 U 0.0-0.5 N [facility] Basophils/100 leukocytes in Blood by Automated count 0.6 % 0.4-1 .3 N [facility] Basophils [#/volume] in Blood by Automated count 0.1 U 0.0-0.2 N [facility] NUCLEATED RED BLOOD CELL 0 % [facility] NUCLEATED RED BLOOD CELL# 0 U [facility] Immature granulocytes [Presence] in Blood by Automated count 0-2 N [facility] Immature granulocytes [#/volume] in Blood by Automated count 0.0 U 0-0.1 N [facility] Manual Differential panel - Blood NO [facility] ID Date Data Source [id number] 02/12/2020 02:27:00 PM EST [facility] Name Value Range Interpretation Code Description Data Marion rce(s) Supporting Document(s) Urea nitrogen [Mass/volume] in Serum or Plasma 7 mg/dL 9-23 Below low normal [facility] Sodium [Moles/volume] in Serum or Plasma 144 mmol/L 132-146 N [facility] Potassium [Moles/volume] in Serum or Plasma 3.7 mmol/L 3.5-5.5 N [facility] Chloride [Moles/volume] in Serum or Plasma 110 mmol/L 99-109 Above high normal [facility] Carbon dioxide, total [Moles/volume] in Serum or Plasma 29 mmol/L 20 -31 N [facility] Anion gap in Serum or Plasma 9 mmol/L 8-16 N [facility] Glucose [Mass/volume] in Serum or Plasma 89 mg/dL 74-106 N [facility] Creatinine 0.9 mg/dL 0.5-1.1 [facility] Glomerular filtration rate/1.73 sq M.pre dicted [Volume Rate/Area] in Serum or Plasma Greater Than 60 ABOVE 60 [facility] Alanine aminotransferase [Enzymatic acti vity/volume] in Serum or Plasma by With P-5'-P 30 U/L 10-49 N [facility] ital Aspartate aminotransferase [Enzymatic ac tivity/volume] in Serum or Plasma by With P-5'-P 17 U/L 0-33 N [facility] pital Alkaline phosphatase [Enzymatic activity/volume] in Serum or Plasma 70 U/L 45-129 N [facility] Calcium [Mass/volume] in Serum or Plasma 8.7 mg/dL 8.5-10.1 [facility] Bilirubin.total [Mass/volume] in Serum or Plasma 0.4 mg/dL 0.3-1.2 [facility] Albumin [Mass/volume] in Serum or Plasma by Bromocresol purple (BCP) dye binding method 3.9 g/dL 3.2-4.8 [facility] ital Protein [Mass/volume] in Serum or Plasma 7.4 g/dL 5.7-8.2 [facility] ID Date Data Source [id number] 02/12/2020 10:42:00 AM [facility] Patient Name: KATHI GUNDERSON : 1980 Sex: M Pt Unit #: [id number] Location:[facility] Provider: Visit Date/Time: 02/12/20 Primary Insurance: [facility] Secondary Insurance: Self Pay Intake Vital Signs [...] Screening Screening Have you traveled outside of [facility] or [facility] in the last 14 days.: No Has patient experienced coronavirus symptoms: No [facility] Medical History (Updated 01/07/20 @ 15:50 by [...] rce(s) Supporting Document(s) ID Date Data Source [id number] 01/07/2020 04:43:00 PM EDT [facility] Patient Name: KATHI GUNDERSON : 1980 Sex: M Pt Unit #: [id number] Location:AMB.EXT Provider: Visit Date/Time: 01/07/20 Primary Insurance: [facility] Secondary Insurance: Self Pay Intake Vital Signs [...] Screening Screening Have you traveled outside of [facility] or [facility] in the last 14 days.: No Has patient experienced coronavirus symptoms: Yes Coronavirus symptoms experienced: fever (denies fever, reports diarrhea and vomiting) [facility] Medical History (Updated 01/07/20 @ 15:50 by [...] Pt reports that she has spoken to public health and thatshe understands quarrantine. Advised that lab results are taking 3-5 days and that she needs appt with pcp to follow up in 3-5 days. Orders Other Orders: Orders: 2019 Coronavirus, COVID-19 IMELDA Today U07.1 Electronically Signed By: <Electronically signed by Teri Girard NP> Date/Time Signed: 01/07/205 Name Value Range Interpretation Code Description Data Marion rce(s) Supporting Document(s) ID Date Data Source [id number] 01/11/2020 05:02:00 AM EDT [facility] COVID19 CLINIC SPECIMEN Name Value Range Interpretation Code Description Data Marion rce(s) Supporting Document(s) COVID-19 IMELDA (SARS-CoV-2) NOT DETECTED NOT DETECTED [facility] A Not Detected (negative) test result fo [...] findings,re- testing should be [facility]. Laboratory test results shouldalways be considered in the context of clinicalobservations and epidemiological data in making a finaldiagnosis and patient management decisions.Please review the "Fact Sheets" and FDA authorizedlabeling available for health care providers andpatients using the following websites:https://[email or web address].[place]/home/Covid-19/HCP/[facility]/fact-sheet.htmlhttps://www.[employer]. [place]/home/Covid-19/Patients/[facility]/fact-sheet.htmlThis test has been authorized by the FDA under anEmergency Use Authorization (EUA) for use by authorizedlaboratories.Due to the current public health emergency, [facility] is receiving a high volume of samples [...] information about COVID-19 can be foundat the [facility] website:www.[facility].[place]/Covid19.THIS TEST WAS PERFORMED AT:[facility] [place] [id number] MERATI,MD ID Date Data Source [id number] 01/07/2020 04:25:00 PM EDT [facility] Name Value Range Interpretation Code Description Data Marion rce(s) Supporting Document(s) SARS-COV-2 RNA RESP QL IMELDA+PROBE [facility] This lab was ordered by [employer] and reported by [employer]. Procedure Social History Code Duration Value Status Description Data Source(s ) 10/13/2020 11:19:00 AM EDT Current some day smoker com pleted Current some day smoker [facility] 10/13/2020 11:19:00 AM EDT No completed No [facility] 10/13/2020 11:19:00 AM EDT Yes completed Yes [facility] 10/13/2020 11:19:00 AM EDT Former smoker completed Former smoker [facility] Smoking 10/13/2020 11:19:00 AM EDT Former smoker completed Former smoker [facility] Smoking 04/07/2020 12:00:00 AM EST Former Smoker completed Former Smoker [email or web address] ([facility]) Smoking 04/07/2020 12:00:00 AM EST Former Smoker completed Former Smoker [email or web address] ([facility]) 04/06/2020 12:57:53 PM EST Former smoker completed Former smoker [facility] 04/06/2020 12:57:53 PM EST Former smoker completed Former smoker [facility] 04/06/2020 12:57:53 PM EST Former smoker completed Former smoker [facility] 04/06/2020 12:57:53 PM EST Former smoker completed Former smoker [facility] 04/06/2020 12:57:53 PM EST Former smoker completed Former smoker [facility] 04/06/2020 12:57:53 PM EST Former smoker completed Former smoker [facility] 04/06/2020 12:57:53 PM EST Former smoker completed Former smoker [facility] 04/06/2020 12:57:53 PM EST Former smoker completed Former smoker [facility] Smoking 04/06/2020 12:57:00 PM EST Former smoker completed Former smoker [facility] Smoking 04/06/2020 12:57:00 PM EST Former smoker completed Former smoker [facility] Smoking 04/06/2020 12:57:00 PM EST Former smoker completed Former smoker [facility] Smoking 04/06/2020 12:57:00 PM EST Former smoker completed Former smoker [facility] Smoking 04/06/2020 12:57:00 PM EST Former smoker completed Former smoker [facility] Smoking 04/06/2020 12:57:00 PM EST Former smoker completed Former smoker [facility] Smoking 04/06/2020 12:57:00 PM EST Former smoker completed Former smoker [facility] Smoking 04/06/2020 11:57:00 AM EST Former smoker completed Former smoker [facility] 03/30/2020 04:07:00 PM EST No completed No [facility] 03/30/2020 04:07:00 PM EST No completed No [facility] 03/30/2020 04:07:00 PM EST Current some day smoker com pleted Current some day smoker [facility] Smoking 03/30/2020 04:07:00 PM EST Current some day smoker com pleted Current some day smoker [facility] 03/16/2020 08:10:48 PM EST No completed No [facility] 03/16/2020 08:10:48 PM EST Yes completed Yes [facility] 03/16/2020 08:10:48 PM EST No completed No [facility] 03/16/2020 08:10:48 PM EST Yes completed Yes [facility] 03/16/2020 08:10:48 PM EST No completed No [facility] 03/16/2020 08:10:48 PM EST Yes completed Yes [facility] 03/16/2020 08:10:48 PM EST No completed No [facility] 03/16/2020 08:10:48 PM EST Yes completed Yes [facility] 03/16/2020 08:10:48 PM EST No completed No [facility] 03/16/2020 08:10:48 PM EST Yes completed Yes [facility] 03/16/2020 08:10:48 PM EST No completed No [facility] 03/16/2020 08:10:48 PM EST Yes completed Yes [facility] 03/16/2020 08:10:48 PM EST No completed No [facility] 03/16/2020 08:10:48 PM EST Yes completed Yes [facility] 03/16/2020 08:10:48 PM EST Yes completed Yes [facility] 03/16/2020 08:10:48 PM EST Yes completed Yes [facility] 03/16/2020 08:10:48 PM EST No completed No [facility] 03/16/2020 08:10:48 PM EST Yes completed Yes [facility] 03/16/2020 08:10:48 PM EST Current every day smoker co mpleted Current every day smoker [facility] Smoking 03/16/2020 08:10:00 PM EST Current every day smoker co mpleted Current every day smoker [facility] 03/13/2020 01:52:18 AM EST No completed No [facility] 03/13/2020 01:52:18 AM EST Yes completed Yes [facility] 03/13/2020 01:52:18 AM EST Current every day smoker co mpleted Current every day smoker [facility] Smoking 03/13/2020 01:52:00 AM EST Current every day smoker co mpleted Current every day smoker [facility] 02/13/2020 08:30:00 AM EST Current some day smoker com pleted Current some day smoker [facility] 02/13/2020 08:30:00 AM EST Current some day smoker com pleted Current some day smoker [facility] 02/13/2020 08:30:00 AM EST Current some day smoker com pleted Current some day smoker [facility] 02/13/2020 08:30:00 AM EST Current some day smoker com pleted Current some day smoker [facility] 02/13/2020 08:30:00 AM EST Current some day smoker com pleted Current some day smoker [facility] 02/13/2020 08:30:00 AM EST Current some day smoker com pleted Current some day smoker [facility] 02/13/2020 08:30:00 AM EST Current some day smoker com pleted Current some day smoker [facility] 02/13/2020 08:30:00 AM EST Current some day smoker com pleted Current some day smoker [facility] 02/13/2020 08:30:00 AM EST Current some day smoker com pleted Current some day smoker [facility] 02/13/2020 08:30:00 AM EST Current some day smoker com pleted Current some day smoker [facility] 02/13/2020 08:30:00 AM EST Current some day smoker com pleted Current some day smoker [facility] 02/13/2020 08:30:00 AM EST Current some day smoker com pleted Current some day smoker [facility] 02/13/2020 08:30:00 AM EST No completed No [facility] 02/13/2020 08:30:00 AM EST Yes completed Yes [facility] 02/13/2020 08:30:00 AM EST Current every day smoker co mpleted Current every day smoker [facility] Smoking 02/13/2020 08:30:00 AM EST Current every day smoker co mpleted Current every day smoker [facility] 02/13/2020 08:30:00 AM EST Current some day smoker com pleted Current some day smoker [facility] 02/13/2020 08:30:00 AM EST No completed No [facility] 02/13/2020 08:30:00 AM EST Yes completed Yes [facility] 02/13/2020 08:30:00 AM EST Current every day smoker co mpleted Current every day smoker [facility] Smoking 02/13/2020 08:30:00 AM EST Current every day smoker co mpleted Current every day smoker [facility] 02/13/2020 08:30:00 AM EST Current some day smoker com pleted Current some day smoker [facility] 02/13/2020 08:30:00 AM EST No completed No [facility] 02/13/2020 08:30:00 AM EST Yes completed Yes [facility] 02/13/2020 08:30:00 AM EST Current every day smoker co mpleted Current every day smoker [facility] Smoking 02/13/2020 08:30:00 AM EST Current every day smoker co mpleted Current every day smoker [facility] 02/12/2020 06:09:04 PM EST No completed No [facility] 02/12/2020 06:09:04 PM EST Yes completed Yes [facility] 02/12/2020 06:09:04 PM EST Current every day smoker co mpleted Current every day smoker [facility] Smoking 02/12/2020 06:09:00 PM EST Current every day smoker co mpleted Current every day smoker [facility] 02/12/2020 11:47:00 AM EST Current every day smoker co mpleted Current every day smoker [facility] Smoking 02/12/2020 11:47:00 AM EST Current every day smoker co mpleted Current every day smoker [facility] 01/13/2020 08:53:00 AM EDT Current some day smoker com pleted Current some day smoker [facility] 01/13/2020 08:53:00 AM EDT No completed No [facility] 01/13/2020 08:53:00 AM EDT Yes completed Yes [facility] 01/13/2020 08:53:00 AM EDT Current some day smoker com pleted Current some day smoker [facility] Vital Signs ID Date Data Source UNK Name Value Range Interpretation Code Description Data Source(s) Body weight 174 [lb_av] 174 [lb_av] eCW1 ([facility]) Body height 69 [in_i] 69 [in_i] eCW1 ([facility]) Body mass index (BMI) [Ratio] 25.69 kg/m2 25.69 kg/m2 eCW1 ([facility]) Heart rate 73 /min 73 /min eCW1 ([facility]) Systolic blood pressure 136 mm[Hg] 136 mm[Hg] e CW1 ([facility]) Respiratory rate 18 /min 18 /min eCW1 ([facility]) Body temperature 98.3 [degF] 98.3 [degF] eCW1 ( [facility]) Diastolic blood pressure 82 mm[Hg] 82 mm[Hg] eCW1 ([facility]) Body weight 170 [lb_av] 170 [lb_av] eCW1 ([facility]) Body height 69 [in_i] 69 [in_i] eCW1 ([facility]) Body mass index (BMI) [Ratio] 25.10 kg/m2 25.10 kg/m2 eCW1 ([facility]) Heart rate 67 /min 67 /min eCW1 ([facility]) Respiratory rate 18 /min 18 /min eCW1 ([facility]) Body temperature 98.2 [degF] 98.2 [degF] eCW1 ( [facility]) Systolic blood pressure 1386 mm[Hg] 1386 mm[Hg] eCW1 ([facility]) Diastolic blood pressure 68 mm[Hg] 68 mm[Hg] eCW1 ([facility]) Systolic blood pressure 117 mm[Hg] 117 mm[Hg] [facility] Diastolic blood pressure 70 mm[Hg] 70 mm[Hg] [facility] Heart rate 57 /min 57 /min [facility] Respiratory rate 16 /min 16 /min [facility] Body temperature 36.11 Deepali 36.11 Deepali [facility] Body height 175.3 cm 175.3 cm [facility] Body weight 75.751 kg 75.751 kg [facility] Body mass index (BMI) [Ratio] 24.65 kg/m2 24.65 kg/m2 [facility] Oxygen saturation in Arterial blood by Pulse oximetry 98 % 98 % [facility] ID Date Data Source [id number] 08/11/2020 07:44:00 PM EDT [facility] Name Value Range Interpretation Code Description Data Source(s) Weight Measurement Method 8 8 [facility] Weight 2880 2880 [facility] Temperature Source 7 7 [facility] Temperature 98.2 98.2 [facility] spital Respiratory Effort 1 1 [facility] Respiratory Rate 18 18 [facility] Pulse Assessment Method 4 4 G [facility] Pulse Rate 92 92 [facility] Height 69 69 [facility] Blood Pressure 138/73 138/73 [facility] Weight Measurement Method 8 8 [facility] Weight 2880 2880 [facility] pital Temperature Source 7 7 [facility] Temperature 98.2 98.2 [facility] spital Respiratory Effort 1 1 [facility] Respiratory Rate 18 18 [facility] Pulse Assessment Method 4 4 G [facility] Pulse Rate 92 92 [facility] pital Height 69 69 [facility] Blood Pressure 138/73 138/73 [facility] ID Date Data Source [id number] 04/10/2020 09:55:00 PM EST [facility] Name Value Range Interpretation Code Description Data Source(s) Weight Measurement Method 8 8 [facility] Weight 2784 2784 [facility] pital Temperature Source 7 7 [facility] Temperature 98.1 98.1 [facility] Respiratory Effort 1 1 [facility] Respiratory Rate 14 14 [facility] Pulse Assessment Method 4 4 G [facility] Pulse Rate 82 82 [facility] pital Blood Pressure 123/81 123/81 [facility] Weight Measurement Method 8 8 [facility] Weight 2784 2784 [facility] pital Temperature Source 7 7 [facility] Temperature 98.1 98.1 [facility] Respiratory Effort 1 1 [facility] Respiratory Rate 14 14 [facility] Pulse Assessment Method 4 4 G [facility] Pulse Rate 82 82 [facility] Blood Pressure 123/81 123/81 [facility] Weight Measurement Method 8 8 [facility] Weight 2784 2784 [facility] pital Temperature Source 7 7 [facility] Temperature 98.1 98.1 [facility] Respiratory Effort 1 1 [facility] Respiratory Rate 14 14 [facility] Pulse Assessment Method 4 4 G [facility] Pulse Rate 82 82 [facility] Blood Pressure 123/81 123/81 [facility] ID Date Data Source [id number] 04/12/2020 01:25:00 PM EST [facility] Name Value Range Interpretation Code Description Data Source(s) WEIGHT 77.72 kilos 77.72 kilos [facility] HEIGHT 175.26 centimeters 175.26 centimeter [facility] ID Date Data Source [id number] 03/13/2020 12:38:00 PM EST [facility] Name Value Range Interpretation Code Description Data Source(s) Weight Measurement Method 8 8 [facility] Weight 2736 2736 [facility] pital Temperature Source 7 7 [facility] Temperature 98.0 98.0 [facility] Respiratory Effort 1 1 [facility] Respiratory Rate 16 16 [facility] Pulse Assessment Method 4 4 G [facility] Pulse Rate 83 83 [facility] pital Height 69 69 [facility] pital Blood Pressure 124/73 124/73 [facility] Weight Measurement Method 8 8 [facility] Weight 2736 2736 [facility] pital Temperature Source 7 7 [facility] Temperature 98.0 98.0 [facility] spital Respiratory Effort 1 1 [facility] Respiratory Rate 16 16 [facility] Pulse Assessment Method 4 4 G [facility] Pulse Rate 83 83 [facility] pital Height 69 69 [facility] pital Blood Pressure 124/73 124/73 [facility] Weight Measurement Method 8 8 [facility] Weight 2736 2736 [facility] pital Temperature Source 7 7 [facility] Temperature 98.0 98.0 [facility] spital Respiratory Effort 1 1 [facility] Respiratory Rate 16 16 [facility] Pulse Assessment Method 4 4 G [facility] Pulse Rate 83 83 [facility] pital Height 69 69 [facility] pital Blood Pressure 124/73 124/73 [facility] Patient Treatment Plan of Care Planned Activity Planned Date Details Description Data Source (s) Metoprolol Tartrate 25 MG Oral Tablet 03/13/2020 12:00:00 AM [facility] atorvastatin 40 MG Oral Tablet 03/13/2020 12:00:00 AM [facility] Aspirin 81 MG Delayed Release Oral Tablet 03/13/2020 12:00:00 AM ES T [facility] Acetaminophen 325 MG Oral Tablet 03/13/2020 12:00:00 AM [facility] 24 HR Diltiazem Hydrochloride 120 MG Extended Release Oral Capsule [facility]
[2021-01-31 09:21] LABS: BASO # 0.1 10^3/uL (0.0-0.2); BASO % 0.8 % (0.0-1.0); EOS # 0.4 10^3/uL (0.0-0.5); EOS % 4.7 % (0.0-3.0); HEMATOCRIT 47.5 % (42.0-52.0); HEMOGLOBIN 15.9 g/dl (13.5-17.5); LYMPH # 2.5 10^3/uL (1.5-5.0); LYMPH % 27.4 % (24.0-44.0); MEAN CORPUSCULAR HEMOGLOBIN 31.5 pg (27.0-33.0); MEAN CORPUSCULAR HGB CONC 33.5 g/dl (32.0-36.5); MEAN CORPUSCULAR VOLUME 94.1 fl (80.0-96.0); MONO # 0.8 10^3/uL (0.0-0.8); MONO % 8.4 % (2.0-8.0); NEUTROPHILS # 5.3 10^3/uL (1.5-8.5); NEUTROPHILS % 58.5 % (36.0-66.0); PLATELET COUNT, AUTOMATED 293 10^3/uL (150-450); RED BLOOD COUNT 5.05 10^6/uL (4.30-6.10)
[2021-01-31 09:37] LABS: RSV AMPLIFICATION NEGATIVE (NEGATIVE)
[2021-01-31 09:46] LABS: ALBUMIN 3.8 GM/DL (3.2-5.2); ALT/SGPT 42 U/L (12-78); BILIRUBIN,DIRECT 0.1 MG/DL (0.0-0.2); BILIRUBIN,TOTAL 0.4 MG/DL (0.2-1.0); BLOOD UREA NITROGEN 8 MG/DL (7-18); CALCIUM LEVEL 9.2 MG/DL (8.5-10.1); CARBON DIOXIDE LEVEL 29 MEQ/L (21-32); CHLORIDE LEVEL 108 MEQ/L (98-107); GLOMERULAR FILTRATION RATE > 60.0 (>60); GLUCOSE, FASTING 115 MG/DL (70-100); LIPASE 70 U/L (73-393); POTASSIUM SERUM 4.3 MEQ/L (3.5-5.1); SODIUM LEVEL 141 MEQ/L (136-145); TOTAL PROTEIN 7.2 GM/DL (6.4-8.2)
[2021-01-31] MEDS ORDERED: MUCI600T31 PO (10:16)
[2021-01-31] MEDS ORDERED: DOXY-443 PO (10:17)
[2021-01-31] MEDS ORDERED: FLON1SPR NARES (10:22)
[2021-01-31 10:33] VITALS: BP 120/68
== END 2021-01-31 10:45 | disposition home or self-care (01) ==
LOC: M ED 07:25
DX: J02.9 Acute pharyngitis, unspecified (principal); J30.9 Allergic rhinitis, unspecified; J01.90 Acute sinusitis, unspecified; F17.200 Nicotine dependence, unspecified, uncomplicated; Z79.899 Other long term (current) drug therapy; Z88.0 Allergy status to penicillin

== ENCOUNTER → 2021-04-15 | Outpatient (CLI) | payer OTHER ==
[~2021-04-15] MED LIST changes: +ATOR40TA75; +DOXY-443 PO; +FLON1SPR NARES; +LATA0.0015; +METO1TAB87; +MUCI600T31 PO
[2021-04-15 12:20] LABS: BASO # 0.1 10^3/uL (0.0-0.2); BASO % 0.4 % (0.0-1.0); EOS # 0.3 10^3/uL (0.0-0.5); HEMATOCRIT 44.1 % (42.0-52.0); HEMOGLOBIN 14.9 g/dl (13.5-17.5); LYMPH # 2.5 10^3/uL (1.5-5.0); MEAN CORPUSCULAR HEMOGLOBIN 31.2 pg (27.0-33.0); MEAN CORPUSCULAR HGB CONC 33.8 g/dl (32.0-36.5); MEAN CORPUSCULAR VOLUME 92.3 fl (80.0-96.0); MONO # 0.8 10^3/uL (0.0-0.8); NEUTROPHILS # 9.5 10^3/uL (1.5-8.5); NEUTROPHILS % 72.2 % (36.0-66.0); PLATELET COUNT, AUTOMATED 295 10^3/uL (150-450); RED BLOOD COUNT 4.78 10^6/uL (4.30-6.10); WHITE BLOOD COUNT 13.1 10^3/uL (4.0-10.0)
[2021-04-15 12:34] LABS: IMMUNOGLOBULIN E 27.4 IU/ML (<100); IMMUNOGLOBULIN G 938 MG/DL (681-1648); IMMUNOGLOBULIN M 68.3 MG/DL (40-230)
[2021-04-15 13:25] LABS: ERYTHROCYTE SEDIMENTATION RATE 6 mm/hr (0-15)
== END ==
LOC: M LAB 11:16
PROVIDERS: ATTEND Allergy & Immunology Allergy
DX: D84.9 Immunodeficiency, unspecified (principal)

== ENCOUNTER → 2021-05-11 | Outpatient (CLI) | payer OTHER ==
[~2021-05-11] MED LIST changes: -ATOR40TA75; +ATOR40TA75 PO; +BUDE10.7 IH; -METO1TAB87; +METO1TAB87 PO; +OMEP-173 PO; -OMEP-218 PO; +VENTAER INH
== END ==
LOC: M RAD 13:25
PROVIDERS: ATTEND Otolaryngology
DX: J34.3 Hypertrophy of nasal turbinates (principal); J34.1 Cyst and mucocele of nose and nasal sinus; J34.2 Deviated nasal septum

== ENCOUNTER 2021-06-20 10:06 | Day surgery (SDC) | payer OTHER ==
[~2021-06-20] VITALS: Ht 175.3 cm; Wt 74.4 kg
[~2021-06-20 10:06] MED LIST changes: +EXCETAB22 PO; +LIDOCAINE 1% MDV 20ML VIAL SQ PRN; +LR 1,000 ML IV ONE
[2021-06-20] MEDS ORDERED: fentaNYL 250 MCG/5 ML INJECTION As Ordered ONE (11:48)
[2021-06-20] MEDS ORDERED: ROCURONIUM BROMIDE 50 MG/5 ML VIAL As Ordered ONE ×2 (11:48→13:25)
[2021-06-20] MEDS ORDERED: propofoL 200 MG/20 ML VIAL As Ordered ONE ×2 (11:48→14:03)
[2021-06-20] MEDS ORDERED: LIDOCAINE 2% 100MG/5ML SDV (FOR ANES.) As Ordered ONE (11:48)
[2021-06-20] MEDS ORDERED: OXYMETAZOLINE 0.05% NASAL SPRAY (AFRIN) As Ordered ONE ×2 (11:48→15:26)
[2021-06-20] MEDS ORDERED: LIDOCAINE W/EPINEPHRINE 1% 20ML VIAL As Ordered ONE (11:48)
[2021-06-20] MEDS ORDERED: COCAINE 4% 4ML NASAL SOLUTION BTL As Ordered ONE (11:49)
[2021-06-20] MEDS ORDERED: MIDAZOLAM INJ 2MG/2ML VIAL (J2250 PER 1MG) As Ordered ONE (11:49)
[2021-06-20] MEDS ORDERED: METHYLENE BLUE 0.5% (5MG/ML) 10 ML AMP (PROVAYBLUE) As Ordered ONE (11:51)
[2021-06-20] MEDS ORDERED: dexameTHASONE 4 MG/ML 1ML VIAL (J1100 PER 1MG) As Ordered ONE (12:52)
[2021-06-20] MEDS ORDERED: SUGAMMADEX SODIUM 500 MG/5 ML VIAL (BRIDION) As Ordered ONE (13:25)
[2021-06-20] MEDS ORDERED: PHENYLephrine 500MCG 5ML (100MCG/ML) SYRINGE As Ordered ONE (13:26)
[2021-06-20] MEDS ORDERED: ONDANSETRON 4MG/2ML VIAL As Ordered ONE (13:28)
[2021-06-20] MEDS ORDERED: ONDANSETRON 4MG/2ML VIAL IV PRN ×2 (16:10→16:15)
[2021-06-20] MEDS ORDERED: fentaNYL 100 MCG/2 ML INJECTION IV PRN (16:10)
[2021-06-20] MEDS ORDERED: LR 1,000 ML IV SCH ×2 (16:10)
[2021-06-20] MEDS ORDERED: oxyCODONE 5MG TAB PO PRN (16:10)
[2021-06-20] MEDS ORDERED: ANEXSIA, NORCO 7.5MG/325MG TABLET(HYDROCODONE/APAP) PO PRN (16:15)
[2021-06-20] MEDS ORDERED: MORPHINE 10 MG/ML 1ML VIAL (J2270) IV PRN (16:15)
[2021-06-20] MEDS: HYDROMORPHONE HCL 0.5 MG/ 0.5 ML SYRINGE (J1170 PER 1) IV PRN ×2 (16:21→16:26)
[2021-06-20 17:35] VITALS: BP 175/97
== END 2021-06-20 18:04 | disposition home or self-care (01) ==
LOC: M SDC 10:06
PROVIDERS: ATTEND Otolaryngology
DX: J34.2 Deviated nasal septum (principal); J32.9 Chronic sinusitis, unspecified; J34.3 Hypertrophy of nasal turbinates; I10 Essential (primary) hypertension; E78.5 Hyperlipidemia, unspecified; K21.9 Gastro-esophageal reflux disease without esophagitis; F31.9 Bipolar disorder, unspecified; F41.9 Anxiety disorder, unspecified; F43.10 Post-traumatic stress disorder, unspecified; R06.83 Snoring; F17.220 Nicotine dependence, chewing tobacco, uncomplicated; Z88.8 Allergy status to other drugs, medicaments and biological substances; Z79.899 Other long term (current) drug therapy
CPT/HCPCS: 30140; 30520; 31255; 31267; 31276; 88300; 88305; C9046; J1100; J1170; J2250; J2370; J2405; J3010; Q9968

== ENCOUNTER → 2022-02-06 | Outpatient (CLI) | payer OTHER ==
[~2022-02-06] MED LIST changes: -LIDOCAINE 1% MDV 20ML VIAL SQ PRN; -LR 1,000 ML IV ONE
== END ==
LOC: M PLAIMG 09:05
PROVIDERS: ATTEND Internal Medicine Critical Care Medicine
DX: R91.8 Other nonspecific abnormal finding of lung field (principal)

== ENCOUNTER → 2022-03-27 | Outpatient (CLI) | payer OTHER | LOC: M PLARAD 08:55 | PROVIDERS: ATTEND Internal Medicine Critical Care Medicine | DX: R91.8 Other nonspecific abnormal finding of lung field (principal) | CPT/HCPCS: 78815; A9552 ==

== ENCOUNTER → 2022-04-17 | Outpatient (CLI) | payer OTHER ==
[~2022-04-17] MED LIST changes: +DIVA500T94 PO; +QUET50TA4 PO; +VENL150C43 PO
[2022-04-17 11:10] LABS: INR 0.89; PROTHROMBIN TIME 12.2 SECONDS (12.5-14.5)
== END ==
LOC: M PLALAB 08:57
PROVIDERS: ATTEND Internal Medicine Critical Care Medicine
DX: R91.8 Other nonspecific abnormal finding of lung field (principal); F17.218 Nicotine dependence, cigarettes, with other nicotine-induced disorders

== ENCOUNTER → 2022-04-17 | Outpatient (CLI) | payer OTHER | LOC: M LABSMTC 10:03 | PROVIDERS: ATTEND Anesthesiology | DX: Z01.812 Encounter for preprocedural laboratory examination (principal); Z20.822 Contact with and (suspected) exposure to COVID-19 ==

== ENCOUNTER 2022-05-24 06:08 | Day surgery (SDC) | payer OTHER ==
[~2022-05-24] VITALS: Ht 175.3 cm; Wt 73.9 kg
[~2022-05-24 06:08] MED LIST changes: +ALBUTEROL SULFATE 2.5MG/0.5ML INH NEB SOLN INH ONE; +LIDOCAINE PRES-FREE 2% 10ML AMP INH ONE; +NICO2GUM5 PO; +VENL75CA47 PO
[2022-05-24] MEDS ORDERED: LR 1,000 ML IV SCH ×2 (06:30→08:25)
[2022-05-24] MEDS ORDERED: MIDAZOLAM INJ 2MG/2ML VIAL As Ordered ONE (06:48)
[2022-05-24] MEDS ORDERED: fentaNYL 100 MCG/2 ML INJECTION As Ordered ONE (06:48)
[2022-05-24] MEDS ORDERED: propofoL 200 MG/20 ML VIAL As Ordered ONE (06:49)
[2022-05-24] MEDS ORDERED: SUGAMMADEX SODIUM 500 MG/5 ML VIAL (BRIDION) As Ordered ONE (06:49)
[2022-05-24] MEDS ORDERED: LIDOCAINE 2% 100MG/5ML SDV (FOR ANES.) As Ordered ONE (06:49)
[2022-05-24] MEDS ORDERED: ROCURONIUM BROMIDE 50MG/5ML VIAL As Ordered ONE (06:49)
[2022-05-24] MEDS ORDERED: ONDANSETRON 4MG 2ML VIAL As Ordered ONE (06:49)
[2022-05-24] MEDS ORDERED: THROMBIN 5,000 UNITS VIAL As Ordered ONE (07:15)
[2022-05-24] MEDS ORDERED: CETACAINE SPRAY 5GM As Ordered ONE (07:15)
[2022-05-24] MEDS ORDERED: EPINEPHrine 1MG/10ML SYRINGE 1.5IN As Ordered ONE (07:16)
[2022-05-24] MEDS ORDERED: ePHEDrine SULFATE 25 MG/5 ML(5MG/ML) SYRINGE As Ordered ONE (08:12)
[2022-05-24] MEDS ORDERED: KETOROLAC 60MG 2ML VIAL As Ordered ONE (08:19)
[2022-05-24] MEDS ORDERED: HYDROMORPHONE HCL 0.5 MG/ 0.5 ML SYRINGE IV PRN (08:25)
[2022-05-24] MEDS ORDERED: oxyCODONE 5MG TAB PO PRN (08:25)
[2022-05-24] MEDS ORDERED: fentaNYL 100 MCG/2 ML INJECTION IV PRN (08:25)
[2022-05-24] MEDS ORDERED: ONDANSETRON 4MG 2ML VIAL IV PRN (08:25)
[2022-05-24 09:55] VITALS: BP 115/73
== END 2022-05-24 09:06 | disposition home or self-care (01) ==
LOC: M SDC 06:08
PROVIDERS: ATTEND Internal Medicine Critical Care Medicine
DX: R91.8 Other nonspecific abnormal finding of lung field (principal); R59.0 Localized enlarged lymph nodes; J45.909 Unspecified asthma, uncomplicated; F17.210 Nicotine dependence, cigarettes, uncomplicated; Z88.0 Allergy status to penicillin; Z86.73 Personal history of transient ischemic attack (TIA), and cerebral infarction without residual deficits; Z79.51 Long term (current) use of inhaled steroids; Z79.899 Other long term (current) drug therapy
CPT/HCPCS: 31622; 31653; 71045; 88173; 88305; 93005; J1100; J2250; J2405; J3010

== ENCOUNTER → 2022-08-21 | Outpatient (CLI) | payer OTHER ==
[~2022-08-21] MED LIST changes: -ALBUTEROL SULFATE 2.5MG/0.5ML INH NEB SOLN INH ONE; -LIDOCAINE PRES-FREE 2% 10ML AMP INH ONE
== END ==
LOC: M RAD 06:53
PROVIDERS: ATTEND Internal Medicine Critical Care Medicine
DX: R91.1 Solitary pulmonary nodule (principal)

== ENCOUNTER → 2022-09-22 | Outpatient (CLI) | payer OTHER ==
[~2022-09-22] MED LIST changes: +ACET1TAB55 PO; +ASPI81TA26 PO; +SILD50TA PO; +SUMA25TA3 PO
[2022-09-22 10:11] LABS: INR 0.94; PROTHROMBIN TIME 12.8 SECONDS (12.5-14.5)
== END ==
LOC: M LAB 09:16
PROVIDERS: ATTEND Internal Medicine Critical Care Medicine
DX: R91.8 Other nonspecific abnormal finding of lung field (principal)

== ENCOUNTER → 2022-09-25 | Outpatient (CLI) | payer OTHER ==
[~2022-09-25] MED LIST changes: +ACETAMINOPHEN 325 MG TAB As Ordered ONE; +ACETAMINOPHEN TAB 650MG DOSE (2X325MG) PO PRN; +HOME MED LIST COMPLETE! XX SCH; +LIDOCAINE 1% MDV 20ML VIAL As Ordered ONE
[2022-09-25 08:00] VITALS: TEMP 97.5
[2022-09-25 08:49] LABS: PLATELET COUNT, AUTOMATED 275 10^3/uL (150-450)
[2022-09-25 11:00] VITALS: BP 136/62
[2022-09-25 11:25] VITALS: O2SAT 99
== END ==
LOC: M IRPRO 07:54
PROVIDERS: ATTEND Internal Medicine Critical Care Medicine
DX: R91.8 Other nonspecific abnormal finding of lung field (principal); J95.811 Postprocedural pneumothorax

== ENCOUNTER 2022-09-26 00:33 | Inpatient (IN) | payer OTHER ==
[~2022-09-26] VITALS: Ht 177.8 cm; Wt 75.5 kg
[2022-09-26] VITALS (10 sets, daily range): BP systolic 128–149; BP diastolic 60–78; TEMP 97.6–98.7; O2SAT 93–99
[~2022-09-26 00:33] MED LIST changes: -ACET1TAB55 PO; -ACETAMINOPHEN 325 MG TAB As Ordered ONE; -ACETAMINOPHEN TAB 650MG DOSE (2X325MG) PO PRN; -HOME MED LIST COMPLETE! XX SCH; -LIDOCAINE 1% MDV 20ML VIAL As Ordered ONE
[2022-09-26] MEDS ORDERED: ACETAMINOPHEN TAB 650MG DOSE (2X325MG) PO PRN (01:00)
[2022-09-26] MEDS ORDERED: SUMAtriptan SUCCINATE 25 MG TAB PO PRN (01:00)
[2022-09-26] MEDS ORDERED: ALBUTEROL 90 MCG/ACT 8GM HFA INHALER INH PRN (01:00)
[2022-09-26] MEDS ORDERED: HOME MED LIST COMPLETE! XX SCH (04:00)
[2022-09-26 05:04] LABS: HEMATOCRIT 41.4 % (42.0-52.0); MEAN CORPUSCULAR HEMOGLOBIN 31.6 pg (27.0-33.0); MEAN CORPUSCULAR HGB CONC 33.8 g/dl (32.0-36.5); MEAN CORPUSCULAR VOLUME 93.5 fl (80.0-96.0); PLATELET COUNT, AUTOMATED 236 10^3/uL (150-450); RED BLOOD COUNT 4.43 10^6/uL (4.30-6.10); WHITE BLOOD COUNT 7.7 10^3/uL (4.0-10.0)
[2022-09-26 05:21] LABS: INR 0.91; PROTHROMBIN TIME 12.5 SECONDS (12.5-14.5)
[2022-09-26 05:54] LABS: ALBUMIN 3.4 G/DL (3.2-5.2); ALKALINE PHOSPHATASE 54 U/L (46-116); ALT/SGPT 23 U/L (7.0-40); AST/SGOT 16 U/L (<34); BILIRUBIN,TOTAL 0.5 MG/DL (0.3-1.2); BLOOD UREA NITROGEN 12 MG/DL (9-23); CALCIUM LEVEL 8.2 MG/DL (8.5-10.1); CARBON DIOXIDE LEVEL 30 MMOL/L (20-31); CHLORIDE LEVEL 105 MMOL/L (98-107); GLOMERULAR FILTRATION RATE > 60.0 (>60); GLUCOSE, FASTING 91 MG/DL (60-100); POTASSIUM SERUM 3.7 MMOL/L (3.5-5.1); SODIUM LEVEL 141 MMOL/L (136-145)
[2022-09-26] MEDS ORDERED: DIVALPROEX 500 MG TAB PO SCH (09:00)
[2022-09-26] MEDS ORDERED: OMEPRAZOLE 20MG CAP PO SCH (09:00)
[2022-09-26] MEDS ORDERED: METOPROLOL TART 12.5 MG PER 1/2 TAB PO SCH (09:00)
[2022-09-26] MEDS ORDERED: ACET1TAB55 PO (14:30)
[2022-09-26] MEDS ORDERED: ATORVASTATIN 20 MG TAB PO SCH (21:00)
[2022-09-27] MEDS ORDERED: ASPIRIN 81MG ENTERIC TABLET PO SCH (09:00)
[2022-09-27] MEDS ORDERED: ENOXAPARIN 40MG/0.4ML SYRINGE (J1650 PER 10MG) SC SCH (09:00)
== END 2022-09-26 15:46 | disposition home or self-care (01) | DRG 143 ==
LOC: M ICU 02:37
PROVIDERS: ADMIT Internal Medicine; ATTEND Family Medicine
DX: J93.9 Pneumothorax, unspecified (principal); R91.8 Other nonspecific abnormal finding of lung field; F17.200 Nicotine dependence, unspecified, uncomplicated; Z88.0 Allergy status to penicillin; Z79.899 Other long term (current) drug therapy; Z79.82 Long term (current) use of aspirin; I48.91 Unspecified atrial fibrillation; F41.9 Anxiety disorder, unspecified; F32.A Depression, unspecified; K21.9 Gastro-esophageal reflux disease without esophagitis; M19.90 Unspecified osteoarthritis, unspecified site; J45.909 Unspecified asthma, uncomplicated; I69.998 Other sequelae following unspecified cerebrovascular disease; H54.40 Blindness, one eye, unspecified eye

== ENCOUNTER → 2022-09-28 | Outpatient (CLI) | payer OTHER ==
[~2022-09-28] MED LIST changes: +ACET1TAB55 PO
== END ==
LOC: M RAD 11:46
PROVIDERS: ATTEND Family Medicine
DX: J93.9 Pneumothorax, unspecified (principal)

== ENCOUNTER → 2022-09-30 | Outpatient (CLI) | payer OTHER ==
[2022-09-30 11:24] LABS: C REACTIVE PROTEIN QUANTITATIV < 0.40 MG/DL (<1.0)
[2022-09-30 11:27] LABS: THYROID STIMULATING HORMONE 2.082 uIU/ML (0.55-4.78)
[2022-09-30 11:28] LABS: FREE T4 1.02 NG/DL (0.89-1.76)
== END ==
LOC: M LAB 10:23
PROVIDERS: ATTEND Internal Medicine Critical Care Medicine
DX: B99.9 Unspecified infectious disease (principal)

== ENCOUNTER → 2022-10-03 | Outpatient (CLI) | payer OTHER | LOC: M CARPUL 08:36 | PROVIDERS: ATTEND Internal Medicine Critical Care Medicine | DX: F17.218 Nicotine dependence, cigarettes, with other nicotine-induced disorders (principal) ==

== ENCOUNTER → 2022-11-10 | Outpatient (CLI) | payer OTHER | LOC: M PLAIMG 11:07 | PROVIDERS: ATTEND Internal Medicine Critical Care Medicine | DX: J93.9 Pneumothorax, unspecified (principal) ==

== ENCOUNTER → 2023-05-15 | Outpatient (CLI) | payer MEDICARE, OTHER | LOC: M SLEEP HO 09:02 | PROVIDERS: ATTEND Internal Medicine Critical Care Medicine | DX: G47.33 Obstructive sleep apnea (adult) (pediatric) (principal) ==

== ENCOUNTER → 2023-12-29 | Outpatient (CLI) | payer MEDICARE, MEDICAID ==
[~2023-12-29] MED LIST changes: +DOXY-323 PO; -DOXY-443 PO
== END ==
LOC: M SLEEP 20:00
PROVIDERS: ATTEND Internal Medicine Critical Care Medicine
DX: G47.33 Obstructive sleep apnea (adult) (pediatric) (principal)

== ENCOUNTER → 2024-01-09 | Outpatient (CLI) | payer OTHER ==
[~2024-01-09] MED LIST changes: -DOXY-323 PO; +DOXY-441 PO
== END ==
LOC: M PLAIMG 13:17
PROVIDERS: ATTEND Internal Medicine Critical Care Medicine
DX: R91.8 Other nonspecific abnormal finding of lung field (principal)

== ENCOUNTER → 2024-02-07 | Outpatient (CLI) | payer MEDICARE, OTHER | LOC: M PLAIMG 13:25 | PROVIDERS: ATTEND Physician Assistant | DX: J32.8 Other chronic sinusitis (principal) ==

== ENCOUNTER → 2024-08-14 | Outpatient (REF) | payer MEDICARE, OTHER ==
[2024-08-14 18:08] LABS: APPEARANCE, URINE CLEAR (CLEAR); BACTERIA, URINE AUTO NEGATIVE (NEGATIVE); BILIRUBIN, URINE AUTO NEGATIVE (NEGATIVE); BLOOD, URINE BLOOD 1+ (NEGATIVE); COLOR, URINE YELLOW (YELLOW); GLUCOSE, URINE (UA) AUTO NEGATIVE (NEGATIVE); KETONE, URINE AUTO NEGATIVE (NEGATIVE); LEUKOCYTE ESTERASE, URINE AUTO NEGATIVE (NEGATIVE); MUCUS, URINE SMALL (NEGATIVE); NITRITE, URINE AUTO NEGATIVE (NEGATIVE); PROTEIN, URINE AUTO NEGATIVE (NEGATIVE); RBC, URINE AUTO 3 /HPF (0-3); SPECIFIC GRAVITY URINE AUTO 1.011 (1.002-1.035); SQUAMOUS EPITHELIAL CELL UR AU 0 /HPF (0-6); UROBILINOGEN, URINE AUTO 0.2 mg/dL (0.0-2.0); WBC, URINE AUTO 0 /HPF (0-3)
== END ==
LOC: M SMT 16:56
PROVIDERS: ATTEND Nurse Practitioner Family
DX: R35.0 Frequency of micturition (principal)

== ENCOUNTER → 2025-01-29 | Outpatient (CLI) | payer MEDICARE ==
[~2025-01-29] MED LIST changes: +DIVA-41 PO; -DIVA500T94 PO; -PROZ20CA11 PO; +PROZ20CA12 PO
== END ==
LOC: M PLAIMG 13:00
PROVIDERS: ATTEND Internal Medicine Critical Care Medicine
DX: R91.8 Other nonspecific abnormal finding of lung field (principal)